=== PATIENT | female | born 1940 | race Caucasian/White ===

== ENCOUNTER 2017-12-09 10:57 | Inpatient (IN) | payer MEDICARE, OTHER, SELFPAY ==
[2017-12-09] VITALS (12 sets, daily range): BP systolic 110–177; BP diastolic 56–100; PULSE 50–83; RESP 17–24; TEMP 36.9–37.2; O2SAT 95–99; BMI 27.3; BMI 26.9; BMI 27.0
--- NOTE | 2017-12-09 11:24 | CT_ITS ---
STUDY: CT BRAIN WITHOUT CONTRAST REASON FOR EXAM: Female, 77 years old. Dizzy RADIATION DOSAGE (If Supplied By Facility): CTDIvol = ( 44.99 ) mGy, DLP = ( 779.24 ) mGycm TECHNIQUE: Transaxial CT imaging of the brain was performed without administration of intravenous contrast material. Sagittal and coronal images reformatted. Individualized dose optimization techniques were used for this CT. COMPARISON: None. FINDINGS: Normal soft tissue structures. Normal calvarium. Normal size ventricles and extra-axial spaces for the patient's age. Normal white matter tracts of the cerebral hemispheres. Normal basal ganglia and thalami. Normal brainstem. Normal cerebellum. There is no intracranial hemorrhage. There are no findings of an acute ischemic infarction. Normal visualized paranasal sinuses. CT/Brain/Head without Contrast IMPRESSION: No acute intracranial process. Mild age-appropriate atrophy. Electronically Signed: Gabo Coffey DO at 12:11 EST , Service support ,
--- NOTE | 2017-12-09 11:24 | EKG12_ITS ---
Test Reason : DIZZINESS Blood Pressure : / mmHG Vent. Rate : 052 BPM Atrial Rate : 052 BPM P-R Int : 132 ms QRS Dur : 080 ms QT Int : 420 ms P-R-T Axes : 033 007 020 degrees QTc Int : 390 ms Sinus bradycardia with Premature atrial complexes Otherwise normal ECG Confirmed by ESTELITA SHANKS, LETTY ([id number]), legal editor LUCINA BAÑUELOS ([id number] on 12/12/2017 10:38:03 AM Referred By: JOANN Confirmed By:LETTY CAPONE MD
[2017-12-09] MEDS: 0.9% Normal Saline 1,000 ML 150 ML IV (11:39)
[2017-12-09] MEDS: Meclizine 12.5 MG Tablet 25 MG PO (11:39)
[2017-12-09 11:43] LABS: Absolute Lymphocyte Count 1.88 X10^3/ul (0.83-4.51); Absolute Neutrophil Count 2.4 X10^3/uL (2.0-7.7); Basophil# 0.01 X10^3/uL; Basophil% 0.2 % (0-1); Eosinophils% 2.1 % (0-5); Hematocrit 41.4 % (37-47); Hemoglobin 13.4 g/dl (12.0-15.0); Lymphocyte # 1.88 X10^3/ul (4.0); Lymphocyte % 38.6 % (19-41); Mean Corp Hgb Conc 32.4 g/gl (32-36); Mean Corpuscular Hgb 25.8 pg (27.0-32.0); Mean Corpuscular Volume 79.6 fL (81-99); Mean Platelet Vol. 10.1 fl (6.2-12.0); Monocyte# 0.47 X10^3/uL; Monocyte% 9.7 % (0-10); Neutrophil # 2.41 X10^3/uL (2.7-7.7); Neutrophil % 49.4 % (47-70); POSITIVE COUNT NO; POSITIVE DIFFERENTIAL NO; POSITIVE MORPHOLOGY NO; Platelet Count 226 K/mm3 (150-450); RBC Distribution Width CV 14.4 % (11.6-14.6); RBC Distribution Width SD 41.9 fl (35.1-43.9); White Blood Count 4.9 K/mm3 (4.4-11.0)
[2017-12-09 12:06] LABS: Anion Gap 8 (5-15); BUN 11 mg/dL (7-18); BUN/Creat Ratio 12.5 RATIO (10-20); Calcium,Total 8.8 mg/dL (8.5-10.1); Chloride 106 mmol/L (98-107); Creatinine, Serum 0.88 mg/dL (0.55-1.02); EST Glomerular Filtration Rate 66 mL/min (>60); Est Glom Filt Rate - Afr Amer 80 mL/min (>60); Estimated Creatinine Clearance 43.58 ml/min; Glucose 97 mg/dL (70-110); Sodium Level 142 mmol/L (136-145)
[2017-12-09 12:15] LABS: Bacteria 0 SEEN /hpf (None Seen); Mucous, Urine 0 SEEN /hpf (<or=2+); Red Blood Cells-Urine 0 SEEN /hpf (0-5)
[2017-12-09 12:21] LABS: Color, Urine Yellow (Yellow); Glucose, Dipstick Normal (Normal); Ketone-Dipstick Negative (Negative); Leukocyte Esterase-Dipstick 25 /ul (Negative); Nitrite-Dipstick Negative (Negative); Occult Blood-Urine Negative /ul (Negative); Protein-Dipstick Negative (Negative); Specific Gravity, Urine 1.015 (1.002-1.030); Urine Bilirubin Dipstick Negative (Negative); Urine Clarity Clear (Clear); Urine Urobilinogen Normal (Normal)
--- NOTE | 2017-12-09 12:27 | ED.VISSUMM ---
- ER Visit Summary Date of Service: 12/09/17 Chief Complaint: [Dizziness] History of Present Illness: The patient is a 77 F [presents to the emergency department with complaint of dizziness and feeling off balance. Patient states that her symptoms started initially a week ago she had a brief episode that resolved relatively quickly. Yesterday she had another episode she states after getting out of a vehicle but then when she sat back down in the vehicle her symptoms resolved. This morning the patient again complains of a spinning sensation when standing and trying to walk and feeling very off balance. Patient denies any falls or head injuries. She denies any recent illness. Patient denies a headache.] Patient states at rest does not have much in the way of symptoms. Physical Examination: [Blood pressure 160/92, temp 97, heart rate 62, respiratory rate 17, pulse ox 90% on room air. HEENT-PERRLA, EOMI. Cranial nerves II through XII grossly intact. TMs clear. Mucous membranes moist. No adenopathy. Cardiovascular-regular rate and rhythm without murmur or ectopy Lungs-clear to auscultation, chest wall stable without crepitus or subcu emphysema Abdomen-normoactive bowel sounds, soft, nontender, no rebound or rigidity, no peritoneal signs. Neuro [id number] and heel marquez testing within normal limits, negative Romberg, negative pronator drift, fundi benign Extremities-intact ?4, normal range of motion, normal pulses, atraumatic] Test Results: [CT scan of the brain without contrast showed chronic involutional changes otherwise nothing acute. CBC with it was normal. Chemistries were normal. Orthostatics were negative. EKG showed a sinus rhythm with a ventricular rate of 52 bpm with occasional PACs.] Emergency Department Course and Treatment: [Patient received Antivert 25 mg p.o. Patient continues to complain of dizziness when standing and trying to walk she needs assistance to the restroom.] Treatment Plan: [Admit for further workup and evaluation of her dizziness and disequilibrium] Disposition: Admit [] Impression: [Dizziness-etiology uncertain Difficulty walking] This note was generated with [employer] dictation software. It may contain incorrect words, spelling, and punctuation that were not noted in review of the chart prior to signing ED Disposition - Plan for ED Patient: Chief Complaint: Dizziness Referrals: Ana Mcdonald MD [Primary Care Provider] -
[2017-12-09 12:38] LABS: Squamous Epithelial Cells - UA 0-5 SEEN /hpf (5-10); White Blood Cells 0-5 SEEN /hpf (0-5)
[2017-12-09 12:39] LABS: Amorphous Sediment 2+
--- NOTE | 2017-12-09 13:11 | PCM.HP.STD ---
Problem List (1) Vertigo Status: Acute (2) Hypertension Status: Chronic (3) Dyslipidemia Status: Chronic (4) Transient global amnesia Status: Chronic (5) Arthropathy of left hip Status: Acute History of Present Illness Date of Admission: 12/09/17 Chief Complaint: vertigo The patient is a 77 year old F acute onset of dizziness. It is worse when patient changes position. Patient states that she is not able to stand up or change position without having severe dizziness. Patient states that she has had this before as recently as yesterday but it waxes and wanes and resolve spontaneously but patient has endorse that she has had falls with this about every other month. Patient states that she has not sought treatment for this. Patient in the emergency room, had a head CT showed no acute process. Patient did receive meclizine but is still having the dizziness now. 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 Smoking Status: Never smoker Tobacco Use: Non-smoker Alcohol: None Drugs: None - *Family History Maternal History Items: Heart Disease Paternal History Items: Heart Disease Review of Systems Constitutional: Denies: Chills, Fever, Weight Change Eyes: Denies: Blurred vision, Double vision HEENT: Denies: Head Aches, Sinus Congestion, Sinus Drainage Cardiovascular: Denies: Chest Pain, Palpitations Respiratory: Denies: Cough, Shortness of breath at rest, Sputum production Gastrointestinal: Denies: Abdominal Pain, Nausea, Vomiting Genitourinary: Denies: Dysuria Musculoskeletal: Denies: Joint Pain, Joint Tenderness Skin: Denies: Rash, Wounds Neurological: Denies: Numbness, Tingling, Focal weakness Psychiatric: Denies: Anxiety, Depression, Homicidal Ideations, Suicidal Ideations Hematologic/ Lymphatic: Denies: Easy Bruising, Easy Bleeding, Hx of blood clot VTE Information - Inpt Only VTE Present on Admission: No VTE Pharm Prophylaxis ordered?: Yes Patient Problems: Active and Suspected Problems Vertigo (Acute) - Physical Exam General: Alert, Cooperative, No apparent distress HEENT: Atraumatic, PERRLA, EOMI, Normocephalic Oral: Moist Mucosa, No Gingival or Mucosal Lesions/ Ulcerations Neck: Negative Hepatojugular Reflux, No Nodes, Thyroid Normal Size and Texture Lungs: Clear to auscultation, Normal air movement, No rhonchi, No wheeze Cardiovascular: Regular rate, Regular Rhythm, Normal S1, Normal S2, No murmurs Abdomen: Bowel Sounds Present, Soft, Non Tender, Non-Distended, No Hepato-splenomegaly Extremities: No edema, No Calf Tenderness Skin: No rashes, No breakdown Musculoskeletal: No Tenderness to Palpation of Joints or Extremities, No Muscle Wasting Neurological: Cranial nerves II-XII grossly intact, Neuro grossly intact, Motor Exam 5/5 strength throughout Psych/Mental Status: Normal Affect, Appropriate Vital Signs Temp Pulse Resp BP Pulse Ox 37.2 C 53 L 18 169/83 H 99 12/09/17 10:58 12/09/17 13:05 12/09/17 13:05 12/09/17 13:05 12/09/17 13:05 Oxygen Delivery Method Room Air Weight: 70.1 kg Body Mass Index (BMI) 27.3 Laboratory Tests Past 24 Hrs 12/09/17 12/09/17 12/09/17 11:35 11:35 12:00 WBC 4.9 RBC 5.20 Hgb 13.4 Hct 41.4 MCV 79.6 L MCH 25.8 L MCHC 32.4 RDW 14.4 RDW Differential 41.9 Plt Count 226 MPV 10.1 Immature Gran % (Auto) 0.000 Neut % (Auto) 49.4 Lymph % (Auto) 38.6 Sandoval % (Auto) 9.7 Eos % (Auto) 2.1 Baso % (Auto) 0.2 Absolute Neuts (auto) 2.4 Absolute Lymphs (auto) 1.88 Total Counted Not Reportable Sodium 142 Potassium 4.0 Chloride 106 Carbon Dioxide 28.0 Anion Gap 8 BUN 11 Creatinine 0.88 Estim Creat Clear Calc 43.58 Est GFR (MDRD) Af Amer 80 Est GFR (MDRD) Non-Af 66 BUN/Creatinine Ratio 12.5 Glucose 97 Calcium 8.8 Troponin I < 0.02 Urine Color Yellow Urine Clarity Clear Urine pH 8.0 Ur Specific [place] 1.015 Urine Protein Negative Urine Glucose (UA) Normal Urine Ketones Negative Urine Occult Blood Negative Urine Nitrite Negative Urine Bilirubin Negative Urine Urobilinogen Normal Ur Leukocyte Esterase 25 H Urine RBC 0 SEEN Urine WBC 0-5 SEEN Ur Squamous Epith Cells 0-5 SEEN Amorphous Sediment 2+ Urine Bacteria 0 SEEN Urine Mucus 0 SEEN EKG reviewed and showed normal sinus rhythm without any acute changes. Clinical Impression(s) from Imaging Studies Brain CT 12/09/17 11:24 IMPRESSION: No acute intracranial process. Mild age-appropriate atrophy. Electronically Signed: Gabo Coffey DO at 12:11 EST , Service support , Assessment/Plan Active and Suspected Problems Vertigo (Acute) 1. Vertigo I suspect that this is more BPPV then a posterior circulation stroke. But given its relative frequency for this patient has not been fully evaluated patient has had falls I think it prudent to rule out a stroke. Patient have an MRI of the brain, MRA of the head neck and an echocardiogram. The emergency room was concern about posterior circulation stroke but the patient will receive meclizine. Patient's NIH is 0. I will start the patient on aspirin empirically. 2. Hypertension Patient never been diagnosed with hypertension but her blood pressures been in the 170s-190s since she has been in the emergency room. Given the potential for stroke, will not aggressively treat unless his systolic exceeds over 180. 3. Suspected asthma Patient states that she gets short of breath when she is exposed to smoke. Patient has a listed allergy but it sounds like it is more of a bronchial provocation. Patient may benefit from as needed albuterol. 4 DVT prophylaxis with low migrate heparin. Discussed with patient's daughter at bedside. Code Visit Inpatient E&M: 19211 Init Hosp L3
--- NOTE | 2017-12-09 13:16 | HP.PCM_ITS ---
Problem List (1) Vertigo Status: Acute (2) Hypertension Status: Chronic (3) Dyslipidemia Status: Chronic (4) Transient global amnesia Status: Chronic (5) Arthropathy of left hip Status: Acute History of Present Illness Date of Admission: 12/09/17 Chief Complaint: vertigo The patient is a 77 year old F acute onset of dizziness. It is worse when patient changes position. Patient states that she is not able to stand up or change position without having severe dizziness. Patient states that she has had this before as recently as yesterday but it waxes and wanes and resolve spontaneously but patient has endorse that she has had falls with this about every other month. Patient states that she has not sought treatment for this. Patient in the emergency room, had a head CT showed no acute process. Patient did receive meclizine but is still having the dizziness now. [] Past Medical History Past Medical History (Chronic Problems): Chronic Problems Dyslipidemia (Chronic) Transient global amnesia (Chronic) Hypertension (Chronic) Allergies cigarette smoke Allergy (Verified 12/09/17 10:58) AIRWAY TIGHTNESS mepivacaine Allergy (Verified 12/09/17 10:58) AMNESIA Penicillins Allergy (Verified 12/09/17 10:58) Unknown procainamide Allergy (Verified 12/09/17 10:58) Unknown Home Medications: Ambulatory Orders Medication Instructions Recorded NK [NK] 12/09/17 Surgical History: total hip arthroplasty, - - facial surgery Psychiatric History: No pertinent psych hx BAG CHECKER History: No pertinent BAG CHECKER history Smoking Status: Never smoker Tobacco Use: Non-smoker Alcohol: None Drugs: None - *Family History Maternal History Items: Heart Disease Paternal History Items: Heart Disease Review of Systems Constitutional: Denies: Chills, Fever, Weight Change Eyes: Denies: Blurred vision, Double vision HEENT: Denies: Head Aches, Sinus Congestion, Sinus Drainage Cardiovascular: Denies: Chest Pain, Palpitations Respiratory: Denies: Cough, Shortness of breath at rest, Sputum production Gastrointestinal: Denies: Abdominal Pain, Nausea, Vomiting Genitourinary: Denies: Dysuria Musculoskeletal: Denies: Joint Pain, Joint Tenderness Skin: Denies: Rash, Wounds Neurological: Denies: Numbness, Tingling, Focal weakness Psychiatric: Denies: Anxiety, Depression, Homicidal Ideations, Suicidal Ideations Hematologic/ Lymphatic: Denies: Easy Bruising, Easy Bleeding, Hx of blood clot VTE Information - Inpt Only VTE Present on Admission: No VTE Pharm Prophylaxis ordered?: Yes Patient Problems: Active and Suspected Problems Vertigo (Acute) - Physical Exam General: Alert, Cooperative, No apparent distress HEENT: Atraumatic, PERRLA, EOMI, Normocephalic Oral: Moist Mucosa, No Gingival or Mucosal Lesions/ Ulcerations Neck: Negative Hepatojugular Reflux, No Nodes, Thyroid Normal Size and Texture Lungs: Clear to auscultation, Normal air movement, No rhonchi, No wheeze Cardiovascular: Regular rate, Regular Rhythm, Normal S1, Normal S2, No murmurs Abdomen: Bowel Sounds Present, Soft, Non Tender, Non-Distended, No Hepato- splenomegaly Extremities: No edema, No Calf Tenderness Skin: No rashes, No breakdown Musculoskeletal: No Tenderness to Palpation of Joints or Extremities, No Muscle Wasting Neurological: Cranial nerves II-XII grossly intact, Neuro grossly intact, Motor Exam 5/5 strength throughout Psych/Mental Status: Normal Affect, Appropriate Vital Signs Temp Pulse Resp BP Pulse Ox 37.2 C 53 L 18 169/83 H 99 12/09/17 10:58 12/09/17 13:05 12/09/17 13:05 12/09/17 13:05 12/09/17 13:05 Oxygen Delivery Method Room Air Weight: 70.1 kg Body Mass Index (BMI) 27.3 Laboratory Tests Past 24 Hrs 12/09/17 12/09/17 12/09/17 11:35 11:35 12:00 WBC 4.9 RBC 5.20 Hgb 13.4 Hct 41.4 MCV 79.6 L MCH 25.8 L MCHC 32.4 RDW 14.4 RDW Differential 41.9 Plt Count 226 MPV 10.1 Immature Gran % (Auto) 0.000 Neut % (Auto) 49.4 Lymph % (Auto) 38.6 Nicholas % (Auto) 9.7 Eos % (Auto) 2.1 Baso % (Auto) 0.2 Absolute Neuts (auto) 2.4 Absolute Lymphs (auto) 1.88 Total Counted Not Reportable Sodium 142 Potassium 4.0 Chloride 106 Carbon Dioxide 28.0 Anion Gap 8 BUN 11 Creatinine 0.88 Estim Creat Clear Calc 43.58 Est GFR (MDRD) Af Amer 80 Est GFR (MDRD) Non-Af 66 BUN/Creatinine Ratio 12.5 Glucose 97 Calcium 8.8 Troponin I < 0.02 Urine Color Yellow Urine Clarity Clear Urine pH 8.0 Ur Specific [place] 1.015 Urine Protein Negative Urine Glucose (UA) Normal Urine Ketones Negative Urine Occult Blood Negative Urine Nitrite Negative Urine Bilirubin Negative Urine Urobilinogen Normal Ur Leukocyte Esterase 25 H Urine RBC 0 SEEN Urine WBC 0-5 SEEN Ur Squamous Epith Cells 0-5 SEEN Amorphous Sediment 2+ Urine Bacteria 0 SEEN Urine Mucus 0 SEEN EKG reviewed and showed normal sinus rhythm without any acute changes. Clinical Impression(s) from Imaging Studies Brain CT 12/09/17 11:24 IMPRESSION: No acute intracranial process. Mild age-appropriate atrophy. Electronically Signed: Gabo Coffey DO at 12:11 EST , Service support , Assessment/Plan Active and Suspected Problems Vertigo (Acute) 1. Vertigo I suspect that this is more BPPV then a posterior circulation stroke. But given its relative frequency for this patient has not been fully evaluated patient has had falls I think it prudent to rule out a stroke. Patient have an MRI of the brain, MRA of the head neck and an echocardiogram. The emergency room was concern about posterior circulation stroke but the patient will receive meclizine. Patient's NIH is 0. I will start the patient on aspirin empirically. 2. Hypertension Patient never been diagnosed with hypertension but her blood pressures been in the 170s-190s since she has been in the emergency room. Given the potential for stroke, will not aggressively treat unless his systolic exceeds over 180. 3. Suspected asthma Patient states that she gets short of breath when she is exposed to smoke. Patient has a listed allergy but it sounds like it is more of a bronchial provocation. Patient may benefit from as needed albuterol. 4 DVT prophylaxis with low migrate heparin. Discussed with patient's daughter at bedside. Code Visit Inpatient E&M: 80635 Init Hosp L3
--- NOTE | 2017-12-09 14:39 | MRI_ITS ---
STUDY: MRA NECK WITH AND WITHOUT CONTRAST REASON FOR EXAM: Female, 77 years old. Vertigo that started yesterday. TECHNIQUE: 3-D [id number] (TOF) imaging was performed in an 1.5 T MRI scanner. 7 ml of Gadavist was administered for the contrast enhanced images. Several images are limited by patient motion. COMPARISON: None. FINDINGS: RIGHT CAROTID ARTERIES: Normal right common carotid artery (CCA). There is mild atherosclerotic plaque formation with minimal narrowing of the right carotid bulb. Normal origin of the right internal carotid (ICA) artery without a hemodynamically significant stenosis. Normal visualized cervical portion of the right internal carotid artery. Normal origin of the right external carotid artery (ECA). LEFT CAROTID ARTERIES: Normal left common carotid artery (CCA). There is mild atherosclerotic plaque formation with minimal narrowing of the left carotid bulb. Normal origin of the left internal carotid (ICA) artery without a hemodynamically significant stenosis. Normal visualized cervical portion of the left internal carotid artery. Normal origin of the left external carotid artery (ECA). VERTEBRAL ARTERIES: Normal antegrade flow within the bilateral vertebral artery without a hemodynamically significant stenosis. MRI/MRA Neck WITH and W/O Contrast IMPRESSION: No MRA evidence for hemodynamically significant stenosis. Electronically Signed: Caroline Ferro MD at 11:13 EST , Service support ,
[2017-12-09] MEDS: Aspirin 325 MG Tablet PO (17:31)
[2017-12-10] VITALS (7 sets, daily range): BP systolic 105–157; BP diastolic 60–83; PULSE 50–86; RESP 16–18; TEMP 36.6–37.1; O2SAT 95–98; BMI 26.9
[2017-12-10 06:32] LABS: Cholesterol 233 mg/dL (200); High Density Lipoprotein 65 mg/dL; Triglycerides 93 mg/dL; Very Low Density Lipoprotein 19 mg/dL (5-40)
[2017-12-10] MEDS: Aspirin 81 MG TAB.CHEW PO (07:49)
[2017-12-10] MEDS: Enoxaparin 40 MG/0.4 ML Syringe SC (07:49)
--- NOTE | 2017-12-10 10:00 | PCM.PN.HOSP ---
Patient Problems: Active and Suspected Problems Vertigo (Acute) Subjective: Still with vertigo but much improved. Patient states she has been able to get up to go to the bathroom but does have to hold onto the valle slightly. Vitals/I&O's: Vital Signs Temp Pulse Resp BP Pulse Ox 36.9 C 60 18 157/83 H 98 12/10/17 07:35 12/10/17 07:40 12/10/17 07:40 12/10/17 07:35 12/10/17 07:40 Oxygen Delivery Method Room Air Weight: 69.1 kg Body Mass Index (BMI) 26.9 Intake and Output for Last 24 Hours 12/08/17 12/09/17 12/10/17 23:59 23:59 23:59 Intake Total 840 / 840 240 / 240 Balance 840 / 840 240 / 240 General: Alert, No apparent distress HEENT: Atraumatic, Normocephalic Neck: No Nodes, Thyroid Normal Size and Texture Lungs: Clear to auscultation, Normal air movement, No rhonchi, No wheeze Cardiovascular: Regular rate, Regular Rhythm, Normal S1, Normal S2, No murmurs Abdomen: Bowel Sounds Present, Soft, Non Tender, Non-Distended, No Hepato-splenomegaly Extremities: No edema, No Calf Tenderness Psych/Mental Status: Normal Affect, Appropriate Laboratory Results 12/10/17 05:05: Triglycerides 93, Cholesterol 233 H, LDL Cholesterol 149 H, VLDL Cholesterol 19, HDL Cholesterol 65 Current Medications Acetaminophen (Tylenol) 650 mg PO Q4H PRN PRN PRN Reason: Headache/Temp>99F Acetaminophen (Tylenol) 650 mg RECTAL Q4H PRN PRN PRN Reason: Headache/Temp>99F Acetaminophen (Tylenol Liquid) 650 mg NG Q4H PRN PRN PRN Reason: Headache/Temp>99F Aspirin (Aspirin, Baby) 81 mg PO DAILY@0800 [facility] Last Admin: 12/10/17 07:49 Dose: 81 mg Enoxaparin Sodium (Lovenox) 40 mg SC DAILY@1000 [facility] Last Admin: 12/10/17 07:49 Dose: 40 mg Hydralazine HCl (Apresoline) 10 mg IV Q4H PRN PRN PRN Reason: sbp >180 Magnesium Hydroxide (Milk Of Magnesia) 30 ml PO DAILY PRN PRN Reason: Constipation Meclizine HCl (Antivert) 12.5 mg PO 4X/DAY PRN PRN PRN Reason: Vertigo Sodium Chloride () 5 - 30 ml IV UD PRN PRN Reason: SALINE FLUSH Assessment/Plan Active and Suspected Problems Vertigo (Acute) 1. Vertigo Improved I suspect that this is more BPPV then a posterior circulation stroke. But given its relative frequency for this patient has not been fully evaluated patient has had falls I think it prudent to rule out a stroke. Patient have an MRI of the brain, MRA of the head neck and an echocardiogram. The emergency room was concern about posterior circulation stroke but the patient will receive meclizine. Patient's NIH is 0. I will start the patient on aspirin empirically. 2. Hypertension Blood pressure is very labile going from the low 100s-170s last night. Continue to monitor for now patient never been diagnosed with hypertension but her blood pressures been in the 170s-190s since she has been in the emergency room. Given the potential for stroke, will not aggressively treat unless his systolic exceeds over 180. 3. Suspected asthma Patient states that she gets short of breath when she is exposed to smoke. Patient has a listed allergy but it sounds like it is more of a bronchial provocation. Patient may benefit from as needed albuterol. 4 DVT prophylaxis with low migrate heparin. Discussed with patient's daughter at bedside. Code Visit Inpatient E&M: 17830 Subs Hosp L2
--- NOTE | 2017-12-10 14:12 | PCM.DC ---
- Discharge Diagnoses Current Active Problems: Current Active and Chronic Problems Vertigo (Acute) Hypertension (Chronic) You will use the following diet at home:: No restrictions Your food should be the consistency of: Regular Discharge Activity: Return to Normal Activity Call your doctor if you observe: - - worsening dizziness Allergies/Adverse Reactions: Allergies cigarette smoke Allergy (Verified 12/09/17 10:58) AIRWAY TIGHTNESS mepivacaine Allergy (Verified 12/09/17 10:58) AMNESIA Penicillins Allergy (Verified 12/09/17 10:58) Unknown procainamide Allergy (Verified 12/09/17 10:58) Unknown Medications to take at Discharge Calcium Carbonate [Tums] 2 tab DAILY PRN PRN 12/09/17 Albuterol Inhaler [Ventolin Hfa] 1 - 2 puff INHALATION Q4H PRN PRN #1 inhaler 12/10/17 Meclizine HCl [Antivert] 12.5 mg PO 4X/DAY PRN PRN #30 tab 12/10/17 The following prescriptions were given: Albuterol Inhaler [Ventolin Hfa] 1 - 2 puff INHALATION Q4H PRN PRN #1 inhaler PRN Reason: Shortness Of Breath Meclizine HCl [Antivert] 12.5 mg PO 4X/DAY PRN PRN #30 tab PRN Reason: Vertigo Orders to be completed after discharge: Physical Therapy Evaluation Time Frame: 1 Week, Location: None Selected Primary Care Physician: Ana Mcdonald MD [Primary Care Provider] - Within 2 Weeks Proposed Discharge Date: 12/10/17
--- NOTE | 2017-12-10 14:13 | PCM.DC.SUM ---
Discharge Date and Diagnosis - Problem List Patient Problems: Active and Suspected Problems Vertigo (Acute) Date of Admission: 12/09/17 Date of Discharge: 12/10/17 - Primary Discharge Diagnosis Active and Suspected Problems Vertigo (Acute) - Secondary Discharge Diagnosis Chronic Problems Dyslipidemia (Chronic) Transient global amnesia (Chronic) Hypertension (Chronic) Hospital Course and Treatment Imaging Results: 12/10/17 14:39 Brain W/WO Contrast [MRI] Stat MRA Head ONLY without Contrast [MRI] Stat Clinical Impression(s) from Imaging Studies Brain CT 12/09/17 11:24 IMPRESSION: No acute intracranial process. Mild age-appropriate atrophy. Electronically Signed: Gabo Coffey DO at 12:11 EST , Service support , Neck MRA 12/09/17 14:39 IMPRESSION: No MRA evidence for hemodynamically significant stenosis. Electronically Signed: Caroline Ferro MD at 11:13 EST , Service support , Brain MRI 12/10/17 14:39 IMPRESSION: 1. Involutional changes of the brain, as described above. 2. No MR evidence for acute infarct. Electronically Signed: Caroline Ferro MD at 13:17 EST , Service support , Head MRA 12/10/17 14:39 IMPRESSION: No MRA evidence for hemodynamically significant stenosis or aneurysm. Electronically Signed: Caroline Ferro MD at 11:16 EST , Service support , Operations: None, - - TURBT Procedures: None Summary of Care Provided: The patient is a 77 year old F José Miguel with acute onset of vertigo. Patient has had episodes like this in the past and this is more severe. Coyle to be peripheral but given the recurrent nature of it felt prudent to rule out a posterior circulation stroke. Patient was admitted and MRI was negative. No evidence of any strokes the patient will continue with meclizine as needed but patient advised that this will not include correct vertigo. Patient also advised to follow-up with his goal therapy for vestibular rehab. Patient states that she will do so and also given patient a prescription for albuterol. Patient sounds like she has at least reactive airway disease or asthma. Patient states that she gets short of breath whenever she is exposed to smoke or perfume. Also recommend patient follow-up with pulmonology to undergo further testing to see if he does have some underlying asthma. [] Discharge Diet: No Restrictions Discharge Activity: Return to Normal Activity Call your doctor if you observe: - - worsening dizziness Home Medications: Medications to take at Discharge Calcium Carbonate [Tums] 2 tab DAILY PRN PRN 12/09/17 Albuterol Inhaler [Ventolin Hfa] 1 - 2 puff INHALATION Q4H PRN PRN #1 inhaler 12/10/17 Meclizine HCl [Antivert] 12.5 mg PO 4X/DAY PRN PRN #30 tab 12/10/17 Following Prescrptions Were Given to Patient: Albuterol Inhaler [Ventolin Hfa] 1 - 2 puff INHALATION Q4H PRN PRN #1 inhaler PRN Reason: Shortness Of Breath Meclizine HCl [Antivert] 12.5 mg PO 4X/DAY PRN PRN #30 tab PRN Reason: Vertigo Other Amb Orders: Physical Therapy Evaluation Time Frame: 1 Week, Location: None Selected Primary Care Physician: Ana Mcdonald MD [Primary Care Provider] - Within 2 Weeks Disposition: Home Minutes spent on discharge:: 32 Patient Condition:: Good Meaningful Use Info Meaningful Use Diagnoses (Choose all that apply): None applicable Code Visit OBSV E&M: 89763 Observation care discharge
--- NOTE | 2017-12-10 14:39 | MRI_ITS ---
STUDY: MRI BRAIN WITH AND WITHOUT CONTRAST REASON FOR EXAM: Female, 77 years old. Vertigo starting yesterday. TECHNIQUE: Standardized multiplanar fat and water weighted pulse sequences were obtained. 7 ml of Gadavist contrast material was administered intravenously for the contrast portion of the examination. COMPARISON: CT of the head dated December 09, 2017. FINDINGS: There is mild cerebral atrophy with widening of the extra-axial spaces and ventricular dilatation. Normal white matter tracts of the supratentorial brain. There is no evidence for recent intracranial ischemia or other cause of cytotoxic edema on diffusion weighted imaging (DWI). Normal T2* images of the brain without demonstrated susceptibility artifact. There is no demonstrated hemosiderin stain. There are prominent perivascular spaces (PVS) involving the basal ganglia. Normal thalami. There is no extra-axial fluid accumulation. Normal flow voids within the major intracranial circulation suggesting patency by spin echo criteria. Normal venous enhancement. There is no enhancing intra-axial or extra-axial abnormality. Normal sella turcica, pituitary gland, infundibular stalk, optic chiasm and hypothalamus. Normal tectal plate and pineal gland. Normal midbrain, pamela and medulla. There are mild involutional changes of the cerebellum. There are large basal cisterns. Normal bilateral temporal bones. Normal bilateral internal auditory canals. No demonstrated orbital abnormality, within the constraints of a routine brain study. There is mucoperiosteal inflammatory disease of the paranasal sinuses consistent with mild chronic sinusitis. Normal calvarium and skull base. Normal visualized soft tissue structures. Normal visualized upper cervical spine. MRI/Brain W/WO Contrast IMPRESSION: 1. Involutional changes of the brain, as described above. 2. No MR evidence for acute infarct. Electronically Signed: Caroline Ferro MD at 13:17 EST , Service support ,
--- NOTE | 2017-12-10 14:39 | MRI_ITS ---
STUDY: MRA OF THE HEAD WITHOUT CONTRAST REASON FOR EXAM: Female, 77 years old. Vertigo starting yesterday. TECHNIQUE: 3-D [id number] (TOF) imaging was performed with MIPs. The study was performed unenhanced. COMPARISON: MRI the brain dated October 11 2012. FINDINGS: Normal bilateral petrous carotid arteries. There is elongation and tortuosity of the right cavernous carotid artery, without a demonstrated hemodynamically significant stenosis. There is elongation and tortuosity of the left cavernous carotid artery, without a demonstrated hemodynamically significant stenosis. Normal right A1 segments of the anterior cerebral artery. Normal left A1 segments of the anterior cerebral artery. Normal intact anterior communicating artery (ACOM). Normal bilateral A2 segments of the anterior cerebral arteries. There is irregularity of the right M1 and M2 branches with minimal luminal narrowing, suggesting atherosclerotic plaque formation, without an occlusion. There is irregularity of the left M1 and M2 branches with minimal luminal narrowing, suggesting atherosclerotic plaque formation, without an occlusion. There is non-visualization of the right posterior communicating artery (PCOM). There is non-visualization of the left posterior communicating artery (PCOM). Normal bilateral vertebral arteries. Normal basilar artery with a normal basilar bifurcation. The visualized bilateral superior cerebellar (SCA) arteries are normal. Normal bilateral P1, P2 and visualized P3 segments of the posterior cerebral arteries. There is no demonstrated aneurysm of the [place]. There is no major vessel occlusion or hemodynamically significant stenosis. There is no demonstrated abnormality of the visualized brain. MRI/MRA Head ONLY without Contrast IMPRESSION: No MRA evidence for hemodynamically significant stenosis or aneurysm. Electronically Signed: Caroline Ferro MD at 11:16 EST , Service support ,
== END 2017-12-10 14:55 | disposition home or self-care (01) | DRG 149 ==
LOC: ED 11:31 → PCU 13:40
PROVIDERS: Emergency Provider Emergency Medicine; Family Provider Internal Medicine; PCP Internal Medicine
DX: R42 Dizziness and giddiness (principal); E78.5 Hyperlipidemia, unspecified; I10 Essential (primary) hypertension; G45.4 Transient global amnesia; J45.909 Unspecified asthma, uncomplicated
CPT/HCPCS: 70450; 70544; 70549; 70553; 80048; 80061; 81001; 84484; 85025; 93005; 97165; 99284; A9585; A4216

== ENCOUNTER 2018-02-28 09:34 | Emergency (ER) | payer MEDICARE, OTHER, SELFPAY ==
[2018-02-28 09:35] VITALS: BP 162/83; PULSE 64; RESP 17; TEMP 36.4; O2SAT 99; BMI 29.0
--- NOTE | 2018-02-28 10:07 | EKG12_ITS ---
Test Reason : CP Blood Pressure : / mmHG Vent. Rate : 060 BPM Atrial Rate : 066 BPM P-R Int : 136 ms QRS Dur : 080 ms QT Int : 398 ms P-R-T Axes : 011 011 020 degrees QTc Int : 398 ms Sinus rhythm with Premature atrial complexes Otherwise normal ECG Confirmed by ESTELITA SHANKS, LETTY ([id number]), offline editor LUCINA BAÑUELOS ([id number]) on 03/06/2018 3:03:30 PM Referred By: URVASHI Confirmed By:LETTY CAPONE MD
[2018-02-28 10:12] VITALS: O2SAT 98
--- NOTE | 2018-02-28 10:14 | RAD_ITS ---
STUDY: X-RAY CHEST REASON FOR EXAM: Female, 77 years old. Chest pain and shortness of breath. TECHNIQUE: Single AP portable view of the chest. COMPARISON: Comparison is made with prior study dated June 28, 2016. FINDINGS: EKG electrodes are seen. Mild elevation of the right hemidiaphragm. There is no demonstrated pleural abnormality. Normal size heart. Normal mediastinum and asael. Normal visualized pulmonary arteries. There is atherosclerotic tortuosity of the aortic arch and descending thoracic aorta. Normal visualized thoracic spine. Normal visualized ribs, clavicles, and shoulders. There is no demonstrated abnormality of the visualized soft tissue structures of the upper abdomen. RAD/Chest 1 View (Portable) IMPRESSION: No acute abnormality is seen. Electronically Signed: Anthony Diez MD at 10:32 EDT Tel [phone], Service support ,
[2018-02-28] MEDS: Aspirin 81 MG TAB.CHEW 324 MG PO (10:16)
[2018-02-28] MEDS: 0.9% Normal Saline 1,000 ML 150 ML IV (10:19)
[2018-02-28 10:20] LABS: Absolute Lymphocyte Count 1.65 X10^3/ul (0.83-4.51); Absolute Neutrophil Count 3.3 X10^3/uL (2.0-7.7); Basophil# 0.01 X10^3/uL; Basophil% 0.2 % (0-1); Eosinophil# 0.07 X10^3/uL; Eosinophils% 1.3 % (0-5); Hemoglobin 13.9 g/dl (12.0-15.0); Lymphocyte # 1.65 X10^3/ul (4.0); Lymphocyte % 30.7 % (19-41); Mean Corp Hgb Conc 32.3 g/gl (32-36); Mean Corpuscular Hgb 25.4 pg (27.0-32.0); Mean Corpuscular Volume 78.6 fL (81-99); Mean Platelet Vol. 10.2 fl (6.2-12.0); Monocyte# 0.37 X10^3/uL; Monocyte% 6.9 % (0-10); Neutrophil # 3.28 X10^3/uL (2.7-7.7); Neutrophil % 60.9 % (47-70); Platelet Count 243 K/mm3 (150-450); RBC Distribution Width CV 14.9 % (11.6-14.6); Red Blood Count 5.47 M/mm3 (4.2-5.4); White Blood Count 5.4 K/mm3 (4.4-11.0)
[2018-02-28 10:21] LABS: POSITIVE COUNT NO; POSITIVE DIFFERENTIAL NO; POSITIVE MORPHOLOGY NO
[2018-02-28 10:34] LABS: Anion Gap 7 (5-15); BUN 18 mg/dL (7-18); BUN/Creat Ratio 19.7 RATIO (10-20); Calcium,Total 8.8 mg/dL (8.5-10.1); Chloride 107 mmol/L (98-107); Creatinine, Serum 0.92 mg/dL (0.55-1.02); EST Glomerular Filtration Rate 63 mL/min (>60); Est Glom Filt Rate - Afr Amer 76 mL/min (>60); Estimated Creatinine Clearance 39.86 ml/min; Glucose 102 mg/dL (74-106); Potassium 4.1 mmol/L (3.5-5.1); Sodium Level 140 mmol/L (136-145)
[2018-02-28 10:52] VITALS: BP 160/84; PULSE 55; RESP 21; O2SAT 98
--- NOTE | 2018-02-28 11:31 | CASEMGMT ---
Social Work Note Referral from bedside RN, Steven Campbell, that pt has stress/anxiety related to caregiver fatigue. Introduced self and role at [facility]. The pt reports that she lives with her spouse and denies any access issues of her own. 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 States that he ambulates and is able to dress himself, but kept me up last night and the night before. Pt expresses fatigue with having to monitor him and ensure he does not leave the house at night. Pt's daughter is also present and they both voice that they do not want him placed and want him to remain in the home. Do not identify any need for skilled services through home health, but educate them both to private duty aides to provide some respite for the pt. Both express understanding and voice that their concern is sticky fingers. Provide with a list of area aide services agencies and approximate hourly pricing. Review hospice vs. palliative care services and is agreeable to having placed palliative care service referral with [facility] to meet with the pt and her spouse at home. Reports that the pt has COPD and dementia and his PCP is Dr. Blank. Pt denies any further needs at this time, and is made aware that SW is available if needs arise. Made referral to ZOE [place] with [facility] for palliative care referral. They will contact the this date. Susana Bowie, SOCIOLOGY ADJUNCT INSTRUCTOR, PEDICURIST
--- NOTE | 2018-02-28 11:47 | ED.VISSUMM ---
- ER Visit Summary Date of Service: 02/28/18 Chief Complaint: Chest pain History of Present Illness: The patient is a 77 F who reports a 10 minute episode of chest pain earlier this morning. Pain is resolved at this time. Patient has had increased stress lately as she is taking care of her who has dementia. She states that she has not had much sleep the last 2 days has felt very anxious. She had a 10 minute episode of sharp pain in the epigastric/lower sternal area. She did not feel short of breath. She did not break out in a sweat. Patient denies significant family history or personal history of coronary artery disease. Physical Examination: Vital signs are unremarkable. Head neck examination is normal. Heart is regular rate and rhythm. Lung sounds are clear. Abdomen is soft with mild epigastric tenderness to palpation. There is no guarding or rebound. Lower external examination was no calf tenderness or edema. Test Results: Portable chest x-ray is unremarkable. EKG is sinus at 60 with occasional PACs. No sign of acute ischemia. CBC and chemistry studies are normal. Troponin is less than 0.02. Emergency Department Course and Treatment: Patient was given aspirin along with a dose of IV Pepcid. My suspicion is that the patient is having worsening symptoms of her reflux disease. She states she does have a prescription medication at home but has not been taking it. She will start taking this daily. She will be discharged home with daughter. Treatment Plan: [] Disposition: Discharge Impression: 1. Atypical chest pain 2. GERD This note was generated with [employer] dictation software. It may contain incorrect words, spelling, and punctuation that were not noted in review of the chart prior to signing ED Disposition - Plan for ED Patient: Chief Complaint: Chest Pain Referrals: Ana Mcdonald MD [Primary Care Provider] -
--- NOTE | 2018-02-28 11:50 | ED.DEP ---
ED Disposition - Plan for ED Patient: Disposition: Home or Assisted Living Chief Complaint: Chest Pain Instructions: ED Chest Pain Atypical Unkn Cause, ED GERD Referrals: Ana Mcdonald MD [Primary Care Provider] - 1-2 Weeks
[2018-02-28 12:02] VITALS: BP 168/72; PULSE 71; RESP 16; O2SAT 98
== END 2018-02-28 12:04 | disposition home or self-care (01) ==
PROVIDERS: Emergency Provider Emergency Medicine; Family Provider Internal Medicine; PCP Internal Medicine
DX: R07.89 Other chest pain (principal); K21.9 Gastro-esophageal reflux disease without esophagitis; J45.909 Unspecified asthma, uncomplicated; Z85.51 Personal history of malignant neoplasm of bladder; Z79.51 Long term (current) use of inhaled steroids
CPT/HCPCS: 71045; 80048; 84484; 85025; 93005; 96361; 96365; 99285; J7030; A4216; J3490

== ENCOUNTER → 2018-03-12 13:48 | Outpatient (CLI) | payer MEDICARE, OTHER, SELFPAY ==
--- NOTE | 2018-03-12 14:00 | RAD_ITS ---
STUDY: X-RAY - ABDOMEN/PELVIS REASON FOR EXAM: Female, 77 years old. Flank pain x1 day TECHNIQUE: AP supine and upright views of the abdomen and pelvis. COMPARISON: None. FINDINGS: Normal visualized lung bases. There is a moderate amount of colonic fecal material. There is no demonstrated free abdominal air. The visualized liver, spleen and kidneys are grossly normal in size and morphology. Normal soft tissue structures. There are diffuse degenerative changes of the visualized lumbar spine. Bilateral hip replacements demonstrate anatomic alignment. RAD/Abdomen Single View IMPRESSION: No acute findings, constipation Electronically Signed: Norman Rahman MD at 14:32 EDT , Service support ,
== END ==
PROVIDERS: Family Provider Internal Medicine; PCP Internal Medicine; Visit Provider Urology
DX: C67.9 Malignant neoplasm of bladder, unspecified (principal); R10.9 Unspecified abdominal pain
CPT/HCPCS: 74018

== ENCOUNTER 2022-10-16 11:08 | Emergency (ER) | payer MEDICARE, OTHER, SELFPAY ==
[2022-10-16 11:08] VITALS: BP 178/82; PULSE 59; RESP 18; TEMP 36.4; O2SAT 100; BMI 25.5
[2022-10-16 11:09] VITALS: BP 178/82; PULSE 59; RESP 18; TEMP 36.3; O2SAT 100
--- NOTE | 2022-10-16 11:11 | EKG12_ITS ---
Test Reason : stroke Blood Pressure : / mmHG Vent. Rate : 078 BPM Atrial Rate : 078 BPM P-R Int : 136 ms QRS Dur : 078 ms QT Int : 398 ms P-R-T Axes : 082 022 031 degrees QTc Int : 453 ms Sinus rhythm with Premature supraventricular complexes Nonspecific ST and T wave abnormality Abnormal ECG Confirmed by SUNDAY SHANSK, FOREST ([id number]), editorial cartoonist FRANCI JOHNSON ([id number]) on 10/17/2022 10:04:38 AM Referred By: Confirmed By:FOREST BRAND MD
--- NOTE | 2022-10-16 11:11 | RAD_ITS ---
INDICATION: Neuro deficit, acute, stroke suspected EXAMINATION/TECHNIQUE: X-RAY - XR Chest 1 View COMPARISON: February 28, 2018 FINDINGS: LINES/DEVICES: None. LUNGS: No consolidation, edema or effusion. No pneumothorax. MEDIASTINUM AND CARDIOVASCULAR STRUCTURES: Cardiac silhouette not enlarged. Central airways and mediastinal contour are unremarkable. BONES AND SOFT TISSUES: Unremarkable. RAD/Chest 1 View IMPRESSION: No radiographic evidence of acute cardiopulmonary disease. Electronically Signed: Kristi Schmidt MD at 12:59 EST ,
--- NOTE | 2022-10-16 11:11 | CT_ITS ---
We are attempting to reach an attending provider to discuss findings. An addendum with communication details will be sent when the communication is complete. EXAM: CT HEAD WITHOUT INTRAVENOUS CONTRAST CLINICAL INDICATION: Neuro deficit, acute, stroke suspected TECHNIQUE: Multiple axial images were obtained of the head without intravenous contrast. This CT exam was performed using one or more of the following dose reduction techniques: automated exposure control, adjustment of the mA and/or kV according to patient size, and/or use of iterative reconstruction technique. This report was created using [employer] report SCV[employer] technology. RADIATION DOSE: CTDIvol = 47.06. mGy, DLP = 872.68 mGy-cm COMPARISON: CT head without contrast 12/09/2017. FINDINGS: BRAIN AND EXTRA-AXIAL SPACES: Abnormal edema with loss of gil matter and face involving the left posterior insular lobe and the left superior temporal gyrus consistent with acute cortical gyral ischemic infarct. No intra- or extra-axial hemorrhage. No intracranial mass or mass effect. Posterior fossa structures are unremarkable. Ventricles are appropriate for age. No hydrocephalus. Basal cisterns are patent. BONES/JOINTS: Unremarkable. No discrete lytic or blastic abnormalities. SINUSES: Unremarkable as visualized. Clear. MASTOID AIR CELLS: Unremarkable. Clear. ORBITS: Visualized globes, extraocular muscles, optic nerves and retrobulbar fat appear unremarkable. CT/STROKE Brain/Head without Cont IMPRESSION: 1. 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 2. No CT evidence of intracranial bleeding. Electronically Signed: Taj Sherman MD at 11:25 EST ,
--- NOTE | 2022-10-16 11:12 | CT_ITS ---
STUDY: CTA HEAD AND NECK WITH CONTRAST REASON FOR EXAM: Female, 81 years old. Neuro deficit, acute, stroke suspected RADIATION DOSAGE (If Supplied By Facility): CTDIvol = ( 20.11 ) mGy, DLP = ( 579.15 ) mGycm TECHNIQUE: CT angiography was performed with a multi-detector CT scanner. Data acquisition was obtained from the skull base through the vertex following intravenous administration of IV 100mL Isovue-370. MIP images were reconstructed from the axial data set. Post-processing of the angiographic images was performed, with multiplanar reformation and 3D reconstruction. Individualized dose optimization techniques were used for this CT. COMPARISON: No relevant priors. FINDINGS: Normal bilateral petrous carotid arteries. Normal right cavernous carotid artery with a normal supraclinoid bifurcation. Normal left cavernous carotid artery with a normal supraclinoid bifurcation. Normal right A1 segment of the anterior cerebral artery. Normal left A1 segment of the anterior cerebral artery. Normal intact anterior communicating artery (ACOM). Normal bilateral A2 segments of the anterior cerebral arteries. Normal right M1 and M2 segments of the middle cerebral arteries, with a normal M1 bifurcation. Normal left M1 segment. Partial occlusion in the lower trunk of the left M2 segment near the left M1 bifurcation. No visible right posterior communicating artery (PCOM). No visible left posterior communicating artery (PCOM). Normal bilateral vertebral arteries. The left is more dominant. Normal basilar artery with a normal basilar bifurcation. The visualized bilateral superior cerebellar (SCA) arteries are normal. Normal bilateral P1, P2 and visualized P3 segments of the posterior cerebral arteries. There is no demonstrated aneurysm of the [place] of [place]. There is no demonstrated abnormality of the visualized brain. AORTIC ARCH: Normal visualized aortic arch. Normal origins of the brachiocephalic, left common carotid, and left subclavian arteries. RIGHT CAROTID ARTERIES: Normal right common carotid artery (CCA). Normal right carotid bulb. Normal origin of the right internal carotid (ICA) artery without a hemodynamically significant stenosis. Normal visualized cervical portion of the right internal carotid artery. Normal origin of the right external carotid artery (ECA). LEFT CAROTID ARTERIES: Normal left common carotid artery (CCA). Normal left carotid bulb. Normal origin of the left internal carotid (ICA) artery without a hemodynamically significant stenosis. Normal visualized cervical portion of the left internal carotid artery. Normal origin of the left external carotid artery (ECA). VERTEBRAL ARTERIES: Normal bilateral vertebral arteries. The left is more dominant. CT/STROKE CTA Head AND Neck W/Con IMPRESSION: 1. Partial thromboembolic occlusion in the lower trunk of the left M2 segment. The left M1 bifurcation. This accounts for the acute hypodense cortical-based ischemic infarct along the left superior temporal gyrus and a portion of the left posterior insular cortex. 2. No other vaso-occlusive disease of the anterior and posterior intracranial circulation. 3. Normal bilateral common carotid arteries, bilateral, carotid bifurcations, bilateral internal and external carotid arteries and bilateral vertebral arteries. 4. Normal aortic arch and origins of the great vessels. N.B. : The above Results were Read Back by Taj Sherman MD to Sav Damon DO, and understanding confirmed on 10/16/2022 11:48:30 (ET). Electronically Signed: Taj Sherman MD at 11:49 EST ,
--- NOTE | 2022-10-16 11:12 | NURSING ---
STROKE ALERT CALLED PRIOR TO ARRIVAL [id number]
--- NOTE | 2022-10-16 11:13 | EDS_ITS ---
HPI History of Present Illness Chief Complaint: Stroke Alert Informant: EMS Onset/Context/Timing Onset: Yesterday Context: Sudden Onset Timing: Continuous Quality and Location: Positive for Expressive Aphasia Worsened by: Nothing Relieved by: Nothing Narrative Narrative: Patient presents with sudden onset of aphasia. Patient was last known well around 8 PM last evening. Patient lives at home by herself. Family noticed her aphasia this morning when she woke up. Patient is a poor informant. EMS reports patient did have some weakness on their examination. PFSH PFSH Home Medications calcium carbonate 200 mg calcium (500 mg) chewable tablet (Tums) 2 tab DAILY PRN PRN Heartburn 12/09/17 [History Last Taken 1 Day Ago ~12/08/17] albuterol sulfate 90 mcg/actuation aerosol inhaler 1 - 2 puff inhalation Q4H PRN PRN Shortness Of Breath ##1 12/10/17 [Rx Last Taken Unknown] Allergy/AdvReac Type Severity Reaction Status Date / Time cigarette smoke Allergy AIRWAY Verified 10/16/22 11:51 TIGHTNESS mepivacaine Allergy AMNESIA Verified 10/16/22 11:51 Penicillins Allergy Unknown Verified 10/16/22 11:51 procainamide Allergy Unknown Verified 10/16/22 11:51 Surgical History H/O bilateral hip replacements Social History Smoking Status: Never smoker ROS ROS ED Review of Systems ROS Unobtainable: other Details: Aphasia EXAM Physical Exam Const Vital Signs: 10/16/22 11:09 10/16/22 11:08 10/16/22 11:30 Temperature 97.3 F L 97.6 F L Temperature Source Temporal Temporal Pulse Rate 59 L 59 L 75 Respiratory Rate 18 18 18 Blood Pressure 178/82 H 178/82 H 153/71 H Blood Pressure Mean 114 114 98 Pulse Ox 100 100 98 Oxygen Delivery Method Room Air Room Air Room Air Positive well nourished and well developed General Appearance ED: well developed and NAD HEENT Reports moist mucous membranes Eyes EOMs intact bilaterally Neck supple and no JVD Chest Wall inspection of chest normal and palpation of chest normal Resp normal respiratory effort and clear to auscultation bilaterally Cardio Rate: regular rate Rhythm: regular rhythm GI soft to palpation and non-tender Extremity normal to inspection Neuro Sensorium / Orientation: alert Motor Exam: strength 5/5 throughout Psych mental status grossly normal NIHSS NIHSS Initial: 1a Level of Consciousness: 0 1b LOC Questions (Score 2 if aphasic/stupor): 2 2 Best Gaze (If aphasic, use reflexive mvmts.): 0 4 Facial Palsy: 0 5 Motor Arm Right (UN = amputation/fusion): 0 5 Motor Arm Left: 0 6 Motor Leg Right: 0 6 Motor Leg Left: 0 8 Sensory (Aphasia/stupor=0 or 1, coma=2): 0 9 Best Language: 2 10 Dysarthria (mute, coma=2, intubated=UN): 1 Total Score: 5 MDM MDM MDM Narrative Medical decision making narrative: Prehospital stroke alert was called. Patient's last known well was [address] scan of the brain was obtained. There is no acute ischemic infarct involving the left superior temporal gyrus and left posterior insular cortex. There is no acute bleeding noted. This was interpreted by the radiologist and reviewed by myself. EKG was obtained. On my interpretation, it showed a normal sinus rhythm with occasional PACs with a rate of 78. AR interval, QRS interval, and QTc intervals were all normal. [place] was normal. There are nonspecific ST-T wave changes. CBC was essentially within normal limits. PT with INR and PTT within normal limits. Basic metabolic profile was within normal limits. High- sensitivity troponin was normal. CTA of the head neck was obtained. There is a partial thromboembolic occlusion of the lower trunk of the left M2 segment at the left M1 bifurcation. This accounts for the acute hyperdense ischemic infarct along the superior temporal gyrus and portion of the left posterior insular cortex. There is no other vaso-occlusive disease. This was interpreted by the radiologist and reviewed by myself. Patient was given aspirin. Case was discussed with Dr. Og from [facility]. Patient will be transferred there for further stroke evaluation and management. Patient appeared to understand. Daughter understood and was agreeable with the plan. All questions were answered. Lab Data Labs: Laboratory Results - last 24 hr 10/16/22 10/16/22 10/16/22 11:14 11:14 11:14 WBC 8.9 RBC 5.92 H Hgb 15.1 H Hct 47.7 H MCV 80.6 L MCH 25.5 L MCHC 31.7 L RDW Std Deviation 42.6 RDW Coeff of Sumit 14.6 Plt Count 271 MPV 9.5 Immature Gran % (Auto) 0.200 Neut % (Auto) 81.6 H Lymph % (Auto) 14.0 L Nash % (Auto) 3.7 Eos % (Auto) 0.1 Baso % (Auto) 0.4 Absolute Neuts (auto) 7.3 Absolute Lymphs (auto) 1.25 Nucleated RBC % 0 PT 13.2 INR 1.0 APTT 23.6 L Sodium 138 Potassium 4.3 Chloride 103 Carbon Dioxide 29.0 Anion Gap 6 BUN 12 Creatinine 1.01 Estim Creat Clear Calc 38.64 Est GFR (MDRD) Af Amer 67 Est GFR (MDRD) Non-Af 56 L BUN/Creatinine Ratio 11.9 Glucose 154 H Calcium 9.3 Troponin I High Sens 9 Radiography Diagnostic Testing: Clinical Impression(s) from Imaging Studies Brain CT 10/16/22 11:11 IMPRESSION: 1. 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 2. No CT evidence of intracranial bleeding. Electronically Signed: Taj Sherman MD at 11:25 EST , ADDENDUM: 10/16/22 1134 IMPRESSION: 1. 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 2. No CT evidence of intracranial bleeding. N.B. : The above Results were Read Back by Taj Sherman MD to Sav Damon DO, and understanding confirmed on 10/16/2022 11:27:58 (ET). Electronically Signed: Taj Sherman MD at 11:25 EST , Head/Neck CTA 10/16/22 11:12 IMPRESSION: 1. Partial thromboembolic occlusion in the lower trunk of the left M2 segment. The left M1 bifurcation. This accounts for the acute hypodense cortical-based ischemic infarct along the left superior temporal gyrus and a portion of the left posterior insular cortex. 2. No other vaso-occlusive disease of the anterior and posterior intracranial circulation. 3. Normal bilateral common carotid arteries, bilateral, carotid bifurcations, bilateral internal and external carotid arteries and bilateral vertebral arteries. 4. Normal aortic arch and origins of the great vessels. N.B. : The above Results were Read Back by Taj Sherman MD to Sav Damon DO, and understanding confirmed on 10/16/2022 11:48:30 (ET). Electronically Signed: Taj Sherman MD at 11:49 EST , ADDENDUM: 10/16/22 1156 IMPRESSION: 1. Partial thromboembolic occlusion in the lower trunk of the left M2 segment. The left M1 bifurcation. This accounts for the acute hypodense cortical-based ischemic infarct along the left superior temporal gyrus and a portion of the left posterior insular cortex. 2. No other vaso-occlusive disease of the anterior and posterior intracranial circulation. 3. Normal bilateral common carotid arteries, bilateral, carotid bifurcations, bilateral internal and external carotid arteries and bilateral vertebral arteries. 4. Normal aortic arch and origins of the great vessels. N.B. : The above Results were Read Back by Taj Sherman MD to Sav Damon DO, and understanding confirmed on 10/16/2022 11:48:30 (ET). Electronically Signed: Taj Sherman MD at 11:49 EST , EKG Initial EKG: Attestation: I personally reviewed and interpreted this EKG as follows: Interpretation: Sinus Rhythm (With occasional PACs with a rate of 78) and No Acute Injury Pattern Prior EKG tracings: available for review Prior: Unchanged (02/28/2018) Critical Care Time Critical Care Time: Yes Critical care time (excluding procedures): 30-74 minutes (37), Including time spent:, Discussing w/Patient &/or Family/Etl Application Developer, Discussing w/Consultants, Arranging Admission or Transfer and Performing Direct Patient Care at Bedside Discharge Plan Triage Chief Complaint: Stroke Alert ED Provider: Sav Damon Dx/Rx/DC Orders Clinical Impression: Stroke, Aphasia, Elevated blood pressure reading Prescriptions: No Action calcium carbonate [Tums] 200 MG tablet,chewable 2 tab DAILY PRN PRN (Reason: Heartburn) albuterol sulfate 1 INHALER inhaler 1 - 2 puff INHALATION Q4H PRN PRN (Reason: Shortness Of Breath) Qty: 1 0RF Primary Care Provider: Ana Mcdonald Referrals: Ana Mcdonald MD [Primary Care Provider] - Disposition Disposition: Acute Care Hospital Discharge Location: [facility]
[2022-10-16 11:20] LABS: Absolute Lymphocyte Count 1.25 X10^3/uL (0.83-4.51); Absolute Neutrophil Count 7.3 X10^3/uL (2.0-7.7); Basophil# 0.04 X10^3/uL; Basophil% 0.4 % (0-1); Eosinophil# 0.01 X10^3/uL; Eosinophils% 0.1 % (0-5); Hematocrit 47.7 % (37-47); Hemoglobin 15.1 g/dL (12.0-15.0); Lymphocyte # 1.25 X10^3/ul (0.83-4.51); Mean Corp Hgb Conc 31.7 g/dL (32-36); Mean Corpuscular Hgb 25.5 pg (27.0-32.0); Mean Corpuscular Volume 80.6 fL (81-99); Mean Platelet Vol. 9.5 fl (6.2-12.0); Monocyte# 0.33 X10^3/uL; Monocyte% 3.7 % (0-10); NRBC Flagged by Analyzer 0 % (0-5); Neutrophil # 7.26 X10^3/uL (2.7-7.7); Neutrophil % 81.6 % (47-70); Platelet Count 271 K/mm3 (150-450); RBC Distribution Width CV 14.6 % (11.6-14.6); RBC Distribution Width SD 42.6 fl (35.1-43.9); Red Blood Count 5.92 M/mm3 (4.2-5.4); White Blood Count 8.9 K/mm3 (4.4-11.0)
[2022-10-16 11:29] VITALS: BMI 25.5
[2022-10-16 11:30] VITALS: BP 153/71; PULSE 75; RESP 18; O2SAT 98
[2022-10-16 11:31] LABS: Prothrombin Time (Protime)PT. 13.2 SECONDS (11.7-14.9)
[2022-10-16 11:32] LABS: Partial Thromboplast Time 23.6 Seconds (24.1-36.2)
[2022-10-16 11:37] LABS: Anion Gap 6 (5-15); BUN 12 mg/dL (7-18); BUN/Creat Ratio 11.9 RATIO (10-20); Calcium,Total 9.3 mg/dL (8.5-10.1); Chloride 103 mmol/L (98-107); Creatinine, Serum 1.01 mg/dL (0.55-1.02); EST Glomerular Filtration Rate 56 mL/min (>60); Est Glom Filt Rate - Afr Amer 67 mL/min (>60); Estimated Creatinine Clearance 38.64 ml/min; Glucose 154 mg/dL (74-106); Potassium 4.3 mmol/L (3.5-5.1); Sodium Level 138 mmol/L (136-145); Troponin-I HS 9 pg/mL (3.0-54.0)
[2022-10-16 12:00] VITALS: BP 143/77; PULSE 65; RESP 18; O2SAT 98
[2022-10-16] MEDS: Aspirin 81 MG TAB.CHEW 324 MG PO (12:03)
--- NOTE | 2022-10-16 12:15 | ED.RN ---
gave report to [facility] physician.
[2022-10-16 12:30] VITALS: BP 147/85; PULSE 59; PULSE 60; RESP 16; RESP 20; O2SAT 97
--- NOTE | 2022-10-16 12:33 | ED.RN ---
it is difficult to examine pt fully with nih, due to speak difficulty.
--- NOTE | 2022-10-16 12:50 | ED.RN ---
med flight here for pt.
== END 2022-10-16 13:00 | disposition short-term general hospital (02) ==
PROVIDERS: Emergency Provider Emergency Medicine; PCP Internal Medicine; Visit Provider Emergency Medicine
DX: I63.9 Cerebral infarction, unspecified (principal); R03.0 Elevated blood-pressure reading, without diagnosis of hypertension; R47.01 Aphasia
CPT/HCPCS: 70450; 70496; 70498; 71045; 80048; 84484; 85025; 85610; 85730; 93005; 99285; Q9967

== ENCOUNTER 2023-09-22 10:32 | Observation (INO) | payer MEDICARE, OTHER, SELFPAY ==
[2023-09-22] VITALS (15 sets, daily range): BP systolic 143–195; BP diastolic 68–134; PULSE 52–64; RESP 12–20; TEMP 36.6–36.8; O2SAT 95–100; BMI 23.8; BMI 24.6
--- NOTE | 2023-09-22 10:47 | EKG12_ITS ---
Test Reason : Blood Pressure : / mmHG Vent. Rate : 055 BPM Atrial Rate : 055 BPM P-R Int : 136 ms QRS Dur : 078 ms QT Int : 422 ms P-R-T Axes : 062 050 061 degrees QTc Int : 403 ms Sinus bradycardia with sinus arrhythmia Otherwise normal ECG Confirmed by BRUNILDA SHANKS, TIMBO ([id number]), editorial cartoonist CEDRIC BENOIT ([id number]) on 09/25/2023 8:25:53 AM Referred By: Confirmed By:LINDSAY WORLEY MD
--- NOTE | 2023-09-22 10:48 | CT_ITS ---
STUDY: CTA HEAD AND NECK WITH CONTRAST REASON FOR EXAM: Female, 82 years old. Neuro deficit, acute, stroke suspected RADIATION DOSAGE (If Supplied By Facility): CTDIvol = ( 21.11 ) mGy, DLP = ( 652.26 ) mGycm TECHNIQUE: CT angiography was performed with a multi-detector CT scanner. Data acquisition was obtained from the skull base through the vertex following intravenous administration of IV 100mL Isovue-370. MIP images were reconstructed from the axial data set. Post-processing of the angiographic images was performed, with multiplanar reformation and 3D reconstruction. Individualized dose optimization techniques were used for this CT. COMPARISON: Comparison is made with prior study dated October 16, 2022. FINDINGS: Normal bilateral petrous carotid arteries. Normal right cavernous carotid artery with a normal supraclinoid bifurcation. Normal left cavernous carotid artery with a normal supraclinoid bifurcation. Normal right A1 segments of the anterior cerebral artery. Normal left A1 segments of the anterior cerebral artery. Normal intact anterior communicating artery (ACOM). Normal bilateral A2 segments of the anterior cerebral arteries. Normal right M1 and M2 segments of the middle cerebral arteries, with a normal M1 bifurcation. Normal left M1 and M2 segments of the middle cerebral arteries, with a normal M1 bifurcation. Normal right posterior communicating artery (PCOM). Normal left posterior communicating artery (PCOM). Normal bilateral vertebral arteries. Normal basilar artery with a normal basilar bifurcation. The visualized bilateral superior cerebellar (SCA) arteries are normal. Normal bilateral P1, P2 and visualized P3 segments of the posterior cerebral arteries. There is no demonstrated aneurysm of the [place]. There is a 2.3 [place] by 2 cm heterogeneous nodule in the lower pole of the left lobe of the thyroid. Heterogeneous nodular changes also seen in the isthmus of the thyroid. AORTIC ARCH: There is atherosclerotic calcific plaque formation of the aortic arch and great vessels arising from the aortic arch, without a hemodynamically significant stenosis. There is a normal origin of the brachiocephalic, left common carotid, and left subclavian arteries. RIGHT CAROTID ARTERIES: Normal right common carotid artery (CCA). Normal right common carotid bulb. Normal origin of the right internal carotid (ICA) artery without a hemodynamically significant stenosis. Normal visualized cervical portion of the right internal carotid artery. Normal origin of the right external carotid artery (ECA). LEFT CAROTID ARTERIES: Normal left common carotid artery (CCA). Normal left common carotid bulb. Normal origin of the left internal carotid (ICA) artery without a hemodynamically significant stenosis. Normal visualized cervical portion of the left internal carotid artery. Normal origin of the left external carotid artery (ECA). VERTEBRAL ARTERIES: Normal bilateral vertebral arteries. CT/STROKE CTA Head AND Neck W/Con IMPRESSION: Normal CTA Head and neck with contrast. N.B. : The above Results were Read Back by Anthony Diez MD to Keven Gonzalez and understanding confirmed on 09/22/2023 11:34:03 (ET). Electronically Signed: Anthony Diez MD at 11:34 EST ,
--- NOTE | 2023-09-22 10:48 | ED.VIS.STROK ---
HPI History of Present Illness Chief Complaint: Neuro S/Sx Informant: patient Narrative Narrative: Patient brought by EMS for possible stroke symptoms. She states that her right side seems to feel different than the left. She states she thinks she noticed that upon waking up this morning, she really does not know when it started. She last was normal when she went to bed last night around 8:30 PM, I am evaluating her around 10:40 AM. No prehospital stroke team called. The patient states she had a stroke around a year ago, but she has some confusion that limits my history regarding this. Initially she states she does not know if she has permanent residual deficits, but then when asking about if she feels numb on her right arm or leg, she states yes, but it has ever since my stroke. It is difficult to obtain the information from her about where she has had chronic deficits. She definitely indicates that the leg has been involved, but I cannot tell if she has had arm and face involvement before today or not. She denies having a headache or vision changes right now, she denies any chest discomfort or other discomfort. [facility] Medical History (Updated 09/22/23 @ 12:[address] Keven Gonzalez MD) Arthropathy of left hip Dyslipidemia Hypertension Transient global amnesia Vertigo Home Medications calcium carbonate 200 mg calcium (500 mg) chewable tablet (Tums) 2 tab DAILY PRN PRN Heartburn 12/09/17 [History Last Taken 1 Day Ago ~12/08/17] albuterol sulfate 90 mcg/actuation aerosol inhaler 1 - 2 puff inhalation Q4H PRN PRN Shortness Of Breath ##1 12/10/17 [Rx Last Taken Unknown] Allergy/AdvReac Type Severity Reaction Status Date / Time cigarette smoke Allergy AIRWAY Verified 10/16/22 11:51 TIGHTNESS mepivacaine Allergy AMNESIA Verified 10/16/22 11:51 Penicillins Allergy Unknown Verified 10/16/22 11:51 procainamide Allergy Unknown Verified 10/16/22 11:51 Surgical History H/O bilateral hip replacements Social History Smoking Status: Never smoker ROS ROS ED Constitutional Constitutional ED: Reports malaise; Denies chills or fever(s) Eyes Eyes: Denies change in vision or diplopia ENT ENT ED: Denies rhinorrhea or sore throat Cardiovascular Cardiovascular: Denies chest pain or palpitations Respiratory/Chest Respiratory/Chest: Denies cough or dyspnea Gastrointestinal Gastrointestinal: Denies abdominal pain, diarrhea, nausea or vomiting Genitourinary Genitourinary ED: Denies dysuria or hematuria Musculoskeletal Musculoskeletal: Denies back pain or neck pain Integumentary Denies abscess or rash Neurologic Neurologic: Reports paresthesias and weakness; Denies headache(s) Psychiatric Psychiatric: Denies anxiety or suicidal thoughts EXAM Physical Exam Const Vital Signs: 09/22/23 10:32 09/22/23 10:58 09/22/23 11:14 Temperature 98.2 F Temperature Source Oral Pulse Rate 64 60 Respiratory Rate 12 16 Blood Pressure 178/69 H 171/96 H Blood Pressure Mean 105 121 Pulse Ox 98 99 Oxygen Delivery Method Room Air Room Air Room Air 09/22/23 11:30 09/22/23 12:00 Temperature Temperature Source Pulse Rate 56 L 52 L Respiratory Rate 16 16 Blood Pressure 143/83 H 178/95 H Blood Pressure Mean 103 122 Pulse Ox 99 99 Oxygen Delivery Method Room Air Room Air Positive well nourished and well developed General Appearance ED: well developed and NAD HEENT Reports moist mucous membranes normocephalic and atraumatic Eyes PERRL and EOMs intact bilaterally Neck full ROM and supple Resp normal respiratory effort and clear to auscultation bilaterally Cardio regular rate, regular rhythm and no murmurs GI non-tender and non-distended Auscultation: normoactive bowel sounds Palpation: soft Back/Spine no CVA tenderness General Back: other FROM Extremity normal to inspection General Extremety ED: Negative for edema, pulses abnormal or tenderness General Extremity: Negative for edema or pulses abnormal Neuro oriented x3, CN's II-XII intact bilaterally and no sensory deficits noted Neuro Narrative: Mild expressive and receptive aphasia. Keenly alert, able to follow commands without difficulty. Sensorium / Orientation: awake and alert Psych mental status grossly normal Skin no rashes or lesions noted and no wounds NIHSS NIHSS Initial: 1a Level of Consciousness: 0 1b LOC Questions (Score 2 if aphasic/stupor): 0 1c LOC Commands (Only score 1st attempt): 0 2 Best Gaze (If aphasic, use reflexive mvmts.): 0 3 Visual: 0 4 Facial Palsy: 0 5 Motor Arm Right (UN = amputation/fusion): 0 5 Motor Arm Left: 0 6 Motor Leg Right: 1 6 Motor Leg Left: 0 7 Limb ataxia (Only + if out of proportion): 0 8 Sensory (Aphasia/stupor=0 or 1, coma=2): 1 9 Best Language: 1 10 Dysarthria (mute, coma=2, intubated=UN): 0 11 Extinction and Inattention (only scored if +): 0 Total Score: 3 MDM MDM MDM Narrative Medical decision making narrative: Stroke team called upon my evaluation. Her initial scan shows no bleed, CT angiography shows no LVO. Discussed with stroke neurology, radiology, hospitalist for admission. Deficits stable. Labs noted. EKG shows sinus rhythm. Blood pressure noted does not require emergent treatment at this time. Lab Data Attestation: I reviewed the patient's lab results. Labs: Laboratory Results - last 24 hr 09/22/23 11:04 WBC 4.9 RBC 5.72 H Hgb 14.1 Hct 46.0 MCV 80.4 L MCH 24.7 L MCHC 30.7 L RDW Std Deviation 44.5 H RDW Coeff of Sumit 15.5 H Plt Count 217 MPV 9.7 Immature Gran % (Auto) 0.200 Neut % (Auto) 54.4 Lymph % (Auto) 36.3 Boundary % (Auto) 7.3 Eos % (Auto) 1.0 Baso % (Auto) 0.8 Absolute Neuts (auto) 2.7 Absolute Lymphs (auto) 1.79 Nucleated RBC % 0 PT 12.8 INR 1.0 APTT 20.5 L Sodium 138 Potassium 3.7 Chloride 106 Carbon Dioxide 31.0 Anion Gap 1 L BUN 14 Creatinine 1.07 H Estim Creat Clear Calc 35.85 Est GFR (MDRD) Af Amer 63 Est GFR (MDRD) Non-Af 52 L BUN/Creatinine Ratio 13.1 Glucose 119 H Calcium 9.0 Troponin I High Sens 7 Radiography Chest X-Ray - ED: 1 View, Read by ED Physician, No Acute Disease, Chronic Changes and No Infiltrates Diagnostic Testing: Clinical Impression(s) from Imaging Studies Head/Neck CTA 09/22/23 10:48 IMPRESSION: Normal CTA Head and neck with contrast. N.B. : The above Results were Read Back by Anthony Diez MD to Keven Gonzalez and understanding confirmed on 09/22/2023 11:34:03 (ET). Electronically Signed: Anthony Diez MD at 11:34 EST , ADDENDUM: 09/22/23 1141 IMPRESSION: Normal CTA Head and neck with contrast. N.B. : The above Results were Read Back by Anthony Diez MD to Keven Gonzalez and understanding confirmed on 09/22/2023 11:34:03 (ET). Electronically Signed: Anthony Diez MD at 11:34 EST , Brain CT 09/22/23 10:50 IMPRESSION: Chronic involutional changes of the brain. Encephalomalacia in the left posterior temporal parietal occipital lobes. N.B. : The above Results were Read Back by Anthony Diez MD to Dr Carlos MD, and understanding confirmed on 09/22/2023 11:09:20 (ET). Electronically Signed: Anthony Diez MD at 11:10 EST , ADDENDUM: 09/22/23 1117 IMPRESSION: Chronic involutional changes of the brain. Encephalomalacia in the left posterior temporal parietal occipital lobes. N.B. : The above Results were Read Back by Anthony Diez MD to Dr Carlos MD, and understanding confirmed on 09/22/2023 11:09:20 (ET). Electronically Signed: Anthony Diez MD at 11:10 EST , Chest X-Ray 09/22/23 11:55 IMPRESSION: Stable examination. No acute abnormality is seen. Electronically Signed: Anthony Diez MD at 12:18 EST , Rhythm Strip Rhythm Strip: Sinus Rhythm Rate: 55 Ectopy: None EKG Initial EKG: Attestation: I personally reviewed and interpreted this EKG as follows: Interpretation: No Acute Injury Pattern and Sinus Bradycardia Management Discussion w/another healthcare provider: Hospitalist, Group Home Counselor (Stroke neurology Dr. Olivo) and Radiologist Stroke Documentation Questions Stroke Team Activated: Yes (Upon my evaluation) Was Patient considered for Endovascular Intervention?: No-CTA negative, determined not to be an endovascular candidate IV Thrombolytic Administered: No (Last known well last night, outside window) Critical Care Time Critical Care Time: Yes Critical care time (excluding procedures): 30-74 minutes (37 min), Including time spent:, Discussing w/Patient &/or Family/Brush Worker, Discussing w/Consultants, Arranging Admission or Transfer and Performing Direct Patient Care at Bedside Discharge Plan Triage Chief Complaint: Neuro S/Sx ED Provider: Keven Gonzalez Dx/Rx/DC Orders Clinical Impression: Acute ischemic left MCA stroke Prescriptions: No Action calcium carbonate [Tums] 200 MG tablet,chewable 2 tab DAILY PRN PRN (Reason: Heartburn) albuterol sulfate 1 INHALER inhaler 1 - 2 puff INHALATION Q4H PRN PRN (Reason: Shortness Of Breath) Qty: 1 0RF Primary Care Provider: Ana Mcdonald Referrals: Ana Mcdonald MD [Primary Care Provider] - Disposition Disposition: Acute Care Hospital [facility]
--- NOTE | 2023-09-22 10:50 | CT_ITS ---
STUDY: CT HEAD STROKE PROTOCOL W/O CONTRAST INJECTION REASON FOR EXAM: Female, 82 years old. Neuro deficit, acute, stroke suspected RADIATION DOSAGE (If Supplied By Facility): CTDIvol = ( 47.06 ) mGy, DLP = ( 872.68 ) mGycm TECHNIQUE: Transaxial CT imaging of the brain was performed without administration of intravenous contrast material. Individualized dose optimization techniques were used for this CT. COMPARISON: Comparison is made with prior study October 16, 2022. FINDINGS: Normal soft tissue structures. Normal calvarium. There is mild cerebral atrophy with widening of the extra-axial spaces and ventricular dilatation. Focal encephalomalacia is seen in the left posterior temporal parietal occipital lobes. This is in keeping with an old infarct. There are areas of decreased attenuation within the white matter tracts of the supratentorial brain, consistent with microvascular disease changes. Normal basal ganglia and thalami. Normal brainstem. Normal cerebellum. There is no intracranial hemorrhage. There are no findings of an acute ischemic infarction. Calcification of the cavernous portions of the internal carotid artery bilaterally. Normal visualized paranasal sinuses. ASPECT score: 8 CT/STROKE Brain/Head without Cont IMPRESSION: Chronic involutional changes of the brain. Encephalomalacia in the left posterior temporal parietal occipital lobes. N.B. : The above Results were Read Back by Anthony Diez MD to Dr Carlos MD, and understanding confirmed on 09/22/2023 11:09:20 (ET). Electronically Signed: Anthony Diez MD at 11:10 EST ,
--- NOTE | 2023-09-22 10:53 | NURSING ---
NO OLD EKG
[2023-09-22 11:13] LABS: Absolute Lymphocyte Count 1.79 X10^3/uL (0.83-4.51); Absolute Neutrophil Count 2.7 X10^3/uL (2.0-7.7); Basophil# 0.04 X10^3/uL; Basophil% 0.8 % (0-1); Eosinophil# 0.05 X10^3/uL; Hemoglobin 14.1 g/dL (12.0-15.0); Lymphocyte # 1.79 X10^3/ul (0.83-4.51); Lymphocyte % 36.3 % (19-41); Mean Corp Hgb Conc 30.7 g/dL (32-36); Mean Corpuscular Hgb 24.7 pg (27.0-32.0); Mean Corpuscular Volume 80.4 fL (81-99); Mean Platelet Vol. 9.7 fl (6.2-12.0); Monocyte# 0.36 X10^3/uL; Monocyte% 7.3 % (0-10); NRBC Flagged by Analyzer 0 % (0-5); Neutrophil # 2.68 X10^3/uL (2.7-7.7); Neutrophil % 54.4 % (47-70); Platelet Count 217 K/mm3 (150-450); RBC Distribution Width CV 15.5 % (11.6-14.6); RBC Distribution Width SD 44.5 fl (35.1-43.9); Red Blood Count 5.72 M/mm3 (4.2-5.4); White Blood Count 4.9 K/mm3 (4.4-11.0)
[2023-09-22 11:19] LABS: Prothrombin Time (Protime)PT. 12.8 SECONDS (11.7-14.9)
[2023-09-22 11:25] LABS: Partial Thromboplast Time 20.5 Seconds (24.1-36.2)
--- NOTE | 2023-09-22 11:30 | CHAPLAIN ---
Type of Pastoral Visit ___ Initial Visit ___ Follow-up Visit ___ On-call Visit ___ General Patient Visit ___ Spiritual Assessment ___ Family Conference ___ Bereavement _x__ Rapid Response ___ Code Blue ___ Other (describe below) Pastoral Care Referral From ___ Patient ___ Family ___ Nurse ___ Physician ___ Operations Specialist ___ Agile Scrum Master _x__ Other (describe below) Sacrament/Intervention _x__ Active listening ___ Anointing ___ Yazidi ___ Bereavement ___ Communion ___ Leidy exploration ___ ___ Life review ___ Prayer ___ Reconciliation ___ Sacrament of Sick _x__ Supportive presence ___ Wedding ___ Other (describe below) Pastoral Comments responded to stroke alert; pt was in CT; daughter was in the waiting room; sat with daughter and offered presence; casual conversation; pt returned to her room; no further needs
[2023-09-22 11:33] LABS: Anion Gap 1 (5-15); BUN 14 mg/dL (7-18); BUN/Creat Ratio 13.1 RATIO (10-20); Chloride 106 mmol/L (98-107); Creatinine, Serum 1.07 mg/dL (0.55-1.02); EST Glomerular Filtration Rate 52 mL/min (>60); Est Glom Filt Rate - Afr Amer 63 mL/min (>60); Estimated Creatinine Clearance 35.85 ml/min; Glucose 119 mg/dL (74-106); Potassium 3.7 mmol/L (3.5-5.1); Sodium Level 138 mmol/L (136-145); Troponin-I HS 7 pg/mL (3.0-54.0)
--- NOTE | 2023-09-22 11:55 | RAD_ITS ---
STUDY: X-RAY CHEST REASON FOR EXAM: Female, 82 years old. Neuro deficit, acute, stroke suspected TECHNIQUE: Single AP portable view of the chest. COMPARISON: Comparison is made with prior study dated July 17, 2022. FINDINGS: EKG electrodes are seen. Stable mild increased linear markings at the lung bases suggestive of mild scarring. There is no demonstrated pleural abnormality. Normal size heart. Normal mediastinum and asael. Normal visualized pulmonary arteries. There is atherosclerotic tortuosity of the aortic arch and descending thoracic aorta. There are degenerative changes of the visualized thoracic spine. Normal visualized ribs, clavicles, and shoulders. Hiatal hernia. RAD/Chest 1 View IMPRESSION: Stable examination. No acute abnormality is seen. Electronically Signed: Anthony Diez MD at 12:18 EST ,
--- NOTE | 2023-09-22 13:02 | ED.RN ---
STROKE ALERT TEAM NOT INITIATED RIGHT AWAY DUE TO PT BEING VAGUE IN SYMPTOMS. PER EMS, PT IS AT BASELINE FROM PREVIOUS STROKE A YEAR AGO SO THEY DID NOT ACTIVATE STROKE ALERT TO ER. PT JUST STATES I DONT FEEL RIGHT
--- NOTE | 2023-09-22 13:21 | PCM.HP.STD ---
HPI - General General Date of Admission: 09/22/23 Date of Service: 09/22/23 Chief Complaint: Confusion, R leg feels weird HPI Narrative RASHARD JETER, is a 82 F with a ?hx of CVA and HTN who presented to [facility] 09/22/2023 for possible stroke symptoms. Patient very poor historian and no family at bedside so history obtained primarily per report. It seems the complaint is that right leg or right side feels differently than the left. Last known normal last night at 8:30 PM. Reportedly had a stroke about a year ago and possibly had some persistent deficits but had a difficult time with both comprehension and expression with speech so unclear exactly what chronic deficits she has. Denied any headache or changes in vision at this time. [facility] Medical History (Updated 09/22/23 @ 13:[address] Marcy Jarvis MD) Arthropathy of left hip Dyslipidemia Hypertension Transient global amnesia Vertigo Home Medications calcium carbonate 200 mg calcium (500 mg) chewable tablet (Tums) 2 tab DAILY PRN PRN Heartburn 12/09/17 [History Last Taken 1 Day Ago ~12/08/17] albuterol sulfate 90 mcg/actuation aerosol inhaler 1 - 2 puff inhalation Q4H PRN PRN Shortness Of Breath ##1 12/10/17 [Rx Last Taken Unknown] Allergy/AdvReac Type Severity Reaction Status Date / Time cigarette smoke Allergy AIRWAY Verified 10/16/22 11:51 TIGHTNESS mepivacaine Allergy AMNESIA Verified 10/16/22 11:51 Penicillins Allergy Unknown Verified 10/16/22 11:51 procainamide Allergy Unknown Verified 10/16/22 11:51 Surgical History H/O bilateral hip replacements Social History Smoking Status: Never smoker ROS ROS Narrative Patient denied any headache or changes in vision, no chest pain or shortness of breath, reported that her right leg/side felt different than the other and she said that the colors were different but was frustrated and had difficulty describing anything any further. Unable to obtain full ROS due to difficulty with communication Vital Signs Vital Signs Vital Signs: 09/22/23 10:32 09/22/23 10:58 09/22/23 11:14 Temperature 98.2 F Temperature Source Oral Pulse Rate 64 60 Respiratory Rate 12 16 Blood Pressure 178/69 H 171/96 H Blood Pressure Mean 105 121 Pulse Ox 98 99 Oxygen Delivery Method Room Air Room Air Room Air 09/22/23 11:30 09/22/23 12:00 09/22/23 12:30 Temperature Temperature Source Pulse Rate 56 L 52 L 53 L Respiratory Rate 16 16 16 Blood Pressure 143/83 H 178/95 H 174/90 H Blood Pressure Mean 103 122 118 Pulse Ox 99 99 99 Oxygen Delivery Method Room Air Room Air Room Air 09/22/23 12:30 09/22/23 13:00 Temperature Temperature Source Pulse Rate 53 L 52 L Respiratory Rate 16 16 Blood Pressure 174/90 H 193/71 H Blood Pressure Mean 118 111 Pulse Ox 99 99 Oxygen Delivery Method Room Air Weight Weight: 64.8 kg Body Mass Index (BMI) 23.8 Physical Exam Narrative General: Alert, unable to answer orientation questions, unclear if this is due to expressive aphasia or not knowing HEENT: Atraumatic, normocephalic Eyes: Anicteric, normal conjunctiva, extraocular movements intact, pupils equal Neck: Supple Respiratory: Clear to auscultation bilaterally, normal respiratory effort Cardiovascular: Regular rate GI: Soft, nontender, nondistended Extremities: No edema Musculoskeletal: Strength 5 out of 5 in right upper extremity, 5 out of 5 left upper extremity, 5 out of 5 right lower extremity, 5 out of 5 left lower extremity Neuro: Cranial nerves II through XII intact, patient had difficulty following commands for [id number] and again was unclear if she could not do it or if it was a comprehension or expression problem but did not appear to have any ataxic features. Had difficulty both understanding words and commands as well as expressing them. Patient unable to answer when asking about feeling the same on both legs Skin: No rashes appreciated Psych: Frustrated at times Results Lab / Micro Data 09/22/23 11:04 09/22/23 11:04 Labs: Laboratory Results - last 24 hr 09/22/23 11:04: WBC 4.9, RBC 5.72 H, Hgb 14.1, Hct 46.0, MCV 80.4 L, MCH 24.7 L, MCHC 30.7 L, RDW Std Deviation 44.5 H, RDW Coeff of Sumit 15.5 H, Plt Count 217, MPV 9.7, Immature Gran % (Auto) 0.200, Neut % (Auto) 54.4, Lymph % (Auto) 36.3, [place] % (Auto) 7.3, Eos % (Auto) 1.0, Baso % (Auto) 0.8, Absolute Neuts (auto) 2.7, Absolute Lymphs (auto) 1.79, Nucleated RBC % 0, PT 12.8, INR 1.0, APTT 20.5 L, Sodium 138, Potassium 3.7, Chloride 106, Carbon Dioxide 31.0, Anion Gap 1 L, BUN 14, Creatinine 1.07 H, Estim Creat Clear Calc 35.85, Est GFR (MDRD) Af Amer 63, Est GFR (MDRD) Non-Af 52 L, BUN/Creatinine Ratio 13.1, Glucose 119 H, Calcium 9.0, Troponin I High Sens 7 Rhythm Strip Rhythm Strip: Sinus Rhythm Rate: 55 Ectopy: None Radiology Impression Head/Neck CTA 09/22/23 10:48 IMPRESSION: Normal CTA Head and neck with contrast. N.B. : The above Results were Read Back by Anthony Diez MD to Keven Gonzalez and understanding confirmed on 09/22/2023 11:34:03 (ET). Electronically Signed: Anthony Diez MD at 11:34 EST , ADDENDUM: 09/22/23 1141 IMPRESSION: Normal CTA Head and neck with contrast. N.B. : The above Results were Read Back by Anthony Diez MD to Keven Gonzalez and understanding confirmed on 09/22/2023 11:34:03 (ET). Electronically Signed: Anthony Diez MD at 11:34 EST , Brain CT 09/22/23 10:50 IMPRESSION: Chronic involutional changes of the brain. Encephalomalacia in the left posterior temporal parietal occipital lobes. N.B. : The above Results were Read Back by Anthony Diez MD to Dr Carlos MD, and understanding confirmed on 09/22/2023 11:09:20 (ET). Electronically Signed: Anthony Diez MD at 11:10 EST , ADDENDUM: 09/22/23 1117 IMPRESSION: Chronic involutional changes of the brain. Encephalomalacia in the left posterior temporal parietal occipital lobes. N.B. : The above Results were Read Back by Anthony Diez MD to Dr Carlos MD, and understanding confirmed on 09/22/2023 11:09:20 (ET). Electronically Signed: Anthony Diez MD at 11:10 EST , Chest X-Ray 09/22/23 11:55 IMPRESSION: Stable examination. No acute abnormality is seen. Electronically Signed: Anthony Diez MD at 12:18 EST , Assessment & Plan Assessment/Plan (1) Neurologic abnormality: PLAN: Plan #Possibly some right-sided neuro complaints with partial expressive and receptive aphasia -Admit to tele -CT head with encephalomalacia in left posterior temporal parietal occipital lobes and chronic involutional changes, CTA no abnormalities -MRI ordered -NIH q4hr -asa, statin -Echo w/ bubble study -PT/OT/Speech eval -Hold BP medications to allow for permissive hypertension for 24 hours unless SBP greater than 220 or DBP greater than 120 or until stroke is ruled out Unclear if patient has any other medical history as she is a very poor historian and no family at bedside, will need to attempt to obtain better history #DVT ppx: Lovenox subcu Marcy Jarvis MD Time spent in the patient's overall evaluation,decision-making process, review of diagnostic data, adjustment of management, discussion with other providers, nursing nursing and ancillary staff involved in patient's care documentation, 50 minutes Charges/Coding Visit Charges Inpatient E&M: 98906 Init Hosp L1
--- NOTE | 2023-09-22 13:26 | ECHOD_ITS ---
Reason For Study: TIA/CVA Procedure This was a 2D Doppler, Color Flow transthoracic echocardiogram. Exam performed portable in ED. Left Ventricle Normal LV size. The estimated ejection fraction is 65 %. No evidence for diastolic dysfunction. No regional wall motion abnormalities noted. Right Ventricle Normal RV size. Normal systolic function. Atria The left atrium is moderately enlarged. The right atrium is mildly enlarged. No doppler evidence for ASD. Bubble contrast study negative for right to left interatrial shunt. Mitral Valve There is no mitral valve stenosis. Trivial mitral valve insufficiency. Tricuspid Valve There is no tricuspid stenosis. Mild tricuspid valve insufficiency. Pulmonary artery systolic pressure is 40-45 mmHg. Aortic Valve Trisinus/trileaflet aortic valve. There is no aortic stenosis. Mild (1+) aortic valve insufficiency. Pulmonic Valve There is no pulmonic valvular stenosis. No pulmonic valve insufficiency. Great Vessels Normal aortic root. Pericardium/Pleural No pericardial effusion. Medication Performed a rapid injection of agitated mix of 9 cc saline and 1cc air to assess for atrial septal defect. MMode/2D Measurements & Calculations LVIDd: 4.0 cm IVSd: 1.0 cm Ao root diam: 3.2 cm LVIDs: 2.4 cm LVPWd: 0.91 cm LA dimension: 4.4 cm RVDd: 3.6 cm FS: 40.1 % LAV(MOD-bp): 62.0 ml LA A4 area: 24.2 cm2 RA A4 area: 18.5 cm2 LAV(MOD-bp) Indexed: 36.3 ml/m2 LAV(MOD-sp2): 50.1 ml LAV(MOD-sp4): 72.5 ml TAPSE: 1.9 cm Time Measurements MV dec time: 0.14 sec Doppler Measurements & Calculations MV E max rudolph: 82.8 cm/sec Lat Peak E' Rudolph: 8.9 cm/sec Med Peak E' Rudolph: 9.4 cm/sec MV A max rudolph: 70.1 cm/sec E/E' lat: 9.3 E/E' med: 8.8 MV E/A: 1.2 MV V2 max: 117.3 cm/sec MV P1/2t max rudolph: 117.8 cm/sec Ao V2 max: 119.8 cm/sec MV max P.6 mmHg MV P1/2t: 61.9 msec Ao max P.8 mmHg MV V2 mean: 48.3 cm/sec MV dec slope: 558.0 cm/sec2 Ao V2 mean: 75.5 cm/sec MV mean P.3 mmHg MVA(P1/2t): 3.6 cm2 Ao mean P.7 mmHg MV V2 VTI: 33.8 cm Ao V2 VTI: 30.0 cm AV (velocity ratio): 0.97 AI max rudolph: 492.4 cm/sec LV V1 max: 123.6 cm/sec PA V2 max: 65.3 cm/sec AI max P.4 mmHg LV V1 max P.1 mmHg LV V1 mean P.0 mmHg AI dec slope: 210.2 cm/sec2 LV V1 mean: 80.0 cm/sec AI P1/2t: 686.1 msec LV V1 VTI: 29.1 cm TR max rudolph: 308.0 cm/sec TR max P.9 mmHg ECHO/Echo Complete Interpretation Summary The estimated ejection fraction is 65 %. No evidence for diastolic dysfunction. The left atrium is moderately enlarged. The right atrium is mildly enlarged. Trivial mitral valve insufficiency. Mild (1+) aortic valve insufficiency. Ordering Physician: Marcy Jarvis Referring Physician: NANI STRINGER Performed By: Shivam Rivera RCS
--- NOTE | 2023-09-22 13:26 | MRI_ITS ---
STUDY: MRI BRAIN WITHOUT CONTRAST REASON FOR EXAM: Female, 82 years old. DIFFICULTY WITH SPEECH TECHNIQUE: Multiplanar multisequence imaging of the brain was performed without the administration of intravenous contrast. COMPARISON: Noncontrast head CT 09/22/2023 FINDINGS: The ventricles, cisterns, and sulci are prominent consistent with age-related volume loss. There is no restricted diffusion to suggest acute ischemia or infarction. Chronic left posterior parietal CVA. No succeptibility artifict to suggest intracranial hemorrhage or mineralization. Major intracranial signal voids are preserved. There is high T2/FLAIR signal seen in the periventricular deep white matter. There is no midline shift, mass effect, or extra axial fluid collections are seen. No CP angle or IAC mass is seen. The orbits are unremarkable. The sella turcica and craniovertebral junction are within normal limits. The visualized paranasal sinuses are clear. The mastoid air cells are clear. MRI/Brain without Contrast IMPRESSION: Chronic microvascular ischemic changes. No intracranial hemorrhage, acute infarct, or space occupying lesion seen on this noncontrast MRI of the brain. Electronically Signed: Cisco Weaver MD at 20:01 EST ,
--- NOTE | 2023-09-22 16:04 | ED.RN ---
THIS RN TOOK PT TO UNIT. [facility] COMPLETED WITH ZOE ISLAS. PT AMBULATED TO BED. A &OX3.
[2023-09-22] MEDS: Aspirin 325 MG Tablet PO (16:50)
[2023-09-22] MEDS: Atorvastatin Calcium 40 MG Tablet PO (20:35)
[2023-09-23 02:26] VITALS: BP 114/69; PULSE 56; RESP 15; TEMP 36.8; O2SAT 97
[2023-09-23 05:00] VITALS: BMI 24.6
[2023-09-23 07:05] LABS: Absolute Lymphocyte Count 1.46 X10^3/uL (0.83-4.51); Absolute Neutrophil Count 1.8 X10^3/uL (2.0-7.7); Basophil# 0.03 X10^3/uL; Basophil% 0.8 % (0-1); Eosinophil# 0.06 X10^3/uL; Eosinophils% 1.6 % (0-5); Hematocrit 42.2 % (37-47); Hemoglobin 13.1 g/dL (12.0-15.0); Lymphocyte # 1.46 X10^3/ul (0.83-4.51); Lymphocyte % 40.1 % (19-41); Mean Corpuscular Volume 80.7 fL (81-99); Mean Platelet Vol. 9.9 fl (6.2-12.0); Monocyte# 0.33 X10^3/uL; Monocyte% 9.1 % (0-10); NRBC Flagged by Analyzer 0 % (0-5); Neutrophil # 1.76 X10^3/uL (2.7-7.7); Neutrophil % 48.4 % (47-70); Platelet Count 220 K/mm3 (150-450); RBC Distribution Width CV 15.4 % (11.6-14.6); RBC Distribution Width SD 45.1 fl (35.1-43.9); Red Blood Count 5.23 M/mm3 (4.2-5.4); White Blood Count 3.6 K/mm3 (4.4-11.0)
[2023-09-23 07:51] LABS: ALB/GLOB Ratio 0.9 RATIO (0.9-2.4); AST(SGOT) 16 U/L (15-37); Alanine Aminotransfer ALT/SGPT 16 U/L (13-56); Albumin, Serum 2.9 g/dL (3.2-5.0); Alkaline Phosphatase 94 U/L (45-117); Anion Gap 4 (5-15); BUN 13 mg/dL (7-18); BUN/Creat Ratio 15.4 RATIO (10-20); Calcium,Total 8.4 mg/dL (8.5-10.1); Chloride 109 mmol/L (98-107); Cholesterol 240 mg/dL (200); Creatinine, Serum 0.84 mg/dL (0.55-1.02); EST Glomerular Filtration Rate 68 mL/min (>60); Est Glom Filt Rate - Afr Amer 83 mL/min (>60); Estimated Creatinine Clearance 41.98 ml/min; Globulin 3.1 g/dL (2.2-4.2); Glucose 98 mg/dL (74-106); High Density Lipoprotein 68 mg/dL; Potassium 4.3 mmol/L (3.5-5.1); Sodium Level 139 mmol/L (136-145); Thyroid Stim Hormone (TSH) 1.26 uIU/mL (0.358-3.74); Triglycerides 86 mg/dL; Very Low Density Lipoprotein 17 mg/dL (5-40)
[2023-09-23] MEDS: Enoxaparin 40 MG/0.4 ML Syringe SC (08:38)
[2023-09-23] MEDS: Aspirin 81 MG TAB.CHEW PO (08:38)
[2023-09-23 09:02] VITALS: BP 186/61; PULSE 54; RESP 16; TEMP 36.6; O2SAT 98
[2023-09-23] MEDS: amLODIPine 5 MG Tablet PO (10:42)
[2023-09-23 12:00] VITALS: BMI 24.6
[2023-09-23 14:10] LABS: Magnesium 2.4 mg/dL (1.6-2.6)
--- NOTE | 2023-09-23 14:27 | DCINST_ITS ---
Discharge Instructions Diet Discharge Diet: 2000 mg Sodium Diet Activity Discharge Activity: - (Increase activity as tolerated. Would recommend against driving as per our earlier discussion) Follow Up Care Test Results: Test results from this visit will be discussed in further detail at your follow- up appointment, if applicable. Discharge Plan Admission Admit Date/Time: 09/22/23 13:21 Primary Reason for Your Visit: Mini stroke Attending Provider: Marcy Jarvis Primary Care Provider: Ana Mcdonald Instructions Patient Instructions: TIA Dc Additional Instructions / Restrictions: DISCHARGE INSTRUCTIONS PLEASE READ *Please take this with you to your next doctors appointment* -You will be discharged on aspirin and Plavix for 21 days and afterwards you can continue a daily aspirin. These are the most important medications for you to take on discharge -You will also be discharged on a statin and a medication for elevated blood pressure -Please follow-up with neurology upon discharge, please call Dr. Gerardo's office upon discharge to schedule an establish care appointment for your mini stroke ) -Please call your primary care provider's office upon discharge to schedule a hospital follow up within 1 week. -For any concerning signs or symptoms please call 911 or proceed to the nearest emergency department Discharge Orders/Prescriptions Prescriptions: New atorvastatin 40 mg Tablet 40 mg PO QHS 30 Days Qty: 30 0RF amlodipine 5 mg Tablet 5 mg PO DAILY 30 Days Qty: 30 0RF aspirin 81 mg Tablet,Chewable 81 mg PO BREAKFAST 30 Days Qty: 30 0RF clopidogrel [Plavix] 75 mg tablet 75 mg PO DAILY 21 Days Qty: 21 0RF Referrals / Follow Up: Ana Mcdonald MD [Primary Care Provider] - Within 1 Week Torey Gerardo MD [Non-Staff -Ordering Privileges] - (-Please follow-up with neurology upon discharge, please call Dr. Gerardo's office upon discharge to schedule an establish care appointment for your mini stroke (ph [phone])) Disposition Disposition (needs filled in before D/C Order can be placed): Home, Self Care
[2023-09-23 14:54] VITALS: BP 147/80; PULSE 59; RESP 16; TEMP 36.9; O2SAT 97
[2023-09-23 15:01] VITALS: BP 147/80; PULSE 59; RESP 16; TEMP 36.9; O2SAT 97
--- NOTE | 2023-09-23 15:01 | DS.PCM_ITS ---
Providers Date of Admission: 09/22/23 Date of Discharge: 09/23/23 Primary Care Physician: Dr. Ana Stringer MD Reason For Visit: R/O CVA Diagnosis Discharge Diagnosis (1) TIA (transient ischemic attack): Status: Acute Code(s): G45.9 - Transient cerebral ischemic attack, unspecified Plan #TIA #HTN Medications at Discharge Home Medications amlodipine 5 mg tablet 5 mg PO DAILY 30 days #30 tabs 09/23/23 aspirin 81 mg chewable tablet 81 mg PO BREAKFAST 30 days #30 tabs 09/23/23 atorvastatin 40 mg tablet 40 mg PO QHS 30 days #30 tabs 09/23/23 clopidogrel 75 mg tablet (Plavix) 75 mg PO DAILY 21 days #21 tabs 09/23/23 Hospital Course Summary of Care Provided Minutes Spent on Discharge: 32 Hospital Course: Per HPI: RASHARD JETER, is a 82 F with a ?hx of CVA and HTN who presented to [facility] 09/22/2023 for possible stroke symptoms. Patient very poor historian and no family at bedside so history obtained primarily per report. It seems the complaint is that right leg or right side feels dif ferently than the left. Last known normal last night at 8:30 PM. Reportedly had a stroke about a year ago and possibly had some persistent deficits but had a difficult time with both comprehension and expression with speech so unclear exactly what chronic deficits she has. Denied any headache or changes in vision at this time. INTERVAL HISTORY: Patient continues to have some aspect of expressive and receptive aphasia however daughter with her reports she is at her baseline and that her main complaint initially was regarding her hand not feeling like it usually does but this is completely resolved and mental status is also come back to baseline. MRI negative for acute stroke and echo with EF 65% and no diastolic dysfunction. No PFO. Suspect TIA and some baseline cognitive deficits as well as a questionable old infarct. Patient reports she does not take any medications but is willing to on discharge. Patient and daughter both comfortable with plan for discharge home. Physical Exam Narrative General: Alert, oriented, no apparent distress HEENT: Atraumatic, normocephalic Eyes: Anicteric, normal conjunctiva, extraocular movements grossly intact Neck: Supple Respiratory: Clear to auscultation bilaterally, normal respiratory effort Cardiovascular: Regular rate GI: Soft, nontender, nondistended Extremities: No edema Musculoskeletal: Moving all extremities Neuro: Still has what seems to be some difficulty with receptive and expressive aphasia but moving all limbs equally and is cooperative and pleasant Skin: No rashes appreciated Psych: Cooperative Weight / BMI Weight Weight: 63.1 kg Body Mass Index (BMI) 24.6 ABG / Lab / Microbiology Data 09/23/23 06:32 09/23/23 06:32 Laboratory: Laboratory Results - last 24 hr 09/23/23 06:32: WBC 3.6 L, RBC 5.23, Hgb 13.1, Hct 42.2, MCV 80.7 L, MCH 25.0 L, MCHC 31.0 L, RDW Std Deviation 45.1 H, RDW Coeff of Sumit 15.4 H, Plt Count 220, MPV 9.9, Immature Gran % (Auto) 0.000, Neut % (Auto) 48.4, Lymph % (Auto) 40.1, [place] % (Auto) 9.1, Eos % (Auto) 1.6, Baso % (Auto) 0.8, Absolute Neuts (auto) 1.8 L, Absolute Lymphs (auto) 1.46, Nucleated RBC % 0, Sodium 139, Potassium 4.3, Chloride 109 H, Carbon Dioxide 26.0, Anion Gap 4 L, BUN 13, Creatinine 0.84, Estim Creat Clear Calc 41.98, Est GFR (MDRD) Af Amer 83, Est GFR (MDRD) Non-Af 68, BUN/Creatinine Ratio 15.4, Glucose 98, Calcium 8.4 L, Total Bilirubin 0.50, AST 16, ALT 16, Alkaline Phosphatase 94, Total Protein 6.0 L, Albumin 2.9 L, Globulin 3.1, Albumin/Globulin Ratio 0.9, Triglycerides 86, Cholesterol 240 H , LDL Cholesterol 155 H, VLDL Cholesterol 17, HDL Cholesterol 68, TSH 1.26 09/23/23 06:37: Magnesium 2.4 Radiography Diagnostic Testing: Radiology Impression Brain MRI 09/22/23 13:26 IMPRESSION: Chronic microvascular ischemic changes. No intracranial hemorrhage, acute infarct, or space occupying lesion seen on this noncontrast MRI of the brain. Electronically Signed: Cisco Weaver MD at 20:01 EST , Echocardiogram 09/22/23 13:26 Interpretation Summary The estimated ejection fraction is 65 %. No evidence for diastolic dysfunction. The left atrium is moderately enlarged. The right atrium is mildly enlarged. Trivial mitral valve insufficiency. Mild (1+) aortic valve insufficiency. Ordering Physician: Marcy Jarvis Referring Physician: ANA STRINGER Performed By: Shivam Rivera RCS D/C Instructions Discharge Diet: 2000 mg Sodium Diet Meaningful Use Info Meaningful Use Diagnoses (Choose all that apply): None applicable Discharge Plan Admission Admit Date/Time: 09/22/23 13:21 Primary Reason for Your Visit: Mini stroke Attending Provider: Marcy Jarvis Primary Care Provider: Ana Stringer Instructions Patient Instructions: TIA Dc Additional Instructions / Restrictions: DISCHARGE INSTRUCTIONS PLEASE READ *Please take this with you to your next doctors appointment* -You will be discharged on aspirin and Plavix for 21 days and afterwards you can continue a daily aspirin. These are the most important medications for you to take on discharge -You will also be discharged on a statin and a medication for elevated blood pressure -Please follow-up with neurology upon discharge, please call Dr. Gerardo's office upon discharge to schedule an establish care appointment for your mini stroke ( [phone]) -Please call your primary care provider's office upon discharge to schedule a hospital follow up within 1 week. -For any concerning signs or symptoms please call 911 or proceed to the nearest emergency department Discharge Orders/Prescriptions Prescriptions: New atorvastatin 40 mg Tablet 40 mg PO QHS 30 Days Qty: 30 0RF amlodipine 5 mg Tablet 5 mg PO DAILY 30 Days Qty: 30 0RF aspirin 81 mg Tablet,Chewable 81 mg PO BREAKFAST 30 Days Qty: 30 0RF clopidogrel [Plavix] 75 mg tablet 75 mg PO DAILY 21 Days Qty: 21 0RF Referrals / Follow Up: Ana Stringer MD [Primary Care Provider] - Within 1 Week Torey Gerardo MD [Non-Staff -Ordering Privileges] - (-Please follow-up with neurology upon discharge, please call Dr. Gerardo's office upon discharge to schedule an establish care appointment for your mini stroke (ph [phone])) Disposition Disposition (needs filled in before D/C Order can be placed): Home, Self Care Charges/Coding Visit Charges Inpatient E&M: 03167 Disch Hosp >30min
--- NOTE | 2023-09-23 15:36 | CASEMGMT ---
ZOE MANDEL in to discuss AGUILAR form with patient. RN TEQUILA explained AGUILAR form, patient voiced understanding. Pt signed form and filed in chart. Pt provided with a copy of signed AGUILAR form. Patient had no further questions or concerns at this time. Pt states she feels she is back to her baseline and denies any homegoing needs. Pt family member at bedside who agrees.
== END 2023-09-23 16:05 | disposition home or self-care (01) ==
LOC: ED 12:52 → PCU 14:53
PROVIDERS: Admitting Provider Internal Medicine; Emergency Provider Emergency Medicine; PCP Internal Medicine; Visit Provider Internal Medicine
DX: G45.9 Transient cerebral ischemic attack, unspecified (principal); R47.01 Aphasia; E78.5 Hyperlipidemia, unspecified; I10 Essential (primary) hypertension; R53.1 Weakness; R20.0 Anesthesia of skin; R29.703 NIHSS score 3
CPT/HCPCS: 36415; 70450; 70496; 70498; 70551; 71045; 80048; 80053; 80061; 83735; 84443; 84484; 85025; 85610; 85730; 92610; 93005; 93306; 94762; 96372; 97161; 97165; 99221; 99285; Q9967; A4216; G0378

== ENCOUNTER 2024-01-18 11:39 | Observation (INO) | payer MEDICARE, OTHER, SELFPAY ==
[2024-01-18] VITALS (13 sets, daily range): BP systolic 109–151; BP diastolic 58–77; PULSE 52–89; RESP 12–29; TEMP 36.3–37.1; O2SAT 94–100; BMI 22.6
--- NOTE | 2024-01-18 11:43 | CT_ITS ---
INDICATION: Altered mental status, stroke alert EXAMINATION: CT BRAIN - CT Head or Brain W/O Contrast Injection TECHNIQUE: Multiple axial images were obtained of the head without intravenous contrast. A radiation dose optimization technique was used for this scan. IV Contrast dosage and agent: None. RADIATION DOSAGE (If Supplied By Facility): CTDIvol = ( 44.99 ) mGy, DLP = ( 829.85 ) mGycm COMPARISON: MRI of the brain of 09/22/2023. FINDINGS: BRAIN PARENCHYMA: No intra- or extra-axial hemorrhage. No evidence of acute infarct. Large left posterior parietal chronic infarct. Mild chronic periventricular deep white matter changes. There is otherwise preservation of the gil/white matter interface. Posterior fossa structures are unremarkable. CSF SPACES: Appropriate for age. No hydrocephalus. Basal cisterns are patent. CALVARIUM, SKULL BASE, PARANASAL SINUSES AND MASTOID AIR CELLS: Clear. No discrete lytic or blastic abnormalities. ORBITS: Previous bilateral cataract surgery. CT/STROKE Brain/Head without Cont IMPRESSION: 1. Chronic left posterior parietal infarct. 2. No acute intracranial process. 3. Chronic involutional changes of the brain. 4. If symptoms persist, MRI of the brain is recommended. N.B. : The above Results were Read Back by Severiano Walsh MD to Rachana Gloria PA, and understanding confirmed on 01/18/2024 12:12:21 (ET). Electronically Signed: Severiano Walsh MD at 12:31 EST ,
--- NOTE | 2024-01-18 11:43 | EKG12_ITS ---
Test Reason : STROKE ALERT Blood Pressure : / mmHG Vent. Rate : 070 BPM Atrial Rate : 070 BPM P-R Int : 132 ms QRS Dur : 072 ms QT Int : 406 ms P-R-T Axes : 077 027 045 degrees QTc Int : 438 ms Normal sinus rhythm Normal ECG Confirmed by Piter Emmanuel ([id number]), video editor CEDRIC BENOIT ([id number]) on 01/22/2024 2:02:20 PM Referred By: Confirmed By:Piter Emmanuel
--- NOTE | 2024-01-18 11:46 | EX.ED.DYSGE1 ---
HPI <LENY Hopson - Last Filed: 01/18/24 15:57> History of Present Illness Chief Complaint: Seizure Narrative Narrative: 83-year-old female with PMH of TIA was brought in by EMS for altered mental status. They received a call from the patient's daughter who lives next-door that the patient was outside yelling and confused. When EMS arrived she had right-sided weakness and slurred speech. When they had her on the cot and were placing the IV she had a generalized seizure lasting a minute. Since then she has been unresponsive but breathing. PFSH <LENY Hopson - Last Filed: 01/18/24 15:57> PFSH Medical History Arthropathy of left hip Dyslipidemia Hypertension Transient global amnesia Vertigo Home Medications aspirin 81 mg chewable tablet 81 mg PO BREAKFAST 30 days #30 tabs 09/23/23 [Rx Last Taken 01/18/24] atorvastatin 40 mg tablet 40 mg PO QHS 30 days #30 tabs 09/23/23 [Rx Last Taken 01/17/24] clopidogrel 75 mg tablet (Plavix) 75 mg PO DAILY 21 days #21 tabs 09/23/23 [Rx Last Taken 01/18/24] sertraline 50 mg tablet 75 mg PO QHS 01/18/24 [History Last Taken 01/17/24] Allergy/AdvReac Type Severity Reaction Status Date / Time cigarette smoke Allergy AIRWAY Verified 01/18/24 12:02 TIGHTNESS mepivacaine Allergy AMNESIA Verified 01/18/24 12:02 Penicillins Allergy Unknown Verified 01/18/24 12:02 procainamide Allergy Unknown Verified 01/18/24 12:02 Surgical History H/O bilateral hip replacements Social History Smoking Status: Never smoker ROS <LENY Hopson - Last Filed: 01/18/24 15:57> ROS ED ROS Narrative Unable to obtain due to altered mental status EXAM <LENY Hopson - Last Filed: 01/18/24 15:57> Physical Exam Narrative Exam Narrative: CONST: Patient lying in bed with eyes closed. EYES: Normal inspection. PERRL. ENT: Tongue bite, moist mucous membranes. NECK: Normal inspection. RESP: No respiratory distress, CTAB. CVS: Regular rate and rhythm, no murmur, no gallop. ABD: Soft and nontender, no guarding or rebound, nondistended. SKIN: Color normal, no rash, warm, dry, intact. EXTREMITIES: Normal appearance, no pedal edema. NEURO: Lying in bed with eyes closed, no gag reflex, no response to sternal rub. Const Vital Signs: 01/18/24 11:40 01/18/24 12:17 01/18/24 12:19 Temperature 97.4 F L Temperature Source Temporal Pulse Rate 89 73 Respiratory Rate 18 22 H Blood Pressure 110/58 L 130/77 H Blood Pressure Mean 75 94 Pulse Ox 94 99 99 Oxygen Delivery Method Room Air Nasal Cannula Nasal Cannula Oxygen Flow Rate (L/min) 2.5 2.5 01/18/24 12:30 01/18/24 12:30 01/18/24 13:00 Temperature Temperature Source Pulse Rate 65 72 62 Respiratory Rate 12 19 H 20 H Blood Pressure 113/70 113/70 112/59 L Blood Pressure Mean 84 84 76 Pulse Ox 96 95 96 Oxygen Delivery Method Room Air Room Air Room Air Oxygen Flow Rate (L/min) 01/18/24 13:00 01/18/24 13:30 01/18/24 13:30 Temperature Temperature Source Pulse Rate 62 60 60 Respiratory Rate 20 H 15 15 Blood Pressure 112/59 L 109/63 109/63 Blood Pressure Mean 76 78 78 Pulse Ox 96 98 98 Oxygen Delivery Method Room Air Room Air Room Air Oxygen Flow Rate (L/min) 01/18/24 14:00 01/18/24 14:00 01/18/24 14:30 Temperature Temperature Source Pulse Rate 63 55 L 55 L Respiratory Rate 29 H 21 H 20 H Blood Pressure 115/67 115/67 127/65 H Blood Pressure Mean 83 83 85 Pulse Ox 96 97 99 Oxygen Delivery Method Room Air Room Air Room Air Oxygen Flow Rate (L/min) 01/18/24 14:30 Temperature Temperature Source Pulse Rate 58 L Respiratory Rate 14 Blood Pressure 127/65 H Blood Pressure Mean 85 Pulse Ox 99 Oxygen Delivery Method Room Air Oxygen Flow Rate (L/min) <Dr. Sav Damon, DO - Last Filed: 01/18/24 15:06> Physical Exam Const Vital Signs: 01/18/24 11:40 01/18/24 12:17 01/18/24 12:19 Temperature 97.4 F L Temperature Source Temporal Pulse Rate 89 73 Respiratory Rate 18 22 H Blood Pressure 110/58 L 130/77 H Blood Pressure Mean 75 94 Pulse Ox 94 99 99 Oxygen Delivery Method Room Air Nasal Cannula Nasal Cannula Oxygen Flow Rate (L/min) 2.5 2.5 01/18/24 12:30 01/18/24 12:30 01/18/24 13:00 Temperature Temperature Source Pulse Rate 65 72 62 Respiratory Rate 12 19 H 20 H Blood Pressure 113/70 113/70 112/59 L Blood Pressure Mean 84 84 76 Pulse Ox 96 95 96 Oxygen Delivery Method Room Air Room Air Room Air Oxygen Flow Rate (L/min) 01/18/24 13:00 01/18/24 13:30 01/18/24 13:30 Temperature Temperature Source Pulse Rate 62 60 60 Respiratory Rate 20 H 15 15 Blood Pressure 112/59 L 109/63 109/63 Blood Pressure Mean 76 78 78 Pulse Ox 96 98 98 Oxygen Delivery Method Room Air Room Air Room Air Oxygen Flow Rate (L/min) 01/18/24 14:00 01/18/24 14:00 01/18/24 14:30 Temperature Temperature Source Pulse Rate 63 55 L 55 L Respiratory Rate 29 H 21 H 20 H Blood Pressure 115/67 115/67 127/65 H Blood Pressure Mean 83 83 85 Pulse Ox 96 97 99 Oxygen Delivery Method Room Air Room Air Room Air Oxygen Flow Rate (L/min) 01/18/24 14:30 Temperature Temperature Source Pulse Rate 58 L Respiratory Rate 14 Blood Pressure 127/65 H Blood Pressure Mean 85 Pulse Ox 99 Oxygen Delivery Method Room Air Oxygen Flow Rate (L/min) [facility] <LENY Hopson - Last Filed: 01/18/24 15:57> [facility] MDM Narrative Medical decision making narrative: History gathered from: Patient, daughter Differential: Stroke, seizure, electrolyte abnormality, infection Consults: Neurology, hospitalist Daughter arrived to provide more history. 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 She did not have any new stroke-like symptoms but did have a new onset generalized seizure. No history of seizures. On arrival she is unresponsive but breathing. Vital signs all normal. She does not respond to sternal rub or have a gag reflex but is protecting her airway. Code stroke was called based on EMS history. Initial CT/CTA negative. In discussion with the [facility] teleneurologist they recommended against TNK since this may be seizure with Naldo's paralysis. She was given loading dose of IV Keppra 1500 mg. CBC and CMP unremarkable. Urine tox positive for benzodiazepines. Alcohol negative. Patient was reassessed at 2 PM and opens her eyes to voice, tells me her name, and follows commands to squeeze my fingers. Case will be discussed with the hospitalist for admission for new onset seizure workup. Lab Data Attestation: I reviewed the patient's lab results. Labs: Laboratory Results - last 24 hr 01/18/24 01/18/24 01/18/24 11:22 11:53 12:29 WBC 5.2 RBC 5.53 H Hgb 13.8 Hct 45.7 MCV 82.6 MCH 25.0 L MCHC 30.2 L RDW Std Deviation 44.5 H RDW Coeff of Sumit 14.7 H Plt Count 281 MPV 9.9 Immature Gran % (Auto) 0.400 Neut % (Auto) 57.2 Lymph % (Auto) 34.2 [place] % (Auto) 6.2 Eos % (Auto) 1.0 Baso % (Auto) 1.0 Absolute Neuts (auto) 3.0 Absolute Lymphs (auto) 1.77 Nucleated RBC % 0 PT 14.2 INR 1.1 APTT 25.1 Sodium 141 Potassium 3.7 Chloride 102 Carbon Dioxide 28.0 Anion Gap 11 BUN 14 Creatinine 1.12 H Estim Creat Clear Calc 33.65 Est GFR (MDRD) Af Amer 60 Est GFR (MDRD) Non-Af 49 L BUN/Creatinine Ratio 12.5 Glucose 138 H Calcium 9.0 Phosphorus 2.5 Magnesium 2.4 Total Bilirubin 0.70 AST 22 ALT 24 Alkaline Phosphatase 170 H Troponin I High Sens 8 Total Protein 7.6 Albumin 3.9 Globulin 3.7 Albumin/Globulin Ratio 1.1 Urine Color Yellow Urine Clarity Clear Urine pH 5.0 Ur Specific Grady 1.010 Urine Protein 30 H Urine Glucose (UA) Normal Urine Ketones 5 H Urine Occult Blood 10 H Urine Nitrite Negative Urine Bilirubin Negative Urine Urobilinogen Normal Ur Leukocyte Esterase Negative Urine RBC 0-5 SEEN Urine WBC 0 SEEN Ur Squamous Epith Cells 5-10 SEEN Urine Bacteria 0 SEEN Urine Mucus RARE Urine Opiates Screen NEGATIVE Urine Methadone Screen NEGATIVE Ur Barbiturates Screen NEGATIVE Ur Phencyclidine Scrn NEGATIVE Ur Amphetamines Screen NEGATIVE MDMA (Ecstasy) Screen NEGATIVE U Benzodiazepines Scrn POSITIVE H Urine Cocaine Screen NEGATIVE U Cannabinoids Screen NEGATIVE Ur Drug Screen Comment Ethyl Alcohol < 3.0 Radiography Diagnostic Testing: Clinical Impression(s) from Imaging Studies Brain CT 01/18/24 11:43 IMPRESSION: 1. Chronic left posterior parietal infarct. 2. No acute intracranial process. 3. Chronic involutional changes of the brain. 4. If symptoms persist, MRI of the brain is recommended. N.B. : The above Results were Read Back by Severiano Walsh MD to Rachana Gloria,, PA, and understanding confirmed on 01/18/2024 12:12:21 (ET). Electronically Signed: Severiano Walsh MD at 12:31 EST , ADDENDUM: 01/18/24 1238 IMPRESSION: 1. Chronic left posterior parietal infarct. 2. No acute intracranial process. 3. Chronic involutional changes of the brain. 4. If symptoms persist, MRI of the brain is recommended. N.B. : The above Results were Read Back by Severiano Walsh MD to Rachana Gloria,, PA, and understanding confirmed on 01/18/2024 12:12:21 (ET). Electronically Signed: Severiano Walsh MD at 12:31 EST , ADDENDUM: 01/18/24 1251 IMPRESSION: 1. Chronic left posterior parietal infarct. 2. No acute intracranial process. 3. Chronic involutional changes of the brain. 4. If symptoms persist, MRI of the brain is recommended. N.B. : The above Results were Read Back by Severiano Walsh MD to Rachana Gloria,, PA, and understanding confirmed on 01/18/2024 12:12:21 (ET). Electronically Signed: Severiano Walsh MD at 12:44 EST , Chest X-Ray 01/18/24 11:48 IMPRESSION: No radiographic evidence of acute cardiopulmonary disease. Electronically Signed: Severiano Walsh MD at 13:08 EST , Head/Neck CTA 01/18/24 11:48 IMPRESSION: 1. No intracranial vessel stenosis. 2. Minimal narrowing of the left M2 segment essentially unchanged. 3. Unremarkable common and internal carotid arteries bilaterally. 4. Patent bilateral vertebral arteries without significant stenosis. N.B. : The above Results were Read Back by Severiano Walsh MD to Rachana Gloria, PA, and understanding confirmed on 01/18/2024 12:22:43 (ET). Electronically Signed: Severiano Walsh MD at 12:32 EST , ADDENDUM: 01/18/24 1239 IMPRESSION: 1. No intracranial vessel stenosis. 2. Minimal narrowing of the left M2 segment essentially unchanged. 3. Unremarkable common and internal carotid arteries bilaterally. 4. Patent bilateral vertebral arteries without significant stenosis. N.B. : The above Results were Read Back by Severiano Walsh MD to Rachana Gloria, PA, and understanding confirmed on 01/18/2024 12:22:43 (ET). Electronically Signed: Severiano Walsh MD at 12:32 EST , ADDENDUM: 01/18/24 1252 IMPRESSION: 1. No intracranial vessel stenosis. 2. Minimal narrowing of the left M2 segment essentially unchanged. 3. Unremarkable common and internal carotid arteries bilaterally. 4. Patent bilateral vertebral arteries without significant stenosis. N.B. : The above Results were Read Back by Severiano Walsh MD to Rachana Gloria PA, and understanding confirmed on 01/18/2024 12:22:43 (ET). Electronically Signed: Severiano Walsh MD at 12:45 EST , EKG Initial EKG: Attestation: I personally reviewed and interpreted this EKG as follows: Interpretation: Sinus Rhythm and No Acute Injury Pattern Comments: Normal sinus rhythm at 70 bpm Normal intervals, no ischemic change <Dr. Sav Damon, DO - Last Filed: 01/18/24 15:06> MDM Lab Data Labs: Laboratory Results - last 24 hr 01/18/24 01/18/24 01/18/24 11:22 11:53 12:29 WBC 5.2 RBC 5.53 H Hgb 13.8 Hct 45.7 MCV 82.6 MCH 25.0 L MCHC 30.2 L RDW Std Deviation 44.5 H RDW Coeff of Sumit 14.7 H Plt Count 281 MPV 9.9 Immature Gran % (Auto) 0.400 Neut % (Auto) 57.2 Lymph % (Auto) 34.2 [place] % (Auto) 6.2 Eos % (Auto) 1.0 Baso % (Auto) 1.0 Absolute Neuts (auto) 3.0 Absolute Lymphs (auto) 1.77 Nucleated RBC % 0 PT 14.2 INR 1.1 APTT 25.1 Sodium 141 Potassium 3.7 Chloride 102 Carbon Dioxide 28.0 Anion Gap 11 BUN 14 Creatinine 1.12 H Estim Creat Clear Calc 33.65 Est GFR (MDRD) Af Amer 60 Est GFR (MDRD) Non-Af 49 L BUN/Creatinine Ratio 12.5 Glucose 138 H Calcium 9.0 Phosphorus 2.5 Magnesium 2.4 Total Bilirubin 0.70 AST 22 ALT 24 Alkaline Phosphatase 170 H Troponin I High Sens 8 Total Protein 7.6 Albumin 3.9 Globulin 3.7 Albumin/Globulin Ratio 1.1 Urine Color Yellow Urine Clarity Clear Urine pH 5.0 Ur Specific Grady 1.010 Urine Protein 30 H Urine Glucose (UA) Normal Urine Ketones 5 H Urine Occult Blood 10 H Urine Nitrite Negative Urine Bilirubin Negative Urine Urobilinogen Normal Ur Leukocyte Esterase Negative Urine RBC 0-5 SEEN Urine WBC 0 SEEN Ur Squamous Epith Cells 5-10 SEEN Urine Bacteria 0 SEEN Urine Mucus RARE Urine Opiates Screen NEGATIVE Urine Methadone Screen NEGATIVE Ur Barbiturates Screen NEGATIVE Ur Phencyclidine Scrn NEGATIVE Ur Amphetamines Screen NEGATIVE MDMA (Ecstasy) Screen NEGATIVE U Benzodiazepines Scrn POSITIVE H Urine Cocaine Screen NEGATIVE U Cannabinoids Screen NEGATIVE Ur Drug Screen Comment Ethyl Alcohol < 3.0 Radiography Diagnostic Testing: Clinical Impression(s) from Imaging Studies Brain CT 01/18/24 11:43 IMPRESSION: 1. Chronic left posterior parietal infarct. 2. No acute intracranial process. 3. Chronic involutional changes of the brain. 4. If symptoms persist, MRI of the brain is recommended. N.B. : The above Results were Read Back by Severiano Walsh MD to Rachana Gloria,, LENY, and understanding confirmed on 01/18/2024 12:12:21 (ET). Electronically Signed: Severiano Walsh MD at 12:31 EST Reading Location ID and State: [facility] / [place] Tel , Service support , ADDENDUM: 01/18/24 1238 IMPRESSION: 1. Chronic left posterior parietal infarct. 2. No acute intracranial process. 3. Chronic involutional changes of the brain. 4. If symptoms persist, MRI of the brain is recommended. N.B. : The above Results were Read Back by Severiano Walsh MD to Rachana Gloria,, PA, and understanding confirmed on 01/18/2024 12:12:21 (ET). Electronically Signed: Severiano Walsh MD at 12:31 EST , ADDENDUM: 01/18/24 1251 IMPRESSION: 1. Chronic left posterior parietal infarct. 2. No acute intracranial process. 3. Chronic involutional changes of the brain. 4. If symptoms persist, MRI of the brain is recommended. N.B. : The above Results were Read Back by Severiano Walsh MD to Rachana Gloria,, PA, and understanding confirmed on 01/18/2024 12:12:21 (ET). Electronically Signed: Severiano Walsh MD at 12:44 EST , Chest X-Ray 01/18/24 11:48 IMPRESSION: No radiographic evidence of acute cardiopulmonary disease. Electronically Signed: Severiano Walsh MD at 13:08 EST , Head/Neck CTA 01/18/24 11:48 IMPRESSION: 1. No intracranial vessel stenosis. 2. Minimal narrowing of the left M2 segment essentially unchanged. 3. Unremarkable common and internal carotid arteries bilaterally. 4. Patent bilateral vertebral arteries without significant stenosis. N.B. : The above Results were Read Back by Severiano Walsh MD to Rachana Gloria, PA, and understanding confirmed on 01/18/2024 12:22:43 (ET). Electronically Signed: Severiano Walsh MD at 12:32 EST , ADDENDUM: 01/18/24 1239 IMPRESSION: 1. No intracranial vessel stenosis. 2. Minimal narrowing of the left M2 segment essentially unchanged. 3. Unremarkable common and internal carotid arteries bilaterally. 4. Patent bilateral vertebral arteries without significant stenosis. N.B. : The above Results were Read Back by Severiano Walsh MD to Rachana Gloria PA, and understanding confirmed on 01/18/2024 12:22:43 (ET). Electronically Signed: Severiano Walsh MD at 12:32 EST , ADDENDUM: 01/18/24 1252 IMPRESSION: 1. No intracranial vessel stenosis. 2. Minimal narrowing of the left M2 segment essentially unchanged. 3. Unremarkable common and internal carotid arteries bilaterally. 4. Patent bilateral vertebral arteries without significant stenosis. N.B. : The above Results were Read Back by Severiano Walsh MD to Rachana Gloria PA, and understanding confirmed on 01/18/2024 12:22:43 (ET). Electronically Signed: Severiano Walsh MD at 12:45 EST , Treatment and Re-Evaluation :: I have personally performed a face to face assessment of the patient and have reviewed the KAYE Note. I performed a substantive portion of the visit including all aspects of the following. My lerner findings include: History: Patient presents as a stroke alert. Patient was working in her yard this morning when she had visual changes and her right arm and leg became weak. EMS reports that the patient had a seizure en route to the hospital. Patient was postictal upon arrival. Patient is nonverbal. Exam: Vital signs are stable. Patient is afebrile. Patient is protecting her airway at this time. Pupils are equal, round, and reactive to light bilaterally. Oral mucosa is pink and moist. Heart was regular rate and rhythm. Lungs are clear and equal bilaterally. There is adequate respiratory effort noted. Abdomen is soft. There is no movement of the arms or legs. There is no facial weakness noted. Medical Decision Making: Stroke alert was called prehospital. Differential diagnosis includes acute stroke, seizure with Naldo's paralysis, infection, and electrolyte abnormality. CT scan of the brain will be obtained to assess for intracranial bleeding and acute stroke. CTA of the head and neck will be obtained to assess for large vessel occlusion. Chest x-ray will be obtained to assess for pneumonia. CBC will be obtained to assess for leukocytosis and anemia. Comprehensive metabolic profile will be obtained to assess for hepatic function, renal function, and electrolyte abnormality. Urinalysis will be obtained to assess for urinary tract infection and hematuria. PT with INR and PTT will be obtained to assess for coagulopathy. High-sensitivity troponin will be obtained to assess for cardiac ischemia. Urine drug screen will be obtained to assess for substance abuse. EKG will be obtained to assess for cardiac dysrhythmia and cardiac ischemia. CT scan of the brain was obtained. There is an old infarct in the left posterior parietal area. There is no acute infarct or bleed noted. CTA of the head and neck was obtained. There is no evidence of large vessel occlusion. These were interpreted by the radiologist and were also independently reviewed by myself. EKG was obtained. On my independent interpretation, it showed a normal sinus rhythm with a rate of 70. AL interval, QRS interval, and QTc intervals were all normal. Isabella was normal. There are no acute ST or T wave changes. Portable 1 view chest x-ray was obtained. On my independent interpretation, lung ramos are clear. There is normal cardiac silhouette. Bony thorax is normal. There is no acute process noted. Radiologist also interpreted the x-ray and agrees. CBC was reviewed and was essentially within normal limits. Comprehensive metabolic profile was reviewed and was essentially within normal limits. PT was INR and PTT were reviewed and were within normal limits. Urinalysis was reviewed. There is no evidence of urinary tract infection or hematuria. Urine tox screen was reviewed and was positive for benzodiazepines. Serum alcohol level was reviewed and was less than 3.0. Case was discussed with the stroke neurologist Dr. Vitale. He does not feel patient would benefit from thrombolytics at this time. He believes that this could be Naldo's paralysis from seizure. He recommended starting the patient on Keppra. This was ordered. We will continue to monitor the patient in the emergency department. Patient became more awake and alert. Daughter states that the patient is back to her normal baseline. Daughter states patient has a mild right-sided weakness chronically from prior stroke. Daughter states that the patient had no new neurodeficit prior to the seizure today. Case was discussed with the hospitalist. He will admit the patient to his service. Patient and family understood and were agreeable with the plan. All questions were answered. Discharge Plan Dx/Rx/DC Orders Clinical Impression: New onset seizure, History of CVA with residual deficit Disposition Disposition: Acute Care Hospital [facility]
--- NOTE | 2024-01-18 11:48 | RAD_ITS ---
INDICATION: Neuro deficit, acute, stroke suspected EXAMINATION/TECHNIQUE: X-RAY - XR Chest 1 View COMPARISON: No relevant prior comparison study available FINDINGS: LINES/DEVICES: None. LUNGS: No consolidation, edema or effusion. No pneumothorax. MEDIASTINUM AND CARDIOVASCULAR STRUCTURES: Borderline cardiac silhouette. Mild tortuosity of the thoracic aorta. BONES AND SOFT TISSUES: No demonstrated acute osseous changes. RAD/Chest 1 View IMPRESSION: No radiographic evidence of acute cardiopulmonary disease. Electronically Signed: Severiano Walsh MD at 13:08 EST ,
--- NOTE | 2024-01-18 11:48 | CT_ITS ---
INDICATION: Neuro deficit, acute, stroke suspected EXAMINATION: CT BRAIN WITHOUT CONTRAST, CTA HEAD, AND CTA NECK TECHNIQUE: Noncontrast axial images were obtained of the brain. Subsequently, routine carotid CT angiogram protocol was performed without and with IV contrast. In addition, images were obtained of the [place]. NASCET criteria using the distal ICAs for comparison were used for evaluation of stenoses. 3D reconstructions were reviewed. A radiation dose optimization technique was used for this scan. IV Contrast dosage and agent: 100 cc of [id number]. COMPARISON: Prior study dated: 09/22/2023 FINDINGS: --CTA NECK: AORTIC ARCH AND BRANCHES: Normal anatomy, patent. RIGHT CCA: No occlusion, significant stenosis or dissection. RIGHT ICA: No occlusion, significant stenosis or dissection. LEFT CCA: No occlusion, significant stenosis or dissection. Minimal calcification in the left carotid bulb. LEFT ICA: No occlusion, significant stenosis or dissection. RIGHT VERTEBRAL ARTERY: No occlusion, significant stenosis or dissection. LEFT VERTEBRAL ARTERY: No occlusion, significant stenosis or dissection. NECK SOFT TISSUES: Unremarkable. --CTA HEAD: --Anterior circulation: ICAs: No significant stenosis at the intracranial/visualized segments. ACAs: No significant stenosis at the visualized segments. ACOM: Not clearly visualized. MCAs: Unremarkable M1 segments and right M2 segment. Minimal narrowing of the left posterior segment unchanged without significant stenosis. --Posterior circulation: PCOMs: Not visualized bilaterally. experienced truck driver: No significant stenosis at the visualized segments. BASILAR ARTERY: No significant stenosis. VERTEBRAL ARTERIES: No significant stenosis at the intradural/visualized segments. No evidence of intracranial aneurysm or vascular malformation. CT/STROKE CTA Head AND Neck W/Con IMPRESSION: 1. No intracranial vessel stenosis. 2. Minimal narrowing of the left M2 segment essentially unchanged. 3. Unremarkable common and internal carotid arteries bilaterally. 4. Patent bilateral vertebral arteries without significant stenosis. N.B. : The above Results were Read Back by Severiano Walsh MD to Rachana Gloria PA, and understanding confirmed on 01/18/2024 12:22:43 (ET). Electronically Signed: Severiano Walsh MD at 12:32 EST ,
[2024-01-18 12:00] LABS: Absolute Lymphocyte Count 1.77 X10^3/uL (0.83-4.51); Basophil# 0.05 X10^3/uL; Eosinophil# 0.05 X10^3/uL; Hematocrit 45.7 % (37-47); Hemoglobin 13.8 g/dL (12.0-15.0); Lymphocyte # 1.77 X10^3/ul (0.83-4.51); Lymphocyte % 34.2 % (19-41); Mean Corp Hgb Conc 30.2 g/dL (32-36); Mean Corpuscular Volume 82.6 fL (81-99); Mean Platelet Vol. 9.9 fl (6.2-12.0); Monocyte# 0.32 X10^3/uL; Monocyte% 6.2 % (0-10); NRBC Flagged by Analyzer 0 % (0-5); Neutrophil # 2.96 X10^3/uL (2.7-7.7); Neutrophil % 57.2 % (47-70); Platelet Count 281 K/mm3 (150-450); RBC Distribution Width CV 14.7 % (11.6-14.6); RBC Distribution Width SD 44.5 fl (35.1-43.9); Red Blood Count 5.53 M/mm3 (4.2-5.4); White Blood Count 5.2 K/mm3 (4.4-11.0)
[2024-01-18 12:16] LABS: International Normalized Ratio 1.1; Prothrombin Time (Protime)PT. 14.2 SECONDS (11.7-14.9)
--- NOTE | 2024-01-18 12:16 | CPS ---
Intubation stuff ready, doctor told therapist patient can protect her airway and that we are not intubating at this time. No gag reflex on arrival.
[2024-01-18 12:19] LABS: ALB/GLOB Ratio 1.1 RATIO (0.9-2.4); AST(SGOT) 22 U/L (15-37); Alanine Aminotransfer ALT/SGPT 24 U/L (13-56); Albumin, Serum 3.9 g/dL (3.2-5.0); Alkaline Phosphatase 170 U/L (45-117); Anion Gap 11 (5-15); BUN 14 mg/dL (7-18); BUN/Creat Ratio 12.5 RATIO (10-20); Chloride 102 mmol/L (98-107); Creatinine, Serum 1.12 mg/dL (0.55-1.02); EST Glomerular Filtration Rate 49 mL/min (>60); Est Glom Filt Rate - Afr Amer 60 mL/min (>60); Estimated Creatinine Clearance 33.65 ml/min; Globulin 3.7 g/dL (2.2-4.2); Glucose 138 mg/dL (74-106); Partial Thromboplast Time 25.1 Seconds (24.1-36.2); Potassium 3.7 mmol/L (3.5-5.1); Protein, Total 7.6 g/dL (6.4-8.2); Sodium Level 141 mmol/L (136-145); Troponin-I HS 8 pg/mL (3.0-54.0)
[2024-01-18 12:29] LABS: Alcohol, Blood (Medical)-Serum < 3.0 mg/dL
[2024-01-18] MEDS: levETIRAcetam IV 1,500 MG in 0.9% Normal Saline (100mL Bag) 100 ML 460 MG IV (12:29)
[2024-01-18 12:35] LABS: Bacteria 0 SEEN /hpf (None Seen); White Blood Cells 0 SEEN /hpf (0-5)
[2024-01-18 12:37] LABS: Color, Urine Yellow (Yellow); Glucose, Dipstick Normal (Normal); Ketone-Dipstick 5 mg/dl (Negative); Leukocyte Esterase-Dipstick Negative /ul (Negative); Nitrite-Dipstick Negative (Negative); Occult Blood-Urine 10 /ul (Negative); Protein-Dipstick 30 mg/dl (Negative); Urine Bilirubin Dipstick Negative (Negative); Urine Clarity Clear (Clear); Urine Urobilinogen Normal (Normal)
[2024-01-18 12:43] LABS: Mucous, Urine RARE /hpf (<or=2+); Red Blood Cells-Urine 0-5 SEEN /hpf (0-5); Squamous Epithelial Cells - UA 5-10 SEEN /hpf (5-10)
[2024-01-18 13:03] LABS: Amphetamine Urine VISTA NEGATIVE (<1000 ng/mL); Barbiturate Urine VISTA NEGATIVE (< 200 ng/mL); Benzodiazepine Urine VISTA POSITIVE (< 200 ng/mL); Cocaine Urine VISTA NEGATIVE (< 300 ng/mL); Ecstacy Urine VISTA NEGATIVE (< 500 ng/mL); Methadone Urine VISTA NEGATIVE (< 300 ng/mL); PCP Urine VISTA NEGATIVE (< 25 ng/mL); THC Urine VISTA NEGATIVE (< 50 ng/mL); Vista UDS pH Range 5
--- NOTE | 2024-01-18 14:29 | EKG12_ITS ---
Test Reason : RHYTHM CHANGE Blood Pressure : / mmHG Vent. Rate : 049 BPM Atrial Rate : 049 BPM P-R Int : 144 ms QRS Dur : 078 ms QT Int : 436 ms P-R-T Axes : 053 011 027 degrees QTc Int : 393 ms Sinus bradycardia with Premature atrial complexes Otherwise normal ECG Confirmed by Piter Emmanuel [id number]), supervising editor news reel CEDRIC BENOIT ([id number]) on 01/22/2024 2:02:38 PM Referred By: Confirmed By:Piter Emmanuel
--- NOTE | 2024-01-18 14:41 | CHAPLAIN ---
Type of Pastoral Visit ___ Initial Visit ___ Follow-up Visit ___ On-call Visit ___ General Patient Visit ___ Spiritual Assessment ___ Family Conference ___ Bereavement _x__ Rapid Response ___ Code Blue ___ Other (describe below) Pastoral Care Referral From ___ Patient ___ Family ___ Nurse ___ Physician ___ Legal Administrative Assistant ___ Geospatial Intelligence Analyst _x__ Other (describe below) Sacrament/Intervention ___ Active listening ___ Anointing ___ Bahai ___ Bereavement ___ Communion ___ Leidy exploration ___ ___ Life review ___ Prayer ___ Reconciliation ___ Sacrament of Sick _x__ Supportive presence ___ Wedding ___ Other (describe below) Pastoral Comments came to ED for the stroke alert that was called; bouchra brought this patient and she had been taken already to [place]; no family members were present; squad crew understood that family members were not going to arrive anytime soon; notified RN that this paralegal secretary would be available as needed and called by staff
--- NOTE | 2024-01-18 14:52 | PCM.HP.STD ---
HPI - General General Date of Admission: 01/18/24 Date of Service: 01/18/24 Chief Complaint: Seizure episode HPI Narrative RASHARD JETER, is a 83 F with past history of stroke in October 2022 was brought to ED by EMS for altered mental status. The patient is accompanied by her daughter in the room who is the main history provider. According to her she was walking fine in the field and then she disappeared. After that she found that she was confused and yelling outside. Her whole body got stiff, extended and was rhythmic contraction in the pattern of generalized tonic-clonic seizure. This lasted for a minute but whole episode of confusion, abnormal sound like shriek and confusion lasted for about 10 minutes. Initially, patient had right-sided weakness and aphasia but those are old from previous stroke in 2021. In ED she was found unresponsive but breathing but patient became gradually responsive. [facility] neurologist was consulted and an clinical diagnosis of first-time seizure. CT head shows chronic left posterior parietal infarct but no acute intracranial process. Patient was loaded with IV Keppra 1500 mg as per neurologist recommended further admitted. Vitals, labs, EKG and chest x-ray reviewed and discussed in assessment and plan. Patient daughter said she has right-sided weakness, upper extremity more than lower extremity and receptive aphasia, difficulty in understanding the communication. [facility] Medical History Arthropathy of left hip Dyslipidemia Hypertension Transient global amnesia Vertigo Home Medications aspirin 81 mg chewable tablet 81 mg PO BREAKFAST 30 days #30 tabs 09/23/23 [Rx Last Taken 01/18/24] atorvastatin 40 mg tablet 40 mg PO QHS 30 days #30 tabs 09/23/23 [Rx Last Taken 01/17/24] clopidogrel 75 mg tablet (Plavix) 75 mg PO DAILY 21 days #21 tabs 09/23/23 [Rx Last Taken 01/18/24] sertraline 50 mg tablet 75 mg PO QHS 01/18/24 [History Last Taken 01/17/24] Allergy/AdvReac Type Severity Reaction Status Date / Time cigarette smoke Allergy AIRWAY Verified 01/18/24 12:02 TIGHTNESS mepivacaine Allergy AMNESIA Verified 01/18/24 12:02 Penicillins Allergy Unknown Verified 01/18/24 12:02 procainamide Allergy Unknown Verified 01/18/24 12:02 Surgical History H/O bilateral hip replacements Social History Smoking Status: Never smoker ROS ROS Narrative 14 system ROS difficult and incomplete mainly because patient has been 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 Mainly obtained from her daughter near the bedside Constitutional: Reports fatigue and weakness. No fever. HEENT: Reports systems reviewed and no addt'l complaints, except as documented Respiratory/Chest: No acute shortness of breath or respiratory distress or wheezing. CVS: No chest pressure or tightness. Gastrointestinal: Denies coffee ground emesis, hematemesis or vomiting Genitourinary: Denies burning urination or new urinary tract symptoms. Chronic and incontinence Musculoskeletal: Denies acute joint pain or limited range of motion. No acute injury Neurologic: As described in HPI skin: No ulcer. No rash Endocrinology: Reports systems reviewed and no addt'l complaints, except as documented Hematologic/Lymphatic: Reports systems reviewed and no addt'l complaints, except as documented Rest 14 ROS are negative except as mentioned in HPI Vital Signs Vital Signs Vital Signs: 01/18/24 11:40 01/18/24 12:17 01/18/24 12:19 Temperature 97.4 F L Temperature Source Temporal Pulse Rate 89 73 Respiratory Rate 18 22 H Blood Pressure 110/58 L 130/77 H Blood Pressure Mean 75 94 Pulse Ox 94 99 99 Oxygen Delivery Method Room Air Nasal Cannula Nasal Cannula Oxygen Flow Rate (L/min) 2.5 2.5 01/18/24 12:30 01/18/24 12:30 01/18/24 13:00 Temperature Temperature Source Pulse Rate 65 72 62 Respiratory Rate 12 19 H 20 H Blood Pressure 113/70 113/70 112/59 L Blood Pressure Mean 84 84 76 Pulse Ox 96 95 96 Oxygen Delivery Method Room Air Room Air Room Air Oxygen Flow Rate (L/min) 01/18/24 13:00 01/18/24 13:30 01/18/24 13:30 Temperature Temperature Source Pulse Rate 62 60 60 Respiratory Rate 20 H 15 15 Blood Pressure 112/59 L 109/63 109/63 Blood Pressure Mean 76 78 78 Pulse Ox 96 98 98 Oxygen Delivery Method Room Air Room Air Room Air Oxygen Flow Rate (L/min) 01/18/24 14:00 01/18/24 14:00 01/18/24 14:30 Temperature Temperature Source Pulse Rate 63 55 L 55 L Respiratory Rate 29 H 21 H 20 H Blood Pressure 115/67 115/67 127/65 H Blood Pressure Mean 83 83 85 Pulse Ox 96 97 99 Oxygen Delivery Method Room Air Room Air Room Air Oxygen Flow Rate (L/min) 01/18/24 14:30 Temperature Temperature Source Pulse Rate 58 L Respiratory Rate 14 Blood Pressure 127/65 H Blood Pressure Mean 85 Pulse Ox 99 Oxygen Delivery Method Room Air Oxygen Flow Rate (L/min) Weight Weight: 136 lb Body Mass Index (BMI) 22.6 Physical Exam Narrative General: Awake, lethargic. Oriented to person but disoriented to time and place. HEENT: Atraumatic, PERRLA, EOMI, Normocephalic Oral: Oral mucosa dry. No Gingival or Mucosal Lesions/ Ulcerations Neck: Supple, No JVD, Negative Carotid Bruits Chest wall/Lungs: Air entry diminished in bilateral lung bases. No crepitation/rhonchi Cardiovascular: Regular rate, Regular Rhythm, Normal S1, Normal S2, No M/G/R Abdomen: Bowel Sounds Present, Soft, Non Tender, Non-Distended : No dysuria. No renal angle tenderness. No suprapubic tenderness. Extremities: No edema, Capillary Refill Less than 3 Seconds Skin: No rashes, No breakdown Musculoskeletal: No Tenderness to Palpation of Joints or Extremities Neurological: Cranial nerves II-XII grossly intact, DTR 2+/4. Mild weakness in right upper and lower extremity 4+/5. Receptive/sensory aphasia. Psych/Mental Status: Flat affect. Results Lab / Micro Data 01/18/24 11:22 01/18/24 11:22 Labs: Laboratory Results - last 24 hr 01/18/24 11:22: WBC 5.2, RBC 5.53 H, Hgb 13.8, Hct 45.7, MCV 82.6, MCH 25.0 L, MCHC 30.2 L, RDW Std Deviation 44.5 H, RDW Coeff of Sumit 14.7 H, Plt Count 281, MPV 9.9, Immature Gran % (Auto) 0.400, Neut % (Auto) 57.2, Lymph % (Auto) 34.2, [place] % (Auto) 6.2, Eos % (Auto) 1.0, Baso % (Auto) 1.0, Absolute Neuts (auto) 3.0, Absolute Lymphs (auto) 1.77, Nucleated RBC % 0, PT 14.2, INR 1.1, APTT 25.1, Sodium 141, Potassium 3.7, Chloride 102, Carbon Dioxide 28.0, Anion Gap 11, BUN 14, Creatinine 1.12 H, Estim Creat Clear Calc 33.65, Est GFR (MDRD) Af Amer 60, Est GFR (MDRD) Non-Af 49 L, BUN/Creatinine Ratio 12.5, Glucose 138 H, Calcium 9.0, Total Bilirubin 0.70, AST 22, ALT 24, Alkaline Phosphatase 170 H, Troponin I High Sens 8, Total Protein 7.6, Albumin 3.9, Globulin 3.7, Albumin/Globulin Ratio 1.1 01/18/24 11:53: Ethyl Alcohol < 3.0 01/18/24 12:29: Urine Color Yellow, Urine Clarity Clear, Urine pH 5.0, Ur Specific Stanley 1.010, Urine Protein 30 H, Urine Glucose (UA) Normal, Urine Ketones 5 H, Urine Occult Blood 10 H, Urine Nitrite Negative, Urine Bilirubin Negative, Urine Urobilinogen Normal, Ur Leukocyte Esterase Negative, Urine RBC 0-5 SEEN, Urine WBC 0 SEEN, Ur Squamous Epith Cells 5-10 SEEN, Urine Bacteria 0 SEEN, Urine Mucus RARE, Urine Opiates Screen NEGATIVE, Urine Methadone Screen NEGATIVE, Ur Barbiturates Screen NEGATIVE, Ur Phencyclidine Scrn NEGATIVE, Ur Amphetamines Screen NEGATIVE, MDMA (Ecstasy) Screen NEGATIVE, U Benzodiazepines Scrn POSITIVE H, Urine Cocaine Screen NEGATIVE, U Cannabinoids Screen NEGATIVE, Ur Drug Screen Comment Imaging Radiology Impression Brain CT 01/18/24 11:43 IMPRESSION: 1. Chronic left posterior parietal infarct. 2. No acute intracranial process. 3. Chronic involutional changes of the brain. 4. If symptoms persist, MRI of the brain is recommended. N.B. : The above Results were Read Back by Severiano Walsh MD to Rachana Gloria PA, and understanding confirmed on 01/18/2024 12:12:21 (ET). Electronically Signed: Severiano Walsh MD at 12:31 EST , ADDENDUM: 01/18/24 1238 IMPRESSION: 1. Chronic left posterior parietal infarct. 2. No acute intracranial process. 3. Chronic involutional changes of the brain. 4. If symptoms persist, MRI of the brain is recommended. N.B. : The above Results were Read Back by Severiano Walsh MD to Rachana Gloria,, PA, and understanding confirmed on 01/18/2024 12:12:21 (ET). Electronically Signed: Severiano Walsh MD at 12:31 EST Reading Location ID and State: [facility] / [place] Tel , Service support , ADDENDUM: 01/18/24 1251 IMPRESSION: 1. Chronic left posterior parietal infarct. 2. No acute intracranial process. 3. Chronic involutional changes of the brain. 4. If symptoms persist, MRI of the brain is recommended. N.B. : The above Results were Read Back by Severiano Walsh MD to Rachana Gloria,, PA, and understanding confirmed on 01/18/2024 12:12:21 (ET). Electronically Signed: Severiano Walsh MD at 12:44 EST Reading Location ID and State: [facility] / [place] Tel , Service support , Chest X-Ray 01/18/24 11:48 IMPRESSION: No radiographic evidence of acute cardiopulmonary disease. Electronically Signed: Severiano Walsh MD at 13:08 EST , Head/Neck CTA 01/18/24 11:48 IMPRESSION: 1. No intracranial vessel stenosis. 2. Minimal narrowing of the left M2 segment essentially unchanged. 3. Unremarkable common and internal carotid arteries bilaterally. 4. Patent bilateral vertebral arteries without significant stenosis. N.B. : The above Results were Read Back by Severiano Walsh MD to Rachana Gloria PA, and understanding confirmed on 01/18/2024 12:22:43 (ET). Electronically Signed: Severiano Walsh MD at 12:32 EST , ADDENDUM: 01/18/24 1239 IMPRESSION: 1. No intracranial vessel stenosis. 2. Minimal narrowing of the left M2 segment essentially unchanged. 3. Unremarkable common and internal carotid arteries bilaterally. 4. Patent bilateral vertebral arteries without significant stenosis. N.B. : The above Results were Read Back by Severiano Walsh MD to Rachana Gloria PA, and understanding confirmed on 01/18/2024 12:22:43 (ET). Electronically Signed: Severiano Walsh MD at 12:32 EST , ADDENDUM: 01/18/24 1252 IMPRESSION: 1. No intracranial vessel stenosis. 2. Minimal narrowing of the left M2 segment essentially unchanged. 3. Unremarkable common and internal carotid arteries bilaterally. 4. Patent bilateral vertebral arteries without significant stenosis. N.B. : The above Results were Read Back by Severiano Walsh MD to Rachana Gloria PA, and understanding confirmed on 01/18/2024 12:22:43 (ET). Electronically Signed: Severiano Walsh MD at 12:45 EST , Assessment & Plan Assessment/Plan (1) New onset seizure: PLAN: Plan This is a 83-year-old female being admitted for further evaluation of new onset seizure 1. Acute encephalopathy mainly due to new onset, generalized tonic-clonic seizure: Patient is being admitted in PCU. This is her first episode of generalized tonic-clonic seizure being evaluated by [facility] neurologist in the ED. Patient completed 1500 mg of IV Keppra 1 dose. Twelve-lead EKG shows sinus bradycardia 49 bpm, PAC QTc 393 ms. Previous EKG of September 22, 2023 shows sinus bradycardia 55 with sinus arrhythmia. Chest x-ray no acute cardiopulmonary abnormality. Vitals in normal limit except heart rate in 50s to low 60s. MRI brain without contrast and EEG ordered. [facility] neuroconsult. Ativan 2 mg IV as needed for seizure. Will wait for neuro opinion regarding further dosing of Keppra. 2. 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 Patient on baby aspirin, Plavix and atorvastatin 40 mg daily, continued. 3. Anxiety and depression: Patient on sertraline 75 mg daily continued. 4. Hypertension: Blood pressure in normal limit. 5. Dyslipidemia on atorvastatin. Repeat fasting profile tomorrow AM. Living will/advanced directive/end of life care: Patient does have living will or advanced directive. Her daughter present in ED is power of environmental attorney for health. Her daughter is not clear what is written in the living will and it is hard to confirm with the patient as she is herself confused and lethargic. After discussion of benefits/risks procedures involved with full code, DNR CC arrest and DNR CC, the patient's daughter and I came to agreement for full code and she will look up and bring the living will to confirm and change accordingly. But for practical purposes now, the patient's daughter does want artificial life support including intubation, tube feed, ventilator and/chest compression, central venous catheter, vasopressor and DC shock if needed Total time spent in [id number] encounter in discussion of advanced directive 17 minutes. Clinical Impression(s) from Imaging Studies Brain CT 01/18/24 11:43 IMPRESSION: 1. Chronic left posterior parietal infarct. 2. No acute intracranial process. 3. Chronic involutional changes of the brain. 4. If symptoms persist, MRI of the brain is recommended. Chest X-Ray 01/18/24 11:48 IMPRESSION: No radiographic evidence of acute cardiopulmonary disease. Head/Neck CTA 01/18/24 11:48 IMPRESSION: 1. No intracranial vessel stenosis. 2. Minimal narrowing of the left M2 segment essentially unchanged. 3. Unremarkable common and internal carotid arteries bilaterally. 4. Patent bilateral vertebral arteries without significant stenosis. Charges/Coding Visit Charges Inpatient E&M: 90902 Init Hosp Procedures Hospitalists Procedures: 87714 Advncd Care Plan 30 Min
[2024-01-18 15:42] LABS: Magnesium 2.4 mg/dL (1.6-2.6); Phosphorus 2.5 mg/dL (2.5-4.9)
--- NOTE | 2024-01-18 16:14 | MRI_ITS ---
STUDY: MRI BRAIN WITHOUT CONTRAST REASON FOR EXAM: Female, 83 years old. SEIZURE, ALTERED MENTAL STATUS TECHNIQUE: Standardized multiplanar fat and water weighted pulse sequences were obtained. COMPARISON: January 17, 2023 FINDINGS: Atrophy and minor periventricular white matter ischemic changes. There is encephalomalacia and mild gliosis in the left posterior temporal lobe, frontal and parietal lobes consistent with old infarct in the distribution of left middle cerebral artery. Normal bilateral basal ganglia. Normal thalami. There is no extra-axial fluid accumulation. Normal flow voids within the major intracranial circulation suggesting patency by spin echo criteria. Normal sella turcica, pituitary gland, infundibular stalk, optic chiasm and hypothalamus. Normal tectal plate and pineal gland. Normal midbrain, pamela and medulla. Normal cerebellum. Normal basal cisterns. Normal bilateral temporal bones. Normal bilateral internal auditory canals. Postsurgical changes of the orbits. Incidental finding of small lacrimocoele on the right likely of no significance Minor mucosal thickening of the ethmoid sinuses. Normal calvarium and skull base. Normal visualized soft tissue structures. Normal visualized upper cervical spine. MRI/Brain without Contrast IMPRESSION: Old left temporal, frontal and parietal infarct. No acute infarct Electronically Signed: Tyrell Stein MD at 19:51 EST ,
[2024-01-18] MEDS: Enoxaparin 40 MG/0.4 ML Syringe SC (17:18)
[2024-01-18] MEDS: Lactated Ringers 1,000 ML 75 ML IV (18:53)
--- OUTSIDE RECORDS SUMMARY | 2024-01-18 19:56 | XMS RPT_ITS | CCD ---
Author Name Unknown Address [address] [facility] [address] [place] [address] Organization [facility] Care Team Providers Care Glass Vial Filler Name Role Phone Nani Stringer MD Primary Care Provider [phone] REGINA AUSTIN MD Attending Unavailable REGINA AUSTIN MD Admitting Unavailable REGINA AUSTIN MD Primary Care Unavailable REGINA AUSTIN MD Attending Unavailable REGINA AUSTIN MD Admitting Unavailable REGINA AUSTIN MD Primary Care Unavailable REGINA AUSTIN MD Attending Unavailable REGINA AUSTIN MD Admitting Unavailable REGINA AUSTIN MD Primary Care Unavailable REGINA AUSTIN MD Admitting Unavailable REGINA AUSTIN MD Primary Care Unavailable REGINA AUSTIN MD Attending Unavailable IHISSCHEDULE, LVO Attending Unavailable SAMANTHA, LVO Admitting Unavailable BETH LUCIO JR. Attending Unavailable MYKE NANI C Primary Care Unavailable JESUS OG Referring Unavailable JESUS OG Admitting Unavailable ISRAEL MACIEL Referring Unavailable CONSULT, SURGERY - NEURO Consulting Unavail able JESUS OG Attending Unavailable Nani Stringer MD Primary Care Provider SHYLA GUILLEN Attending Unavailable MYKE NANI Primary Care Unavailable NANI STRINGER Attending Unavailable MYKE NANI Primary Care Unavailable NANI STRINGER Attending Unavailable GANKAREN, NANI Primary Care Unavailable CHERELLE MITCHELL Attending Unavailable MYKE NANI Primary Care Unavailable GWEN VINES Referring Unavailable MYKE NANI Primary Care Unavailable GWEN VINES Attending Unavailable NANI STRINGER Primary Care Unavailable Allergies Allergy Classification Reported Allergen(s) Allergy Type Date of Onset Reaction(s) Facility (11 sources) Mepivacaine; Translations: [MEPIVACAINE] Drug Allergy 2 Mental Status Change [facility] Work Phone: (4 sources) Penicillins; Translations: [PENICILLINS] Propensity to adverse reactions 6 [facility] Work Phone: (10 sources) Smoke; Translations: [SMOKE] Allergy to substance 2 Shortness of Breath [facility] (7 sources) Penicillins Propensity to adverse reactions 6 [facility] Work Phone: (1 source) Procainamide Drug Allergy 2 [facility] Medications Current Medications Medication Drug Class(es) Dates Sig (Normalized) Sig (Original) acyclovir 400 mg oral tablet (1 source) Herpesvirus Nucleoside Analog DNA Polymerase Inhibitor, Herpes Simplex Virus Nucleoside Analog DNA Polymerase Inhibitor, Herpes Zoster Virus Nucleoside Analog DNA Polymerase Inhibitor Start: 04-27-2023 End: 05-04-2023 take 1 tablet by mouth three times daily acyclovir (ZOVIRAX) 400 mg tablet Take 1 tablet by mouth three times daily for 7 days. 21 tablet 0 04/27/2023 05/04/2023 Active Completed/Discontinued Medications Medication Drug Class(es) Dates Sig (Normalized) Sig (Original) Acetaminophen (1 source) Start: 10-16-2022 End: 10-19-2022 take 1 tablet by mouth every four hours as needed acetaminophen (TYLENOL) tablet 325 mg amLODIPine 5 mg oral tablet (2 sources) Dihydropyridine Calcium Channel Sg Start: 09-26-2023 End: 10-11-2023 take 1 tablet by mouth once daily amLODIPine (NORVASC) 5 mg tablet Take 1 tablet by mouth once daily. 30 tablet 11 10/11/2023 Active Problems Active Problems Problem Classification Problem Date Documented Da te Episodic/Chronic Acute cerebrovascular disease (13 sources) Cerebrovascular accident due to occlusion of left middle cerebral artery; Translations: [Cerebral infarction due to unspecified occlusion or stenosis of left middle cerebral artery] Onset: 2 Chronic Adjustment disorders (1 source) Adjustment disorder with mixed anxiety and depressed mood; Translations: [Adjustment disorder with mixed anxiety and depressed mood] Onset: 3 Chronic Cancer of bladder (11 sources) Malignant neoplasm, overlapping lesion of bladder; Translations: [Malignant neoplasm of overlapping sites of bladder] Onset: 8 01-03-2018 Chronic Conditions associated with dizziness or vertigo (2 sources) Dizziness and giddiness; Translations: [Dizziness] Onset: 4 Episodic Disorders of lipid metabolism (11 sources) Mixed hyperlipidemia; Translations: [Mixed hyperlipidemia] Onset: 7 04-03-2007 Chronic Esophageal disorders (11 sources) Gastroesophageal reflux disease without esophagitis; Translations: [Gastro-esophageal reflux disease without esophagitis] Onset: 2 Chronic Essential hypertension (12 sources) Essential hypertension; Translations: [Essential (primary) hypertension] Onset: 7 Chronic Fracture of lower limb (3 sources) Unspecified fracture of left femur, initial encounter for closed fracture; Translations: [Unspecified fracture of left femur, initial encounter for closed fracture] Onset: 2 Episodic Immunizations and screening for infectious disease (1 source) Encounter for immunization; Translations: [Encounter for immunization] Onset: 4 Episodic Late effects of cerebrovascular disease (1 source) Dysphagia following cerebral infarction; Translations: [Dysphagia following cerebral infarction] Onset: 3 Chronic Malaise and fatigue (1 source) Weakness; Translations: [Weakness] Onset: 4 Episodic Nausea and vomiting (1 source) Nausea; Translations: [Nausea] Onset: 4 Episodic Other and ill-defined cerebrovascular disease (2 sources) Cerebrovascular disease; Translations: [Other cerebrovascular vasospasm and vasoconstriction] Onset: 2 Chronic Other and ill-defined cerebrovascular disease (1 source) Other cerebrovascular vasospasm and vasoconstriction; Translations: [Other cerebrovascular vasospasm and vasoconstriction] Onset: 2 Chronic Other circulatory disease (1 source) History of cerebrovascular accident; Translations: [Personal history of transient ischemic attack (TIA), and cerebral infarction without residual deficits] Episodic Other circulatory disease (1 source) Personal history of transient ischemic attack (TIA), and cerebral infarction without residual deficits; Translations: [H/O ischemic left MCA stroke] Onset: 4 Episodic Other circulatory disease (1 source) Orthostatic hypotension; Translations: [Orthostatic hypotension] Onset: 4 Episodic Other connective tissue disease (1 source) Weakness of right hand; Translations: [Other symptoms and signs involving the musculoskeletal system] Episodic Other connective tissue disease (1 source) Muscle weakness (generalized); Translations: [Muscle weakness of right upper extremity] Onset: 3 Episodic Other diseases of kidney and ureters (1 source) Disorder of kidney and ureter, unspecified; Translations: [Function kidney decreased] Onset: 4 Episodic Other gastrointestinal disorders (1 source) Passing flatus; Translations: [Flatulence] Episodic Other nervous system disorders (2 sources) Aphasia; Translations: [Aphasia] Onset: 3 Chronic Other nervous system disorders (1 source) Aphasia; Translations: [Aphasia] Chronic Residual codes; unclassified (1 source) Hallucinations; Translations: [Hallucinations, unspecified] Episodic Transient cerebral ischemia (1 source) Transient cerebral ischemic attack, unspecified; Translations: [TIA (transient ischemic attack)] Onset: 3 Chronic Viral infection (1 source) Recurrent herpes simplex labialis; Translations: [Herpesviral vesicular dermatitis] Episodic Past or Other Problems Problem Classification Problem Date Documented Da te Episodic/Chronic Genitourinary symptoms and ill-defined conditions (9 sources) Jack hematuria; Translations: [Gross hematuria] Onset: 02-11-2017 02-11-2017 Episodic Unclassified (1 source) Onset: 10-19-2022 10-19-2022 Results Test Name Value Interpretation Reference Range Facil ity Vital Signs Date Time Vital Sign Value Performing Clinician Facility 04-27-2023 09:44-0400 Body weight 63.96 kg Nani Stringer MD Work Phone: [facility] 04-27-2023 09:44-0400 Diastolic blood pressure 70 mm[Hg] Nani Stringer MD Work Phone: [facility] 04-27-2023 09:44-0400 Heart rate 58 /min Nani Stringer MD Work Phone: [facility] 04-27-2023 09:44-0400 Respiratory rate 16 /min Nani Stringer MD Work Phone: [facility] 04-27-2023 09:44-0400 SaO2% (BldA) [Mass fraction] 98 % Nani Stringer MD Work Phone: [facility] 04-27-2023 09:44-0400 Systolic blood pressure 130 mm[Hg] Nani Stringer MD Work Phone: [facility] 02-24-2023 10:22-0400 Body height 158.8 cm Nani Stringer MD Work Phone: [facility] 02-24-2023 10:22-0400 Body temperature 98.49 [degF] Nani Stringer MD Work Phone: [facility] 02-24-2023 10:22-0400 Body weight 63.5 kg Nani Stringer MD Work Phone: [facility] 02-24-2023 10:22-0400 Diastolic blood pressure 78 mm[Hg] Nani Stringer MD Work Phone: [facility] 02-24-2023 10:22-0400 Heart rate 64 /min Nani Stringer MD Work Phone: [facility] 02-24-2023 10:22-0400 Respiratory rate 12 /min Nani Stringer MD Work Phone: [facility] 02-24-2023 10:22-0400 SaO2% (BldA) [Mass fraction] 98 % Nani Stringer MD Work Phone: [facility] 02-24-2023 10:22-0400 Systolic blood pressure 120 mm[Hg] Nani Stringer MD Work Phone: [facility] 10-19-2022 07:27-0500 Diastolic blood pressure 64 mm[Hg] Chloé Gonzales MD Work Phone: [facility] 10-19-2022 07:27-0500 Heart rate 53 /min Chloé Gonzales MD Work Phone: [facility] 10-19-2022 07:27-0500 Respiratory rate 16 /min Chloé Gonzales MD Work Phone: [facility] 10-19-2022 07:27-0500 SaO2% (BldA) [Mass fraction] 98 % Chloé Gonzales MD Work Phone: [facility] 10-19-2022 07:27-0500 Systolic blood pressure 119 mm[Hg] Chloé Gonzales MD Work Phone: [facility] 10-19-2022 01:00-0500 Body temperature 97.5 [degF] Chloé Gonzales MD Work Phone: [facility] 10-18-2022 07:42-0500 Body height 157.5 cm Chloé Gonzales MD Work Phone: [facility] 10-18-2022 07:42-0500 Body mass index (BMI) [Ratio] 27.41 kg/m2 Chloé Gonzales MD Work Phone: [facility] 10-18-2022 07:42-0500 Body weight 68 kg Chloé Gonzales MD Work Phone: [facility] 10-11-2022 09:36-0500 Body height 158.8 cm Nani Stringer MD Work Phone: [facility] 10-11-2022 09:36-0500 Body temperature 98.6 [degF] Nani Stringer MD Work Phone: [facility] 10-11-2022 09:36-0500 Body weight 66.68 kg Nani Stringer MD Work Phone: [facility] 10-11-2022 09:36-0500 Diastolic blood pressure 72 mm[Hg] Nani Stringer MD Work Phone: [facility] 10-11-2022 09:36-0500 Heart rate 50 /min Nani Stringer MD Work Phone: [facility] 10-11-2022 09:36-0500 Respiratory rate 12 /min Nani Stringer MD Work Phone: [address]29-2022 09:36-0500 SaO2% (BldA) [Mass fraction] 99 % Nani Stringer MD Work Phone: [facility] 10-11-2022 09:36-0500 Systolic blood pressure 126 mm[Hg] Nani Stringer MD Work Phone: [facility] 04-18-2022 08:01-0400 Body temperature 97.81 [degF] Paula Praisler-Wood PATIENT SUPPORT ASSOCIATE.PERSONAL ASSISTANT Work Phone: [facility] 04-18-2022 08:01-0400 Body weight 66.13 kg Paula Praisler-Wood PATIENT SUPPORT ASSOCIATE.PERSONAL ASSISTANT Work Phone: [facility] 04-18-2022 08:01-0400 Diastolic blood pressure 76 mm[Hg] Paula Praisler-Wood PATIENT SUPPORT ASSOCIATE.PERSONAL ASSISTANT Work Phone: [facility] 04-18-2022 08:01-0400 Heart rate 58 /min Paula Praisler-Wood PATIENT SUPPORT ASSOCIATE.PERSONAL ASSISTANT Work Phone: [facility] 04-18-2022 08:01-0400 Respiratory rate 20 /min Paula Praisler-Wood PATIENT SUPPORT ASSOCIATE.PERSONAL ASSISTANT Work Phone: [facility] 04-18-2022 08:01-0400 SaO2% (BldA) [Mass fraction] 96 % Paula Praisler-Wood PATIENT SUPPORT ASSOCIATE.PERSONAL ASSISTANT Work Phone: [facility] 04-18-2022 08:01-0400 Systolic blood pressure 116 mm[Hg] Paula Praisler-Wood PATIENT SUPPORT ASSOCIATE.PERSONAL ASSISTANT Work Phone: [facility] 04-06-2022 15:45-0400 Diastolic blood pressure 78 mm[Hg] Cherelle Older PATIENT SUPPORT ASSOCIATE.PERSONAL ASSISTANT Work Phone: [facility] 04-06-2022 15:45-0400 Systolic blood pressure 132 mm[Hg] Cherelle Older PATIENT SUPPORT ASSOCIATE.PERSONAL ASSISTANT Work Phone: [facility] 04-06-2022 15:18-0400 Body weight 67.59 kg Cherelle Older PATIENT SUPPORT ASSOCIATE.PERSONAL ASSISTANT Work Phone: [facility] 04-06-2022 15:18-0400 Heart rate 64 /min Cherelle Older PATIENT SUPPORT ASSOCIATE.PERSONAL ASSISTANT Work Phone: [facility] 04-06-2022 15:18-0400 Respiratory rate 16 /min Cherelle Older PATIENT SUPPORT ASSOCIATE.PERSONAL ASSISTANT Work Phone: [facility] Encounters Encounter Date Encounter Type Care Provider Facility Start: 11-29-2023 End: 11-30-2023 ambulatory CHERELLE MITCHELL Facility:[facility] Start: 11-15-2023 End: 11-16-2023 ambulatory GWEN Bonilla CHELSEA Facility:[facility] Start: 10-11-2023 Refill Nani Madrigal Work Phone: [facility] [place] Procedures Date Procedure Procedure Detail Performing Clinician Start: 01-02-2023 Follow-up visit Follow-up BETH LUCIO JR. Start: 10-19-2022 Creatinine blood Coleman Melony Mack PATIENT SUPPORT ASSOCIATE-PERSONAL ASSISTANT Work Phone: Start: 10-18-2022 SARS-CoV-2 (COVID-19 ) RNA [Presence] in Unspecified specimen by JUAN J with probe detection Coleman Melony Mack PATIENT SUPPORT ASSOCIATE-PERSONAL ASSISTANT Work Phone: Start: 10-18-2022 Echo tthrc r-t 2d w/wom-mode compl spec&colr d Anne Capps MD Work Phone: Start: 10-18-2022 Creatinine blood Marissa Capps MD Work Phone: Start: 10-17-2022 CONTINUOUS CARDIAC MONITORING STRIP Other Other Start: 10-17-2022 Hemoglobin glycosyla kyle a1c Anne Capps MD Work Phone: Start: 10-17-2022 Creatinine blood Marissa Capps MD Work Phone: Start: 10-17-2022 Hepatic function panel Anne Capps MD Work Phone: Start: 10-16-2022 CONTINUOUS CARDIAC MONITORING STRIP Other Other Start: 10-16-2022 EXTRA MICRO Nael Medel MD Work Phone: Start: 10-16-2022 Urnls dip stick/tabl et reagent auto microscopy Nael Medel MD Work Phone: Start: 10-16-2022 Urnls dip stick/tabl et rgnt auto w/o microscopy Nael Medel MD Work Phone: Start: 10-16-[address] n[address] w/blood flow&volume Nael Medel MD Work Phone: Start: 10-16-2022 Assay of magnesium Shruthi Capps MD Work Phone: Start: 10-16-2022 CBC AND ELECTRONIC DIFF Nael Medel MD Work Phone: Start: 10-16-2022 Complete blood count with white cell differential, automated Nael Medel MD Work Phone: Start: 10-16-2022 GOLD TOP TUBE Nael Medel MD Work Phone: Start: 10-16-2022 Hepatic function panel Nael Medel MD Work Phone: Start: 10-16-2022 LAVENDER TOP TUBE Ruth ll Kaitlin Medel MD Work Phone: Start: 10-16-2022 LT BLUE TOP TUBE Wesly l Kaitlin Medel MD Work Phone: Start: 10-16-2022 MINT GREEN TOP TUBE Roman Medel MD Work Phone: Start: 10-16-2022 RAINBOW DRAW Nael Medel MD Work Phone: Start: 10-16-2022 Ct head/brain w/o co ntrast material Nael Medel MD Work Phone: Start: 03-31-2011 H/O: artificial joint Hip replacemen t Cherelle Mitchell PATIENT SUPPORT ASSOCIATE.PERSONAL ASSISTANT Work Phone: Plan of Treatment Date Care Activity Detail Author Start: 01-10-2030 Tetanus vaccination TETANUS [facility] Start: 01-10-2030 Urine microalbumin profile [facility] Start: 10-19-2025 Diabetes Screening Diabetes Screenin g [facility] Start: 10-17-2025 DIABETES SCREEN DIABETES SCREEN [facility] Start: 11-23-2024 DIABETES SCREEN DIABETES SCREEN [facility] Start: 07-14-2023 Covid-19 Vaccine ( season) Covid-19 Vaccine ( season) [facility] Start: 07-14-2023 Influenza vaccination Influenza Vacc ine (#1) [facility] Start: 04-06-2023 PNEUMOCOCCAL: 65+ (3 - PPSV23 or PCV20) PNEUMOCOCCAL: 65+ (3 - PPSV23 or PCV20) [facility] Immunizations Immunization Date Immunization Notes Care Provider Paulino pedroza 08-05-2022 influenza virus vacc ine, unspecified formulation Nani Stringer MD Work Phone: [facility] 01-10-2020 tetanus toxoid, redu mauriiso diphtheria toxoid, and acellular pertussis vaccine, adsorbed Cherelle Older PATIENT SUPPORT ASSOCIATE.PERSONAL ASSISTANT Work Phone: [facility] Work Phone: 07-09-2019 pneumococcal conjuga te vaccine, 13 valent Cherelle Older PATIENT SUPPORT ASSOCIATE.PERSONAL ASSISTANT Work Phone: [facility] 07-09-2019 Seasonal trivalent influenza vaccine, adjuvanted, preservative free Cherelle Older PATIENT SUPPORT ASSOCIATE.PERSONAL ASSISTANT Work Phone: [facility] 03-11-2019 pneumococcal conjuga te vaccine, 13 valent Cherelle Older PATIENT SUPPORT ASSOCIATE.PERSONAL ASSISTANT Work Phone: [facility] 08-10-2018 influenza, high dose seasonal, preservative-free Cherelle Older PATIENT SUPPORT ASSOCIATE.PERSONAL ASSISTANT Work Phone: [facility] 08-07-2017 influenza, high dose seasonal, preservative-free Cherelle Older PATIENT SUPPORT ASSOCIATE.PERSONAL ASSISTANT Work Phone: [facility] 08-03-2016 influenza, high dose seasonal, preservative-free Cherelle Older PATIENT SUPPORT ASSOCIATE.PERSONAL ASSISTANT Work Phone: [facility] 09-02-2014 influenza, seasonal, injectable Cherelle Older PATIENT SUPPORT ASSOCIATE.PERSONAL ASSISTANT Work Phone: [facility] 08-08-2013 influenza virus vacc ine, unspecified formulation Cherelle Older PATIENT SUPPORT ASSOCIATE.[facility] [facility] [employer] [facility] [employer] Work Phone: [facility] 08-23-2012 influenza virus vacc ine, unspecified formulation Cherelle Older PATIENT SUPPORT ASSOCIATE.[employer] [facility] [employer] Work Phone: [facility] 10-03-2011 influenza virus vacc ine, unspecified formulation Cherelle Older PATIENT SUPPORT ASSOCIATE.[employer] [facility] [employer] [facility] [employer] Work Phone: [facility] Work Phone: 10-14-2010 pneumococcal polysaccharide vaccine, 23 valent Cherelle Older PATIENT SUPPORT ASSOCIATE.[employer] [facility] [employer] [facility] [employer] Work Phone: [facility] 08-24-2010 influenza virus vacc ine, unspecified formulation Cherelle Older PATIENT SUPPORT ASSOCIATE.[employer] [facility] [employer] [facility] [employer] Work Phone: [facility] Work Phone: 09-01-2009 influenza virus vacc ine, unspecified formulation Cherelle Older PATIENT SUPPORT ASSOCIATE.[facility] [employer] [facility] [employer] Work Phone: [facility] Work Phone: 05-20-2008 hepatitis A vaccine, unspecified formulation Cherelle Older PATIENT SUPPORT ASSOCIATE.[employer] [facility] [employer] [facility] [employer] Work Phone: [facility] Work Phone: 11-20-2007 hepatitis A vaccine, unspecified formulation Cherelle Older PATIENT SUPPORT ASSOCIATE.[employer] [facility] [employer] [facility] [employer] Work Phone: [facility] Work Phone: 11-20-2007 influenza virus vacc ine, unspecified formulation Cherelle Older PATIENT SUPPORT ASSOCIATE.[facility] [facility] [employer] [facility] [employer] Work Phone: [facility] Work Phone: 11-20-2007 tetanus toxoid, redu maurisio diphtheria toxoid, and acellular pertussis vaccine, adsorbed Cherelle Older PATIENT SUPPORT ASSOCIATE.[facility] [employer] [facility] [employer] Work Phone: [facility] Work Phone: 09-25-2006 influenza virus vacc ine, unspecified formulation Cherelle Older PATIENT SUPPORT ASSOCIATE.[facility] [facility] [facility] [employer] Work Phone: [facility] Work Phone: 09-22-2005 influenza virus vacc ine, unspecified formulation Cherelle Older PATIENT SUPPORT ASSOCIATE.[employer] [facility] [employer] Work Phone: [facility] Work Phone: Payers Date Payer Category Payer [employer] [id number] 2021 [employer] FOR LIFE FOR LIFE [id number] 2021-Present [employer] [address] [place] [address] [id number] 2021 [employer] others) [id number] 2012 Unknown FOR LIFE [id number] 2012-Present [phone] [address] [place] [address] Indemnity [id number] 2012 Unknown [id number] 2004 Medicare MEDICARE MEDICAR E A AND B [id number] 2004-Present [phone] [address] [address] [place] [address] Medicare [id number] 2004 Medicare [id number] 2004 Medicare [id number] 1939 Unknown [id number] 1939 Unknown [id number] 1939 Unknown [id number] 1939 Unknown [id number] 1939 Unknown [id number] 1939 Unknown [id number] 1939 Unknown [id number] Social History Date Type Detail Facility Start: 08-23-2012 End: 10-17-2022 Tobacco smoking status NHIS Never smoked tobacco [facility] Work Phone: Start: 04-06-2022 End: 09-26-2023 Alcohol intake Current non-drinker of alcohol (finding) [facility] Start: 1940 Sex Assigned At Not on file [facility] Start: 02-26-2022 End: 10-17-2022 Exposure to SARS-CoV-2 (event) Not sure [facility] Work Phone: Start: 08-23-2012 End: 10-17-2022 Tobacco use and exposure Smokeless tobacco non-user [facility] Start: 04-27-2023 End: 09-26-2023 History of Social function [facility] Work Phone: Start: 04-27-2023 End: 09-26-2023 Tobacco use panel [facility] Work Phone: Adult Depression Screening Assessment 2 [facility] Work Phone: Clinical Notes 09-03-2009 to 11-29-2023 Telephone Encounter - Heather Maravilla LPN - 10/11/2023 1:39 PM ESTTelephone Encounter - Shaina Prater - 10/11/2023 1:25 PM Jenn Stringer MD - 04/27/2023 10:08 AM EDTDischarge Instructions Note Date & Type Note Facility 11-29-2023 Note HNO ID: [id number] Author: CHERELLE MITCHELL APRN.PERSONAL ASSISTANT Service: ? Author Type: Nurse Practitioner Type: Progress Notes Filed: 11/29/2023 11:53 Note Text: CC: Patient presents with: Recheck: Medication follow up HPI Yulisa Novak is a 82 year old female who presents today for routine follow up. Was seen earlier this month for dizziness. Found to be dehydrated. No further dizziness but still not drinking much water. HTN, and CVA: Ms. Novak indicates that she is feeling well and denies any symptoms referable to elevated blood pressure. Specifically denies headache, chest pain, palpitations, dyspnea, and peripheral edema. Patient denies any side effects of her medication(s) and is compliant with their regimen. She does not check BP's generally. Yulisa works out regularly 7 times per week with walking and caring for animals. She watches her diet for sodium, low fat and low cholesterol some of the time. Last 3 Encounter BP Readings: Date: BP: 11/29/2023 124/68 11/15/2023 112/68 09/26/2023 104/54 REVIEW OF SYSTEMS General: no fevers, no chills, no night sweats, no recurrent infections, no change in appetite, no change in energy, and no significant changes in weight Respiratory: no cough, no wheezing, no shortness of breath, no hemoptysis Cardiovascular: no chest pain, no chest pressure, no palpitations, and no swelling Neurologic: No headache, weakness, numbness, syncope. PAST MEDICAL HISTORY Diagnosis Date Acid reflux Allergic rhinitis due to other allergen Benign neoplasm of colon Bladder cancer (HCC) Disorder of bone and cartilage, unspecified Skin cancer left forearm from PAST SURGICAL HISTORY Procedure Laterality Date COLSC FLX W/RMVL OF TUMOR POLYP LESION SNARE TQ 01/04/2007 PAST SURGICAL HISTORY OF 1980s Facial surgery following accident REMV CATARACT EXTRACAP,INSERT LENS Bilateral Unsure when S TUBAL LIGATION SIGMOIDOSCOPY FLX DX W/COLLJ SPEC BR/WA IF PFRMD 05/08/2007 Sigmoidoscopy TONSILLECTOMY AND ADENOIDECTOMY TOTAL HIP REPLACEMENT 11/13/2010 rt hip ALLERGIES Mepivacaine, Penicillins, and Smoke MEDICATIONS sertraline (ZOLOFT) 50 mg tablet take 1 tablet by mouth every day atorvastatin (LIPITOR) 40 mg tablet Take 1 tablet by mouth daily at bedtime. For cholesterol. amLODIPine (NORVASC) 5 mg tablet Take 1 tablet by mouth once daily. aspirin, enteric coated (ASPIRIN, ENTERIC COATED) 81 mg EC tablet Take 1 tablet by mouth once daily. clopidogrel (PLAVIX) 75 mg tablet Take 1 tablet by mouth once daily. famotidine (PEPCID) 20 mg tablet Take 1 tablet by mouth twice daily. simethicone 42 mg chew Take 1 tablet by mouth twice daily as needed. FAMILY HISTORY Problem Relation Age of Onset Diabetes Mother HTN, OPEN HEART SURGERY Heart Mother Mitral valve Diabetes Father CVA Stroke Father Social History Tobacco Use Smoking status: Never Smokeless tobacco: Never Vaping Use Vaping Use: Never used Substance Use Topics Alcohol use: No Drug use: No PHYSICAL EXAM BP 124/68 Pulse (!) 56 Resp 16 Wt 64 kg (141 lb) SpO2 98% BMI 25.38 kg/m? General Appearance: well appearing, in no acute distress, alert Pysch: mood and affect broad and appropriate Skin: Skin color, texture, turgor normal for age; Eyes: conjunctiva pink and moist, no icterus, sclera white, non-injected Neck: Thyroid normal size and symmetric without palpable nodules, No bruits, No adenopathy Lymph nodes: No cervical lymphadenopathy and No supraclavicular lymphadenopathy Lungs: Lungs clear to auscultation. No wheezing, rhonchi, rales. Heart: RRR without murmur, gallop, or rubs. No ectopy Health maintenance reviewed with patient: Shingrix Vaccine(1 of 2) Never done RSV Vaccine(1 - 1-dose 60+ series) Never done Influenza Vaccine(1) due on 07/14/2023 Covid-19 Vaccine( - 2022-24 season) due on 07/14/2023 Advance Directive Discussion due on 11/13/2023 Depression Assessment due on 11/13/2023 Diabetes Screening due on 11/15/2026 DTaP,Tdap,Td Vaccine(3 - Td or Tdap) due on 01/10/2030 Bone Density Screening Completed Pneumococcal Vaccine: 65+ Completed HPV Vaccine Aged Out DATA REVIEWED: Most recent labs ASSESSMENT/PLAN: 1. Dizziness - ICD9: 780.4, ICD10: R42 (primary diagnosis) resolved 2. Function kidney decreased - ICD9: 593.9, ICD10: N28.9 Discussed need to increase water intake - avoid NSAIDs - recheckin 2 weeks - BASIC METABOLIC PNL 3. Primary hypertension - ICD9: 401.9, ICD10: I10 - Controlled - Continue current medications - Recommend home blood pressure monitoring, to bring results to next visit - Encouraged sodium restriction, DASH or Mediterranean diet - Recommend regular aerobic exercise 4. H/O ischemic left MCA stroke - ICD9: V12.54, ICD10: Z86.73 Stable - no further symptoms On plavix and statin therapy. 5. Encounter for immunization - ICD9: V03.89, ICD10: Z23 - INFLUENZA VACCINE, PRSV F (more content not included)... [facility] 11-15-2023 Note HNO ID: [id number] Author: Gwen Vines APRN.PERSONAL ASSISTANT Service: ? Author Type: Nurse Practitioner Type: Progress Notes Filed: 11/15/2023 4:51 PM Note Text: CC: Patient presents with: Acute Visit: Nausea, sweaty palms, clammy, increased bowel movements Increased sertraline recently HPI Yulisa Novak is a 82 year old female who presents today for above. Patient is here today with her daughter who states a couple days ago patient was sitting at the table for breakfast when she became nauseated and lightheaded along with sweaty palms. For a brief moment following this the patient was staring with a blank look on her face. Since then she has been feeling weak, tired, nauseated, and had a few episodes of diarrhea this morning. No new medications however the night before symptoms started she had increased the dose of Sertraline from 50 mg to 75 mg. Last night she only took 50 mg dose and symptoms continue. She has been on Zoloft for two months and tolerated the 50 mg dose without any issues. No new or worsening or worsening symptoms. She was admitted last month with a TIA and daughter is concerned she may have had another one. She is taking ASA and Plavix as prescribed. Review of Systems Constitutional: Positive for diaphoresis and fatigue. Negative for chills and fever. HENT: Negative for trouble swallowing. Eyes: Negative for visual disturbance. Respiratory: Negative for cough, chest tightness, shortness of breath and wheezing. Cardiovascular: Negative for chest pain, palpitations and leg swelling. Gastrointestinal: Negative for abdominal pain, anal bleeding, blood in stool and vomiting. Genitourinary: Negative for decreased urine volume, difficulty urinating, dysuria, frequency, hematuria and urgency. Musculoskeletal: Positive for gait problem (slow and shuffling but steady, no falls). Neurological: Positive for weakness and light-headedness. Negative for tremors, syncope, facial asymmetry, speech difficulty, numbness and headaches. Psychiatric/Behavioral: Negative for agitation, behavioral problems, confusion, hallucinations and sleep disturbance. The patient is not nervous/anxious. PAST MEDICAL HISTORY Diagnosis Date Acid reflux Allergic rhinitis due to other allergen Benign neoplasm of colon Bladder cancer (HCC) Disorder of bone and cartilage, unspecified Skin cancer left forearm from PAST SURGICAL HISTORY Procedure Laterality Date COLSC FLX W/RMVL OF TUMOR POLYP LESION SNARE TQ 01/04/2007 PAST SURGICAL HISTORY OF 1980s Facial surgery following accident REMV CATARACT EXTRACAP,INSERT LENS Bilateral Unsure when S TUBAL LIGATION SIGMOIDOSCOPY FLX DX W/COLLJ SPEC BR/WA IF PFRMD 05/08/2007 Sigmoidoscopy TONSILLECTOMY AND ADENOIDECTOMY TOTAL HIP REPLACEMENT 11/13/2010 rt hip ALLERGIES Mepivacaine, Penicillins, and Smoke MEDICATIONS sertraline (ZOLOFT) 50 mg tablet Take 1.5 tablets by mouth once daily. atorvastatin (LIPITOR) 40 mg tablet Take 1 tablet by mouth daily at bedtime. For cholesterol. amLODIPine (NORVASC) 5 mg tablet Take 1 tablet by mouth once daily. aspirin, enteric coated (ASPIRIN, ENTERIC COATED) 81 mg EC tablet Take 1 tablet by mouth once daily. clopidogrel (PLAVIX) 75 mg tablet Take 1 tablet by mouth once daily. famotidine (PEPCID) 20 mg tablet Take 1 tablet by mouth twice daily. simethicone 42 mg chew Take 1 tablet by mouth twice daily as needed. FAMILY HISTORY Problem Relation Age of Onset Diabetes Mother HTN, OPEN HEART SURGERY Heart Mother Mitral valve Diabetes Father CVA Stroke Father Social History Tobacco Use Smoking status: Never Smokeless tobacco: Never Vaping Use Vaping Use: Never used Substance Use Topics Alcohol use: No Drug use: No BP 112/68 (BP Site: Left Arm, BP Position: Sitting, BP Cuff Size: Regular Adult) Pulse 78 Resp 16 Wt 62.6 kg (138 lb) BMI 24.84 kg/m? BP w/Orthostatic Vitals Date and Time Orthostatic BP Orthostatic Pulse BP Pulse BP Position BP Site BP Cuff Size 11/15/23 1631 84/58 80 -- -- Standing Left Arm Regular Adult 11/15/23 1630 102/70 75 -- -- Sitting Left Arm Regular Adult 11/15/23 1629 115/75 65 -- -- Supine Left Arm Regular Adult Physical Exam Vitals reviewed. Constitutional: General: She is not in acute distress. Appearance: She is not ill-appearing or toxic-appearing. Comments: Appears fatigued HENT: Head: Normocephalic and atraumatic. Mouth/Throat: Lips: [place]. Mouth: Mucous membranes are moist. Tongue: Tongue does not deviate from midline. Pharynx: Oropharynx is clear. Uvula midline. Eyes: Extraocular Movements: Extraocular movements intact. Conjunctiva/sclera: Conjunctivae normal. Pupils: Pupils are equal, round, and reactive to light. Cardiovascular: Rate and Rhythm: Normal rate and regular rhythm. Pulses: Normal pulses. Heart sounds: Normal heart sounds. No murmur heard. Pulmonary: Effor (more content not included)... [facility] 10-11-2023 Miscellaneous Notes Patient has been identified by name and date of : Yes Patient phones for refill(s): Requested Prescriptions Pending Prescriptions Disp Refills atorvastatin (LIPITOR) 40 mg tablet 30 tablet 11 Sig: Take 1 tablet by mouth daily at bedtime. For cholesterol. amLODIPine (NORVASC) 5 mg tablet 30 tablet 11 Sig: Take 1 tablet by mouth once daily. aspirin, enteric coated (ASPIRIN, ENTERIC COATED) 81 mg EC tablet 30 tablet 11 Sig: Take 1 tablet by mouth once daily. clopidogrel (PLAVIX) 75 mg tablet 30 tablet 11 Sig: Take 1 tablet by mouth once daily. Date of last office visit in primary care: 09/26/2023 Date of next office visit in primary care: 11/01/2023 Last 2 Encounter Wt Readings: Date: Wt: 09/26/2023 62.6 kg (138 lb) 04/27/2023 64 kg (141 lb) Previous labs/tests for medication: Cholesterol: HDL Cholesterol (mg/dL) Date Value 11/23/2021 69 LDL Cholesterol (mg/dL) Date Value 11/23/2021 203 ALT (U/L) Date Value 11/23/2021 15 Non HDL Cholesterol, Nonfasting (mg/dL) Date Value 09/17/2019 197 Non HDL Cholesterol (mg/dL) Date Value 11/23/2021 222 Blood Pressure: BUN (mg/dL) Date Value 11/23/2021 14 Sodium (mmol/L) Date Value 11/23/2021 137 Last 1 Encounter BP Readings: Date: BP: 09/26/2023 104/54 Please advise. Thank you. Heather Maravilla LPN. Patient has been identified by name and date of : Yes Requested Prescriptions Pending Prescriptions Disp Refills atorvastatin (LIPITOR) 40 mg tablet Sig: Take 1 tablet by mouth daily at bedtime. For cholesterol. amLODIPine (NORVASC) 5 mg tablet Sig: Take 1 tablet by mouth once daily. aspirin, enteric coated (ASPIRIN, ENTERIC COATED) 81 mg EC tablet Sig: Take 1 tablet by mouth once daily. clopidogrel (PLAVIX) 75 mg tablet 30 tablet 11 Sig: Take 1 tablet by mouth once daily. RX INSTRUCTIONS: Patient aware RX will be sent to pharmacy. No need to notify patient. Shaina Prater documented in this encounter [facility] 09-26-2023 Note HNO ID: [id number] Author: Shyla Guillen PA-C Service: ? Author Type: Physician Front Office Clerk Type: Progress Notes Filed: 09/27/2023 5:26 PM Note Text: CC: Patient presents with: Follow Up: hospital follow up from 09/23/23 TIA HPI Yulisa Novak is a 82 year old female who presents today with daughter for hospital follow-up. Facility: [facility] Date of visit: 09/22/2023 Reason for visit: Not feeling good, fatigue and right side felt different from the left, per daughter Hospital course: Labs obtained, which revealed low white count at 3.6. Hemoglobin stable. MCV 80.7 MCH 25.0. Calcium 8.4. Total cholesterol 240 LDL 155 HDL 68. TSH and magnesium within normal limits. MRI negative for acute stroke, revealed chronic microvascular ischemic changes. And echo with EF 65% and no diastolic dysfunction. No PFO. Suspected TIA and some baseline cognitive deficits from prior CVA. Discharged home on new medication including 40 mg atorvastatin once daily, 5 mg amlodipine once daily, 81 mg aspirin, as well as 75 mg Plavix once daily. Diagnosis: TIA Discharge: 09/23/2023. Advised f/u with Dr. Gerardo shortly after discharge. Discharged home with amlodipine, atorvastatin, plavix and aspirin. Current symptoms: Overall, feeling okay since discharge. Overall, patient feels somewhat low as she does not have the same independence that she had prior to her event 1 year ago. Had a CVA in 11/03, for which she was life flighted to [place], and had been discharged on aspirin, lisinopril, and atorvastatin but daughter states she never complied . Has had issues with residual right-sided weakness, and trouble with expressing thoughts and word finding since this initial event. REVIEW OF SYSTEMS See HPI PAST MEDICAL HISTORY Diagnosis Date Acid reflux Allergic rhinitis due to other allergen Benign neoplasm of colon Bladder cancer (HCC) Disorder of bone and cartilage, unspecified Skin cancer left forearm from PAST SURGICAL HISTORY Procedure Laterality Date COLSC FLX W/RMVL OF TUMOR POLYP LESION SNARE TQ 01/04/2007 PAST SURGICAL HISTORY OF 1980s Facial surgery following accident REMV CATARACT EXTRACAP,INSERT LENS Bilateral Unsure when S TUBAL LIGATION SIGMOIDOSCOPY FLX DX W/COLLJ SPEC BR/WA IF PFRMD 05/08/2007 Sigmoidoscopy TONSILLECTOMY AND ADENOIDECTOMY TOTAL HIP REPLACEMENT 11/13/2010 rt hip ALLERGIES Mepivacaine, Penicillins, and Smoke MEDICATIONS aspirin, enteric coated (ASPIRIN, ENTERIC COATED) 81 mg EC tablet Take 1 tablet by mouth once daily. atorvastatin (LIPITOR) 40 mg tablet Take 1 tablet by mouth daily at bedtime. For cholesterol. clopidogrel (PLAVIX) 75 mg tablet Take 1 tablet by mouth once daily. amLODIPine (NORVASC) 5 mg tablet Take 1 tablet by mouth once daily. famotidine (PEPCID) 20 mg tablet Take 1 tablet by mouth twice daily. (Patient not taking: Reported on 04/27/2023) simethicone 42 mg chew Take 1 tablet by mouth twice daily as needed. (Patient not taking: Reported on 04/27/2023) FAMILY HISTORY Problem Relation Age of Onset Diabetes Mother HTN, OPEN HEART SURGERY Heart Mother Mitral valve Diabetes Father CVA Stroke Father Social History Tobacco Use Smoking status: Never Smokeless tobacco: Never Vaping Use Vaping Use: Never used Substance Use Topics Alcohol use: No Drug use: No PHYSICAL EXAM BP 104/54 (BP Site: Right Arm, BP Position: Sitting, BP Cuff Size: Regular Adult) Pulse 68 Temp 36.9 ?C (98.5 ?F) Resp 12 Ht 158.8 cm (5' 2.5 ) Wt 62.6 kg (138 lb) SpO2 97% BMI 24.84 kg/m? General Appearance: well appearing, in no acute distress, alert Psych: mood and affect broad and appropriate Skin: Skin color, texture, turgor normal for age Lungs: Lungs clear to auscultation. No wheezing, rhonchi, rales. Heart: RRR without murmur, gallop, or rubs. Extremities: No gross deformities, significant edema, skin discoloration, clubbing or cyanosis. Neurological: Gait normal. No focal neurological deficits. Mild weakness noted in right upper extremity compared to left. Sensation grossly intact. Shingrix Vaccine(1 of 2) Never done RSV Vaccine(1 - 1-dose 60+ series) Never done Advance Directive Discussion due on 11/13/2022 Influenza Vaccine(1) due on 07/14/2023 Covid-19 Vaccine(2022-24 season) due on 07/14/2023 Diabetes Screening due on 10/17/2025 DTaP,Tdap,Td Vaccine(3 - Td or Tdap) due on 01/10/2030 Bone Density Screening Completed Depression Assessment Completed Pneumococcal Vaccine: 65+ Completed HPV Vaccine Aged Out ASSESSMENT/PLAN: 1. TIA (transient ischemic attack) - ICD9: 435.9, ICD10: G45.9 (primary diagnosis) Status post TIA without any residual deficits, but with baseline issues from prior CVA including right-sided weakness and expressive aphasia. Advised scheduling follow-up with Dr. Gerardo, neurology through [facility] as advised at discharge. Leonard (more content not included)... [facility] 04-27-2023 Note HNO ID: [id number] Author: Nani Stringer MD Service: ? Author Type: Physician Type: Progress Notes Filed: 04/27/2023 1:57 PM Note Text: Reason for Visit Patient presents with: Recheck: 2 month Derm Problem: Bottom lip sore Yulisa Novak is a 82 year old female who presents here today for Above Complaints.. Health Maintenance SHINGRIX VACCINE(1 of 2) ADVANCE DIRECTIVE DISCUSSION HPI Patient can mow 2 hours at a time and can do around 5 hours a week. She is other narvaez doing well. Patient would like to drive again. She was advised not to drive after she had a stroke last year . It was unfortunate when she cried today as she wanted to be able to drive to maintain some sort of independence. She is fearful of being stuck in her life if she cannot have the freedom to even drive to the grocery store which is a simple and easy road and one she has been using for a very long time. Her main drive away driver is the daughter who will be going to have shoulder surgery and will be laid up and patient is very very stressed about how she will get to places.' She is able to do all her activities of daily living and most of the instrumental activities of daily living, needs help with the driving and the bills Please review note regarding her stroke and her refusal to take any medication to prevent recurrent stroke She did not mention side of medication but just does not want to take medications, does not believe in them. stroke early 10/2022. Presented with aphasia, right sided weakness.CTA head, neck with left M2 occlusion. CTP matched CBF, CBV lesion. CT with left temporal, parietal infarct. TTE no embolic source, severely enlarged left atrium. LDL 162 mg/dl, HDL 64 mg/dl, HgA1 5.9. Was begun on aspirin, lisinopril and atorvastatin. Had 1 week of inpatient rehabilitation, then completed course of speech therapy. Occasionally drops objects with right hand, with residual aphasia but improved. Refuses to take any medications for secondary prevention like statin or even asa No problem-specific Assessment AND Plan notes found for this encounter. PAST MEDICAL HISTORY Diagnosis Date Acid reflux Allergic rhinitis due to other allergen Benign neoplasm of colon Bladder cancer (HCC) Disorder of bone and cartilage, unspecified Skin cancer left forearm from PAST SURGICAL HISTORY Procedure Laterality Date COLSC FLX W/RMVL OF TUMOR POLYP LESION SNARE TQ 01/04/2007 PAST SURGICAL HISTORY OF 1980s Facial surgery following accident REMV CATARACT EXTRACAP,INSERT LENS Bilateral Unsure when S TUBAL LIGATION SIGMOIDOSCOPY FLX DX W/COLLJ SPEC BR/WA IF PFRMD 05/08/2007 Sigmoidoscopy TONSILLECTOMY AND ADENOIDECTOMY TOTAL HIP REPLACEMENT 11/13/2010 rt hip FAMILY HISTORY Problem Relation Age of Onset Diabetes Mother HTN, OPEN HEART SURGERY Heart Mother Mitral valve Diabetes Father CVA Stroke Father Social History Tobacco Use Smoking status: Never Smokeless tobacco: Never Vaping Use Vaping Use: Never used Substance Use Topics Alcohol use: No Drug use: No Past medical history, appointments, medications, allergies reviewed. Pertinent Lab/Diagnostic Studies are reviewed and discussed today Current Outpatient Medications: famotidine (PEPCID) 20 mg tablet simethicone 42 mg chew Review of Systems CONSTITUTIONAL: No fevers, chills night sweats, unintended weight loss CARDIOVASCULAR: No chest pain, dyspnea, palpitations, orthopnea, PND, ankle edema. PULM: No dyspnea, unexplained cough. GI: No dysphagia/odynophagia, problematic reflux, constipation, diarrhea, changes in stool habits, hematochezia, melena. : No new urinary complaints, including dysuria, gross hematuria or pyuria. NEURO: No new balance problems, peripheral weakness/paresthesias or numbness of concern. Physical Exam BP 130/70 Pulse (!) 58 Resp 16 Wt 64 kg (141 lb) SpO2 98% BMI 25.38 kg/m? General appearance: Well appearing, alert, in no acute distress, well nourished. Skin: Skin color, texture, turgor normal, no suspicious rashes or lesions Head: Normocephalic, no masses, lesions, tenderness or abnormalities Eyes: Anicteric sclera. Pupils are equally round and reactive to light. Extraocular movements are intact. Lungs: Lungs clear to auscultation. No wheezing, rhonchi, rales Heart: RRR without murmur, gallop, or rubs. Extremities: No deformities, edema, skin discoloration, clubbing or cyanosis. Good capillary refill. ASSESSMENT/PLAN: 1. Primary hypertension - ICD9: 401.9, ICD10: I10 (primary diagnosis) - Controlled - Recommend home blood pressure monitoring, to bring results to next visit - Encouraged sodium restriction, DASH or Mediterranean diet - Recommend regular aerobic exercise 2. Mixed hyperlipidemia - ICD9: 272.2, ICD10: E78.2 - Controlled - Counseled on healthy diet and regular exercise 3. Cerebrovascular accident (CVA), unsp (more content not included)... [facility] 04-27-2023 History of Present illness Narrative Reason for Visit Patient presents with: Recheck: 2 month Derm Problem: Bottom lip sore Yulisa Novak is a 82 year old female who presents here today for Above Complaints.. Health Maintenance SHINGRIX VACCINE(1 of 2) ADVANCE DIRECTIVE DISCUSSION HPI Patient can mow 2 hours at a time and can do around 5 hours a week. She is other narvaez doing well. Patient would like to drive again. She was advised not to drive after she had a stroke last year . It was unfortunate when she cried today as she wanted to be able to drive to maintain some sort of independence. She is fearful of being stuck in her life if she cannot have the freedom to even drive to the grocery store which is a simple and easy road and one she has been using for a very long time. Her main drive away driver is the daughter who will be going to have shoulder surgery and will be laid up and patient is very very stressed about how she will get to places.' She is able to do all her activities of daily living and most of the instrumental activities of daily living, needs help with the driving and the bills Please review note regarding her stroke and her refusal to take any medication to prevent recurrent stroke She did not mention side of medication but just does not want to take medications, does not believe in them. stroke early 10/2022. Presented with aphasia, right sided weakness.CTA head, neck with left M2 occlusion. CTP matched CBF, CBV lesion. CT with left temporal, parietal infarct. TTE no embolic source, severely enlarged left atrium. LDL 162 mg/dl, HDL 64 mg/dl, HgA1 5.9. Was begun on aspirin, lisinopril and atorvastatin. Had 1 week of inpatient rehabilitation, then completed course of speech therapy. Occasionally drops objects with right hand, with residual aphasia but improved. Refuses to take any medications for secondary prevention like statin or even asa No problem-specific Assessment & Plan notes found for this encounter. PAST MEDICAL HISTORY Diagnosis Date Acid reflux Allergic rhinitis due to other allergen Benign neoplasm of colon Bladder cancer (HCC) Disorder of bone and cartilage, unspecified Skin cancer left forearm from PAST SURGICAL HISTORY Procedure Laterality Date COLSC FLX W/RMVL OF TUMOR POLYP LESION SNARE TQ 01/04/2007 PAST SURGICAL HISTORY OF 1980s Facial surgery following accident REMV CATARACT EXTRACAP,INSERT LENS Bilateral Unsure when S TUBAL LIGATION SIGMOIDOSCOPY FLX DX W/COLLJ SPEC BR/WA IF PFRMD 05/08/2007 Sigmoidoscopy TONSILLECTOMY & ADENOIDECTOMY <AGE 12 TOTAL HIP REPLACEMENT 11/13/2010 rt hip FAMILY HISTORY Problem Relation Age of Onset Diabetes Mother HTN, OPEN HEART SURGERY Heart Mother Mitral valve Diabetes Father CVA Stroke Father Social History Tobacco Use Smoking status: Never Smokeless tobacco: Never Vaping Use Vaping Use: Never used Substance Use Topics Alcohol use: No Drug use: No Past medical history, appointments, medications, allergies reviewed. Pertinent Lab/Diagnostic Studies are reviewed and discussed today Current Outpatient Medications: famotidine (PEPCID) 20 mg tablet simethicone 42 mg chew Review of Systems CONSTITUTIONAL: No fevers, chills night sweats, unintended weight loss CARDIOVASCULAR: No chest pain, dyspnea, palpitations, orthopnea, PND, ankle edema. PULM: No dyspnea, unexplained cough. GI: No dysphagia/odynophagia, problematic reflux, constipation, diarrhea, changes in stool habits, hematochezia, melena. : No new urinary complaints, including dysuria, gross hematuria or pyuria. NEURO: No new balance problems, peripheral weakness/paresthesias or numbness of concern. Physical Exam BP 130/70 Pulse (!) 58 Resp 16 Wt 64 kg (141 lb) SpO2 98% BMI 25.38 kg/m General appearance: Well appearing, alert, in no acute distress, well nourished. Skin: Skin color, texture, turgor normal, no suspicious rashes or lesions Head: Normocephalic, no masses, lesions, tenderness or abnormalities Eyes: Anicteric sclera. Pupils are equally round and reactive to light. Extraocular movements are intact. Lungs: Lungs clear to auscultation. No wheezing, rhonchi, rales Heart: RRR without murmur, gallop, or rubs. Extremities: No deformities, edema, skin discoloration, clubbing or cyanosis. Good capillary refill. ASSESSMENT/PLAN: 1. Primary hypertension - ICD9: 401.9, ICD10: I10 (primary diagnosis) - Controlled - Recommend home blood pressure monitoring, to bring results to next visit - Encouraged sodium restriction, DASH or Mediterranean diet - Recommend regular aerobic exercise 2. Mixed hyperlipidemia - ICD9: 272.2, ICD10: E78.2 - Controlled - Counseled on healthy diet and regular exercise 3. Cerebrovascular accident (CVA), unspecified mechanism (HCC) - ICD9: 434.91, ICD10: I63.9 Due to her recent stroke, asked her to go through the driving test and maneuveribility for her to have the license. Nani Stringer MD documented in this encounter [facility] 03-06-2023 Miscellaneous Notes Behavioral Health Social Work Progress Note Patient identified for [facility] from: PCP Reason for referral: [facility] Behavioral Health Resources: Psychology - talk therapy [facility] encounter type: Telephone Encounter Attempts to Outreach: 2 attempts Referral made: Psychology - External Psychology-External referral type: Therapy Reason for external referral: Wait times at [facility] too long Final Disposition: Resources given Patient Discharged?: Yes Patient reported that caregiver was able to meet their needs today?: Yes [facility] reached out to patient and patient's daughter. Both deny suicidal or homicidal ideation. They are looking for services sooner than [facility]. [facility] discussed [facility], [facility], [facility] JAVIER Jacobson-S March 06, 2023 documented in this encounter [facility] 03-02-2023 Miscellaneous Notes Daughter agrees, please assist in scheduling. Addended by: NANI STRINGER on: 03/02/2023 02:22 PM Modules accepted: Orders I would consult a web site designer for this. She does not want to take any medications so its hard for us to advice much at our level Consult is placed, please assist with scheduling Regards, Nani Stringer MD Daughter (Asuncion) calls to update provider on patient since appointment on 02/24/2023. Asuncion feels that patient is becoming more aggressive and throwing things more often. She reports last night patient was hallucinating (she saw a worm on her arm and was able to describe it and tell her the size) which was the first time she noticed that. She reports no changes in her speech or weakness to right hand/arm or other neurological symptoms but has concern for the increase in behavior. Reviewed red flag symptoms to go to ED with and Asuncion reports understanding. Asking if provider has any further guidance. Forwarding to [facility] as well. [facility] attempted to reach out to patient on 02/27 with no answer and unable to leave a voicemail. Asuncion's call back number is [phone]. Susanne Tse RN documented in this encounter [facility] 02-27-2023 Miscellaneous Notes Behavioral Health Social Work Progress Note Patient identified for [facility] from: PCP Reason for referral: Resources Behavioral Health Resources: Psychology - talk therapy [facility] encounter type: Telephone Encounter Attempts to Outreach: 1 attempt Final Disposition: Unable to reach Patient Discharged?: No Patient reported that caregiver was able to meet their needs today?: N/A Referral made to engage patient experiencing depression, and to provide therapy resources. [facility] reviewed patient's chart and insurance to identify resources. Patient did not answer phone and the voicemail was full. [facility] will continue to reach out to patient. SOFIYA Jacobson February 27, 2023 documented in this encounter [facility] 02-24-2023 Note HNO ID: [id number] Author: Nani Stringer MD Service: ? Author Type: Physician Type: Progress Notes Filed: 02/24/2023 6:09 PM Note Text: Reason for Visit Patient presents with: Follow Up: h/o stroke 10/16/[address]andrew Lucio, [address], [place] [address] Yulisa Novak is a 82 year old female who presents here today for Above Complaints. Health Maintenance SHINGRIX VACCINE(1 of 2) ADVANCE DIRECTIVE DISCUSSION DEPRESSION ASSESSMENT HPI stroke early 10/2022. Presented with aphasia, right sided weakness.CTA head, neck with left M2 occlusion. CTP matched CBF, CBV lesion. CT with left temporal, parietal infarct. TTE no embolic source, severely enlarged left atrium. LDL 162 mg/dl, HDL 64 mg/dl, HgA1 5.9. Was begun on aspirin, lisinopril and atorvastatin. Had 1 week of inpatient rehabilitation, then completed course of speech therapy. Occasionally drops objects with right hand, with residual aphasia but improved. After coming home the patient stopped all medications Prior to that she was independent living , vacationing. Currently cannot drive but can care for herself. She can do her activities of daily living and a lot of instrumental activities of daily living- daughter and neigbhors help with transportation which is new as she cannot drive. Can heat her food, and makes snacks. Does every one laundry, Can put dishes in the washer, can vacuum her house now. Can make coffee for herself. Masha is doing book keeping, she used to do that before. Can use the telephone. She Is going to [employer], using bands etc to help her with the health dept. Daughter stays at home at night. Sad as her friends whom she used to hang out with are no more her friends. Patient has anxiety with the new diagnosis and tends to be loud and comes of as shouting. She would benefit from seeing psychology. We need to call daughter asuncion gibbs for setting up apy Refuses to take any medications for secondary prevention like statin or even asa No problem-specific Assessment AND Plan notes found for this encounter. PAST MEDICAL HISTORY Diagnosis Date Acid reflux Allergic rhinitis due to other allergen Benign neoplasm of colon Bladder cancer (HCC) Disorder of bone and cartilage, unspecified Skin cancer left forearm from PAST SURGICAL HISTORY Procedure Laterality Date COLSC FLX W/RMVL OF TUMOR POLYP LESION SNARE TQ 01/04/2007 PAST SURGICAL HISTORY OF 1980s Facial surgery following accident REMV CATARACT EXTRACAP,INSERT LENS Bilateral Unsure when S TUBAL LIGATION SIGMOIDOSCOPY FLX DX W/COLLJ SPEC BR/WA IF PFRMD 05/08/2007 Sigmoidoscopy TONSILLECTOMY AND ADENOIDECTOMY TOTAL HIP REPLACEMENT 11/13/2010 rt hip FAMILY HISTORY Problem Relation Age of Onset Diabetes Mother HTN, OPEN HEART SURGERY Heart Mother Mitral valve Diabetes Father CVA Stroke Father Social History Tobacco Use Smoking status: Never Smokeless tobacco: Never Vaping Use Vaping Use: Never used Substance Use Topics Alcohol use: No Drug use: No Past medical history, appointments, medications, allergies reviewed. Pertinent Lab/Diagnostic Studies are reviewed and discussed today Current Outpatient Medications: famotidine (PEPCID) 20 mg tablet simethicone 42 mg chew Review of Systems CONSTITUTIONAL: No fevers, chills night sweats, unintended weight loss CARDIOVASCULAR: No chest pain, dyspnea, palpitations, orthopnea, PND, ankle edema. PULM: No dyspnea, unexplained cough. GI: No dysphagia/odynophagia, problematic reflux, constipation, diarrhea, changes in stool habits, hematochezia, melena. : No new urinary complaints, including dysuria, gross hematuria or pyuria. NEURO: No new balance problems, peripheral weakness/paresthesias or numbness of concern. Physical Exam BP 120/78 (BP Site: Left Arm, BP Position: Sitting, BP Cuff Size: Large Adult) Pulse 64 Temp 36.9 ?C (98.5 ?F) Resp 12 Ht 158.8 cm (5' 2.5 ) Wt 63.5 kg (140 lb) SpO2 98% BMI 25.20 kg/m? General appearance: Well appearing, alert, in no acute distress, well nourished. Skin: Skin color, texture, turgor normal, no suspicious rashes or lesions Head: Normocephalic, no masses, lesions, tenderness or abnormalities Eyes: Anicteric sclera. Pupils are equally round and reactive to light. Extraocular movements are intact. Lungs: Lungs clear to auscultation. No wheezing, rhonchi, rales Heart: RRR without murmur, gallop, or rubs. Extremities: No deformities, edema, skin discoloration, clubbing or cyanosis. Good capillary refill. ASSESSMENT/PLAN: 1. H/O ischemic left MCA stroke - ICD9: V12.54, ICD10: Z86.73 (primary diagnosis) Spent more than 40 mins with the patient.counseling on her new normal She detests being dependent on any one so so this is very hard for her Emphasized the importance of medication for secondary prevention. - CONSULT TO PRIMARY CA (more content not included)... [facility] 02-24-2023 History of Present illness Narrative Reason for Visit Patient presents with: Follow Up: h/o stroke 10/16/[address]andrew Lucio, [address], [place] [address] Yulisa Novak is a 82 year old female who presents here today for Above Complaints. Health Maintenance SHINGRIX VACCINE(1 of 2) ADVANCE DIRECTIVE DISCUSSION DEPRESSION ASSESSMENT HPI stroke early 10/2022. Presented with aphasia, right sided weakness.CTA head, neck with left M2 occlusion. CTP matched CBF, CBV lesion. CT with left temporal, parietal infarct. TTE no embolic source, severely enlarged left atrium. LDL 162 mg/dl, HDL 64 mg/dl, HgA1 5.9. Was begun on aspirin, lisinopril and atorvastatin. Had 1 week of inpatient rehabilitation, then completed course of speech therapy. Occasionally drops objects with right hand, with residual aphasia but improved. After coming home the patient stopped all medications Prior to that she was independent living , vacationing. Currently cannot drive but can care for herself. She can do her activities of daily living and a lot of instrumental activities of daily living- daughter and benson help with transportation which is new as she cannot drive. Can heat her food, and makes snacks. Does every one laundry, Can put dishes in the washer, can vacuum her house now. Can make coffee for herself. [place] is doing book keeping, she used to do that before. Can use the telephone. She Is going to [employer], using bands etc to help her with the health dept. Daughter stays at home at night. Sad as her friends whom she used to hang out with are no more her friends. Patient has anxiety with the new diagnosis and tends to be loud and comes of as shouting. She would benefit from seeing psychology. We need to call daughter asuncion gibbs for setting up apy Refuses to take any medications for secondary prevention like statin or even asa No problem-specific Assessment & Plan notes found for this encounter. PAST MEDICAL HISTORY Diagnosis Date Acid reflux Allergic rhinitis due to other allergen Benign neoplasm of colon Bladder cancer (HCC) Disorder of bone and cartilage, unspecified Skin cancer left forearm from PAST SURGICAL HISTORY Procedure Laterality Date COLSC FLX W/RMVL OF TUMOR POLYP LESION SNARE TQ 01/04/2007 PAST SURGICAL HISTORY OF 1980s Facial surgery following accident REMV CATARACT EXTRACAP,INSERT LENS Bilateral Unsure when S TUBAL LIGATION SIGMOIDOSCOPY FLX DX W/COLLJ SPEC BR/WA IF PFRMD 05/08/2007 Sigmoidoscopy TONSILLECTOMY & ADENOIDECTOMY <AGE 11 TOTAL HIP REPLACEMENT 11/13/2010 rt hip FAMILY HISTORY Problem Relation Age of Onset Diabetes Mother HTN, OPEN HEART SURGERY Heart Mother Mitral valve Diabetes Father CVA Stroke Father Social History Tobacco Use Smoking status: Never Smokeless tobacco: Never Vaping Use Vaping Use: Never used Substance Use Topics Alcohol use: No Drug use: No Past medical history, appointments, medications, allergies reviewed. Pertinent Lab/Diagnostic Studies are reviewed and discussed today Current Outpatient Medications: famotidine (PEPCID) 20 mg tablet simethicone 42 mg chew Review of Systems CONSTITUTIONAL: No fevers, chills night sweats, unintended weight loss CARDIOVASCULAR: No chest pain, dyspnea, palpitations, orthopnea, PND, ankle edema. PULM: No dyspnea, unexplained cough. GI: No dysphagia/odynophagia, problematic reflux, constipation, diarrhea, changes in stool habits, hematochezia, melena. : No new urinary complaints, including dysuria, gross hematuria or pyuria. NEURO: No new balance problems, peripheral weakness/paresthesias or numbness of concern. Physical Exam BP 120/78 (BP Site: Left Arm, BP Position: Sitting, BP Cuff Size: Large Adult) Pulse 64 Temp 36.9 C (98.5 F) Resp 12 Ht 158.8 cm (5' 2.5 ) Wt 63.5 kg (140 lb) SpO2 98% BMI 25.20 kg/m General appearance: Well appearing, alert, in no acute distress, well nourished. Skin: Skin color, texture, turgor normal, no suspicious rashes or lesions Head: Normocephalic, no masses, lesions, tenderness or abnormalities Eyes: Anicteric sclera. Pupils are equally round and reactive to light. Extraocular movements are intact. Lungs: Lungs clear to auscultation. No wheezing, rhonchi, rales Heart: RRR without murmur, gallop, or rubs. Extremities: No deformities, edema, skin discoloration, clubbing or cyanosis. Good capillary refill. ASSESSMENT/PLAN: 1. H/O ischemic left MCA stroke - ICD9: V12.54, ICD10: Z86.73 (primary diagnosis) Spent more than 40 mins with the patient.counseling on her new normal She detests being dependent on any one so so this is very hard for her Emphasized the importance of medication for secondary prevention. - CONSULT TO PRIMARY [facility]AL [facility] ADULT 2. Aphasia - ICD9: 784.3, ICD10: R47.01 She is able to talk and express her self fairly well now 3. Right hand weakness - ICD9: 728.87, ICD10: R29.898 Right sided residual weakness which is improvingS - CONSULT TO PRIMARY [facility]ULT Nani Stringer MD documented in this encounter [facility] 10-19-2022 History of Present illness Narrative Stroke Attending Addendum (Date of service 10/19/22): I have interviewed and examined patient. I have reviewed Gabriele Delgadillo CNP's note and agree with the following highlights, additions, and addendums: The patient is a 81 y.o. female with a history of hypertension, hyperlipidemia (not on meds), and prior hip replacement who on 10/15/22 at 8p was LKN and then On 10/16 was found with aphasia. The patient presented to an OSH ER where CT brain was negative for acute changes. OSH CT angiogram head/neck shows left M2 occlusion. Telestroke showed NIHSS 8. The patient was transferred to [facility] ER. On arrival NIHSS was 7. CT perfusion brain shows matched left MCA infarct. NSG deemed not MT candidate . LDL 162, HgbA1c 5.9. TTE EF >70%. Interval Overnight History: Neurological examination shows aphasia, NIHSS 5 (?-2, com-1, aphas-2). Assessment/Plan: Acute left MCA ischemic stroke, Post-stroke day # 4. Stroke work-up completed. Continue daily anti-platelet medication (Asa) and vascular risk factor modification. On lipitor 80. On lisinopril. DVT prophylaxis with SCDs and lovenox SQ. PT/OT consults- [facility], prefers [facility]. EM on discharge. Allyssa Olivo MD Final Discharge Planning Final Discharge Planning Discharge Disposition: Prison Facility Services at Discharge: Occupational Therapy, Physical Therapy, Prison Selected Continued Care - Admitted Since 10/16/2022 No services have been selected for the patient. Name For Handoff: [facility] Phone For Handoff: [phone] Fax For Handoff: [phone] Additional Community Agency Name(s): no Plan Plan: PT/OT/Prison Patient/Family In Agreement With Plan: yes AVS is complete per CM's viewpoint. Follow-up neurology appointment is scheduled. Pt's daughter to transport her to facility. No other CM needs at this time. JAVIER Parra Tank Carpenter 0-1986 Social Work Final Discharge Plan and Transportation Final Discharge Planning Discharge Disposition: Prison Facility Services at Discharge: Occupational Therapy, Physical Therapy, Prison Name For Handoff: [facility] Phone For Handoff: [phone] Fax For Handoff: [phone] Plan Plan: PT/OT/Prison Patient/Family In Agreement With Plan: yes Information Technology Consultant Called: [place] of Transport Company: Other (Comment) ([facility]) ETA of Ambulance: [facility] with picking belt operator the patient on Monday 12-6 around noon. Ambulance Arrived: No Transfer Mode: gurney Mode of Transfer: private vehicle Accompanied By: family member Transfer/Transport Equipment: long board Patient medically stable for discharge per physician/medical team. SW confirmed with [facility] that they are able to accept the patient this date. Insurance pre-certification has been obtained and a hospital exemption has been completed. arranged transport as indicated above, ETA is 10:00am. Daughter to transport via private car. AVS/CARLTON completed from a SW standpoint. updated the bedside RN, CCM, facility and patient/labor service representative of the discharge plan and transport time. Patient/Registration Representative remain in agreement with the discharge plan. Bedside RN to call report and fax AVS/CARLTON. Ambulance form left at the community representative desk with a request for a printed transfer report. Discharge Instruction for Bedside RN: 1. Confirm the Ambulatory Order is in the CARLTON. 2. Print the CARLTON and AVS. 3. Print the Discharge Summary for facilities (if available). 4. Fax CARLTON, AVS and Discharge Summary (when applicable) to agency or facility. 5. Call the agency or facility for report. TED Bearden, [facility] [employer] Officer Stroke Attending Addendum (Date of service 10/18/22): I have interviewed and examined patient. I have reviewed Coleman Mack CNP's note and agree with the following highlights, additions, and addendums: The patient is a 81 y.o. female with a history of hypertension, hyperlipidemia (not on meds), and prior hip replacement who on 10/15/22 at 8p was LKN and then On 10/16 was found with aphasia. The patient presented to an OSH ER where CT brain was negative for acute changes. OSH CT angiogram head/neck shows left M2 occlusion. Telestroke showed NIHSS 8. The patient was transferred to [facility] ER. On arrival NIHSS was 7. CT perfusion brain shows matched left MCA infarct. NSG deemed not MT candidate . LDL 162, HgbA1c 5.9. Interval Overnight History: 121/75. Neurological examination shows aphasia, NIHSS 5 (?-2, com-1, aphas-2). Assessment/Plan: Acute left MCA ischemic stroke, Post-stroke day # 3. Stroke work-up ordered including TTE and EM. Continue daily anti-platelet medication (Asa) and vascular risk factor modification. On lipitor 80. On lisinopril. DVT prophylaxis with SCDs and lovenox SQ. PT/OT consults- [facility], prefers [facility]. VS q shift, Labs q 3 days. Allyssa Olivo MD Acute Physical Therapy Treatment Prior to Admission AMPA score(s): PRIOR LEVEL AM-PAC Mobility Raw Score: 24 PRIOR LEVEL AM-PAC Activity Raw Score: 24 Current AM-PAC score(s): CURRENT AM-PAC Mobility Raw Score: 18 Based on the above AM-PAC score(s) and PT clinical judgment, patient is a good candidate for discharge to Inpatient Rehab Facility Supporting Factors (would benefit from skilled therapy services): Fall risk, Recent decline in cognitive function, Impaired balance Mobility equipment available at home: none used ADL equipment available at home: shower bench, elevated toilet seat, bedside commode, shower chair Equipment needed for discharge: to be determined Current therapy frequency recommendation in acute: Therapy Frequency: 5 times a week Precautions and Weightbearing Status: Existing Precautions/Restrictions: fall Telemetry Patient Safety Communication Prior to Visit: Nursing Subjective: Pt sitting up in chair with daughter present; pt reported that she doesn't understand why she is here but looking forward to going on a walk; agreeable to PT Pain: General Pain Documentation (Adult, OB, Peds) Presence of Pain: denies pain/discomfort Objective/Observation: Vitals/Vitals Responses to Treatment: HR ranged from 60-97 bpm BP Sitting in chair: 123/72 Respiratory Status O2 Device: room air Flow (L/min): 0 Cognition Overall Cognitive Status: Impaired Arousal/Alertness: Appropriate responses to stimuli Orientation Level: (Unable to assess due to aphasia, responds to verbal/auditory stimulation) Following Commands: Follows commands less than 25% of the time Safety Judgment: Decreased awareness of need for assistance, Decreased awareness of need for safety Awareness of Errors: Assistance required to identify errors made, Assistance required to correct errors made, Decreased awareness of errors Deficits: Decreased awareness of deficits Attention Span: Difficulty attending to directions Memory: Unable to assess Problem Solving: Assistance required to identify errors made, Assistance required to generate solutions, Assistance required to implement solutions Cognition Comments: Pt with increasing agitation when completing tasks that she is unable to fully comprehend Extremity Assessments: See PT Evaluation flowsheet for Extremity Measurement updates. Balance: Sitting Balance Static Sitting-Level of Assistance: Supervision Dynamic Sitting-Level of Assistance: Supervision Standing Balance Static Standing-Level of Assistance: Contact guard Dynamic Standing-Level of Assistance: Contact guard Standing-Balance Support: Gait belt Skilled Rationale: Positioning, Sequencing, Hand placement, Verbal cues, Visual cues, Tactile cues, Demonstration, Technique of activity, Initiation and execution of task, Cues for increased safety Standing Balance Skilled Intervention/Details: Increased instability with dynamic standing tasks especially with dual tasking component (head turns, open environment, turns) but able to self correct occasional LOB, decreased attention to obstacles on R side requring verbal cueing for recognition and avoidance Mobility Assessment/Intervention: Transfer Assessment/Intervention: Sit to Stand Transfer [place] Level: Sit->Stand: contact guard assist Assistive Device: Sit->Stand: gait belt Skilled Rationale: Positioning, Sequencing, Hand placement, Verbal cues, Technique of activity, Initiation and execution of task, Cues for increased safety Skilled Intervention/Details: Sit->Stand: x3 armed chair; mildly impulsive upon standing, no overt LOB Stand to Sit Transfer [place] Level: Stand->Sit: contact guard assist Assistive Device: Stand->Sit: gait belt, armed chair Skilled Rationale: Positioning, Sequencing, Hand placement, Verbal cues, Technique of activity, Initiation and execution of task, Cues for increased safety Skilled Intervention/Details: Stand->Sit: x3 armed chair; decreased safety awareness requiring tactile and verbal ceuing for appropriate transfer Gait/Functional Mobility Assessment/Intervention: Gait Assessment [place] Level: Gait: contact guard assist Assistive Device: Gait: gait belt Ambulation Distance (Feet): 300 Gait Deviations Identified: decreased irene, decreased gait speed, decreased heel strike, decreased step length, decreased stride length, decreased weight shifting, foot drop/toe drag, path deviation, narrow base of support Gait Skilled Rationale: verbal, tactile, increase step length, safety to avoid obstacles Skilled Intervention/Details - Gait: Verbal cueing for increased step length, tactile cueing to facilitate increased gait speed; difficulty responding to verbal cueing with attempted demonstration at times with good carryover; Occasional LOB noted but able to self correct Stairs Assessment/Intervention: Stairs Assessment [place] Level: Stair Negotiation: not tested Outcome Score(s): CURRENT AM-PAC Basic Mobility Inpatient Short Form Turning over in bed: 3 - A Little Assistance Sitting/standing from chair: 3 - A Little Assistance Moving from lying on back to sittin - A Little Assistance Moving to and from bed to chair: 3 - A Little Assistance Walk in hospital room: 3 - A Little Assistance Climbing 3-5 steps with a railin - A Little Assistance CURRENT [facility] Mobility Raw Score: 18 CURRENT [facility] Mobility Functional Limitation/Modifier: 46.58% Currently Impaired in Basic Mobility - CK Interventions: Intervention 1 Intervention Name: High level balance Sets/Reps/Duration: x10 min Details: Pt cued to grab numbered sticky note from door and bring over to table and place on ADL item, once identified pt cued to appropriate use ADL item; pt requiring increased cuieng for identifying ADL objects and proper use, increased frustration and agitation when unable to comprehend task despite multiple explanations and demonstration Assessment & Plan: Pt tolerated today's treatment session well and is progressing toward mobility goals. Pt continues to demonstrate good transfers and ambulation but still has deficits with higher level balance tasks and command following. Continue skilled therapy to promote progression of mobility Patient Instruction/Education this session: Importance of OOB mobility, re-orientation Plan for next session: dynamic standing balance; command following, gait training Acute PT Goals Plan of Care by Haim Lopez PT at 10/18/2022 10:35 AM Version 1 of 1 Problem: PT - Transfers Goal: Other Description: Pt will demonstrate >75% accuracy with 1-step command following and way finding tasks to improve safety with mobility Outcome: Ongoing Problem: PT - Mobility Goal: Ambulation Description: Pt will ambulate 250 feet with out an assistive device with supervision assist to improve ability to navigate home environment. Outcome: Progressing Toward Goal Problem: PT - Transfers Goal: Sit <-> Stand Description: Pt will perform sit to/from stand transfers with supervision with out an assistive device in order to improve functional mobility and safety. Outcome: Progressing Toward Goal PT treatment consisted of Gait/Stair Training and Neuro Muscle Re-Education to work and progress towards above goal(s). Treating Therapist: Haim Lopez PT Additional Details: Co-evaluation/co-treatment performed?: No simultaneous skilled care performed I used facemask, protective eye shield, and gloves in today's patient interaction. Patient location at end of session: chair Alarms on at end of session: chair alarm and RN aware Needs in reach. Time In: 1035 Time Out: 1108 Total Visit Time: 33 minutes Total Treatment Time (skilled, billable minutes): 33 minutes Upon discontinuation of Acute Care Physical Therapy Services or patient discharge from the hospital this note represents the current Physical Therapy Discharge Summary. NEUROVASCULAR STROKE SERVICE Daily Progress Note IDENTIFYING INFORMATION Yulisa Novak MR# [id number] 10/18/2022 HISTORY OF PRESENT ILLNESS Yulisa Novak is a 81 y.o. female with a history of HTN, HLD, hip replacement x2 who presented with right side weakness, trouble speaking. LKW 1999 on 10/15. Presented to [facility] with right sided weakness and aphasia. Found to have lower trunk partial M2 occlusion on OSH CTA. NIHSS 8 at OSH, following some commands. mRS 0. Not on any medications at home. She was not a candidate for thrombolysis due to being outside the window. Transferred to [facility] for further evaluation. On arrival to [facility] NIHSS 7, aphasic. CTH showed acute L MCA infarct with near complete matched perfusion defect on CTP. NSGY was consulted however she was not a candidate for thrombectomy given high aspect score and matched perfusion defect. Admitted to neurovascualr service for further work up. INTERVAL HISTORY 10/17 TTE pending, remains aphasic, daughter updated at bedside, PT/OT/speech recs, start low dose lisinopril 10/18 LOVE, TTE scheduled for today, improved BP, dispo planning PHYSICAL EXAM Gen: awake, alert, NAD HEENT: normocephalic, no scalp lesions or tenderness Neck: trachea midline No JVD CV: +S1S2, RRR, no m/r/g Lungs: LCTA bilaterally with equal chest rise Abd: soft, nontender, nondistended, +BS x4 quadrants Extrem: Warm and well perfused, no edema, 2+ pulses bilaterally Neuro: Alert, mixed aphasia, able to state name and month, difficutly following commands, can mimic, MIRANDA x 4, sensation intact and equal bilaterally to light touch CN II - All visual ramos intact CN II/III - PERRLA CN III/IV/ - EOMI CN V - Light touch to face intact in V1-3 CN VII - Facial movement intact and symmetrical bilaterally CN VIII - Hearing intact CN X - Cough present CN XI - muscular movement of shoulders and sternocleidomastoid muscles intact and equal bilaterally CN XII - midline protrusion of tongue MOTOR EXAMINATION: no drift NIHSS 10/18/2022 Provider NIH Stroke Scale NIH Interval (Provider): daily NIH Level of Conciousness (Provider): 0 NIH LOC Questions (Provider): 2 NIH LOC Commands (Provider): 1 NIH Best Gaze (Provider): 0 NIH Visual (Provider): 0 NIH Facial Palsy (Provider): 0 NIH Left Arm Motor (Provider): 0 NIH Right Arm Motor (Provider): 0 NIH Left Leg Motor (Provider): 0 NIH Right Leg Motor (Provider): 0 NIH Limb Ataxia (Provider): 0 NIH Sensory (Provider): 0 NIH Best Language (Provider): 2 NIH Dysarthria (Provider): 1 NIH Extinction and Inattention (Provider): 0 NIH Total Score (Provider): 6 ASSESSMENT AND PLAN Neuro: acute L MCA stroke, L M2 occlusion CTH stroke: Acute infarct within the posterior left MCA territory. No significant mass effect or hemorrhagic conversion. CTA brain/neck ([facility]): left M2 occlusion CTP: There appears to be a near complete matched perfusion defect within the left MCA territory seen on the syngo.via perfusion maps. MRI brain: canceled, stroke pattern clearly visualized on CTA/CTH TTE: EF > 70%, severe left atrial enlargement, no significant valvular disease ECG: sinus rhythm with PVCs, 454 QTc -Stroke Etiology (TOAST Criteria): cryptogenic -Antiplatelet plan: ASA 81mg -Statin therapy: atorvastatin 80mg -Blood Pressure goal: gradual normotension -30 day event monitor at discharge (ordered) Ischemic Stroke Core Measures -NIHSS on admission 7 -Patient has been started on Mechanical (SCD's) and Pharmacological (SQ heparin/Lovenox) DVT prophylaxis. -Antiplatelet therapy has been initiated, Aspirin 81mg daily. -Anticoagulation therapy was not indicated for this patient. -Patients LDL 162 and HgbA1c 5.9 were checked and the patient will be discharged on Atorvastatin 80mg daily. -Dysphagia screening ordered, and will be completed prior to patient receiving oral intake. -Stroke education booklet has been ordered and will be provided by the RN that includes both written and verbal education to the patient and family regarding ischemic strokes. We have reviewed the patient's personal modifiable risk factors including: HTN, HLD as well as education on reducing these risk factors -Patient is being assessed for Rehab by PT/OT/Speech and PM&R if indicated. Dysphagia, improved: -failed bedside swallow -10/17 speech eval cleared for regular diet and thin liquids HTN (POA): -not on medication prior to admission -goal gradual normotension, SBP 160-210s on admission, -10/17 initiate lisinopril 5mg -10/18 normotensive, continue lisinopril HLD (POA): -not on medication prior to admission -LDL 162, atorvastatin 80mg initiated Disposition: Yulisa Novak will likely be discharged to [facility] Coleman Mack APRN-GEORGE 10/18/2022 2:28 PM VITAL SIGNS Temp: [97.9 F (36.6 C)-98.8 F (37.1 C)] 98.3 F (36.8 C) Pulse (Heart Rate): [52-57] 57 Resp Rate: [13-16] 16 BP: (121-160)/(70-76) 121/75 O2 Sat (%): [97 %-99 %] 97 % Oxygen Therapy: Oxygen Therapy O2 Sat (%): 97 % O2 Device: room air Intake/Output: Intake/Output Summary (Last 24 hours) at 10/18/2022 0926 Last data filed at 10/17/2022 2220 Gross per 24 hour Intake 200 ml Output -- Net 200 ml LABS/CULTURES Lab Results Component Value Date WBC 5.29 10/18/2022 HGB 13.4 10/18/2022 HCT 42.2 10/18/2022 PLATELET 235 10/18/2022 MCV 78.4 (L) 10/18/2022 Lab Results Component Value Date SODIUM 138 10/18/2022 POTASSIUM 4.0 10/18/2022 CHLORIDE 104 10/18/2022 CO2 24 10/18/2022 BUN 12 10/18/2022 CREATSERUM 0.82 10/18/2022 GLUCOSE 91 10/18/2022 Lab Results Component Value Date CHOLESTEROL 243 (H) 10/17/2022 TRIG 84 10/17/2022 HDL 64 10/17/2022 LDLCALC 162 (H) 10/17/2022 Lab Results Component Value Date HGBA1C 5.9 (H) 10/17/2022 Lab Results Component Value Date ALBUMIN 3.5 10/17/2022 , No results found for: CPK, TROP IMAGING/DIAGNOSTIC STUDIES MEDICATIONS aspirin 81 mg Oral Daily atorvastatin 80 mg Oral QHS enoxaparin 40 mg Subcutaneous Q24H lisinopril 5 mg Oral Daily senna 8.6 mg Oral QAM Or senna 8.6 mg Per NG tube QAM Summary: SNF placement Reason for Consult: placement Consulted By: Medical team Level(s) of Care Discussed: SNF Patient's Preferred Geographic Area for Discharge: [facility] Patient's preference for providers to include? 1.[facility] Patient's preference for providers to exclude? 1.N/A Patient and/or Registration Representative Discussion Asuncion Ashby Discussed referral process with the patient (and/or labor service representative). Patient is agreeable to have placement referral initiated. Placement Plan Expected Discharge Date: 10/21/2022 Referred Level of Care: SNF Patient Choice for Post-Acute Providers Barriers: Bed available, medical acuity Current Referrals and Status 1. [facility] 2. [facility] 3. [facility] TED Bearden, [facility] [place] [employer] Focused Assessment for Discharge Planning Patient is here for stroke work-up. Initial Discharge Planning Anticipated discharge disposition: Inpatient Rehab Facility Transportation Available for Discharge: Ambulance Anticipated DME: none Anticipated Services at Discharge: Physical Therapy, Occupational Therapy, Outpatient follow up, Speech Therapy Patient Assessment Completed: Focused Advanced Care Planning Assessment Advanced Care Planning Has the patient completed Advance Directives?: Not Completed Referral to Social Work for Advance Care Planning? : Patient Declines HCPOA Agent(s): N/A Legal Next of Kin: Kendrick [phone] Financial Resources Insurance: Yes Prescription Coverage: Yes Resources Needed: No Resources Provided: Living Environment and Support System Pt lives at home with a friend. Pt's daughter lives in a farmhouse on the same property. Daughter is able to stay with Pt after Pt discharges from inpatient rehabilitation. Patient Resources Prior to Admission Post-acute Services: no Community Resources: no DME: no Pt's daughter is agreeable for Pt to discharge to inpatient rehabilitation. Daughter's choice is [facility]. CM informed SW. JAVIER Parra Tank Carpenter [phone] Acute Occupational Therapy Evaluation Prior to Admission AM-PAC Score: PRIOR LEVEL AM-PAC Activity Raw Score: 24 Current AM-PAC score(s): CURRENT AM-PAC Activity Raw Score: 18 Based on the above AM-PAC score(s) and OT clinical judgment, discharge destination recommendation is: Inpatient Rehab Facility Supporting Factors (would benefit from skilled therapy services): Patient status is anticipated to be appropriate to tolerate inpatient rehab therapy requirements at time of discharge from acute care, Impaired self-care abilities, Impaired cognitive status Mobility equipment available at home: (unknown) ADL equipment available at home: (unknown) Equipment recommendations for discharge: to be determined Current therapy frequency recommendation(s) in acute: 5 times a week Precautions and Weightbearing Status: OT Existing Precautions/Restrictions: fall Telemetry Patient Safety Communication Prior to Visit: Nursing Subjective: Pt agreeable to OT session, limited intelligible verbalizations due to aphasia Pain: General Pain Documentation (Adult, OB, Peds) Presence of Pain: non-verbal indicator of pain/discomfort not present Home Setting Residence: House Lives With: other (see comments) (lives with a friend, daughter lives on same property) Mobility Equipment Available: (unknown) ADL Equipment Available: (unknown) Home Environment Details: Daughter can assist pt post discharge. All information from case mgmt note as pt unable to communicate PLOF and no family present Previous Level of Function Prior level ADL Overview: Independent with all ADLs Dominant Hand: (unknown- but used right hand for ADLs this session) Bed Mobility/Transfers: independent Ambulation Skills: independent Prior Level of Function Details: Per chart pt I baseline. Unknown full PLOF as pt unable to provide and no family present IADL History IADL Comments: Unknown. Anticipate I Objective/Observation: Vitals/Vitals Responses to Treatment: VSS Respiratory Status O2 Device: room air Vision Screen Currently wearing corrective lenses: (unknown) Clinical Observations: Appears to have possibly right inattention, appeared suprised when therapist talked to her on right and ran into objects on right x2. Limited assess due to aphasia Speech Speech: word-finding difficulties Successful Methods (Communication Strategies): gestures, verbal speech Hearing Hearing: no gross deficits noted Cognition Arousal/Alertness: Appropriate responses to stimuli Orientation Level: Oriented to person (unable to assess due to aphasia) Following Commands: Follows commands less than 25% of the time (improved with gestures) Safety Judgment: Decreased awareness of need for safety, Decreased awareness of need for assistance Awareness of Errors: Assistance required to correct errors made, Assistance required to identify errors made Deficits: Decreased awareness of deficits Memory: Unable to assess Problem Solving: Assistance required to identify errors made, Assistance required to generate solutions Cognition Comments: Limited assess due to aphasia. Demonstrates ideomotor apraxia ADLs: ADL Assessment: Grooming Deficit ADL Anticipated Performance (ADLs not directly observed this session): Eating, Bathing, UE Dressing, LE Dressing, Toileting Eating Assistance: Supervision Grooming Assistance: Minimal Grooming Location: standing at sink Grooming Deficit: Activity tolerance, Generalized weakness, Balance, Oral care, Wash/dry face, Brushing hair, Initiation, Understanding purpose of items Grooming Skilled Rationale (Verbal/Tactile/Visual/Demonstrati on): Supervision, Setup Grooming Intervention/Details: pt required step by step sequencing cues as pt initially asking what she is suppose to do with toothbrush. Pt demonstrates ideomotor apraxia throughout grooming tasks. pt placed paste on toothbrush below bristles. Pt then guided for where to place paste. Pt then brought to face and with lps closed began brushing on outside of mouth over lips. Hand over hand assist to guide brush into mouth and with poor quality and technique to brush teeth. with initiation assist to fill water, pt able to take drink of water and rinse. Pt cued to wash face but tammy dry cloth to face. Once therapist wetted it, pt able to wash face. Pt given hairbrush and pt began brushing over nose.Once therapist guided hand to hair and cued for use of mirror for visual feedback pt able to brush hair Bathing Assistance: Minimal UE Dressing Assistance: Stand by LE Dressing Assistance: Minimal Toilet Assistance: Minimal Extremity Assessments: RUE Assessment RUE Assessment: Within Functional Limits LUE Assessment LUE Assessment: Within Functional Limits Balance: Sitting Balance Static Sitting-Level of Assistance: Supervision Dynamic Sitting-Level of Assistance: Supervision Standing Balance Static Standing-Level of Assistance: Contact guard Dynamic Standing-Level of Assistance: Contact guard Standing-Balance Support: Gait belt Neuro: Sensation Sensation Comments: intact to pain x4. Unable to formally assess Gross Coordination Gross Coordination: bilat UE intact Fine Motor Coordination Left Hand, Finger To Nose: (unable to assess due to aphasia) Left Hand Thumb/Finger Opposition Skills: normal performance Right Hand Thumb/Finger Opposition Skills: normal performance Left Hand, Manipulation of Objects: normal performance Right Hand, Manipulation of Objects: normal performance Mobility Assessment: Supine to Sit Mobility [place] Level: Supine->Sit: stand-by assist Bed Features/Set-up: Supine->Sit: Head of bed elevated Skilled Rationale: Positioning, Verbal cues Skilled Intervention/Details: Supine->Sit: with gestures pt able to transfer to EOB Transfer Assessment: Sit to Stand Transfer [place] Level: Sit->Stand: contact guard assist Assistive Device: Sit->Stand: gait belt Skilled Rationale: Verbal cues, Hand placement Skilled Intervention/Details: Sit->Stand: visual cues for initiation Stand to Sit Transfer [place] Level: Stand->Sit: contact guard assist Assistive Device: Stand->Sit: gait belt, armed chair Skilled Rationale: Verbal cues, Visual cues, Hand placement Functional Mobility: Functional Mobility [place] Level: Functional Mobility/Gait: contact guard assist Assistive Device: Functional Mobility/Gait: gait belt Functional Mobility Distance: Distance needed for common household mobility Functional Mobility Deficits: Balance, Activity tolerance Functional Mobility Skilled Rationale: Verbal cues, Visual scanning and environmental awareness Skilled Intervention/Details - Functional Mobility/Gait: Pt completed with mild right lateral drift and with 1 LOB but able to correct with CGA. Pt noted to run into objects on right x2 with decreased awareness. Cues for scanning right Outcome Score(s): CURRENT AM-[facility] Daily Activity Inpatient Short Form Putting on/Taking Off Lower Body Clothin - A Little Assistance Bathin - A Little Assistance Toiletin - A Little Assistance Putting on/Taking Off Upper Body Clothin - A Little Assistance Groomin - A Little Assistance Eatin - A Little Assistance CURRENT AM-[facility] Activity Raw Score: 18 CURRENT AM-PAC Activity Functional Limitation/Modifier: 46.65% Currently Impaired in Daily Activity - CK Assessment & Plan: Patient was admitted for Lm2 occlusion and seen for therapy evaluation related to ADL/IADL deficits. Exam findings include impairments in: cognitive impairments, endurance, posture, strength, transfers, vision. These impairments contribute to occupational performance limitations including bathing, dressing, grooming, ADL transfers, functional mobility, toileting, home management tasks. The following factors impact the plan of care: communication impairments Patient will benefit from skilled occupational therapy to address these impairments, occupational performance limitations, and participation restrictions. Patient's rehab potential is: good, to achieve stated therapy goals. Planned Therapy Interventions (OT Eval): ADL retraining, IADL retraining, balance training, bed mobility training, cognitive training, strengthening, transfer training Patient Instruction/Education this session: Patient Instruction: role of OT, plan of care Plan for next session: increased ADL participation standing at sink Acute OT Goals Plan of Care by Kristi Real OT at 10/17/2022 10:20 AM Version 1 of 1 Problem: OT - Dressing Goal: Lower Body Dressing Description: Pt will complete lower body dressing/bathing with adaptive equipment/techniques PRN with SBA and less than 25% cues for object use and sequencing Outcome: Ongoing Problem: OT - ADLs Goal: Grooming Description: Pt will complete grooming in standing with supervision and less than 25% cues for object use and sequencing for improved ability to safely complete ADLs. Outcome: Ongoing Goal: Toileting Description: Pt will complete toileting task including clothing management with supervision for improved ability to safely complete self-care activities. Outcome: Ongoing Problem: OT - Visual Scanning Goal: Visual Scanning Functional Mobility Description: Pt will use appropriate visual scanning techniques with supervision 100% of the time during functional mobility to promote safety and success during daily routine. Outcome: Ongoing Problem: OT - Endurance Goal: Endurance Functional Mobilty Around Home Description: Pt will complete distance needed for common household mobility with supervision A without device for item retrieval and ADL completion. Outcome: Ongoing Evaluating Therapist: Kristi Real OT Additional Details: Co-evaluation/co-treatment performed?: Yes, simultaneous billable skilled care This co-evaluation session performed between OT and PT was beneficial, necessary and provided distinct services in establishing this person's individual plan of care. Medical complexity with functional deficits necessitated two skilled therapy disciplines working concurrently to determine each discipline's goals. This co-treatment was medically necessary due to patient's: Cognitive issues and Postural control I used gloves and facemask in today's patient interaction. OT Evaluation Complexity Occupational Profile and Client History: Moderate - expanded history Assessment of Occupational Performance: Moderate (3-5 performance deficits) Clinical Decision/Performance Deficits: Moderate (detailed assessments w/several treatment options) Time In: 958 Time Out: 1020 Total Visit Time: 21 minutes Total Treatment Time (skilled, billable minutes): 21 minutes Patient location at end of session: chair Alarms on at end of session: chair alarm Needs in reach. Upon discontinuation of Acute Care Occupational Therapy Services or patient discharge from the hospital this note represents the current Occupational Therapy Discharge Summary. Acute Physical Therapy Evaluation Prior to Admission AMPAC score(s): PRIOR LEVEL AM-PAC Mobility Raw Score: 24 Current AM-PAC score(s): CURRENT AM-PAC Mobility Raw Score: 18 Based on the above AM-PAC score(s) and PT clinical judgment, patient is a good candidate for discharge to Inpatient Rehab Facility Supporting Factors (would benefit from skilled therapy services): Fall risk, Recent decline in cognitive function, Impaired balance Mobility equipment available at home: (unknown) ADL equipment available at home: (unknown) Equipment needed for discharge: to be determined Current therapy frequency recommendation in acute: Therapy Frequency: 5 times a week Precautions and Weightbearing Status: Existing Precautions/Restrictions: fall Telemetry Patient Safety Communication Prior to Visit: Nursing Subjective: Pt agreeable to therapy. Pain: General Pain Documentation (Adult, OB, Peds) Presence of Pain: non-verbal indicator of pain/discomfort not present Home Setting Residence: (Unable to get home set-up) Mobility Equipment Available: (unknown) ADL Equipment Available: (unknown) Home Environment Details: Pt unable to communicate accurate home set-up Previous Level of Function Prior level ADL Overview: Unknown Prior Level of Function Details: Pt unable to communicate accurate PLOF Objective/Observation: Vitals/Vitals Responses to Treatment: WNL Respiratory Status O2 Device: room air Cognition Overall Cognitive Status: Impaired Arousal/Alertness: Appropriate responses to stimuli Orientation Level: Oriented to person (alerts to name, rest difficult to assess) Following Commands: Follows commands less than 25% of the time (improved with gestures) Safety Judgment: Decreased awareness of need for safety Awareness of Errors: Decreased awareness of errors Deficits: Decreased awareness of deficits Cognition Comments: difficult to assess d/t aphasia. Mixed aphasia Vision Screen Currently wearing corrective lenses: (unknown) Clinical Observations: appears to have right inattention based on running into objects on the right. Difficult to assess vision due to aphasia. Speech Speech: word-finding difficulties Successful Methods (Communication Strategies): gestures, verbal speech (receptive deficits as well) Hearing Hearing: no gross deficits noted Extremity Assessments: RUE Assessment RUE Assessment: Within Functional Limits LUE Assessment LUE Assessment: Within Functional Limits RLE Assessment RLE Assessment: Within Functional Limits LLE Assessment LLE Assessment: Within Functional Limits Sensation Overall Sensation: (appears intact) Skin Integrity Skin Integrity Description: WFL Mobility Assessment: Supine to Sit Mobility [place] Level: Supine->Sit: stand-by assist Bed Features/Set-up: Supine->Sit: Head of bed elevated, Use of bed rail Skilled Rationale: Positioning, Sequencing, Verbal cues Skilled Intervention/Details: Supine->Sit: gestures and increased cueing to complete Balance: Sitting Balance Static Sitting-Level of Assistance: Supervision Dynamic Sitting-Level of Assistance: Supervision Standing Balance Static Standing-Level of Assistance: Contact guard Dynamic Standing-Level of Assistance: Contact guard Standing-Balance Support: Gait belt Skilled Rationale: Positioning, Verbal cues Standing Balance Skilled Intervention/Details: one posterior LOB but pt able to initiate correction Transfer Assessment: Sit to Stand Transfer [place] Level: Sit->Stand: contact guard assist Assistive Device: Sit->Stand: gait belt Skilled Rationale: Positioning, Sequencing, Verbal cues, Initiation and execution of task Gait/Functional Mobility: Gait Assessment [place] Level: Gait: contact guard assist Assistive Device: Gait: gait belt Ambulation Distance (Feet): 150 Gait Deviations Identified: decreased irene, decreased gait speed, decreased step length Gait Skilled Rationale: verbal Skilled Intervention/Details - Gait: One instance of LOB but pt able to self-correct. Cueing for way finding. Outcome Score(s): CURRENT [facility] Basic Mobility Inpatient Short Form Turning over in bed: 3 - A Little Assistance Sitting/standing from chair: 3 - A Little Assistance Moving from lying on back to sittin - A Little Assistance Moving to and from bed to chair: 3 - A Little Assistance Walk in hospital room: 3 - A Little Assistance Climbing 3-5 steps with a railin - A Little Assistance CURRENT [facility] Mobility Raw Score: 18 CURRENT AM-PAC Mobility Functional Limitation/Modifier: 46.58% Currently Impaired in Basic Mobility - CK Assessment & Plan: Patient was admitted for left MCA CVA and seen for therapy evaluation related to aphasia, apraxia, impaired command following, impaired balance, and decreased safety with mobility. Exam findings include impairments in: Strength, Balance, Transfers, Gait/Locomotion, Cognition/Arousal/Attention, Aerobic capacity/endurance. These impairments contribute to functional limitations including Increased fall risk, Decreased functional mobility, Difficulty with transfers. Current clinical presentation is Evolving - changing/inconsistent clinical characteristics (Moderate). Patient history factors impacting Plan Of Care include aphasia. Patient will benefit from skilled physical therapy to address these impairments, functional limitations, and participation restrictions and has excellent rehab potential to achieve therapy goals. Planned Therapy Interventions: balance training, bed mobility training, endurance, functional activity tolerance, gait training, strengthening, transfer training, neuromuscular re-education Patient Instruction/Education this session: right attention of environment Plan for next session: outcome measure to assess balance, command following through functional tasks Acute PT Goals Plan of Care by Lucas Watt PT at 10/17/2022 9:58 AM Version 1 of 1 Problem: PT - Balance/Coordination/Neuro Re-Education Goal: Standing Dynamic/Static Balance Description: Pt will meet the MCID on the kim balance assessment and/or FGA to reduce fall risk at home Outcome: Ongoing Problem: PT - Mobility Goal: Ambulation Description: Pt will ambulate 250 feet with out an assistive device with supervision assist to improve ability to navigate home environment. Outcome: Ongoing Goal: Stairs Description: Pt will ascend/descend 6 stairs with railings with supervision with out an assistive device to improve ability to perform functional mobility necessary in recommended discharge environment. Outcome: Ongoing Problem: PT - Transfers Goal: Sit <-> Stand Description: Pt will perform sit to/from stand transfers with supervision with out an assistive device in order to improve functional mobility and safety. Outcome: Ongoing Goal: Other Description: Pt will demonstrate >75% accuracy with 1-step command following and way finding tasks to improve safety with mobility Outcome: Ongoing Evaluating Therapist: Luacs Watt PT Additional Details: Co-evaluation/co-treatment performed?: Yes, simultaneous billable skilled care This co-evaluation session performed between PT and OT was beneficial, necessary and provided distinct services in establishing this person's individual plan of care. Medical complexity with functional deficits necessitated two skilled therapy disciplines working concurrently to determine each discipline's goals. This co-treatment was medically necessary due to patient's: initial safety assessment I used facemask, protective eye shield, and gloves in today's patient interaction. Evaluation Complexity Components History: Moderate (1-2 personal factors and/or comorbidities) Body Systems Review: Moderate (Addressing a total of 3 or more elements) Clinical Presentation: Evolving - changing/inconsistent clinical characteristics (Moderate) Clinical Decision Making: Moderate Time In: 0958 Time Out: 1020 Total Visit Time: 22 minutes Total Treatment Time (skilled, billable minutes): 22 minutes Patient location at end of session: chair Alarms on at end of session: chair alarm Needs in reach. Upon discontinuation of Acute Care Physical Therapy Services or patient discharge from the hospital this note represents the current Physical Therapy Discharge Summary. Acute Care RN GERIATRIC Speech/Language/Cognitive and Swallow Evaluations Diet recommendation: Recommended Method of Nutrition: PO Recommended Diet Grade: regular Recommended Liquid Consistency: liquid- thin (IDDSI 0) Recommended Medication Administration (as appropriate per MD): Per patient preference Type of Cues/Supervision: none Assistance: independent Other Recommendations: *To prevent potential development of aspiration pneumonia/nosocomial infections, RECOMMEND: Oral care routine q4h and HOB upright as tolerated Best mode of Communication: verbal speech (mixed fluent/nonfluent aphasia) Communication Strategies: models, visual cues, repetitions Discharge Recommendations: Based on the below outcome measures/assessment score(s) and RN GERIATRIC clinical judgment, discharge destination recommendation is: Inpatient Rehab Facility Barriers to discharge home: Inability to communicate basic wants/needs Supporting factors for discharge setting: Impaired speech and language skills limiting ability to communicate basic wants/needs Acute RN GERIATRIC Outcomes Tracking Communicate basic wants and needs?: no Demo insight/appreciation of deficits?: no Appreciate deficits - Details: presumed Complete basic problem solving?: no Basic problem solving - Details: presumed Current therapy frequency recommendation in acute: Speech/Lang/Cog Therapy Frequency: 5 times a week Swallow Therapy Frequency: no therapy warranted Clinical Swallow Impression: Yulisa Novak presents with presumed functional oropharyngeal swallow s/p L MCA Clinical Speech/Language/Cognitive Impression: Yulisa Novak presents with moderate- severe aphasia s/p L MCA. Expressive speech is categorized by mixed fluent/non-fluent speech, with impaired repetition and object identification, and inability to express needs/wants and answer open ended questions. Pt presents with perseveration on answer from initial question, and will repeatedly respond with that response until a new type of question is asked (identified pencil and then said pencil for all other naming tasks). Receptive language is impaired as demonstrated by inability to follow commands and accurately answer questions (c/b perseveration as listed above). Impaired y/n questions with yes preference. Motor speech is presumed functional as pt with inconsistent fluent speech; however, pt unable to perform oral movements but suspect r/t comprehension vs true motor speech deficit. Social communication is impaired as pt is unable to functionally participate in communication. Reading and writing are impaired, presumed r/t poor comprehension. Pt relative strengths include inconsistent automatic speech (counting) and appropriate greetings (hi, thank you, goodbye). Pt also maintains eye contact, attempts to initiate conversation and engages in appropriate turn taking. Speech therapy is warranted to address aphasia. Patient Instruction/Education this session: Education regarding aphasia to pt and left aphasia handout in room for family Plan for next session: Family education, introduce PoC Subjective: Pt awake in bed with daughter at bedside (left at beginning of session). Pt was agreeable and participatory throughout evaluation. Pain: General Pain Documentation (Adult, OB, Peds) Presence of Pain: non-verbal indicator of pain/discomfort not present Patient History Comments: Yulisa Novak is a 81 y.o. female who presented from OSH on 10/16 for stroke work up with right sided weakness, intermittent command following, and aphasia. NIH 7 upon arrival. CTH reveled posterior L MCA. No PMH on file. Imaging CTH (10/16): Acute infarct within the posterior left MCA territory. This correlates to the thrombosed posterior division of the left MCA seen on outside CT angiography. No significant mass effect or hemorrhagic conversion. Prior Level of Function: Pt unable to provide case history Prior RN GERIATRIC history: None per chart review Current Method of Nutrition: Route of Nutrition: NPO Respiratory Status: O2 Device: room air O2 Sat (%): 93 % Resp Rate: 17 Clinical Swallow Evaluation Clinical Swallow Exam limited by cognition: No (presumed no, difficult to determine d/t aphasia) Objective Evaluation: Oral Motor: assessed informally throughout evaluation as pt unable to follow commands Cranial Nerve Exam CN V (Trigeminal) normal blink, strong equal bilateral strength of masseter and temporal muscles (presumed during mastication) CN VII (Facial) Mild R facial droop CN IX (Glossopharyngeal) voice quality strong and clear CN X (Vagus) not tested CN XI (Accessory) raises head off pillow without difficulty, strong and equal rotation of head, strong and equal shoulder shrug (presumed, visualized throughout assessment) CN XII (Hypoglossal) clearly articulated speech, no abnormal tongue movements Vocal Quality: WDL GRBAS: A perceptual rating scale for voice parameters Rating scale of 0 to 3 0 = no impairment 1 = minimal to mild impairment 2 = moderate impairment 3 = severe impairment Subjective Voice Evaluation Grade of dysphonia (G): 0 Roughness (R): 0 Breathiness (B): 0 Asthenia (A): 0 Strain (S): 0 Positioning: High Power's (60-90 degrees) Anticipatory Phase: Intact Foods and Liquids Trialed: Modality: Amount: Ice Teaspoon, RN GERIATRIC-fed x2 Thin Straw, RN GERIATRIC-fed x3 Dysphagia- pureed (IDDSI 4) Teaspoon, Self-fed x2 Regular solid Self-fed 1/2 cracker Oral Phase Function Comments Oral Mucosa Intact Dentition Natural teeth Labial Closure Intact Mastication Intact Oral Stasis Absent Cough before the swallow Absent Oral Phase Summary: intact as demonstrated by adequate labial closure, presumed functional mastication, bolus formation, A/P transit with no oral residue Pharyngeal Phase Function Comments Perceived Swallow Present Cough Response No Throat Clear Yes, Immediate (x1 following initial ice chip trial) Subjective Complaint of Residue Absent Pharyngeal Phase Summary: Presumed functional as pt with no signs/symptoms of penetration/aspiration. Suspect x1 throat clear r/t NPO status Oksana Swallow Screen: (administered by: RN) Oksana Swallow Screening Screening Exclusion Criteria: none, continue with [place] Swallow Screening Cognitive Screen: Orientation: disoriented Cognitive Screen: Command Following: unable to to follow commands Oral Motor Function : oral motor dysfunction 3 oz. Water Swallow Challenge : deferred per clinical judgement [place] Swallow Screening Result: failed=NPO Voice and Swallow Outcomes: Functional Oral Intake Scale: Level 7 - Total oral intake with no restrictions Speech/Language/Cognitive Evaluation EXPRESSIVE LANGUAGE: Impaired Task: Imitates Gestures impaired Automatic Speech Impaired (pt able to produce automatic speech, but perseverates on previous tasks when next automatic speech task is presented) Phrase Completion Impaired (inconsistent) Confrontation Naming Impaired (perseverates on previous response) Answering 'wh' Questions Impaired Repetition Impaired Verbalize Basic Wants and Needs Impaired Functional Participation in Conversation Impaired Expressive Language Characteristics: Fluent, Non-Fluent, Perseveration and Jargon RECEPTIVE LANGUAGE: Impaired Task: Identify Functional Objects impaired Follow 1-Step Commands Impaired Follow 2+ Step Commands Impaired Answers Basic Y/N Questions Impaired (answers with correct response type, but perseverates on yes ) Answers Complex Y/N Questions Impaired Conversational Comprehension Impaired READING: Impaired (unable to read aloud or comprehend presented stimulus. Pt did correctly identify there's three words there in the sentence open your mouth. ) Visual acuity unknown, intermittent squinting but glasses not located in room. Task: Letter Identification Single Words Aloud Impaired Single Word Comprehension Impaired Sentence Comprehension Impaired Functional Environmental Reading WRITING: Impaired did not initiate to verbal cues, copied a written model and perseverate on written model. 75% legible. SOCIAL INTERACTION/PRAGMATICS: Impaired Task: Initiates Conversation Functional Takes Turns in Communication Intact Maintains Eye Contact Intact Maintains Topic Impaired Shifts Topics Appropriately Impaired Affect Functional Responds Appropriately to Questions Functional (uses correct response type) COGNITION: Impaired difficult to determine d/t aphasia (unable to assess orientation, memory, problem solving, etc.). Pt unable to follow commands. Pt appeared to have some insight of deficits as she was inconsistently visibly frustrated throughout evaluation. MOTOR SPEECH TASKS: Functional (fluent, clear speech, appropriate saliva management, however, pt unable to imitate oral movements. suspect may be r/t comprehension) VOCAL PARAMETERS: Intact Task: Breath Support Intact Coordination of Respiration and Phonation Coordination of respiration and phonation: Intact Duration of Phonation Pitch Control Intact Loudness Intact Vocal Quality WDL Subjective Voice Evaluation Grade of dysphonia (G): 0 Roughness (R): 0 Breathiness (B): 0 Asthenia (A): 0 Strain (S): 0 RN GERIATRIC Outcomes: The [place] Aphasia Screening Test (MAST) was developed as a brief, repeatable screening measure for individuals with impaired communication/language skills. The MAST was designed to be used for serial assessments to detect changes in language abilities over time. Patient scored the following on the 9 subtests: Expressive Index Namin/10 Automatic Speech: 4/10 Repetition: 2/10 Writing/Spellin/10 Verbal Fluency Dictation (Based on Cookie Theft Picture): 0/10 Receptive Index Yes/No Responses:11/01 (yes preference) Object Recognition: 8/10 Following Instructions: 0/10 Reading Instructions: 0/10 Expressive Subscale: 650 Receptive Subscale: 2050 Total Score: 26/100 Goals: 1. Pt/caregiver will teach back 2-3 communication strategies with minimal cues from clinician across 1-2 sessions in order to increase pt functional communication 2. Pt will answer Y/N questions to 80% accuracy with minimal cues from the clinician across 2-3 sessions in order to increase functional participation in medical care and overall communication 3. Pt will express basic wants and needs via any mode of communication with minimal cues from the clinician across 2-3 sessions in order to increase overall communication Speech Language Pathologist: Marcy Ramos Time In: 919 Time Out: 949 Total Visit Time: 30 minutes Total Treatment Time (skilled, billable minutes): 30 minutes I was assisted by KIRK Alanis for today's session. and I used facemask, protective eye shield, and gloves in today's patient interaction. Patient location at end of session: bed with head of bed elevated Alarms on at end of session: none altered Needs in reach. Upon discontinuation of Acute Care Speech Therapy Services or patient discharge from the hospital this note represents the current Speech Therapy Discharge Summary Associated attestation - Catalina Laguerre SLP - 10/17/2022 1:35 PM EST Clinical Production Technologist Attestation: I was present for the session and agree with this documentation. Catalina Laguerre MA, CCC-RN GERIATRIC, CBIS Certified Brain Injury Specialist Email: [email or web address] Available via Secure Chat NEUROVASCULAR STROKE SERVICE Daily Progress Note IDENTIFYING INFORMATION Yulisa Novak MR# [id number] 10/17/2022 HISTORY OF PRESENT ILLNESS Yulisa Novak is a 81 y.o. female with a history of HTN, HLD, hip replacement x2 who presented with right side weakness, trouble speaking. CHUNW 1999 on 10/15. Presented to [facility] with right sided weakness and aphasia. Found to have lower trunk partial M2 occlusion on OSH CTA. NIHSS 8 at OSH, following some commands. mRS 0. Not on any medications at home. She was not a candidate for thrombolysis due to being outside the window. Transferred to [facility] for further evaluation. On arrival to [facility] NIHSS 7, aphasic. CTH showed acute L MCA infarct with near complete matched perfusion defect on CTP. NSGY was consulted however she was not a candidate for thrombectomy given high aspect score and matched perfusion defect. Admitted to neurovascualr service for further work up. INTERVAL HISTORY 10/17 TTE pending, remains aphasic, daughter updated at bedside, PT/OT/speech recs, start low dose lisinopril PHYSICAL EXAM Gen: awake, alert, NAD HEENT: normocephalic, no scalp lesions or tenderness Neck: trachea midline No JVD CV: +S1S2, RRR, no m/r/g Lungs: LCTA bilaterally with equal chest rise Abd: soft, nontender, nondistended, +BS x4 quadrants Extrem: Warm and well perfused, no edema, 2+ pulses bilaterally Neuro: Alert, mixed aphasia, able to state name and month, difficutly following commands, can mimic, MIRANDA x 4, sensation intact and equal bilaterally to light touch CN II - All visual ramos intact CN II/III - PERRLA CN III/IV/ - EOMI CN V - Light touch to face intact in V1-3 CN VII - Facial movement intact and symmetrical bilaterally CN VIII - Hearing intact CN X - Cough present CN XI - muscular movement of shoulders and sternocleidomastoid muscles intact and equal bilaterally CN XII - midline protrusion of tongue MOTOR EXAMINATION: no drift NIHSS 10/17/2022 Provider NIH Stroke Scale NIH Interval (Provider): daily NIH Level of Conciousness (Provider): 0 NIH LOC Questions (Provider): 1 NIH LOC Commands (Provider): 2 NIH Best Gaze (Provider): 0 NIH Visual (Provider): 0 NIH Facial Palsy (Provider): 0 NIH Left Arm Motor (Provider): 0 NIH Right Arm Motor (Provider): 0 NIH Left Leg Motor (Provider): 0 NIH Right Leg Motor (Provider): 0 NIH Limb Ataxia (Provider): 0 NIH Sensory (Provider): 0 NIH Best Language (Provider): 2 NIH Dysarthria (Provider): 1 NIH Extinction and Inattention (Provider): 0 NIH Total Score (Provider): 6 ASSESSMENT AND PLAN Neuro: acute L MCA stroke, L M2 occlusion CTH stroke: Acute infarct within the posterior left MCA territory. No significant mass effect or hemorrhagic conversion. CTA brain/neck (OSH): left M2 occlusion CTP: There appears to be a near complete matched perfusion defect within the left MCA territory seen on the syngo.via perfusion maps. MRI brain: canceled, stroke pattern clearly visualized on CTA/CTH TTE: PENDING ECG: sinus with PVCs, 454 QTc -Stroke Etiology (TOAST Criteria): likely cryptogenic, TTE pending -Antiplatelet plan: ASA 81mg daily -Statin therapy: atorvastatin 80mg -Blood Pressure goal: gradual normotension -30 day event monitor at discharge (ordered) Ischemic Stroke Core Measures -NIHSS on admission 7 -Patient has been started on Mechanical (SCD's) and Pharmacological (SQ heparin/Lovenox) DVT prophylaxis. -Antiplatelet therapy has been initiated, Aspirin 81mg daily. -Anticoagulation therapy was not indicated for this patient. -Patients LDL 162 and HgbA1c 5.9 were checked and the patient will be discharged on Atorvastatin 80mg daily. -Dysphagia screening ordered, and will be completed prior to patient receiving oral intake. -Stroke education booklet has been ordered and will be provided by the RN that includes both written and verbal education to the patient and family regarding ischemic strokes. We have reviewed the patient's personal modifiable risk factors including: HTN, HLD as well as education on reducing these risk factors -Patient is being assessed for Rehab by PT/OT/Speech and PM&R if indicated. Dysphagia, improved: -failed bedside swallow -10/17 speech eval cleared for regular diet and thin liquids HTN (POA): -not on medication prior to admission -goal gradual normotension, SBP 160-210s on admission, -10/17 initiate lisinopril 5mg HLD (POA): -not on medication prior to admission -LDL 162, atorvastatin 80mg initiated Disposition: Yulisa Novak will likely be discharged to [facility] Coleman Mack APRN-GEORGE 10/17/2022 9:28 AM VITAL SIGNS Temp: [97.6 F (36.4 C)-98.5 F (36.9 C)] 98.3 F (36.8 C) Pulse (Heart Rate): [58-92] 67 Resp Rate: [12-22] 17 BP: (167-212)/(71-109) 173/71 O2 Sat (%): [93 %-99 %] 93 % Weight: [68 kg (150 lb)-76.3 kg (168 lb 3.4 oz)] 68 kg (150 lb) Oxygen Therapy: Oxygen Therapy O2 Sat (%): 93 % O2 Device: room air Oxygen Delivery/Consumption Hemodynamics BSA (Calculated - sq m): 1.69 m2 Intake/Output: Intake/Output Summary (Last 24 hours) at 10/17/2022 0928 Last data filed at 10/17/2022 0248 Gross per 24 hour Intake 902.36 ml Output -- Net 902.36 ml LABS/CULTURES Lab Results Component Value Date WBC 6.67 10/17/2022 HGB 12.6 10/17/2022 HCT 39.5 10/17/2022 PLATELET 209 10/17/2022 MCV 79.5 (L) 10/17/2022 Lab Results Component Value Date SODIUM 137 10/17/2022 POTASSIUM 4.1 10/17/2022 CHLORIDE 105 10/17/2022 CO2 24 10/17/2022 BUN 10 10/17/2022 CREATSERUM 0.78 10/17/2022 GLUCOSE 101 (H) 10/17/2022 Lab Results Component Value Date CHOLESTEROL 243 (H) 10/17/2022 TRIG 84 10/17/2022 HDL 64 10/17/2022 LDLCALC 162 (H) 10/17/2022 Lab Results Component Value Date HGBA1C 5.9 (H) 10/17/2022 Lab Results Component Value Date ALBUMIN 3.5 10/17/2022 , No results found for: CPK, TROP IMAGING/DIAGNOSTIC STUDIES MEDICATIONS aspirin 81 mg Oral Daily Or aspirin 300 mg Rectal Daily atorvastatin 80 mg Oral QHS enoxaparin 40 mg Subcutaneous Q24H lisinopril 5 mg Oral Daily senna 8.6 mg Oral QAM Or senna 8.6 mg Per NG tube QAM documented in this encounter [facility] 10-19-2022 Note Formatting of this n ote might be different from the original. DC'd IV intact pressure drsg applied. CARLTON & AVS faxed to [facility]. Transfer report & paperwork sent with patient's daughter. Report called to [facility]. Pt transported in stable condition per private car by daughter. [facility] 10-19-2022 Miscellaneous Notes DC'd IV intact pressure drsg applied. CARLTON & AVS faxed to [facility]. Transfer report & paperwork sent with patient's daughter. Report called to [facility]. Pt transported in stable condition per private car by daughter. Stroke patient education has been reviewed and all required elements are complete and personalized. Care plan documentation complete and patient adequate for discharge. Next dose medication details have been added to the AVS as appropriate. Problem: Patient Care Overview Goal: Plan of Care Review Outcome: Ongoing Goal: Individualization & Mutuality Outcome: Ongoing Goal: Discharge Needs Assessment Outcome: Ongoing Goal: Interdisciplinary Rounds/Family Conf Outcome: Ongoing Problem: Dysphagia (Adult) Goal: Identify Related Risk Factors and Signs and Symptoms Description: Related risk factors and signs and symptoms are identified upon initiation of Human Response Clinical Practice Guideline (CPG) Outcome: Ongoing Goal: Functional/Safe Swallow Description: Patient will demonstrate the desired outcomes by discharge/transition of care. Outcome: Ongoing Goal: Compensatory Techniques to Improve Safety/Function with Swallowing Description: Patient will demonstrate the desired outcomes by discharge/transition of care. Outcome: Ongoing Problem: Stroke (Ischemic) (Adult) Goal: Signs and Symptoms of Listed Potential Problems Will be Absent, Minimized or Managed (Stroke) Description: Signs and symptoms of listed potential problems will be absent, minimized or managed by discharge/transition of care (reference Stroke (Ischemic) (Adult) CPG). Outcome: Ongoing Problem: Fall/Trauma/Injury Risk (Adult) Goal: Fall/Trauma/Injury Risk: Absence of Trauma/Injury/Falls Description: Patient will demonstrate the desired outcomes. Outcome: Ongoing Goal: Knowledge of risk factors/behavior modification Description: Knowledge of risk factors/behavior modification for fall/injury prevention Outcome: Ongoing Problem: PT - Transfers Goal: Other Description: Pt will demonstrate >75% accuracy with 1-step command following and way finding tasks to improve safety with mobility Outcome: Ongoing Problem: PT - Mobility Goal: Ambulation Description: Pt will ambulate 250 feet with out an assistive device with supervision assist to improve ability to navigate home environment. Outcome: Progressing Toward Goal Problem: PT - Transfers Goal: Sit <-> Stand Description: Pt will perform sit to/from stand transfers with supervision with out an assistive device in order to improve functional mobility and safety. Outcome: Progressing Toward Goal Problem: RN GERIATRIC - Language Goal: Establish Yes/No Description: Pt will answer Y/N questions to 80% accuracy with minimal cues from the clinician across 2-3 sessions in order to increase functional participation in medical care and overall communication Outcome: Ongoing Goal: Expressive Language Goal 1 Description: Pt will express basic wants and needs via any mode of communication with minimal cues from the clinician across 2-3 sessions in order to increase overall communication Outcome: Ongoing Goal: Awareness Description: Pt/caregiver will teach back 2-3 communication strategies with minimal cues from clinician across 1-2 sessions in order to increase pt functional communication Outcome: Ongoing Problem: Patient Care Overview Goal: Plan of Care Review Outcome: Ongoing Goal: Individualization & Mutuality Outcome: Ongoing Goal: Discharge Needs Assessment Outcome: Ongoing Goal: Interdisciplinary Rounds/Family Conf Outcome: Ongoing Problem: Dysphagia (Adult) Goal: Identify Related Risk Factors and Signs and Symptoms Description: Related risk factors and signs and symptoms are identified upon initiation of Human Response Clinical Practice Guideline (CPG) Outcome: Met This Shift Goal: Functional/Safe Swallow Description: Patient will demonstrate the desired outcomes by discharge/transition of care. Outcome: Met This Shift Goal: Compensatory Techniques to Improve Safety/Function with Swallowing Description: Patient will demonstrate the desired outcomes by discharge/transition of care. Outcome: Met This Shift Problem: Stroke (Ischemic) (Adult) Goal: Signs and Symptoms of Listed Potential Problems Will be Absent, Minimized or Managed (Stroke) Description: Signs and symptoms of listed potential problems will be absent, minimized or managed by discharge/transition of care (reference Stroke (Ischemic) (Adult) CPG). Outcome: Ongoing Problem: Fall/Trauma/Injury Risk (Adult) Goal: Fall/Trauma/Injury Risk: Absence of Trauma/Injury/Falls Description: Patient will demonstrate the desired outcomes. Outcome: Ongoing Goal: Knowledge of risk factors/behavior modification Description: Knowledge of risk factors/behavior modification for fall/injury prevention Outcome: Ongoing Problem: OT - Dressing Goal: Lower Body Dressing Description: Pt will complete lower body dressing/bathing with adaptive equipment/techniques PRN with SBA and less than 25% cues for object use and sequencing Outcome: Ongoing Problem: OT - ADLs Goal: Grooming Description: Pt will complete grooming in standing with supervision and less than 25% cues for object use and sequencing for improved ability to safely complete ADLs. Outcome: Ongoing Goal: Toileting Description: Pt will complete toileting task including clothing management with supervision for improved ability to safely complete self-care activities. Outcome: Ongoing Problem: OT - Visual Scanning Goal: Visual Scanning Functional Mobility Description: Pt will use appropriate visual scanning techniques with supervision 100% of the time during functional mobility to promote safety and success during daily routine. Outcome: Ongoing Problem: OT - Endurance Goal: Endurance Functional Mobilty Around Home Description: Pt will complete distance needed for common household mobility with supervision A without device for item retrieval and ADL completion. Outcome: Ongoing Problem: PT - Balance/Coordination/Neuro Re-Education Goal: Standing Dynamic/Static Balance Description: Pt will meet the MCID on the kim balance assessment and/or FGA to reduce fall risk at home Outcome: Ongoing Problem: PT - Mobility Goal: Ambulation Description: Pt will ambulate 250 feet with out an assistive device with supervision assist to improve ability to navigate home environment. Outcome: Ongoing Goal: Stairs Description: Pt will ascend/descend 6 stairs with railings with supervision with out an assistive device to improve ability to perform functional mobility necessary in recommended discharge environment. Outcome: Ongoing Problem: PT - Transfers Goal: Sit <-> Stand Description: Pt will perform sit to/from stand transfers with supervision with out an assistive device in order to improve functional mobility and safety. Outcome: Ongoing Goal: Other Description: Pt will demonstrate >75% accuracy with 1-step command following and way finding tasks to improve safety with mobility Outcome: Ongoing Problem: Patient Care Overview Goal: Plan of Care Review Outcome: Ongoing Goal: Individualization & Mutuality Outcome: Ongoing Goal: Discharge Needs Assessment Outcome: Ongoing Goal: Interdisciplinary Rounds/Family Conf Outcome: Ongoing Problem: Dysphagia (Adult) Goal: Identify Related Risk Factors and Signs and Symptoms Description: Related risk factors and signs and symptoms are identified upon initiation of Human Response Clinical Practice Guideline (CPG) Outcome: Ongoing Goal: Functional/Safe Swallow Description: Patient will demonstrate the desired outcomes by discharge/transition of care. Outcome: Ongoing Goal: Compensatory Techniques to Improve Safety/Function with Swallowing Description: Patient will demonstrate the desired outcomes by discharge/transition of care. Outcome: Ongoing Problem: Stroke (Ischemic) (Adult) Goal: Signs and Symptoms of Listed Potential Problems Will be Absent, Minimized or Managed (Stroke) Description: Signs and symptoms of listed potential problems will be absent, minimized or managed by discharge/transition of care (reference Stroke (Ischemic) (Adult) CPG). Outcome: Ongoing Problem: Fall/Trauma/Injury Risk (Adult) Goal: Fall/Trauma/Injury Risk: Absence of Trauma/Injury/Falls Description: Patient will demonstrate the desired outcomes. Outcome: Ongoing Goal: Knowledge of risk factors/behavior modification Description: Knowledge of risk factors/behavior modification for fall/injury prevention Outcome: Ongoing I certify that this patient requires inpatient services at this time. I anticipate the expected length of stay will include at least two midnights. Inpatient services are due to the following medical concerns stroke. Plans for post hospitalization care will be discharge to d. documented in this encounter [facility] 10-19-2022 Note Formatting of this n ote might be different from the original. Stroke patient education has been reviewed and all required elements are complete and personalized. Care plan documentation complete and patient adequate for discharge. Next dose medication details have been added to the AVS as appropriate. [facility] 10-19-2022 Hospital course Narrative Discharge Summary Name: Yulisa Novak Age: 81 y.o. Birthday: 1940 Admit Date: 10/16/2022 1:55 PM Discharge Date: 10/19/2022 Discharge Time: 9:40 am Discharge Unit: [id number] Admission Information Admitting Physician: Jesus Og MD Discharge Information Discharge Physician: Allyssa Olivo Problem List Active Hospital Problems Diagnosis Stroke Resolved Hospital Problems No resolved problems to display. Brief Summary of Hospital Course for Discharge Summary: Dear Providers, We recently had the pleasure of taking care of Yulisa Novak at [facility]. As you well know Yulisa Novak is a 81 y.o. female with a history of HTN, HLD, hip replacement x2 who presented with right side weakness and aphasia. LKW 1999 on 10/15. Presented to [facility] with right sided weakness and aphasia. Found to have lower trunk partial M2 occlusion on OSH CTA. NIHSS 8 at OSH, following some commands. mRS 0. Not on any medications at home. She was not a candidate for thrombolysis due to being outside the window. [facility]red [facility]. On arrival [facility] NIHSS 7, aphasic. CTH showed acute L MCA infarct with near complete matched perfusion defect on CTP. NSGY was consulted however she was not a candidate for thrombectomy given high aspect score and matched perfusion defect. Admitted to neurovascualr service for further work up. Her work up included: CTH stroke: Acute infarct within the posterior left MCA territory. No significant mass effect or hemorrhagic conversion. CTA brain/neck ([facility]): left M2 occlusion CTP: There appears to be a near complete matched perfusion defect within the left MCA territory seen on the syngo.via perfusion maps. MRI brain: canceled, stroke pattern clearly visualized on CTA/CTH TTE: EF > 70%, severe left atrial enlargement, no significant valvular disease ECG: sinus rhythm with PVCs, 454 QTc She was evaluated by OT, PT and speech therapy. She is being discharged to [facility] in a stable condition. This discharge plan has been explained to the patient and her daughter. Diagnosis: Acute L MCA stroke, L M2 occlusion Mechanism: cryptogenic Management plan at discharge: -ASA 81mg daily for secondary stroke risk reduction -Atorvastatin 80mg daily for secondary stroke risk reduction -Cardiac event monitor for 30 days -Lisinopril for HTN -OT, PT and speech therapy Follow up plan after discharge: -Follow up at Neurovascular clinic within 4-6 weeks of discharge -Follow up with PCP within 2 weeks of discharge Physical exam on the day of discharge: Gen: awake, alert, NAD HEENT: normocephalic, no scalp lesions or tenderness Neck: trachea midline CV: +S1S2, RRR, no m/r/g Lungs: LCTA bilaterally with equal chest rise Abd: soft, nontender, nondistended, +BS x4 quadrants Extrem: Warm and well perfused, no edema Neuro: Alert, mixed aphasia, able to state name and month, difficutly following commands, can mimic, MIRANDA x 4, sensation intact and equal bilaterally to light touch CN II - All visual ramos intact CN II/III - PERRLA CN III/IV/ - EOMI CN V - Light touch to face intact in V1-3 CN VII - Facial movement intact and symmetrical bilaterally CN VIII - Hearing intact CN X - Cough present CN XI - muscular movement of shoulders and sternocleidomastoid muscles intact and equal bilaterally CN XII - midline protrusion of tongue MOTOR EXAMINATION: no drift Provider NIH Stroke Scale NIH Interval (Provider): discharge NIH Level of Conciousness (Provider): 0 NIH LOC Questions (Provider): 2 NIH LOC Commands (Provider): 1 NIH Best Gaze (Provider): 0 NIH Visual (Provider): 0 NIH Facial Palsy (Provider): 0 NIH Left Arm Motor (Provider): 0 NIH Right Arm Motor (Provider): 0 NIH Left Leg Motor (Provider): 0 NIH Right Leg Motor (Provider): 0 NIH Limb Ataxia (Provider): 0 NIH Sensory (Provider): 0 NIH Best Language (Provider): 2 NIH Dysarthria (Provider): 0 NIH Extinction and Inattention (Provider): 0 NIH Total Score (Provider): 5 Modified Iram Scale Score Premorbid (MRSS): No symptoms Modified Rochelle Scale Score at Discharge (MRSS): Slight disability, unable to carry out all previous activities, but is able to look after own affairs without assistance Summary of last selected lab results and date obtained: Lab Results Component Value Date WBC 5.39 10/19/2022 HGB 12.9 10/19/2022 HCT 40.3 10/19/2022 PLATELET 244 10/19/2022 MCV 78.6 (L) 10/19/2022 Lab Results Component Value Date SODIUM 136 10/19/2022 POTASSIUM 3.9 10/19/2022 CHLORIDE 104 10/19/2022 CO2 25 10/19/2022 BUN 15 10/19/2022 CREATSERUM 0.92 10/19/2022 GLUCOSE 88 10/19/2022 Lab Results Component Value Date ALT 7 (L) 10/17/2022 AST 20 10/17/2022 ALKPHOS 72 10/17/2022 BILITOTAL 0.7 10/17/2022 BILIDIRECT 0.1 10/17/2022 Brief Summary of Labs for Discharge Summary: Discharge Orders AMB REFERRAL TO NEUROLOGY MOBILE CARDIAC TELEMETRY Current Outpatient Meds: Medication List for when you go home START taking these medications aspirin 81 MG CHEW chewable tablet Chew 1 tablet daily. atorvastatin 80 MG TABS Take 1 tablet by mouth at bedtime. Commonly known as: LIPITOR lisinopril 5 MG TABS Take 1 tablet by mouth daily. Commonly known as: PRINIVIL Start taking on: October 20, 2022 CONTINUE taking these medications albuterol 108 (90 Base) MCG/ACT AERS inhaler Inhale 1 puff every 6 hours as needed for Shortness of Breath. Calcium Carbonate 500 MG CHEW Chew 500 mg. Medication Instructions: Know your medicines ? Make sure you know why you are taking each medicine. ? Make a master list of all your medicines. Write down the medicine names and doctors' names. Include doses and side effects too. And write down why you take each medicine. Include all prescription and sytx-ran-anidsug medicines, vitamins, and supplements. Keep this list up to date. Take a copy to each doctor visit. ? Know when you will run out of each medicine. Ask your pharmacist if there are ways the drugstore can remind you to refill your medicines so you do not run out. Write refill reminders on your calendar. Don't wait until you have a few pills left. ? Ask your pharmacist to plan your refills so that you can picking belt operator all your medicines at the same time. This can mean fewer trips to the drugstore. ? If we have prescribed you a new medication during your stay, please contact with your primary physician for refills Follow-up: No follow-up provider specified. Upcoming Appointments (up to five)-Some appointments for Medical Center outpatient clinics or diagnostic testing locations are not displayed below Provider Department Dept Phone 11/22/2022 9:30 AM Beth Lucio Jr. Neurology [facility] [phone] documented in this encounter [facility] 10-18-2022 Hospital Discharge instructions Coleman Mack, PATIENT SUPPORT ASSOCIATE-PERSONAL ASSISTANT - 10/18/2022 11:30 AM EST Please take these discharge instructions to your primary care doctor follow appointment to show them,keep them for your reference and refer to them often for follow up appointments.It is best to write your appointments on a personal calendar so you do not miss them,call if you need to change any appointments please. Education: What are the most common symptoms of stroke? The following are the most common symptoms of stroke. However, each individual may experience symptoms differently. If any of these symptoms are present, call 911 (or your local ambulance service) immediately. Treatment is most effective when started immediately. Symptoms may be sudden and include: -Weakness or numbness of the face, arm, or leg, especially on one side of the body -Confusion or difficulty speaking or understanding -Problems with vision such as dimness or loss of vision in one or both eyes -Dizziness or problems with balance or coordination -Problems with movement or walking -Severe headaches with no other known cause, especially if sudden onset All of the above warning signs may not occur with each stroke. Do not ignore any of the warning signs, even if they go away - take action immediately. The symptoms of stroke may resemble other medical conditions or problems. Always consult your physician for a diagnosis We have provided both written and verbal education to the patient and family regarding ischemic and hemorrhagic strokes. We have discussed the warning signs/symptoms as well as causes of stroke. We have discussed the importance of activating 911/EMS in the event of these symptoms. We have reviewed the patient's personal risk factors as well as education on reducing these risk factors. [facility] Personalized Stroke Treatment Plan My Stroke Type: [x] Ischemic Stroke (Blockage of blood flow to the brain) [] Hemorrhagic Stroke (Bleeding in the brain) [] TIA- Transient Ischemic Attack (mini-stroke) My Risk Factors Include: [x] High Blood Pressure [] Diabetes [x] High Cholesterol [] Heart Disease [] Atrial Fibrillation (Irregular Heart Rate) [] Smoking [] Obesity [] Clotting Disorder [] Alcohol Abuse [] Drug Abuse [] Prior History [] Family History [] Obstructive Sleep Apnea My Follow-Up Treatment Goals: [x] Blood Pressure < 140/90 [] Stop Smoking Immediately [x] LDL < 70 [] HgA1C levels <7% [] Decrease BMI to <25 [x] Take all ordered medications [x] Avoid non-prescription or over the counter medication not cleared by your physician [x] Limit Alcohol use to no more than 1 drink per day for females and 2 drinks per day for males [] Do not drive until cleared [x] Follow up with PCP within a week of discharge to home [x] Follow-up with Neurovascular [x] Follow-up with Occupational,physical and speech therapy if ordered [x] Watch out for depression and seek treatment if needed CONTACTS FOR NEUROVASCULAR SERVICE: - You may call your neurovascular doctors office at [phone], if you have questions between 8:30 am and 4:30 pm. - For off hours or the weekend you may call the office or the hospital casting machine service operator at and ask for the stroke resident oncology social worker to be paged. - If you have any questions or needs, please call Barbara Hanson RN, stroke environmental programs specialist at [phone] Mon-Fri from 7-3 ? Any questions concerning your discharge instructions please call Case Management Office [phone] Patient Stroke Resources: [facility] Stroke Support The [facility] Stroke Support Group is for stroke survivors, friends, and family members. Meets every Monday from 12:00PM to 1:00PM at [facility]), [address] [place] [address] Aspen Rich, at [phone]. If you are outside of the [facility], contact The [place] [employer] at www.strokeassociation.org or 8-309-4-stroke, or for supports groups in your area. Also refer to the Stroke Education booklet you received as part of your stroke education while you were a patient for additional resources Additional Contacts: Evening and Weekend Contacts If you have questions or concerns during evening, weekend, or holiday hours, please call: -[facility] and [facility] casting machine service operator at [phone]. -[facility] casting machine service operator at [phone] Ask the casting machine service operator to page the on-call doctor for Neurovascular service, they were responsible for your care while you were in the hospital. If you having an emergency, call 911. *In the event of an Emergency: If you have a physical or psychiatric emergency call 911 or go to your local emergency department. You should also call your outpatient provider's emergency number. Other reference numbers: [facility] Intake Office at 978-928-7606; [facility] at [phone]; or Suicide Prevention Hotline at 108-125-6199. *Helpful phone numbers: Free Crisis Hotline: 4-736-081-TALK ( ) Suicide Hotline: 357.976.9152 Seniors Suicide Hotline: 632.708.8130 [facility]: 226.789.7958 [facility] [place]: 643.854.4414 (free counseling) [employer] Access Hotline: 205-940-CQFC (238-147-1333) 24-hour crisis text hotline: Text the word 4hope to 791-948 for crisis support. Texting this number is free if you have Verizon, [employer], [employer] or Sprint. [facility] Financial Assistance: If you want to learn more about these programs, please call .There are three programs to help you with the cost of your medical care: Medicaid, Hospital Care Assurance Program (HCAP) & randee If you are without Insurance and believe you may qualify for Medicaid/public assistance: The [facility] can now process pederson (TANF), food (SNAP) and Medicaid Applications over the phone. Please call 0-386-272[facility] (0043) and apply over the phone or apply online at www.benefits.[place].gov. Monday-Monday 8am-12pm noon. Medication Assistance Programs [employer] members can buy 100+ common prescriptions for FREE, $3 or $6. Annual membership is $36 for individuals and $72 for families (up to 6 people, including pets). Sign up online or enroll at your nearest pharmacy! -[employer], web site can provide a significant number of coupons for medications at a much lower burrell. DILEEP Herman - 10/18/2022 11:29 AM EST Know your medicines Make sure you know why you are taking each medicine. Make a master list of all your medicines. Write down the medicine names and doctors' names. Include doses and side effects too. And write down why you take each medicine. Include all prescription and jvnv-qet-vxcjwyn medicines, vitamins, and supplements. Keep this list up to date. Take a copy to each doctor visit. Know when you will run out of each medicine. Ask your pharmacist if there are ways the drugstore can remind you to refill your medicines so you do not run out. Write refill reminders on your calendar. Don't wait until you have a few pills left. Ask your pharmacist to plan your refills so that you can picking belt operator all your medicines at the same time. This can mean fewer trips to the drugstore. If we have prescribed you a new medication during your stay, please contact with your primary physician for refills EP Child - 10/18/2022 11:30 AM EST Activity -- Please follow these instructions: -Advance your activity as you can tolerate - You may walk all you want. You may go up and down the steps. Use the railing for support - It is normal for your energy level and sleep patterns to change after a stroke - Take rest periods during the day as needed - Complete recovery may take several weeks, months, up to a year. Patience is lerner. EP Child - 10/18/2022 11:30 AM EST Current Diet Orders Procedures DIET REGULAR Liquid Thin (IDDSI 0) Meds per patient preference (whole vs crushed) Standing Status: Standing Number of Occurrences: 1 Order Specific Question: Additional Modifier: Answer: Liquid Thin (IDDSI 0) EP Child - 10/18/2022 11:30 AM EST Notify Your Doctor if you have any of the following: NEUROLOGICAL CHANGES-- Change in alertness Increased sleepiness Nausea and vomiting New onset of numbness or weakness in arms or legs New problems with your bowels or bladder New or worse problems with balance or walking Seizures, new or worsening UNRELIEVED HEADACHE PAIN-- New or increased pain unrelieved with pain medications Pain associated with nausea and vomiting Pain associated with other symptoms QUESTIONS OR PROBLEMS-- Any questions or problems that you are unsure about Deep Vein Thrombosis Symptoms Call your doctor or nurse right away if you have any signs of blood clots such as -Tender, swollen or reddened areas anywhere in your leg. -Numbness or tingling in your lower leg or calf, or at the top of your leg or groin -Skin on you leg looks pale or blue or feels cold to touch -Chest pain or have trouble breathing -Fever or chills documented in this encounter [facility] 10-18-2022 Note Formatting of this n ote might be different from the original. Problem: Patient Care Overview Goal: Plan of Care Review Outcome: Ongoing Goal: Individualization & Mutuality Outcome: Ongoing Goal: Discharge Needs Assessment Outcome: Ongoing Goal: Interdisciplinary Rounds/Family Conf Outcome: Ongoing Problem: Dysphagia (Adult) Goal: Identify Related Risk Factors and Signs and Symptoms Description: Related risk factors and signs and symptoms are identified upon initiation of Human Response Clinical Practice Guideline (CPG) Outcome: Ongoing Goal: Functional/Safe Swallow Description: Patient will demonstrate the desired outcomes by discharge/transition of care. Outcome: Ongoing Goal: Compensatory Techniques to Improve Safety/Function with Swallowing Description: Patient will demonstrate the desired outcomes by discharge/transition of care. Outcome: Ongoing Problem: Stroke (Ischemic) (Adult) Goal: Signs and Symptoms of Listed Potential Problems Will be Absent, Minimized or Managed (Stroke) Description: Signs and symptoms of listed potential problems will be absent, minimized or managed by discharge/transition of care (reference Stroke (Ischemic) (Adult) CPG). Outcome: Ongoing Problem: Fall/Trauma/Injury Risk (Adult) Goal: Fall/Trauma/Injury Risk: Absence of Trauma/Injury/Falls Description: Patient will demonstrate the desired outcomes. Outcome: Ongoing Goal: Knowledge of risk factors/behavior modification Description: Knowledge of risk factors/behavior modification for fall/injury prevention Outcome: Ongoing [facility] 10-18-2022 Note Formatting of this n ote might be different from the original. Problem: PT - Transfers Goal: Other Description: Pt will demonstrate >75% accuracy with 1-step command following and way finding tasks to improve safety with mobility Outcome: Ongoing Problem: PT - Mobility Goal: Ambulation Description: Pt will ambulate 250 feet with out an assistive device with supervision assist to improve ability to navigate home environment. Outcome: Progressing Toward Goal Problem: PT - Transfers Goal: Sit <-> Stand Description: Pt will perform sit to/from stand transfers with supervision with out an assistive device in order to improve functional mobility and safety. Outcome: Progressing Toward Goal [facility] 10-17-2022 History and physical note Stroke Attending Addendum (Date of service 10/17/22): I have interviewed and examined patient. I have reviewed Dr. Anne Capps's note and agree with the following highlights, additions, and addendums: The patient is a 81 y.o. female with a history of hypertension, hyperlipidemia (not on meds), and prior hip replacement who on 10/15/22 at 8p was LKN and then On 10/16 was found with aphasia. The patient presented to an OSH ER where CT brain was negative for acute changes. OSH CT angiogram head/neck shows left M2 occlusion. Telestroke showed NIHSS 8. The patient was transferred to [facility] ER. On arrival NIHSS was 7. CT perfusion brain shows matched left MCA infarct. NSG deemed not MT candidate . LDL 162, HgbA1c 5.9. ROS: Pertinent Positives and Negatives are no [place]. All other systems reviewed and are negative. Interval Overnight History: 173/71. Neurological examination shows aphasia, NIHSS 5 (?-2, com-1, aphas-2). Assessment/Plan: Acute left MCA ischemic stroke, Post-stroke day # 2. Stroke work-up ordered including TTE and EM. Continue daily anti-platelet medication (Asa) and vascular risk factor modification. On lipitor 80. DVT prophylaxis with SCDs and lovenox SQ. PT/OT consults. Start lisinopril. Speech swallow. Allyssa Olivo MD [facility] 10-17-2022 History and physical note Stroke Attending Addendum (Date of service 10/17/22): I have interviewed and examined patient. I have reviewed Dr. Anne Capps's note and agree with the following highlights, additions, and addendums: The patient is a 81 y.o. female with a history of hypertension, hyperlipidemia (not on meds), and prior hip replacement who on 10/15/22 at 8p was LKN and then On 10/16 was found with aphasia. The patient presented to an OSH ER where CT brain was negative for acute changes. OSH CT angiogram head/neck shows left M2 occlusion. Telestroke showed NIHSS 8. The patient was transferred to [facility] ER. On arrival NIHSS was 7. CT perfusion brain shows matched left MCA infarct. NSG deemed not MT candidate . LDL 162, HgbA1c 5.9. ROS: Pertinent Positives and Negatives are no [place]. All other systems reviewed and are negative. Interval Overnight History: 173/71. Neurological examination shows aphasia, NIHSS 5 (?-2, com-1, aphas-2). Assessment/Plan: Acute left MCA ischemic stroke, Post-stroke day # 2. Stroke work-up ordered including TTE and EM. Continue daily anti-platelet medication (Asa) and vascular risk factor modification. On lipitor 80. DVT prophylaxis with SCDs and lovenox SQ. PT/OT consults. Start lisinopril. Speech swallow. Allyssa Olivo MD Images from the original note were not included. Neurovascular Evaluation Note: Evaluation Date: 10/16/2022 Unit: E036/E036 Consultation was requested by Dr. Chloé Gonzales MD Patient status: Inpatient Length of stay: 0 days Reason for Consult/Chief Complaint: Level 1 stroke alert History of Present Illness Yulisa Novak is a 81 y.o. female with PMH significant for HTN, HLD, hip replacement x2 who presents with right side weakness, trouble speaking. Not on any medications at home. Found to have lower trunk partial M2 occlusion on OSH CTA. SBP 130-170s at OSH. NIHSS 8>5 at OSH, following some commands. mRS 0. Upon presentation NIHSS 7. Following some commands, but looks confused, aphasic. Right leg weakness (slight movement). LKW 1999 yesterday. A stroke alert was called for STAT consultation. Review of Systems: [x] Unable to obtain review of systems. Reason: (All positives in bold, otherwise negative) GENERAL: fever, chills, weight loss, fatigue, night sweats EYES: blurry vision, eye pain HENT: hearing loss, sore throat, dysphagia, sinus pain CARDIO: chest pain, palpitations, orthopnea PULM: shortness of breath, wheezing, cough, sputum, hemoptysis GI: nausea, vomiting, diarrhea, abdominal pain, blood in stool, constipation : urinary frequency, urgency, dysuria, urethral discharge MSK: joint pain, back pain, swelling SKIN: rash, redness NEURO: headache, weakness, numbness PSYCH: HI, SI, anxiety, depression Neurovascular-specific History / Information Home antiplatelet/anticoagulation therapy: Antiplatelet therapy: none Anticoagulation: none Patient Current Risk Factors: Stroke risk factors include hypertension or hyperlipidemia. Prior stroke history: no Family Hx of Stroke: Parents: unclear Siblings: unclear No family history on file. Stroke Diagnostic/Treatment Eligibility Information: TPA not given Stroke Clinical Assessment Information: NIHSS (Provider) Flowsheet Row First Filed Value Provider NIH Stroke Scale NIH Interval (Provider) admission filed on 10/16/2022 1401 NIH Level of Conciousness (Provider) 0 filed on 10/16/2022 1401 NIH LOC Questions (Provider) 0 filed on 10/16/2022 1401 NIH LOC Commands (Provider) 1 filed on 10/16/2022 1401 NIH Best Gaze (Provider) 0 filed on 10/16/2022 1401 NIH Visual (Provider) 0 filed on 10/16/2022 1401 NIH Facial Palsy (Provider) 0 filed on 10/16/2022 1401 NIH Left Arm Motor (Provider) 0 filed on 10/16/2022 1401 NIH Right Arm Motor (Provider) 0 filed on 10/16/2022 1401 NIH Left Leg Motor (Provider) 0 filed on 10/16/2022 1401 NIH Right Leg Motor (Provider) 3 filed on 10/16/2022 1401 NIH Limb Ataxia (Provider) 0 filed on 10/16/2022 1401 NIH Sensory (Provider) 0 filed on 10/16/2022 1401 NIH Best Language (Provider) 2 filed on 10/16/2022 1401 NIH Dysarthria (Provider) 1 filed on 10/16/2022 1401 NIH Extinction and Inattention (Provider) 0 filed on 10/16/2022 1401 NIH Total Score (Provider) 7 filed on 10/16/2022 1401 Is NIH=0 Within 180 min of Last Known Well Time? -- Stroke Scales Flowsheet Row Most Recent Value Modified Rochelle Scale Score Premorbid (MRSS) 0 filed on 10/16/2022 1402 NIH Total Score (Provider) 7 filed on 10/16/2022 1401 Medical History: No past medical history on file. SURGICAL HISTORY: No past surgical history on file. SOCIAL HISTORY: ALLERGIES: Not on File Medications PRIOR TO ARRIVAL MEDS: Prior to Admission medications Not on File Current Meds: Current Facility Administered Meds: Current Facility-Administered Medications Medication Dose Route Frequency Provider Last Rate Last Admin acetaminophen (TYLENOL) tablet 325 mg 325 mg Oral Q4H PRN Anne Capps MD Or acetaminophen (TYLENOL) tablet 325 mg 325 mg Per NG tube Q4H PRN Anne Capps MD Or acetaminophen (TYLENOL) tablet 650 mg 650 mg Oral Q4H PRN Anne Capps MD Or acetaminophen (TYLENOL) tablet 650 mg 650 mg Per NG tube Q4H PRN Anne Capps MD [START ON 10/17/2022] aspirin chewable tablet 81 mg 81 mg Oral Daily Anne Capps MD Or [START ON 10/17/2022] aspirin suppository 300 mg 300 mg Rectal Daily Anne Capps MD atorvastatin (LIPITOR) tablet 80 mg 80 mg Oral QHS Anne Capps MD clopidogrel (PLAVIX) tablet 300 mg 300 mg Oral Once Anne Capps MD Enoxaparin Sodium (LOVENOX) injection 40 mg 40 mg Subcutaneous Q24H Anne Capps MD hydrALAZINE (APRESOLINE) injection 10 mg 10 mg Intravenous Q1H PRN Anne Capps MD Or hydrALAZINE (APRESOLINE) injection 20 mg 20 mg Intravenous Q1H PRN Anne Capps MD labetalol (NORMODYNE) injection 10 mg 10 mg Intravenous Q1H PRN Anne Capps MD Or labetalol (NORMODYNE) injection 20 mg 20 mg Intravenous Q1H PRN Anne Capps MD polyethylene glycol (MIRALAX) packet 17 g 17 g Oral Daily PRN Anne Capps MD Or polyethylene glycol (MIRALAX) packet 17 g 17 g Per NG tube Daily PRN Anne Capps MD senna (SENOKOT) tablet 8.6 mg 8.6 mg Oral MELANIE Capps MD Or senna (SENOKOT) tablet 8.6 mg 8.6 mg Per NG tube QAChad Capps MD sodium chloride 0.9% IV solution Intravenous Continuous Nael Medel MD 75 mL/hr at 10/16/22 1427 New Bag at 10/16/22 1427 sodium chloride 0.9% IV solution Intravenous Continuous Anne Capps MD No current outpatient medications on file. Scheduled Meds: Continuous Infusions: PRN Meds: Vitals Objective Findings: Vital Signs (24hrs): Temp: [98.3 F (36.8 C)] 98.3 F (36.8 C) Pulse (Heart Rate): [59-63] 59 Resp Rate: [16-19] 19 BP: (167-177)/(77-81) 174/77 O2 Sat (%): [95 %-98 %] 98 % There is no height or weight on file to calculate BMI. Lines/Drains/Airways/Wounds: Patient Lines/Drains/Airways Status Active Lines, Drains, Airways, & Wound Overview Name Placement date Placement time Site Days Peripheral IV Line - Single Lumen median cubital vein (antecubital fossa), left 20 gauge -- -- -- -- Physical Exam General Physical Exam General: NAD, lying comfortably in bed HENT: Normal oropharynx and mucosa. Normal external appearance of ears and nose. CV/Chest: Regular rate and rhythm, normal S1S2 Lungs: No audible wheezing. Normal work of breathing. No accessory muscle use Abdomen: Non distended, non tender Extremities: Warm and well perfused. No appreciable edema, cyanosis or deformity. Skin: No rash. Normal palpation of skin. Musculoskeletal: No joint tenderness. Normal digits and nails by inspection. No clubbing. Neurologic Examination Mental status/Cognition: alert; not oriented to age or month; good attention; no apparent neglect; follows some commands Speech/language:non-fluent speech, unable to name objects Cranial nerves: CN II Visual ramos full to confrontation without visual extinction CN III,IV, PERRL. EOMI CN V Unable to assess CN VII Unable to assess CN VIII Hearing grossly intact to voice CN IX & X Unable to assess soft palate, moderate dysarthria CN XI Unable to assess CN XII Tongue protrudes midline Motor: Normal bulk and tone. - Left arm: no drift - Right arm: no drift - Left leg: no drift - Right leg: some effort against gravity Sensation: intact to light touch throughout without extinction Coordination/Complex Motor: no obvious ataxia in arm or leg movements Laboratory Results Diagnostics/Procedures: Labs-CBC Labs-Chem 7([facility]) Labs-Coags Ptt/Pt/Inr: 23.7/13.9/1.1 (10/16 1423) Additional Labs No results found for: CHOLESTEROL, TRIG, HDL, LDLCALC, LDLDIRECT Labs-Hemoglobin A1C No results found for: HGBA1C Imaging: CT Stroke Head: Acute infarct within the posterior left MCA territory CTA Brain/Neck: OSH lower trunk partial M2 occlusion CT Perfusion: a near complete matched perfusion defect within Lt MCA territory Assessment/Impression: Yulisa Novak appears to have suffered an ischemic stroke. CTA showed partial M2 occulusion. Likely secondary to uncontrolled risk factors. Not on any meds. NIHSS 7. mRSR 0. Following some commands, confused. Not a lytics candidate due to outside of window. Not a thrombectomy candidate due to a near complete matched perfusion. Plan: -Please admit to neurovascular service PCU, attending Dr. Og. An ischemic stroke without IV thrombolysis order set has been signed and held. -Swallow evaluation prior to any oral intake -Aspirin 81 mg orally or 300 mg rectally -Load plavix 300 mg once -Blood pressure goals with SBP less than 220 -Obtain MRI brain, stroke protocol -ECHO to evaluate cardiac function -Lipid panel, LFTs and HgbA1c to evaluate secondary risk factors for ischemic stroke -Baseline EKG, if not done in ED. Continuous telemetry -PT, OT, Speech and executive secretary social welfare consults -Lipitor 80 mg daily Other medical problems: 1. HTN: not on any meds 2. HLD: not on any meds, start Lipitor 80 mg daily Code Status: Full Code DVT prophylaxis: Lovenox Diet: DIET NPO WITHOUT meds Patient and plan discussed with Dr. Craig Signed, Anne Capps M.D. PGY-3 Department of Neurology documented in this encounter [facility] 10-17-2022 Note Formatting of this n ote might be different from the original. Problem: RN GERIATRIC - Language Goal: Establish Yes/No Description: Pt will answer Y/N questions to 80% accuracy with minimal cues from the clinician across 2-3 sessions in order to increase functional participation in medical care and overall communication Outcome: Ongoing Goal: Expressive Language Goal 1 Description: Pt will express basic wants and needs via any mode of communication with minimal cues from the clinician across 2-3 sessions in order to increase overall communication Outcome: Ongoing Goal: Awareness Description: Pt/caregiver will teach back 2-3 communication strategies with minimal cues from clinician across 1-2 sessions in order to increase pt functional communication Outcome: Ongoing [facility] 10-17-2022 Note Formatting of this n ote might be different from the original. Problem: Patient Care Overview Goal: Plan of Care Review Outcome: Ongoing Goal: Individualization & Mutuality Outcome: Ongoing Goal: Discharge Needs Assessment Outcome: Ongoing Goal: Interdisciplinary Rounds/Family Conf Outcome: Ongoing Problem: Dysphagia (Adult) Goal: Identify Related Risk Factors and Signs and Symptoms Description: Related risk factors and signs and symptoms are identified upon initiation of Human Response Clinical Practice Guideline (CPG) Outcome: Met This Shift Goal: Functional/Safe Swallow Description: Patient will demonstrate the desired outcomes by discharge/transition of care. Outcome: Met This Shift Goal: Compensatory Techniques to Improve Safety/Function with Swallowing Description: Patient will demonstrate the desired outcomes by discharge/transition of care. Outcome: Met This Shift Problem: Stroke (Ischemic) (Adult) Goal: Signs and Symptoms of Listed Potential Problems Will be Absent, Minimized or Managed (Stroke) Description: Signs and symptoms of listed potential problems will be absent, minimized or managed by discharge/transition of care (reference Stroke (Ischemic) (Adult) CPG). Outcome: Ongoing Problem: Fall/Trauma/Injury Risk (Adult) Goal: Fall/Trauma/Injury Risk: Absence of Trauma/Injury/Falls Description: Patient will demonstrate the desired outcomes. Outcome: Ongoing Goal: Knowledge of risk factors/behavior modification Description: Knowledge of risk factors/behavior modification for fall/injury prevention Outcome: Ongoing [facility] 10-17-2022 Note Formatting of this n ote might be different from the original. Problem: OT - Dressing Goal: Lower Body Dressing Description: Pt will complete lower body dressing/bathing with adaptive equipment/techniques PRN with SBA and less than 25% cues for object use and sequencing Outcome: Ongoing Problem: OT - ADLs Goal: Grooming Description: Pt will complete grooming in standing with supervision and less than 25% cues for object use and sequencing for improved ability to safely complete ADLs. Outcome: Ongoing Goal: Toileting Description: Pt will complete toileting task including clothing management with supervision for improved ability to safely complete self-care activities. Outcome: Ongoing Problem: OT - Visual Scanning Goal: Visual Scanning Functional Mobility Description: Pt will use appropriate visual scanning techniques with supervision 100% of the time during functional mobility to promote safety and success during daily routine. Outcome: Ongoing Problem: OT - Endurance Goal: Endurance Functional Mobilty Around Home Description: Pt will complete distance needed for common household mobility with supervision A without device for item retrieval and ADL completion. Outcome: Ongoing [facility] 10-17-2022 Note Formatting of this n ote might be different from the original. Problem: PT - Balance/Coordination/Neuro Re-Education Goal: Standing Dynamic/Static Balance Description: Pt will meet the MCID on the kim balance assessment and/or FGA to reduce fall risk at home Outcome: Ongoing Problem: PT - Mobility Goal: Ambulation Description: Pt will ambulate 250 feet with out an assistive device with supervision assist to improve ability to navigate home environment. Outcome: Ongoing Goal: Stairs Description: Pt will ascend/descend 6 stairs with railings with supervision with out an assistive device to improve ability to perform functional mobility necessary in recommended discharge environment. Outcome: Ongoing Problem: PT - Transfers Goal: Sit <-> Stand Description: Pt will perform sit to/from stand transfers with supervision with out an assistive device in order to improve functional mobility and safety. Outcome: Ongoing Goal: Other Description: Pt will demonstrate >75% accuracy with 1-step command following and way finding tasks to improve safety with mobility Outcome: Ongoing [facility] 10-17-2022 Note Formatting of this n ote might be different from the original. Problem: Patient Care Overview Goal: Plan of Care Review Outcome: Ongoing Goal: Individualization & Mutuality Outcome: Ongoing Goal: Discharge Needs Assessment Outcome: Ongoing Goal: Interdisciplinary Rounds/Family Conf Outcome: Ongoing Problem: Dysphagia (Adult) Goal: Identify Related Risk Factors and Signs and Symptoms Description: Related risk factors and signs and symptoms are identified upon initiation of Human Response Clinical Practice Guideline (CPG) Outcome: Ongoing Goal: Functional/Safe Swallow Description: Patient will demonstrate the desired outcomes by discharge/transition of care. Outcome: Ongoing Goal: Compensatory Techniques to Improve Safety/Function with Swallowing Description: Patient will demonstrate the desired outcomes by discharge/transition of care. Outcome: Ongoing Problem: Stroke (Ischemic) (Adult) Goal: Signs and Symptoms of Listed Potential Problems Will be Absent, Minimized or Managed (Stroke) Description: Signs and symptoms of listed potential problems will be absent, minimized or managed by discharge/transition of care (reference Stroke (Ischemic) (Adult) CPG). Outcome: Ongoing Problem: Fall/Trauma/Injury Risk (Adult) Goal: Fall/Trauma/Injury Risk: Absence of Trauma/Injury/Falls Description: Patient will demonstrate the desired outcomes. Outcome: Ongoing Goal: Knowledge of risk factors/behavior modification Description: Knowledge of risk factors/behavior modification for fall/injury prevention Outcome: Ongoing [facility] 10-16-2022 Emergency department Note Pt standing bedside unsteadily, states has to pee. Pt had taken all vital equipment off, iv out. Pt reminded to stay in bed. [facility] 10-16-2022 Emergency department Note Pt standing bedside unsteadily, states has to pee. Pt had taken all vital equipment off, iv out. Pt reminded to stay in bed. Emergency Department Attestation Note ED Clinical Impression L MCA stroke ED Attending Physician Teaching Attestation I supervised care provided by the resident. We have discussed the case, I have reviewed the note and I agree with the plan of treatment except as documented in my note. I have personally performed a [id number] diagnostic evaluation on this patient. ED Attending Note Patient Vitals for the past 24 hrs: Height 10/16/22 1402 1.626 m (5' 4 ) Yulisa Novak is a 81 y.o. female who presents as a stroke alert in transfer from [facility]. LKW 10/15 8 pm. Found to have partial M2 occlusion on OSH CT/CTA. Transferred here for possible intervention. No history of previous CVA. See chart and resident documentation for details. Additional Medical Decision Making I have reviewed the patient's vital signs and the nursing notes. Any pertinent labs & imaging results which were available during my care of the patient were reviewed by me. I independently visualized the radiology images. I reviewed the patient's prior medical records (). I discussed the case with the neurology data consultant. I discussed the case with the admitting provider. I discussed the case with the radiologist. CTP shows completed L MCA stroke, not a candidate for lytics or thrombectomy, will be admitted for further management. Critical Care Procedure Note Diagnosis: Acute ischemic stroke Authorized and Performed by: Dr. Gonzales Total critical care time: Approximately 36 minutes Due to a high probability of clinically significant, life threatening deterioration, the patient required my highest level of preparedness to intervene emergently and I personally spent this critical care time directly and personally managing the patient. This critical care time included obtaining a history; examining the patient; pulse oximetry; ordering and review of studies; arranging urgent treatment with development of a management plan; evaluation of patient's response to treatment; frequent reassessment; and, discussions with other providers. This critical care time was performed to assess and manage the high probability of imminent, life-threatening deterioration that could result in multi-organ failure. It was exclusive of separately billable procedures and treating other patients and teaching time. Please see MDM section and the rest of the note for further information on patient assessment and treatment. and Portions of this record have been created using [employer] dictation software. Dictation errors have been sought, but may not have been identified and corrected. Chloé Gonzales MD 10/16/22 1625 SW responded to Stroke Alert transferred from [facility] transported by [facility] #[facility]. Per [employer], patient's daughter (Asuncion Novak [phone]) was at outside hospital and is en route to this ED. SW to remain available as needed. AMY Singh, JAVIER-S, [facility] [employer] Officer, Emergency Department [phone] ,pt arrives via [facility] from [facility]. LKW 10/15. Pt with aphasia and right side weakness. Pt walkie/talkie at baseline Bed: E036 Expected date: 10/16/22 Expected time: 1:45 PM Means of arrival: Comments: Pt arrives to CT scanner via [employer]. DEPARTMENT OF EMERGENCY MEDICINE CHIEF COMPLAINT No chief complaint on file. HPI Yulisa Novak is a 81 y.o. female who presents as a stroke alert transfer from [facility] due to LVO with partial M2 occlusion. Patient presented with righted weakness and aphasia. CT and CTA were done which showed concern for LVO with partial M2 occlusion. She did not receive TPA because she was outside of the window. Patient is not on anticoagulation. LKW: 1999 on 10/15 Glucose:122 Anticoagulation: none REVIEW OF SYSTEMS Review of systems was unable to be completed due to patient's acuity of condition PAST MEDICAL HISTORY Past medical history was reviewed and is non-contributory to the presenting problem other than: No past medical history on file. SURGICAL HISTORY Past surgical history was reviewed and is non-contributory to the presenting problem other than: No past surgical history on file. CURRENT MEDICATIONS Current Facility-Administered Medications Medication Dose Route Frequency Provider Last Rate Last Admin hydrALAZINE (APRESOLINE) injection 10 mg 10 mg Intravenous Q10 MIN PRN Nael Medel MD labetalol (NORMODYNE) injection 20 mg 20 mg Intravenous Q10 MIN PRN Nael Medel MD sodium chloride 0.9% IV solution Intravenous Continuous Nael Medel MD No current outpatient medications on file. ALLERGIES Not on File FAMILY HISTORY Family history was reviewed and is non-contributory to the presenting problem other than: No family history on file. SOCIAL HISTORY Social history was reviewed and is non-contributory to the presenting problem other than: Social History Socioeconomic History Marital status: Not on file Spouse name: Not on file Number of children: Not on file Years of education: Not on file Highest education level: Not on file Occupational History Not on file Tobacco Use Smoking status: Not on file Smokeless tobacco: Not on file Substance and Sexual Activity Alcohol use: Not on file Drug use: Not on file Sexual activity: Not on file Other Topics Concern Not on file Social History Narrative Not on file Social Determinants of Health Financial Resource Strain: Not on file Food Insecurity: Not on file Transportation Needs: Not on file Physical Activity: Not on file Stress: Not on file Social Connections: Not on file Intimate Partner Violence: Not on file Housing Stability: Not on file PHYSICAL EXAM Vital Signs:There were no vitals taken for this visit. I have reviewed the triage vital signs and nursing note. General: alert, NAD HEENT: normocephalic, atraumatic Respiratory: clear to auscultation, no wheezes, rales, or rhonchi Cardiovascular: no murmurs or extra heart sounds GI: soft, nontender Skin: warm, dry Musculoskeletal: no gross UE or LE deformity Neurological: Level of consciousness: alert, answers questions correctly, follows commands Visual: good gaze; visual ramos intact Face: no facial palsy Speech: some inappropriate language, dysarthria, no aphasia Motor Arms: No drift, strength intact Motor Legs: right leg decreased strength Coordination: no limb ataxia Sensation: sensation intact Gait: Deferred NIH: 7 ED COURSE & MEDICAL DECISION MAKING Assessment: Yulisa Novak is a 81 y.o. female who presents as a Level 1 stroke alert with the following neurological deficits: dysarthria and RLE weakness. The patient was met in the CT scanner by myself and the neurology resident. The patient was found to be hemodynamically stable and protecting airway. DDx: cerebrovascular accident, transient ischemic attack, complex migraine, seizure, metabolic abnormalities, intracranial mass Plan: - Stroke Alert - Labs: CBC, chemistries, coags, LFTs, POC glucose - Imaging: CT Head w/o contrast, CT Perfusion - BP control - Neuro checks - Neurovascular, neurosurgery consult ED Course and Medical Decision-Making: The patient has persistent symptoms.The patient was not found to be a TNK candidate and per neurology did not receive. The patient will therefore require inpatient admission for further management. ED Course as of 10/16/22 1506 Sun Oct 16, 2022 1505 Per neurosurgery, patient is not a candidate for thrombectomy, [facility] This note was dictated using [employer] Dict[employer] Software. Attempts at proofreading have been made, however errors may still occasionally occur. Nael Medel MD Resident 10/16/22 1404 Nael Medel MD Resident 10/16/22 1432 Nael Medel MD Resident 10/16/22 1432 Nael Medel MD Resident 10/16/22 1506 documented in this encounter [facility] 10-16-2022 History and physical note Images from the original note were not included. Neurovascular Evaluation Note: Evaluation Date: 10/16/2022 Unit: E036/E036 Consultation was requested by Dr. Chloé Gonzales MD Patient status: Inpatient Length of stay: 0 days Reason for Consult/Chief Complaint: Level 1 stroke alert History of Present Illness Yulisa Novak is a 81 y.o. female with PMH significant for HTN, HLD, hip replacement x2 who presents with right side weakness, trouble speaking. Not on any medications at home. Found to have lower trunk partial M2 occlusion on OSH CTA. SBP 130-170s at OSH. NIHSS 8>5 at OSH, following some commands. mRS 0. Upon presentation NIHSS 7. Following some commands, but looks confused, aphasic. Right leg weakness (slight movement). LKW 1999 yesterday. A stroke alert was called for STAT consultation. Review of Systems: [x] Unable to obtain review of systems. Reason: (All positives in bold, otherwise negative) GENERAL: fever, chills, weight loss, fatigue, night sweats EYES: blurry vision, eye pain HENT: hearing loss, sore throat, dysphagia, sinus pain CARDIO: chest pain, palpitations, orthopnea PULM: shortness of breath, wheezing, cough, sputum, hemoptysis GI: nausea, vomiting, diarrhea, abdominal pain, blood in stool, constipation : urinary frequency, urgency, dysuria, urethral discharge MSK: joint pain, back pain, swelling SKIN: rash, redness NEURO: headache, weakness, numbness PSYCH: HI, SI, anxiety, depression Neurovascular-specific History / Information Home antiplatelet/anticoagulation therapy: Antiplatelet therapy: none Anticoagulation: none Patient Current Risk Factors: Stroke risk factors include hypertension or hyperlipidemia. Prior stroke history: no Family Hx of Stroke: Parents: unclear Siblings: unclear No family history on file. Stroke Diagnostic/Treatment Eligibility Information: TPA not given Stroke Clinical Assessment Information: NIHSS (Provider) Flowsheet Row First Filed Value Provider NIH Stroke Scale NIH Interval (Provider) admission filed on 10/16/2022 1401 NIH Level of Conciousness (Provider) 0 filed on 10/16/2022 1401 NIH LOC Questions (Provider) 0 filed on 10/16/2022 1401 NIH LOC Commands (Provider) 1 filed on 10/16/2022 1401 NIH Best Gaze (Provider) 0 filed on 10/16/2022 1401 NIH Visual (Provider) 0 filed on 10/16/2022 1401 NIH Facial Palsy (Provider) 0 filed on 10/16/2022 1401 NIH Left Arm Motor (Provider) 0 filed on 10/16/2022 1401 NIH Right Arm Motor (Provider) 0 filed on 10/16/2022 1401 NIH Left Leg Motor (Provider) 0 filed on 10/16/2022 1401 NIH Right Leg Motor (Provider) 3 filed on 10/16/2022 1401 NIH Limb Ataxia (Provider) 0 filed on 10/16/2022 1401 NIH Sensory (Provider) 0 filed on 10/16/2022 1401 NIH Best Language (Provider) 2 filed on 10/16/2022 1401 NIH Dysarthria (Provider) 1 filed on 10/16/2022 1401 NIH Extinction and Inattention (Provider) 0 filed on 10/16/2022 1401 NIH Total Score (Provider) 7 filed on 10/16/2022 1401 Is NIH=0 Within 180 min of Last Known Well Time? -- Stroke Scales Flowsheet Row Most Recent Value Modified Iram Scale Score Premorbid (MRSS) 0 filed on 10/16/2022 1402 NIH Total Score (Provider) 7 filed on 10/16/2022 1401 Medical History: No past medical history on file. SURGICAL HISTORY: No past surgical history on file. SOCIAL HISTORY: ALLERGIES: Not on File Medications PRIOR TO ARRIVAL MEDS: Prior to Admission medications Not on File Current Meds: Current Facility Administered Meds: Current Facility-Administered Medications Medication Dose Route Frequency Provider Last Rate Last Admin acetaminophen (TYLENOL) tablet 325 mg 325 mg Oral Q4H PRN Anne Capps MD Or acetaminophen (TYLENOL) tablet 325 mg 325 mg Per NG tube Q4H PRN Anne Capps MD Or acetaminophen (TYLENOL) tablet 650 mg 650 mg Oral Q4H PRN Anne Capps MD Or acetaminophen (TYLENOL) tablet 650 mg 650 mg Per NG tube Q4H PRN Anne Capps MD [START ON 10/17/2022] aspirin chewable tablet 81 mg 81 mg Oral Daily Anne Capps MD Or [START ON 10/17/2022] aspirin suppository 300 mg 300 mg Rectal Daily Anne Capps MD atorvastatin (LIPITOR) tablet 80 mg 80 mg Oral QHS Anne Capps MD clopidogrel (PLAVIX) tablet 300 mg 300 mg Oral Once Anne Capps MD Enoxaparin Sodium (LOVENOX) injection 40 mg 40 mg Subcutaneous Q24H Anne Capps MD hydrALAZINE (APRESOLINE) injection 10 mg 10 mg Intravenous Q1H PRN Anne Capps MD Or hydrALAZINE (APRESOLINE) injection 20 mg 20 mg Intravenous Q1H PRN Anne Capps MD labetalol (NORMODYNE) injection 10 mg 10 mg Intravenous Q1H PRN Anne Capps MD Or labetalol (NORMODYNE) injection 20 mg 20 mg Intravenous Q1H PRN Anne Capps MD polyethylene glycol (MIRALAX) packet 17 g 17 g Oral Daily PRN Anne Capps MD Or polyethylene glycol (MIRALAX) packet 17 g 17 g Per NG tube Daily PRN Anne Capps MD senna (SENOKOT) tablet 8.6 mg 8.6 mg Oral QAChad Capps MD Or senna (SENOKOT) tablet 8.6 mg 8.6 mg Per NG tube QAM Anne Capps MD sodium chloride 0.9% IV solution Intravenous Continuous Nael Medel MD 75 mL/hr at 10/16/22 1427 New Bag at 10/16/22 1427 sodium chloride 0.9% IV solution Intravenous Continuous Anne Capps MD No current outpatient medications on file. Scheduled Meds: Continuous Infusions: PRN Meds: Vitals Objective Findings: Vital Signs (24hrs): Temp: [98.3 F (36.8 C)] 98.3 F (36.8 C) Pulse (Heart Rate): [59-63] 59 Resp Rate: [16-19] 19 BP: (167-177)/(77-81) 174/77 O2 Sat (%): [95 %-98 %] 98 % There is no height or weight on file to calculate BMI. Lines/Drains/Airways/Wounds: Patient Lines/Drains/Airways Status Active Lines, Drains, Airways, & Wound Overview Name Placement date Placement time Site Days Peripheral IV Line - Single Lumen median cubital vein (antecubital fossa), left 20 gauge -- -- -- -- Physical Exam General Physical Exam General: NAD, lying comfortably in bed HENT: Normal oropharynx and mucosa. Normal external appearance of ears and nose. CV/Chest: Regular rate and rhythm, normal S1S2 Lungs: No audible wheezing. Normal work of breathing. No accessory muscle use Abdomen: Non distended, non tender Extremities: Warm and well perfused. No appreciable edema, cyanosis or deformity. Skin: No rash. Normal palpation of skin. Musculoskeletal: No joint tenderness. Normal digits and nails by inspection. No clubbing. Neurologic Examination Mental status/Cognition: alert; not oriented to age or month; good attention; no apparent neglect; follows some commands Speech/language:non-fluent speech, unable to name objects Cranial nerves: CN II Visual ramos full to confrontation without visual extinction CN III,IV, PERRL. EOMI CN V Unable to assess CN VII Unable to assess CN VIII Hearing grossly intact to voice CN IX & X Unable to assess soft palate, moderate dysarthria CN XI Unable to assess CN XII Tongue protrudes midline Motor: Normal bulk and tone. - Left arm: no drift - Right arm: no drift - Left leg: no drift - Right leg: some effort against gravity Sensation: intact to light touch throughout without extinction Coordination/Complex Motor: no obvious ataxia in arm or leg movements Laboratory Results Diagnostics/Procedures: Labs-CBC Labs-Chem 7(PMC) Labs-Coags Ptt/Pt/Inr: 23.7/13.9/1.1 (10/16 1423) Additional Labs No results found for: CHOLESTEROL, TRIG, HDL, LDLCALC, LDLDIRECT Labs-Hemoglobin A1C No results found for: HGBA1C Imaging: CT Stroke Head: Acute infarct within the posterior left MCA territory CTA Brain/Neck: OSH lower trunk partial M2 occlusion CT Perfusion: a near complete matched perfusion defect within Lt MCA territory Assessment/Impression: Yulisa Novak appears to have suffered an ischemic stroke. CTA showed partial M2 occulusion. Likely secondary to uncontrolled risk factors. Not on any meds. NIHSS 7. mRSR 0. Following some commands, confused. Not a lytics candidate due to outside of window. Not a thrombectomy candidate due to a near complete matched perfusion. Plan: -Please admit to neurovascular service PCU, attending Dr. Og. An ischemic stroke without IV thrombolysis order set has been signed and held. -Swallow evaluation prior to any oral intake -Aspirin 81 mg orally or 300 mg rectally -Load plavix 300 mg once -Blood pressure goals with SBP less than 220 -Obtain MRI brain, stroke protocol -ECHO to evaluate cardiac function -Lipid panel, LFTs and HgbA1c to evaluate secondary risk factors for ischemic stroke -Baseline EKG, if not done in ED. Continuous telemetry -PT, OT, Speech and executive secretary social welfare consults -Lipitor 80 mg daily Other medical problems: 1. HTN: not on any meds 2. HLD: not on any meds, start Lipitor 80 mg daily Code Status: Full Code DVT prophylaxis: Lovenox Diet: DIET NPO WITHOUT meds Patient and plan discussed with Dr. Craig Signed, Anne Capps M.D. PGY-3 Department of Neurology [facility] 10-16-2022 Note Formatting of this n ote might be different from the original. I certify that this patient requires inpatient services at this time. I anticipate the expected length of stay will include at least two midnights. Inpatient services are due to the following medical concerns stroke. Plans for post hospitalization care will be discharge to [facility] 10-16-2022 Note Acute Coronary Syndr ome (ACS): Initial Evaluation and Management: [email or web address] [facility] 10-16-2022 Physician Emergency department Note Emergency Department Attestation Note ED Clinical Impression L MCA stroke ED Attending Physician Teaching Attestation I supervised care provided by the resident. We have discussed the case, I have reviewed the note and I agree with the plan of treatment except as documented in my note. I have personally performed a [id number] diagnostic evaluation on this patient. ED Attending Note Patient Vitals for the past 24 hrs: Height 10/16/22 1402 1.626 m (5' 4 ) Yulisa Novak is a 81 y.o. female who presents as a stroke alert in transfer from [facility]. LKW 10/15 8 pm. Found to have partial M2 occlusion on OSH CT/CTA. Transferred here for possible intervention. No history of previous CVA. See chart and resident documentation for details. Additional Medical Decision Making I have reviewed the patient's vital signs and the nursing notes. Any pertinent labs & imaging results which were available during my care of the patient were reviewed by me. I independently visualized the radiology images. I reviewed the patient's prior medical records (). I discussed the case with the neurology data consultant. I discussed the case with the admitting provider. I discussed the case with the radiologist. CTP shows completed L MCA stroke, not a candidate for lytics or thrombectomy, will be admitted for further management. Critical Care Procedure Note Diagnosis: Acute ischemic stroke Authorized and Performed by: Dr. Gonzales Total critical care time: Approximately 36 minutes Due to a high probability of clinically significant, life threatening deterioration, the patient required my highest level of preparedness to intervene emergently and I personally spent this critical care time directly and personally managing the patient. This critical care time included obtaining a history; examining the patient; pulse oximetry; ordering and review of studies; arranging urgent treatment with development of a management plan; evaluation of patient's response to treatment; frequent reassessment; and, discussions with other providers. This critical care time was performed to assess and manage the high probability of imminent, life-threatening deterioration that could result in multi-organ failure. It was exclusive of separately billable procedures and treating other patients and teaching time. Please see MDM section and the rest of the note for further information on patient assessment and treatment. and Portions of this record have been created using [employer] dictation software. Dictation errors have been sought, but may not have been identified and corrected. Chloé Gonzales MD 10/16/[address] [facility] Work Phone: 10-16-2022 Emergency department Note SW responded to Stroke Alert transferred from [facility] transported by [facility]. Per [employer], patient's daughter (Asuncion Novak [phone]) was at outside hospital and is en route to this ED. SW to remain available as needed. AMY Singh, JAVIER-S, [facility] [employer] Officer, Emergency Department [phone] [facility] 10-16-2022 Emergency department Note ,pt arrives via [facility] from [facility]. LKW 10/15. Pt with aphasia and right side weakness. Pt walkie/talkie at baseline [facility] 10-16-2022 Emergency department Note Bed: E036 Expected date: 10/16/22 Expected time: 1:45 PM Means of arrival: Comments: [facility] 10-16-2022 Emergency department Note Pt arrives to CT scanner via [employer]. [facility] 10-16-2022 Physician Emergency department Note DEPARTMENT OF EMERGENCY MEDICINE CHIEF COMPLAINT No chief complaint on file. CAM Novak is a 81 y.o. female who presents as a stroke alert transfer from [facility] due to LVO with partial M2 occlusion. Patient presented with righted weakness and aphasia. CT and CTA were done which showed concern for LVO with partial M2 occlusion. She did not receive TPA because she was outside of the window. Patient is not on anticoagulation. LKW: 1999 on 10/15 Glucose:122 Anticoagulation: none REVIEW OF SYSTEMS Review of systems was unable to be completed due to patient's acuity of condition PAST MEDICAL HISTORY Past medical history was reviewed and is non-contributory to the presenting problem other than: No past medical history on file. SURGICAL HISTORY Past surgical history was reviewed and is non-contributory to the presenting problem other than: No past surgical history on file. CURRENT MEDICATIONS Current Facility-Administered Medications Medication Dose Route Frequency Provider Last Rate Last Admin hydrALAZINE (APRESOLINE) injection 10 mg 10 mg Intravenous Q10 MIN PRN Nael Medel MD labetalol (NORMODYNE) injection 20 mg 20 mg Intravenous Q10 MIN PRN Nael Medel MD sodium chloride 0.9% IV solution Intravenous Continuous Nael Medel MD No current outpatient medications on file. ALLERGIES Not on File FAMILY HISTORY Family history was reviewed and is non-contributory to the presenting problem other than: No family history on file. SOCIAL HISTORY Social history was reviewed and is non-contributory to the presenting problem other than: Social History Socioeconomic History Marital status: Not on file Spouse name: Not on file Number of children: Not on file Years of education: Not on file Highest education level: Not on file Occupational History Not on file Tobacco Use Smoking status: Not on file Smokeless tobacco: Not on file Substance and Sexual Activity Alcohol use: Not on file Drug use: Not on file Sexual activity: Not on file Other Topics Concern Not on file Social History Narrative Not on file Social Determinants of Health Financial Resource Strain: Not on file Food Insecurity: Not on file Transportation Needs: Not on file Physical Activity: Not on file Stress: Not on file Social Connections: Not on file Intimate Partner Violence: Not on file Housing Stability: Not on file PHYSICAL EXAM Vital Signs:There were no vitals taken for this visit. I have reviewed the triage vital signs and nursing note. General: alert, NAD HEENT: normocephalic, atraumatic Respiratory: clear to auscultation, no wheezes, rales, or rhonchi Cardiovascular: no murmurs or extra heart sounds GI: soft, nontender Skin: warm, dry Musculoskeletal: no gross UE or LE deformity Neurological: Level of consciousness: alert, answers questions correctly, follows commands Visual: good gaze; visual ramos intact Face: no facial palsy Speech: some inappropriate language, dysarthria, no aphasia Motor Arms: No drift, strength intact Motor Legs: right leg decreased strength Coordination: no limb ataxia Sensation: sensation intact Gait: Deferred NIH: 7 ED COURSE & MEDICAL DECISION MAKING Assessment: Yulisa Novak is a 81 y.o. female who presents as a Level 1 stroke alert with the following neurological deficits: dysarthria and RLE weakness. The patient was met in the CT scanner by myself and the neurology resident. The patient was found to be hemodynamically stable and protecting airway. DDx: cerebrovascular accident, transient ischemic attack, complex migraine, seizure, metabolic abnormalities, intracranial mass Plan: - Stroke Alert - Labs: CBC, chemistries, coags, LFTs, POC glucose - Imaging: CT Head w/o contrast, CT Perfusion - BP control - Neuro checks - Neurovascular, neurosurgery consult ED Course and Medical Decision-Making: The patient has persistent symptoms.The patient was not found to be a TNK candidate and per neurology did not receive. The patient will therefore require inpatient admission for further management. ED Course as of 10/16/22 1506 Sun Oct 16, 2022 1505 Per neurosurgery, patient is not a candidate for thrombectomy, patient will be admitted to neurovasc for further management This note was dictated using [employer] Dict[employer] Software. Attempts at proofreading have been made, however errors may still occasionally occur. Nael Medel MD Resident 10/16/22 1404 Nael Medel MD Resident 10/16/22 1432 Nael Medel MD Resident 10/16/22 1432 Nael Medel MD Resident 10/16/[address] [facility] Work Phone: 10-11-2022 History of Present illness Narrative Reason for Visit Patient presents with: F/U 6 months Yulisa Novak is a 81 year old female who presents here today for Above Complaints.. Health Maintenance DEPRESSION ASSESSMENT HPI Patient is only on pepcid as needed. Takes it usually when she goes out to eat. Patient does not eat out much except once a week. She eats a lot of fish and chicken and does good exercise, she goes to [employer] and loves it, gets to exercise well, she uses 1 to 2 pounds of weight, moves her legs to the side, forward etc, it is really good she said and is free. It keeps her mind very active. Patient went there because of the weather. Patient went to [employer] once a week. She keeps active for the most part. Bp is good. She lost a couple pounds of weight, she does not eat as much as she did in the past. Patient does not go out like she did. Patient does not eat a lot.... Her ldl was 203, we discussed that it was really high, she was in the range of 175 and 166 before that. Patient notes she does not eat much red meat, and does not eat dairy. Her father was diabetic , so was her mother and they may have had cvd. She does not know what age they . Denies having memory issues. Lives by herself, she is able to care for her house, and farm, she still mows her own yard and uses the gator She normally drives but brought her daughter today with her. Had cancer of the bladder she was treated by Dr Melendez and she follows up with him on a regular basis. No problem-specific Assessment & Plan notes found for this encounter. PAST MEDICAL HISTORY Diagnosis Date Acid reflux Allergic rhinitis due to other allergen Benign neoplasm of colon Bladder cancer (HCC) Disorder of bone and cartilage, unspecified Skin cancer left forearm from PAST SURGICAL HISTORY Procedure Laterality Date COLSC FLX W/RMVL OF TUMOR POLYP LESION SNARE TQ 01/04/2007 PAST SURGICAL HISTORY OF 1980s Facial surgery following accident REMV CATARACT EXTRACAP,INSERT LENS Bilateral Unsure when S TUBAL LIGATION SIGMOIDOSCOPY FLX DX W/COLLJ SPEC BR/WA IF PFRMD 05/08/2007 Sigmoidoscopy TONSILLECTOMY & ADENOIDECTOMY <AGE 11 TOTAL HIP REPLACEMENT 11/13/2010 rt hip FAMILY HISTORY Problem Relation Age of Onset Diabetes Mother HTN, OPEN HEART SURGERY Heart Mother Mitral valve Diabetes Father CVA Stroke Father Social History Tobacco Use Smoking status: Never Smokeless tobacco: Never Vaping Use Vaping Use: Never used Substance Use Topics Alcohol use: No Drug use: No Past medical history, appointments, medications, allergies reviewed. Pertinent Lab/Diagnostic Studies are reviewed and discussed today Current Outpatient Medications: oxybutynin (DITROPAN) 5 mg tablet famotidine (PEPCID) 20 mg tablet simethicone 42 mg chew Review of Systems CONSTITUTIONAL: No fevers, chills night sweats, unintended weight loss CARDIOVASCULAR: No chest pain, dyspnea, palpitations, orthopnea, PND, ankle edema. PULM: No dyspnea, unexplained cough. GI: No dysphagia/odynophagia, problematic reflux, constipation, diarrhea, changes in stool habits, hematochezia, melena. : No new urinary complaints, including dysuria, gross hematuria or pyuria. NEURO: No new balance problems, peripheral weakness/paresthesias or numbness of concern. Physical Exam BP 126/72 (BP Site: Left Arm, BP Position: Sitting, BP Cuff Size: Regular Adult) Pulse (!) 50 Temp 37 C (98.6 F) Resp 12 Ht 158.8 cm (5' 2.5 ) Wt 66.7 kg (147 lb) SpO2 99% BMI 26.46 kg/m General appearance: Well appearing, alert, in no acute distress, well nourished. Skin: Skin color, texture, turgor normal, no suspicious rashes or lesions Head: Normocephalic, no masses, lesions, tenderness or abnormalities Eyes: Anicteric sclera. Pupils are equally round and reactive to light. Extraocular movements are intact. Lungs: Lungs clear to auscultation. No wheezing, rhonchi, rales Heart: RRR without murmur, gallop, or rubs. Extremities: No deformities, edema, skin discoloration, clubbing or cyanosis. Good capillary refill. ASSESSMENT/PLAN: 1. Mixed hyperlipidemia - ICD9: 272.2, ICD10: E78.2 (primary diagnosis) - good control - Continue current medication. - LIPID PANEL BASIC 2. Gastroesophageal reflux disease without esophagitis - ICD9: 530.81, ICD10: K21.9 - Discussed lifestyle modifications including losing weight, limiting caffeine, no meals three hours before sleep, and head of bed elevation 3. Malignant neoplasm of overlapping sites of bladder (HCC) - ICD9: 188.8, ICD10: C67.8 She is getting follow up as needed Nani Stringer MD documented in this encounter [facility] 04-18-2022 History of Present illness Narrative Images from the original note were not included. Subjective HPI Yulisa oNvak is a 81 year old female who presents with sores on her bottom lip for the past month. She has tried her usual cold sore treatments and they have not worked. These consist of a cream from [employer] and some other yellow gel that comes in a jar. She cannot remember the names. She states the sores are painful. She has had similar in the past but usually resolve with above treatments. No fever, chills, or body aches. Review of Systems Constitutional: Negative for chills and fever. HENT: See HPI Respiratory: Negative. Cardiovascular: Negative. Musculoskeletal: Negative for myalgias. BP 116/76 Pulse (!) 58 Temp 36.6 C (97.8 F) Resp 20 Wt 66.1 kg (145 lb 12.8 oz) SpO2 96% BMI 26.24 kg/m PAST MEDICAL HISTORY Diagnosis Date Acid reflux Allergic rhinitis due to other allergen Benign neoplasm of colon Bladder cancer (HCC) Disorder of bone and cartilage, unspecified Skin cancer left forearm from PAST SURGICAL HISTORY Procedure Laterality Date COLSC FLX W/RMVL OF TUMOR POLYP LESION SNARE TQ 01/04/2007 PAST SURGICAL HISTORY OF 1980s Facial surgery following accident REMV CATARACT EXTRACAP,INSERT LENS Bilateral Unsure when S TUBAL LIGATION SIGMOIDOSCOPY FLX DX W/COLLJ SPEC BR/WA IF PFRMD 05/08/2007 Sigmoidoscopy TONSILLECTOMY & ADENOIDECTOMY <AGE 11 TOTAL HIP REPLACEMENT 11/13/2010 rt hip ALLERGIES Mepivacaine, Penicillins, and Smoke MEDICATIONS famotidine (PEPCID) 20 mg tablet Take 1 tablet by mouth twice daily. simethicone 42 mg chew Take 1 tablet by mouth twice daily as needed. valACYclovir (VALTREX) 500 mg tablet Take 1 tablet by mouth twice daily for 5 days. docosanol (ABREVA) 10 % crea Apply to affected area five times daily for 10 days. FAMILY HISTORY Problem Relation Age of Onset Diabetes Mother HTN, OPEN HEART SURGERY Heart Mother Mitral valve Diabetes Father CVA Stroke Father Social History Tobacco Use Smoking status: Never Smoker Smokeless tobacco: Never Used Vaping Use Vaping Use: Never used Substance Use Topics Alcohol use: No Drug use: No Objective Physical Exam Vitals and nursing note reviewed. Constitutional: Appearance: Normal appearance. HENT: Mouth/Throat: Lips: [place]. Lesions present. Mouth: Mucous membranes are moist. Pharynx: Oropharynx is clear. Cardiovascular: Rate and Rhythm: Normal rate and regular rhythm. Heart sounds: Normal heart sounds. Pulmonary: Effort: Pulmonary effort is normal. No respiratory distress. Breath sounds: Normal breath sounds. No wheezing or rales. Skin: General: Skin is warm and dry. Findings: No erythema or rash. Neurological: Mental Status: She is alert. ASSESSMENT/PLAN: 1. 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 - Discussed expected course of illness Paula Cardenas APRN.PERSONAL ASSISTANT documented in this encounter [facility] 04-18-2022 Instructions Paula Cardenas APRN.CNP - 04/18/2022 8:33 AM EDT ASSESSMENT/PLAN: 1. 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 - Discussed expected course of illness Paula Cardenas APRN.CNP documented in this encounter [facility] 04-06-2022 History of Present illness Narrative CC: Patient presents with: Recheck: 3 month BP follow up HPI Yulisa Novak is a 81 year old female who presents today for follow up on blood pressure but also concerned with increase in flatulence. HTN: Ms. Novak indicates that she is feeling well and denies any symptoms referable to elevated blood pressure. Specifically denies headache, chest pain, palpitations, dyspnea and peripheral edema. Does not take any blood pressure medication. She does check BP's away from this office with average BP's in the 120s-130s/80s range. Yulisa works out regularly 7 times per week with working around outside in her garden and even cutting her own wood when her daughter is around. She watches her diet for sodium, low fat and low cholesterol some of the time , but does admit to eating more ice cream than she should and chocolate. Last 3 Encounter BP Readings: Date: BP: 04/06/2022 132/78 12/09/2021 146/72 11/22/2021 148/82 Has been doing gerifit classes for strengthening and balance. Has not fallen or stumbled since starting these classes. GERD is controlled with pepcid, denies burning under sternum, difficulty swallowing, or heartburn. Concerned with increase in gas. She has this when she gets up out of chairs. Has noticed this increase over the last month especially when she eats milk chocolate and ice cream. Denies any changes in her diet, change in medications, or change in activity. Denies nausea, vomiting, abdominal pain, constipation, diarrhea, dark sticky stools, blood in stools, or chagne in appetite. REVIEW OF SYSTEMS General: no fevers, no chills, no night sweats, no recurrent infections, no change in appetite, no change in energy and no significant changes in weight Respiratory: no cough, no wheezing, no shortness of breath, no hemoptysis Cardiovascular: no chest pain, no chest pressure, no palpitations and no swelling GI: See HPI Neurologic: No headache, weakness, dizziness, memory loss, syncope. PAST MEDICAL HISTORY Diagnosis Date Acid reflux Allergic rhinitis due to other allergen Benign neoplasm of colon Bladder cancer (HCC) Disorder of bone and cartilage, unspecified Skin cancer left forearm from PAST SURGICAL HISTORY Procedure Laterality Date COLSC FLX W/RMVL OF TUMOR POLYP LESION SNARE TQ 01/04/2007 PAST SURGICAL HISTORY OF 1980s Facial surgery following accident REMV CATARACT EXTRACAP,INSERT LENS Bilateral Unsure when S TUBAL LIGATION SIGMOIDOSCOPY FLX DX W/COLLJ SPEC BR/WA IF PFRMD 05/08/2007 Sigmoidoscopy TONSILLECTOMY & ADENOIDECTOMY <AGE 11 TOTAL HIP REPLACEMENT 11/13/2010 rt hip ALLERGIES Mepivacaine, Penicillins, and Smoke MEDICATIONS famotidine (PEPCID) 20 mg tablet Take 1 tablet by mouth twice daily. FAMILY HISTORY Problem Relation Age of Onset Diabetes Mother HTN, OPEN HEART SURGERY Heart Mother Mitral valve Diabetes Father CVA Stroke Father Social History Tobacco Use Smoking status: Never Smoker Smokeless tobacco: Never Used Vaping Use Vaping Use: Never used Substance Use Topics Alcohol use: No Drug use: No PHYSICAL EXAM BP 144/90 Pulse 64 Resp 16 Wt 67.6 kg (149 lb) BMI 26.82 kg/m General Appearance: well appearing, in no acute distress, alert Eyes: conjunctiva pink and moist, no icterus, sclera white, non-injected Neck: Thyroid normal size and symmetric without palpable nodules, No adenopathy Lymph nodes: No cervical lymphadenopathy and No supraclavicular lymphadenopathy Lungs: Lungs clear to auscultation. No wheezing, rhonchi, rales. Heart: RRR without murmur, gallop, or rubs. No ectopy BUE Extremities: No deformities, edema, skin discoloration, clubbing or cyanosis. Good capillary refill. Health maintenance reviewed with patient: PNEUMOCOCCAL: 64+(3 - PPSV23 or PCV20) due on 07/09/2020 ADVANCE DIRECTIVE DISCUSSION Never done SHINGRIX VACCINE(1 of 2) due on 11/22/2022 INFLUENZA(Season Ended) due on 07/14/2022 DIABETES SCREEN due on 11/23/2024 DTAP,TDAP,TD(3 - Td or Tdap) due on 01/10/2030 BONE DENSITY Completed COVID-19 VACCINE Completed DATA REVIEWED: No new labs ASSESSMENT/PLAN: 1. Primary hypertension - ICD9: 401.9, ICD10: I10 (primary diagnosis) - good control - Encouraged dietary sodium restriction/DASH diet - Recommended regular aerobic exercise. - Recommend home blood pressure monitoring, to bring results in on next visit - Goal of BP <130/80 - Follow up in 6 months 2. Gastroesophageal reflux disease without esophagitis - ICD9: 530.81, ICD10: K21.9 - controlled on current medication 3. Flatulence - ICD9: 787.3, ICD10: R14.3 - probably related to lactose, will try simethicone to see if this alleviates her increase in gas. Prescription instructions reviewed with patient as applicable. Potential red flag symptoms discussed with the patient. Reviewed appropriate action plan to take if red flag symptoms occur. Patient agreeable to treatment plan. Cherelle Mitchell APRN.CNP documented in this encounter [facility] documented as of this encounter (statuses as of 04/06/2022) [facility] History of Past illness Narrative* Problem Noted Date Resolved Date Enthesopathy of hip region 09/03/200910/14 Benign neoplasm of colon 01/04/2007 010 Diverticulosis of colon (without mention of hemo rrhage) 01/04/2007 10/14/2010 Internal hemorrhoids without mention of complica tion 01/04/2007 10/14/2010 documented as of this encounter (statuses as of 04/18/2022) [facility] History of Past illness Narrative* Problem Noted Date Resolved Date Enthesopathy of hip region 09/03/200910/14 Benign neoplasm of colon 01/04/2007 010 Diverticulosis of colon (without mention of hemo rrhage) 01/04/2007 10/14/2010 Internal hemorrhoids without mention of complica tion 01/04/2007 10/14/2010 documented as of this encounter (statuses as of 10/11/2022) [facility] History of Past illness Narrative* Problem Noted Date Resolved Date Enthesopathy of hip region 09/03/200910/14 Benign neoplasm of colon 01/04/2007 010 Diverticulosis of colon (without mention of hemo rrhage) 01/04/2007 10/14/2010 Internal hemorrhoids without mention of complica tion 01/04/2007 10/14/2010 documented as of this encounter (statuses as of 02/25/2023) [facility] History of Past illness Narrative* Problem Noted Date Resolved Date Enthesopathy of hip region 09/03/200910/14 Benign neoplasm of colon 01/04/2007 010 Diverticulosis of colon (without mention of hemo rrhage) 01/04/2007 10/14/2010 Internal hemorrhoids without mention of complica tion 01/04/2007 10/14/2010 documented as of this encounter (statuses as of 02/27/2023) [facility] History of Past illness Narrative* Problem Noted Date Resolved Date Enthesopathy of hip region 09/03/200910/14 Benign neoplasm of colon 01/04/2007 010 Diverticulosis of colon (without mention of hemo rrhage) 01/04/2007 10/14/2010 Internal hemorrhoids without mention of complica tion 01/04/2007 10/14/2010 documented as of this encounter (statuses as of 03/03/2023) [facility] History of Past illness Narrative* Problem Noted Date Resolved Date Enthesopathy of hip region 09/03/200910/14 Benign neoplasm of colon 01/04/2007 010 Diverticulosis of colon (without mention of hemo rrhage) 01/04/2007 10/14/2010 Internal hemorrhoids without mention of complica tion 01/04/2007 10/14/2010 documented as of this encounter (statuses as of 03/06/2023) [facility] History of Past illness Narrative* Problem Noted Date Resolved Date Enthesopathy of hip region 09/03/200910/14 Benign neoplasm of colon 01/04/2007 010 Diverticulosis of colon (without mention of hemo rrhage) 01/04/2007 10/14/2010 Internal hemorrhoids without mention of complica tion 01/04/2007 10/14/2010 documented as of this encounter (statuses as of 04/27/2023) [facility] History of Past illness Narrative* Problem Noted Date Diagnosed Date Resolved Date Enthesopathy of hip region 09/03/2009 1 12/15/2009 Benign neoplasm of colon 01/04/200712/2009 Diverticulosis of colon (wit hout mention of hemorrhage) 01/04/2007 10/14/2010 Internal hemorrhoids without mention of complication 01/04/2007 10/14/2010 documented as of this encounter (statuses as of 10/11/2023) [facility] Diagnosis Primary hypertension- Primary Unspecified essential hypertension Gastroesophageal reflux disease without esophagitis Esophageal reflux Flatulence Flatulence, eructation, and gas pain [facility]* Diagnosis Recurrent cold sores- Primary Herpes simplex without mention of complication [facility] Diagnosis Mixed hyperlipidemia- Primary Gastroesophageal reflux disease without esophagitis Esophageal reflux Malignant neoplasm of overlapping sites of bladder (HCC) Malignant neoplasm of other specified sites of bladder [facility]* Diagnosis Cerebrovascular accident (CVA) due to occlusion of left middle cerebral artery- Primary Other cerebrovascular vasospasm and vasoconstriction Cerebrovascular accident (CVA), unspecified mechanism [facility] H/O ischemic left MCA stroke- Primary Transient ischemic attack (TIA), and cerebral infarction without residual deficits Aphasia Right hand weakness Muscle weakness (generalized) [facility]* Diagnosis Hallucinations- Primary [facility]* Diagnosis Primary hypertension- Primary Unspecified essential hypertension Mixed hyperlipidemia Cerebrovascular accident (CVA), unspecified mechanism (HCC) Malignant neoplasm of overlapping sites of bladder (HCC) Malignant neoplasm of other specified sites of bladder documented in this encounter [facility] for referral (narrative)* Consultation (Routine) - New Request Specialty Diagnoses / Procedures Referred By Contac t Referred To Contact Neurology Diagnoses Cerebrovascular accident (CVA) due to occlusion of left middle cerebral artery Coleman Mack APRN-CNP [address] [place] [address] Referral ID Status Reason Start Date Expiration Date V isits Requested Visits Authorized [id number] New Request 10/17/2022 11/11/2023 1 1 * Radiology (Routine) - New Request Specialty Diagnoses / Procedures Referred By Bgac t Referred To Contact Diagnoses Cerebrovascular accident (CVA) due to occlusion of left middle cerebral artery Other cerebrovascular vasospasm and vasoconstriction Procedures MOBILE CARDIAC TELEMETRY Coleman Mack APRN-CNP [address] [place] [address] Referral ID Status Reason Start Date Expiration Date V isits Requested Visits Authorized [id number] New Request 10/17/2022 11/11/2023 1 1 * Radiology (Routine) - Pending Review Specialty Diagnoses / Procedures Referred By Contac t Referred To Contact Procedures ECG Jesus Og MD [address] [place] [address] [address] [place] [address] Referral ID Status Reason Start Date Expiration Date V isits Requested Visits Authorized [id number] Pending Review 10/16/2022 11/10/2023 1 1 * (Routine) - Pending Review Specialty Diagnoses / Procedures Referred By Contac t Referred To Contact Procedures PLATELET MONITORING PER PROTOCOL Jesus Og MD [address] [place] [phone] Referral ID Status Reason Start Date Expiration Date V isits Requested Visits Authorized [id number] Pending Review 10/16/2022 11/10/2023 1 1 * (Routine) - Pending Review Specialty Diagnoses / Procedures Referred By Contac t Referred To Contact Procedures DVT/VTE RISK ASSESSMENT Jesus Og MD [address] [place] [phone] Referral ID Status Reason Start Date Expiration Date V isits Requested Visits Authorized [id number] Pending Review 10/16/2022 11/10/2023 1 1 * Radiology (Emergency) - Pending Review Specialty Diagnoses / Procedures Referred By Contac t Referred To Contact Procedures ECG Mona Pinedo MD [address] [place] [address] Referral ID Status Reason Start Date Expiration Date V isits Requested Visits Authorized [id number] Pending Review 10/16/2022 11/10/2023 1 1 [facility] for visit Narrative* Auth/Cert Specialty Diagnoses / Procedures Referred By Contac t Referred To Contact Diagnoses Level 1 Ishcemic Stroke/Possible LVO Jesus Og MD [address] [place] [phone] [facility] [address] [place] [address] Referral ID Status Reason Start Date Expiration Date Visits Re quested Visits Authorized [id number] 1 1 [facility] Advance Directives No Advanced Directives Records FoundDocuments on File Type Date Recorded Patient Registration Representative Expl anation Advance Directive(s) Latest Code Status on File Code Status Date Activated Date Inactivated Comments Full Code 10/16/2022 2:58 PM Summary Purpose Family History No Family History Records FoundNo Family History Records FoundNo Family History Records Found Reason for Referral Specialty Diagnoses / Procedures Referred By Ev t Referred To Contact Gerontology Diagnoses Hallucinations Procedures CONSULT TO GERIATRICS OFFICE/OUTPATIENT [facility] HIGH MDM 60-74 MINUTES Nani Stringer MD [address] [place] [address] Referral ID Status Reason Start Date Expiration Date Visits Requested Visits Authorized [id number] Authorized PCP Requested Referral 03/02/2023 03/01/2024 1 1 Additional Source Comments Source Comments (unrecognize d section and content) In the event this informatio n is protected by the Federal Confidentiality of Alcohol and Drug Abuse Patient Records regulations: The Federal rules restrict any use of the information to criminally investigate or prosecute any alcohol or drug abuse patient.[facility] event this information is protected by the Federal Confidentiality of Alcohol and Drug Abuse Patient Records regulations: The Federal rules restrict any use of the information to criminally investigate or prosecute any alcohol or drug abuse patient.[facility] the event this information is protected by the Federal Confidentiality of Alcohol and Drug Abuse Patient Records regulations: The Federal rules restrict any use of the information to criminally investigate or prosecute any alcohol or drug abuse patient.[facility] the event this information is protected by the Federal Confidentiality of Alcohol and Drug Abuse Patient Records regulations: The Federal rules restrict any use of the information to criminally investigate or prosecute any alcohol or drug abuse patient.[facility] the event this information is protected by the Federal Confidentiality of Alcohol and Drug Abuse Patient Records regulations: The Federal rules restrict any use of the information to criminally investigate or prosecute any alcohol or drug abuse patient.[facility] the event this information is protected by the Federal Confidentiality of Alcohol and Drug Abuse Patient Records regulations: The Federal rules restrict any use of the information to criminally investigate or prosecute any alcohol or drug abuse patient.[facility] the event this information is protected by the Federal Confidentiality of Alcohol and Drug Abuse Patient Records regulations: The Federal rules restrict any use of the information to criminally investigate or prosecute any alcohol or drug abuse patient.[facility] the event this information is protected by the Federal Confidentiality of Alcohol and Drug Abuse Patient Records regulations: The Federal rules restrict any use of the information to criminally investigate or prosecute any alcohol or drug abuse patient.[facility] the event this information is protected by the Federal Confidentiality of Alcohol and Drug Abuse Patient Records regulations: The Federal rules restrict any use of the information to criminally investigate or prosecute any alcohol or drug abuse patient.[facility] Reason for Visit (unrecogniz ed section and content) Reason Comments Mouth/Lip Problem sores on lips x 1 mo nth Reason Comments F/U 6 months Reason Comments Follow Up h/o stroke 10/16/[address]andrew Lucio, [address] [facility] [address], [place] [address] Reason Comments Consult Patient Outreach [facility] Reason Comments Patient Update Reason Comments Recheck 2 month Derm Problem Bottom lip sore Reason Onset Date Comments Refill Request 10/11/2023 Care Teams (unrecognized sec tion and content) Glass Vial Filler Relationship Specialty Start Date End Date Nani Stringer MD [address] [place] [address] PCP - General Internal Medicine 01/03/18 Glass Vial Filler Relationship Specialty Start Date End Date Nani Stringer MD [address] [facility] [place] [address] PCP - General Internal Medicine 01/03/18 Glass Vial Filler Relationship Specialty Start Date End Date Nani Stringer MD [address] [facility] [place] [address] Internal Medicine 10/17/22 Glass Vial Filler Relationship Specialty Start Date End Date Nani Stringer MD [address] [facility] [place] [address] PCP - General Internal Medicine 01/03/18 Glass Vial Filler Relationship Specialty Start Date End Date Nani Stringer MD [address] [facility] [place] [address] PCP - General Internal Medicine 01/03/18 Glass Vial Filler Relationship Specialty Start Date End Date Nani Stringer MD [address] [facility] [place] [address] PCP - General Internal Medicine 01/03/18 Glass Vial Filler Relationship Specialty Start Date End Date Nani Stringer MD [address] [place] [address] PCP - General Internal Medicine 01/03/18 Scheduled Active and Recently Administ ered Medications (unrecognized section and content) Continuous Medication Order 10/17/2022 10/18/2022 10/19/2022 sodium chloride 0.9% IV solution (CANCELED) Intravenous, at 75 mL/hr, CONTINUOUS, Starting on 10/16/22 at 1400, Until 10/17/22 at 0940 0159 ($$New Bag$$ - Provider: Sandra Dubon RN)0247 (Rate/Dose Verify - Provider: Sandra Dubon RN)0830 (Rate/Dose Verify - Provider: Flory Thompson RN)1000 (Stopped - Provider: Flory Thompson RN) sodium chloride 0.9% IV solution (CANCELED) Intravenous, at 75 mL/hr, CONTINUOUS, Starting on 10/16/22 at 1500, Until Mon10/17/22 at 0926, Case/Bed Requests Only 0248 (Rate/Dose Verify - Provider: Sandra Dubon RN)1056 (Stopped - Provider: Flory Thompson RN) PRN Medication Order 10/17/2022 10/18/2022 10/19/2022 acetaminophen (TYLENOL) tablet 325 mg(Linked Group 2) 325 mg, Oral, EVERY 4 HOURS NEEDED, Starting on 10/16/22 at 1457, Until Mon10/19/22 at 1311, Mild Pain, Moderate Pain, Maximum dose of acetaminophen is 4000 mg from all sources in 24 hours., Case/Bed Requests Only acetaminophen (TYLENOL) tablet 325 mg(Linked Group 2) 325 mg, Per NG tube, EVERY 4 HOURS NEEDED, Starting on 10/16/22 at 1457, Until Mon10/19/22 at 1311, Mild Pain, Moderate Pain, Maximum dose of acetaminophen is 4000 mg from all sources in 24 hours., Case/Bed Requests Only acetaminophen (TYLENOL) tablet 650 mg(Linked Group 2) 650 mg, Oral, EVERY 4 HOURS NEEDED, Starting on 10/16/22 at 1457, Until Mon10/19/22 at 1311, Severe Pain, Oral temp > 99.5, Maximum dose of acetaminophen is 4000 mg from all sources in 24 hours., Case/Bed Requests Only acetaminophen (TYLENOL) tablet 650 mg(Linked Group 2) 650 mg, Per NG tube, EVERY 4 HOURS NEEDED, Starting on 10/16/22 at 1457, Until Mon10/19/22 at 1311, Severe Pain, Oral temp > 99.5, Maximum dose of acetaminophen is 4000 mg from all sources in 24 hours., Case/Bed Requests Only hydrALAZINE (APRESOLINE) injection 10 mg(Linked Group 3) 10 mg, Intravenous, EVERY 1 HOUR NEEDED, Starting on 10/16/22 at 1457, Until Mon10/19/22 at 1311, Systolic Blood Pressure greater than 220 mmHg and heart rate LESS THAN 60 beats per minute., Use as initial dose. Higher dose may be administered if lower dose was previously documented as ineffective 10 minutes after administration and did not result in adverse effects (HR>90), Case/Bed Requests Only hydrALAZINE (APRESOLINE) injection 20 mg(Linked Group 3) 20 mg, Intravenous, EVERY 1 HOUR NEEDED, Starting on 10/16/22 at 1457, Until Mon10/19/22 at 1311, Systolic Blood Pressure greater than 220 mmHg and heart rate LESS THAN 60 beats per minute., Higher dose may be administered if lower dose was previously documented as ineffective 10 minutes after administration and did not result in adverse effects (HR>90). Decrease back to lower dose if patient has adverse effects, or no PRN used in previous 3 hours, Case/Bed Requests Only labetalol (NORMODYNE) injection 10 mg(Linked Group 4) 10 mg, Intravenous, EVERY 1 HOUR NEEDED, Starting on 10/16/22 at 1457, Until Mon10/19/22 at 1311, Systolic Blood Pressure greater than 220 mmHg and heart rate GREATER THAN 60 beats per minute., Use as initial dose. Higher dose may be administered if lower dose was previously documented as ineffective 10 minutes after administration and did not result in adverse effects (HR<60) For vials: labetalol should be treated as a SINGLE USE VIAL. Discard remaining contents after one use., Case/Bed Requests Only labetalol (NORMODYNE) injection 20 mg(Linked Group 4) 20 mg, Intravenous, EVERY 1 HOUR NEEDED, Starting on 10/16/22 at 1457, Until Mon10/19/22 at 1311, Systolic Blood Pressure greater than 220 mmHg and heart rate GREATER THAN 60 beats per minute., Higher dose may be administered if lower dose was previously documented as ineffective 10 minutes after administration and did not result in adverse effects (HR<60). Decrease back to lower dose if patient has adverse effects, or no PRN used in previous 3 hours For vials: labetalol should be treated as a SINGLE USE VIAL. Discard remaining contents after one use., Case/Bed Requests Only polyethylene glycol (MIRALAX) packet 17 g(Linked Group 5) 17 g, Oral, DAILY NEEDED, Starting on 10/16/22 at 1457, Until Mon10/19/22 at 1311, Constipation If No Bowel Movement in 48 Hours, Case/Bed Requests Only polyethylene glycol (MIRALAX) packet 17 g(Linked Group 5) 17 g, Per NG tube, DAILY NEEDED, Starting on 10/16/22 at 1457, Until Mon10/19/22 at 1311, Constipation If No Bowel Movement in 48 Hours, Case/Bed Requests Only Linked Groups Order Group 1: senna (SENOKOT) tablet 8.6 mgJump to med 8.6 mg, Oral, DAILY EVERY MORNING, First dose on 10/16/22 at 1500, Until Discontinued
Hold if BM in last 2 hours.
Case/Bed Requests Only Or senna (SENOKOT) tablet 8.6 mgJump to med 8.6 mg, Per NG tube, DAILY EVERY MORNING, First dose on 10/16/22 at 1500, Until Discontinued
Hold if BM in last 2 hours.
Case/Bed Requests Only Group 2: acetaminophen (TYLENOL) tablet 325 mgJump to med 325 mg, Oral, EVERY 4 HOURS NEEDED, Starting on 10/16/22 at 1457, Until Mon10/19/22 at 1311, Mild Pain, Moderate Pain
Maximum dose of acetaminophen is 4000 mg from all sources in 24 hours.
Case/Bed Requests Only Or acetaminophen (TYLENOL) tablet 325 mgJump to med 325 mg, Per NG tube, EVERY 4 HOURS NEEDED, Starting on 10/16/22 at 1457, Until Mon10/19/22 at 1311, Mild Pain, Moderate Pain
Maximum dose of acetaminophen is 4000 mg from all sources in 24 hours.
Case/Bed Requests Only Or acetaminophen (TYLENOL) tablet 650 mgJump to med 650 mg, Oral, EVERY 4 HOURS NEEDED, Starting on 10/16/22 at 1457, Until Mon10/19/22 at 1311, Severe Pain, Oral temp > 99.5
Maximum dose of acetaminophen is 4000 mg from all sources in 24 hours.
Case/Bed Requests Only Or acetaminophen (TYLENOL) tablet 650 mgJump to med 650 mg, Per NG tube, EVERY 4 HOURS NEEDED, Starting on 10/16/22 at 1457, Until Mon10/19/22 at 1311, Severe Pain, Oral temp > 99.5
Maximum dose of acetaminophen is 4000 mg from all sources in 24 hours.
Case/Bed Requests Only Group 3: hydrALAZINE (APRESOLINE) injection 10 mgJump to med 10 mg, Intravenous, EVERY 1 HOUR NEEDED, Starting on 10/16/22 at 1457, Until Mon10/19/22 at 1311, Systolic Blood Pressure greater than 220 mmHg and heart rate LESS THAN 60 beats per minute.
Use as initial dose. Higher dose may be administered if lower dose was previously documented as ineffective 10 minutes after administration and did not result in adverse effects (HR>90)
Case/Bed Requests Only Or hydrALAZINE (APRESOLINE) injection 20 mgJump to med 20 mg, Intravenous, EVERY 1 HOUR NEEDED, Starting on 10/16/22 at 1457, Until Mon10/19/22 at 1311, Systolic Blood Pressure greater than 220 mmHg and heart rate LESS THAN 60 beats per minute.
Higher dose may be administered if lower dose was previously documented as ineffective 10 minutes after administration and did not result in adverse effects (HR>90). Decrease back to lower dose if patient has adverse effects, or no PRN used in previous 3 hours
Case/Bed Requests Only Group 4: labetalol (NORMODYNE) injection 10 mgJump to med 10 mg, Intravenous, EVERY 1 HOUR NEEDED, Starting on 10/16/22 at 1457, Until Mon10/19/22 at 1311, Systolic Blood Pressure greater than 220 mmHg and heart rate GREATER THAN 60 beats per minute.
Use as initial dose. Higher dose may be administered if lower dose was previously documented as ineffective 10 minutes after administration and did not result in adverse effects (HR<60) For vials: labetalol should be treated as a SINGLE USE VIAL. Discard remaining contents after one use.
Case/Bed Requests Only Or labetalol (NORMODYNE) injection 20 mgJump to med 20 mg, Intravenous, EVERY 1 HOUR NEEDED, Starting on 10/16/22 at 1457, Until Mon10/19/22 at 1311, Systolic Blood Pressure greater than 220 mmHg and heart rate GREATER THAN 60 beats per minute.
Higher dose may be administered if lower dose was previously documented as ineffective 10 minutes after administration and did not result in adverse effects (HR<60). Decrease back to lower dose if patient has adverse effects, or no PRN used in previous 3 hours For vials: labetalol should be treated as a SINGLE USE VIAL. Discard remaining contents after one use.
Case/Bed Requests Only Group 5: polyethylene glycol (MIRALAX) packet 17 gJump to med 17 g, Oral, DAILY NEEDED, Starting on 10/16/22 at 1457, Until Mon10/19/22 at 1311, Constipation If No Bowel Movement in 48 Hours, Case/Bed Requests Only Or polyethylene glycol (MIRALAX) packet 17 gJump to med 17 g, Per NG tube, DAILY NEEDED, Starting on 10/16/22 at 1457, Until Mon10/19/22 at 1311, Constipation If No Bowel Movement in 48 Hours, Case/Bed Requests Only INFORMATION SOURCE (unrecogn ized section and content) DATE CREATED AUTHOR AUTHOR'S ORGANIZ ATION 01/27/2023 [facility] DATE CREATED AUTHOR AUTHOR'S ORGANIZ ATION 12/03/2023 [facility] FOR RECORDS PERTAINING TO PATIENTS WHO ARE OR HAVE BEEN ENROLLED IN A CHEMICAL DEPENDENCY/SUBSTANCEABUSE PROGRAM, SOME INFORMATION MAY BE OMITTED. This clinical summary was aggregated from multiple sources. Caution should be exercised in using it in the provision of clinical care. This summary normalizes information from multiple sources, and as a consequence, information in this document may materially change the coding, format and clinical context of patient data. In addition, data may be omitted in some cases. CLINICAL DECISIONS SHOULD BE BASED ON THE PRIMARY CLINICAL RECORDS. [employer] provides no warranty or guarantee of the accuracy or completeness of information in this document.
[2024-01-18] MEDS: Sertraline 50 MG Tablet 75 MG PO (20:31)
[2024-01-18] MEDS: Atorvastatin Calcium 40 MG Tablet PO (20:32)
[2024-01-19 06:40] LABS: Absolute Lymphocyte Count 1.46 X10^3/uL (0.83-4.51); Absolute Neutrophil Count 3.5 X10^3/uL (2.0-7.7); Basophil# 0.03 X10^3/uL; Basophil% 0.6 % (0-1); Eosinophil# 0.03 X10^3/uL; Eosinophils% 0.6 % (0-5); Hematocrit 36.1 % (37-47); Hemoglobin 10.8 g/dL (12.0-15.0); Lymphocyte # 1.46 X10^3/ul (0.83-4.51); Mean Corp Hgb Conc 29.9 g/dL (32-36); Mean Corpuscular Hgb 24.4 pg (27.0-32.0); Mean Corpuscular Volume 81.5 fL (81-99); Mean Platelet Vol. 10.2 fl (6.2-12.0); Monocyte# 0.42 X10^3/uL; Monocyte% 7.8 % (0-10); NRBC Flagged by Analyzer 0 % (0-5); Neutrophil # 3.45 X10^3/uL (2.7-7.7); Neutrophil % 63.8 % (47-70); Platelet Count 220 K/mm3 (150-450); RBC Distribution Width CV 14.6 % (11.6-14.6); Red Blood Count 4.43 M/mm3 (4.2-5.4); White Blood Count 5.4 K/mm3 (4.4-11.0)
[2024-01-19 07:40] LABS: Anion Gap 6 (5-15); BUN 9 mg/dL (7-18); BUN/Creat Ratio 11.2 RATIO (10-20); Calcium,Total 8.1 mg/dL (8.5-10.1); Chloride 108 mmol/L (98-107); EST Glomerular Filtration Rate 72 mL/min (>60); Est Glom Filt Rate - Afr Amer 88 mL/min (>60); Glucose 95 mg/dL (74-106); Potassium 3.8 mmol/L (3.5-5.1); Sodium Level 140 mmol/L (136-145)
[2024-01-19 08:29] VITALS: BP 115/45; PULSE 84; RESP 16; TEMP 37.1; O2SAT 96
[2024-01-19] MEDS: Aspirin 81 MG TAB.CHEW PO (08:30)
[2024-01-19] MEDS: Clopidogrel Bisulfate 75 MG Tablet PO (08:30)
[2024-01-19] MEDS: Enoxaparin 40 MG/0.4 ML Syringe SC (08:30)
[2024-01-19] MEDS: levETIRAcetam IV 500 MG in 0.9% Normal Saline (100mL Bag) 100 ML 400 MG IV ×2 (09:58→21:12)
--- NOTE | 2024-01-19 10:40 | NURSING ---
Braxton removed per MD order.
--- NOTE | 2024-01-19 12:00 | CHAPLAIN ---
Type of Pastoral Visit _x__ Initial Visit ___ Follow-up Visit ___ On-call Visit ___ General Patient Visit ___ Spiritual Assessment ___ Family Conference ___ Bereavement ___ Rapid Response ___ Code Blue ___ Other (describe below) Pastoral Care Referral From _x__ Patient ___ Family ___ Nurse ___ Physician ___ [place] ___ Bobbin Cleaner Hand ___ Other (describe below) Sacrament/Intervention _x__ Active listening ___ Anointing ___ Zoroastrianism ___ Bereavement ___ Communion _x__ Leidy exploration ___ _x__ Life review _x__ Prayer ___ Reconciliation ___ Sacrament of Sick ___ Supportive presence ___ Wedding ___ Other (describe below) Pastoral Comments follow up with patient that was a stroke alert yesterday; pt is welcoming and explains her situation; pt states she is feeling pretty good but waiting on more evaluations and decisions before she can return home; pt states that she is not worried and would prefer to be home; pt has a daughter that lives next door in a duplex and so she feels very safe; pt is connected to a local muslim for support and tells of a couple of social activities that she participates with that keeps her active and among people; prayer is welcomed
--- NOTE | 2024-01-19 12:07 | CASEMGMT ---
BLILY spoke with patient's daughter Asuncion per her request. BILLY introduced self and role at [facility]. Asuncion was asking if patient will be able to go home. BILLY told Asuncion SW will have to see how patient does with therapy. Asuncion asked for any resources meals etc. BILLY provided Asuncion with information on home delivered meals, medical alert buttons, and a private duty list. Asuncion was thankful for the information. Await therapy evaluations. Kelly Fowler LUMBER PILERRose HERRERA
--- NOTE | 2024-01-19 12:25 | CASEMGMT ---
Social Work Both living will and healthcare POA documents are on the paper chart, Asuncion Novak is pt's healthcar POA. SOFIYA Hein
--- NOTE | 2024-01-19 13:48 | NEURO.CONS ---
Assessment and Plan: Neuro Assessment/Plan RASHARD JETER is a 83 F with a history of stroke, being evaluated by Teleneurology for seizure. History as reported is highly suspicious for focal seizure and she has a significant risk factor (previous stroke with intermediate manager cortical changes). Given ongoing risk I do favor treating this not as a one-time unprovoked seizure but as seizure with clear and ongoing provoking factor, which would necessitate starting an anti-seizure medication. EEG (ordered and being prepped as I evaluated patient) is appropriate, as is MRI Brain Epilepsy protocol. Diagnosis: focal seizure, history of stroke Plan: - routine EEG - MRI Brain epilepsy protocol - START Keppra 500 mg BID PO (Keppra is a one-to-one conversion IV-oral and vice versa) - ambulatory referral to outpatient neurology - If she is back to baseline she can be discharged - no driving, swimming, baths alone, ladders or equivalents, childcare alone until cleared by outpatient neurologist I personally attended this patient and spent a total time of 45 minutes evaluating this patient including clinical assessment, review of chart, medical history imaging, and determining appropriate treatment and workup. HPI Consult Data Date of Consult: 01/19/24 HPI Narrative HPI Narrative: RASHARD JETER, is a 83 F with prior stroke who presents after episode of confusion with concern for focal deficits on whom we are consutled for seizure (already evaluated by telestroke). Patient is a disorganized historian and most history is per chart and bedside nursing, though patient is brightly responsive and does contribute. Per chart she was brought in by daughter after episode of confusion and yelling, with what sounds like ictal cry. Evaluated by telestroke initially but concern for seizure led to our involvement. Patient remembers sitting by my house and it felt different on this [right] side and I told my daughter I wasn't feeling good. She says right now she is fine: right now is good. She remarks during exam that sensation on RS felt different compared to left yesterday but now they are symmetric. Per report she is currently at her baseline, which involves some cognitive impairment and dysarthria and aphasia since prior stroke. [facility] Medical History Arthropathy of left hip Dyslipidemia Hypertension Transient global amnesia Vertigo Home Medications aspirin 81 mg chewable tablet 81 mg PO BREAKFAST 30 days #30 tabs 09/23/23 [Rx Last Taken 01/18/24] atorvastatin 40 mg tablet 40 mg PO QHS 30 days #30 tabs 09/23/23 [Rx Last Taken 01/17/24] clopidogrel 75 mg tablet (Plavix) 75 mg PO DAILY 21 days #21 tabs 09/23/23 [Rx Last Taken 01/18/24] sertraline 50 mg tablet 75 mg PO QHS 01/18/24 [History Last Taken 01/17/24] Allergy/AdvReac Type Severity Reaction Status Date / Time cigarette smoke Allergy AIRWAY Verified 01/18/24 12:02 TIGHTNESS mepivacaine Allergy AMNESIA Verified 01/18/24 12:02 Penicillins Allergy Unknown Verified 01/18/24 12:02 procainamide Allergy Unknown Verified 01/18/24 12:02 Surgical History H/O bilateral hip replacements Social History Smoking Status: Never smoker Vital Signs Vital Signs Vital Signs: 01/18/24 14:00 01/18/24 14:00 01/18/24 14:30 Temperature Temperature Source Pulse Rate 63 55 L 55 L Pulse Strength Respiratory Rate 29 H 21 H 20 H Respiratory Effort Respiratory Depth Respiratory Pattern Blood Pressure 115/67 115/67 127/65 H Blood Pressure [BP] Blood Pressure Mean 83 83 85 Blood Pressure Mean [BP] Blood Pressure Source Blood Pressure Source [BP] Blood Pressure Position Blood Pressure Position [BP] Blood Pressure Location Blood Pressure Location [BP] Pulse Ox 96 97 99 Oxygen Delivery Method Room Air Room Air Room Air 01/18/24 14:30 01/18/24 15:00 01/18/24 15:00 Temperature Temperature Source Pulse Rate 58 L 57 L 57 L Pulse Strength Respiratory Rate 14 16 16 Respiratory Effort Respiratory Depth Respiratory Pattern Blood Pressure 127/65 H 129/73 H 129/73 H Blood Pressure [BP] Blood Pressure Mean 85 91 91 Blood Pressure Mean [BP] Blood Pressure Source Blood Pressure Source [BP] Blood Pressure Position Blood Pressure Position [BP] Blood Pressure Location Blood Pressure Location [BP] Pulse Ox 99 100 100 Oxygen Delivery Method Room Air Room Air Room Air 01/18/24 15:10 03/07/24 15:30 01/18/24 15:30 Temperature 98.6 F Temperature Source Pulse Rate 57 L 52 L 52 L Pulse Strength Respiratory Rate 16 16 16 Respiratory Effort Respiratory Depth Respiratory Pattern Blood Pressure 129/73 H 151/64 H 151/64 H Blood Pressure [BP] Blood Pressure Mean 91 93 93 Blood Pressure Mean [BP] Blood Pressure Source Blood Pressure Source [BP] Blood Pressure Position Blood Pressure Position [BP] Blood Pressure Location Blood Pressure Location [BP] Pulse Ox 99 100 100 Oxygen Delivery Method Room Air Room Air 01/18/24 16:17 01/18/24 19:48 01/18/24 19:51 Temperature 98.7 F Temperature Source Oral Pulse Rate 53 L Pulse Strength Normal (2+) Respiratory Rate 18 Respiratory Effort Normal Respiratory Depth Normal Respiratory Pattern Normal Blood Pressure Blood Pressure [BP] 140/61 H Blood Pressure Mean Blood Pressure Mean [BP] 87 Blood Pressure Source Blood Pressure Source [BP] Monitor Blood Pressure Position Blood Pressure Position [BP] Semi-Fowlers Blood Pressure Location Blood Pressure Location [BP] Right Arm Pulse Ox 97 Oxygen Delivery Method Room Air Room Air 01/18/24 19:45 01/18/24 21:54 01/19/24 08:29 Temperature 98.5 F 98.8 F Temperature Source Oral Oral Pulse Rate 64 84 Pulse Strength Respiratory Rate 16 16 Respiratory Effort Normal Respiratory Depth Normal Respiratory Pattern Normal Blood Pressure 150/76 H Blood Pressure [BP] 115/45 L Blood Pressure Mean 100 Blood Pressure Mean [BP] 68 Blood Pressure Source Monitor Blood Pressure Source [BP] Monitor Blood Pressure Position Semi-Fowlers Blood Pressure Position [BP] Semi-Fowlers Blood Pressure Location Right Arm Blood Pressure Location [BP] Left Arm Pulse Ox 100 96 Oxygen Delivery Method Room Air Room Air Room Air Weight Weight: 61.689 kg Body Mass Index (BMI) 22.6 EEG Results Procedure Details EEG Procedure Details: RASHARD JETER is a 83 year old F with a past medical history of , who presents for evaluation of Electroencephalogram on DATE at TIME Physical Exam Narrative Significant difficulty following commands on exam, even central commands (did not try crossed) Good eye contact, affect congruent to mood, cooperative but difficulty understandin gcommands (no apparent difficulty hearing) and required coaching. oriented with prompting to place and year, but misunderstood question regardin gher name. Can subtract 10 from 25, cannot register 3 words for 1 minute recall. Difficulty pronouncing [place]. pupils equal, EOMI, CN V intact in V1/2/3, CN VII intact upper and lower bilaterally, no hypophonia, no tongue deviation. Strength 5/5 bilaterally SA/EE/EF/automotive engineering technician/HF/KE/DF/PF Sensation intact to light touch hands and feet bilaterally Lab / Micro Data 01/19/24 06:01 01/19/24 06:01 Labs: Laboratory Results - last 24 hr 01/18/24 11:22: Phosphorus 2.5, Magnesium 2.4 01/19/24 06:01: WBC 5.4, RBC 4.43, Hgb 10.8 L, Hct 36.1 L, MCV 81.5, MCH 24.4 L, MCHC 29.9 L, RDW Std Deviation 43.0, RDW Coeff of Sumit 14.6, Plt Count 220, MPV 10.2, Immature Gran % (Auto) 0.200, Neut % (Auto) 63.8, Lymph % (Auto) 27.0, Beltrami % (Auto) 7.8, Eos % (Auto) 0.6, Baso % (Auto) 0.6, Absolute Neuts (auto) 3.5, Absolute Lymphs (auto) 1.46, Nucleated RBC % 0, Sodium 140, Potassium 3.8, Chloride 108 H, Carbon Dioxide 26.0, Anion Gap 6, BUN 9, Creatinine 0.80, Estim Creat Clear Calc 47.10, Est GFR (MDRD) Af Amer 88, Est GFR (MDRD) Non-Af 72, BUN/Creatinine Ratio 11.2, Glucose 95, Calcium 8.1 L Imaging Radiology Impression Brain MRI 01/18/24 16:14 IMPRESSION: Old left temporal, frontal and parietal infarct. No acute infarct Electronically Signed: Tyrell Stein MD at 19:51 EST Reading Location ID and State: [facility] / [place] Tel , Service support , Active Medications Active Medications Active Medications: Current Medications Generic Name Dose Route Start Last Admin Trade Name Freq PRN Reason Stop Dose Admin Acetaminophen 650 mg 01/18/24 16:14 Acetaminophen 325 Mg Tablet PO Q6H PRN PRN Pain 1-10 Or Fever >100.7 Aspirin 81 mg 01/19/24 08:00 01/19/24 08:30 Aspirin 81 Mg Tab.Chew PO 81 mg BREAKFAST ALEKSANDR Administration Atorvastatin Calcium 40 mg 01/18/24 22:00 01/18/24 20:32 Atorvastatin Calcium 40 Mg Tablet PO 40 mg QHS ALEKSANDR Administration Clopidogrel Bisulfate 75 mg 01/19/24 10:00 01/19/24 08:30 Clopidogrel Bisulfate 75 Mg Tablet PO 75 mg DAILY ALEKSANDR Administration Enoxaparin Sodium 40 mg 01/18/24 16:14 01/19/24 08:30 Enoxaparin 40 Mg/0.4 Ml Syringe SC 40 mg DAILY ALEKSANDR Administration Levetiracetam 500 mg/ Sodium 105 mls @ 400 mls/hr 01/19/24 10:00 01/19/24 10:20 Chloride IV Infused Q12 ALEKSANDR Infusion Lorazepam 2 mg 01/18/24 14:53 Lorazepam 2 Mg/Ml Syringe IV Q4H PRN PRN SEIZURES Nitroglycerin 0.4 mg 01/18/24 16:14 Nitroglycerin (Inpatient Use) 0.4 Mg Tab.Subl SL Q5M PRN CARDIAC/CHEST PAIN Ondansetron HCl 4 mg 01/18/24 16:14 Ondansetron 4 Mg/2 Ml Vial IV Q8H PRN PRN NAUSEA/VOMITING Senna/Docusate Sodium 2 tablet 01/18/24 16:14 Senna/Docusate Sodium 1 Tablet PO BID PRN PRN Constipation Sertraline HCl 75 mg 01/18/24 22:00 01/18/24 20:31 Sertraline 50 Mg Tablet PO 75 mg QHS [facility] Administration Sodium Chloride 10 - 40 ml 01/18/24 18:59 0.9% Saline Lock 10 Ml Syringe IV UD PRN SALINE FLUSH
--- NOTE | 2024-01-19 14:06 | DCINST_ITS ---
Discharge Instructions Diet Discharge Diet: No restrictions Activity Discharge Activity: Return to Normal Activity Weight Bearing Status: Weight bearing as tolerated Dressing / Incision Call your doctor if you observe: Fever of 101 or Higher, Coldness, Increased Pain, Numbness or Tingling, Change in Color, Inability to urinate, Inability to have a bowel movement, Using more than 1 pad per hour, Shortness of breath, Dizziness, Fainting spells, Swelling in the ankles, Chest pain, Prolonged hiccupping, Increased palpitations (irregular heartbeat) and Calf discomfort Follow Up Care When: IN 2 WEEKS Test Results: Test results from this visit will be discussed in further detail at your follow- up appointment, if applicable. Discharge Plan Admission Admit Date/Time: 01/18/24 14:43 Primary Reason for Your Visit: New onset seizure with history of old stroke. Attending Provider: Nigel Martinez Primary Care Provider: Ana Mcdonald Consulting Providers: Darius Pride; Jasmine Mina; Santa Ortiz; Karma Loredo; David Paiz; Ria Parsons; Colette Willoughby; Emmanuel Lopez; Angela Fowler; Zeke Koroma; Renaldo Longoria; Sen Vitale; Shaunna Toussaint; Dina Lopez; Vincent Rincon; Kimmy Yang; Jesus Og; Allyssa Olivo; Harsh Rodrigez; Jeimy Hurt; Serjio Rojas; Mukesh Adame; FANTASMA FOX; Junior Price; Vashti Sin Instructions Additional Instructions / Restrictions: Neurologist recommended MRI brain epilepsy protocol as an outpatient. One-time unprovoked seizure but patient has provoking factor as old stroke. Follow-up outpatient neurologist within [address] Gerardo or Dr. Marion Tolbert Discharge Orders/Prescriptions Prescriptions: New levetiracetam [Keppra] 500 mg tablet 500 mg PO BID 30 Days Qty: 60 3RF Continued atorvastatin 40 mg Tablet 40 mg PO QHS 30 Days Qty: 30 0RF aspirin 81 mg Tablet,Chewable 81 mg PO BREAKFAST 30 Days Qty: 30 0RF clopidogrel [Plavix] 75 mg tablet 75 mg PO DAILY 21 Days Qty: 21 0RF sertraline 50 mg tablet 75 mg PO QHS Patient Comments: TAKE 1 AND 1/2 TABLETS BY MOUTH ONCE DAILY Referrals / Follow Up: Ana Mcdonald MD [Primary Care Provider] - Torey Gerardo MD [Non-Staff -Ordering Privileges] - Within 1 Month Disposition Disposition (needs filled in before D/C Order can be placed): Home, Self Care
--- NOTE | 2024-01-19 14:23 | DS.PCM_ITS ---
Providers Date of Admission: 01/18/24 Date of Discharge: 01/19/24 Primary Care Physician: Dr. Ana Mcdonald MD Consultations 01/18/24 16:14 Consult: Tele-Neurology Routine Consulting Provider: [facility] Reason for Consult: New onset seizure with old stroke EMERGENT Consult: No MD Notified: Yes Date Notified: 01/18/24 Time Notified: 14:49 Method of Notification: ED Physician Initiated Nursing Unit Staff Notify [facility] of Tele-Neurology Consult: Yes Reason For Visit: SEIZURE Diagnosis Discharge Diagnosis (1) New onset seizure: Status: Acute Code(s): R56.9 - Unspecified convulsions Plan This is a 83-year-old female being admitted for further evaluation of new onset seizure 1. Acute encephalopathy mainly due to new onset, generalized tonic-clonic seizure: Patient is being admitted in PCU. This is her first episode of generalized tonic-clonic seizure being evaluated by [facility] neurologist in the ED. Patient completed 1500 mg of IV Keppra 1 dose. Twelve-lead EKG shows sinus bradycardia 49 bpm, PAC QTc 393 ms. Previous EKG of September 22, 2023 shows sinus bradycardia 55 with sinus arrhythmia. Chest x-ray no acute cardiopulmonary abnormality. Vitals in normal limit except heart rate in 50s to low 60s. MRI brain without contrast and EEG ordered. [facility] neuro[facility]ult. Ativan 2 mg IV as needed for seizure. Will wait for neuro opinion regarding further dosing of Keppra. 01/18: Acute encephalopathy resolved clinically it looks like due to generalized tonic-clonic seizure. Patient did not had further episode of seizure. MRI brain reported as old left temporal, frontal and parietal infarct but no acute infarct One-time seizure episode but because she has risk factor as provoking factor as previous stroke with cortical changes therefore neurologist decided to treat with Keppra 500 mg twice daily. Recommended MRI brain epilepsy protocol as an outpatient. Patient is discharged home with follow-up with neurology as an outpatient 2. 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 Patient on baby aspirin, Plavix and atorvastatin 40 mg daily, continued. 3. Anxiety and depression: Patient on sertraline 75 mg daily continued. 4. Hypertension: Blood pressure in normal limit. 5. Dyslipidemia on atorvastatin. Recommended outpatient fasting profile. Discharge medication reconciliation done. Discharge follow-up instructions completed. Discharge process discussed with the patient and all questions were answered to patient's satisfaction. Follow with PCP in 1 to 2 weeks Total time spent, exact 35 minutes on discharge meds reconciliation, examination, coordination of care with nurses and ancillary staff, review of imaging and blood test and discussion with the patient on follow-up instructions. Living will/advanced directive/end of life care: Patient does have living will or advanced directive. Her daughter present in ED is power of crusher dry [employer] for health. Her daughter is not clear what is written in the living will and it is hard to confirm with the patient as she is herself confused and lethargic. After discussion of benefits/risks procedures involved with full code, DNR CC arrest and DNR CC, the patient's daughter and I came to agreement for full code and she will look up and bring the living will to confirm and change accordingly. But for practical purposes now, the patient's daughter does want artificial life support including intubation, tube feed, ventilator and/chest compression, central venous catheter, vasopressor and DC shock if needed Clinical Impression(s) from Imaging Studies Brain CT 01/18/24 11:43 IMPRESSION: 1. Chronic left posterior parietal infarct. 2. No acute intracranial process. 3. Chronic involutional changes of the brain. 4. If symptoms persist, MRI of the brain is recommended. Chest X-Ray 01/18/24 11:48 IMPRESSION: No radiographic evidence of acute cardiopulmonary disease. Head/Neck CTA 01/18/24 11:48 IMPRESSION: 1. No intracranial vessel stenosis. 2. Minimal narrowing of the left M2 segment essentially unchanged. 3. Unremarkable common and internal carotid arteries bilaterally. 4. Patent bilateral vertebral arteries without significant stenosis. C Brain MRI 01/18/24 16:14 IMPRESSION: Old left temporal, frontal and parietal infarct. No acute infarct Electronically Signed: Tyrell Stein MD at 19:51 EST , Medications at Discharge Home Medications aspirin 81 mg chewable tablet 81 mg PO BREAKFAST 30 days #30 tabs 09/23/23 atorvastatin 40 mg tablet 40 mg PO QHS 30 days #30 tabs 09/23/23 clopidogrel 75 mg tablet (Plavix) 75 mg PO DAILY 21 days #21 tabs 09/23/23 sertraline 50 mg tablet 75 mg PO QHS 01/18/24 levetiracetam 500 mg tablet (Keppra) 500 mg PO BID 1 month #60 tabs 01/19/24 Physical Exam Narrative General: Awake oriented x 3. No confusion today. HEENT: Atraumatic, PERRLA, EOMI, Normocephalic Oral: Oral mucosa dry. No Gingival or Mucosal Lesions/ Ulcerations Neck: Supple, No JVD, Negative Carotid Bruits Chest wall/Lungs: Air entry diminished in bilateral lung bases. No crepitation/rhonchi Cardiovascular: Regular rate, Regular Rhythm, Normal S1, Normal S2, No M/G/R Abdomen: Bowel Sounds Present, Soft, Non Tender, Non-Distended : No dysuria. No renal angle tenderness. No suprapubic tenderness. Extremities: No edema, Capillary Refill Less than 3 Seconds Skin: No rashes, No breakdown Musculoskeletal: No Tenderness to Palpation of Joints or Extremities Neurological: Cranial nerves II-XII grossly intact, DTR 2+/4. Mild weakness in right upper and lower extremity 4+/5. Chronic receptive/sensory aphasia. Talking coherent. Psych/Mental Status: Flat affect. Weight / BMI Weight Weight: 136 lb Body Mass Index (BMI) 22.6 ABG / Lab / Microbiology Data 01/19/24 06:01 01/19/24 06:01 Laboratory: Laboratory Results - last 24 hr 01/18/24 11:22: Phosphorus 2.5, Magnesium 2.4 01/19/24 06:01: WBC 5.4, RBC 4.43, Hgb 10.8 L, Hct 36.1 L, MCV 81.5, MCH 24.4 L, MCHC 29.9 L, RDW Std Deviation 43.0, RDW Coeff of Sumit 14.6, Plt Count 220, MPV 10.2, Immature Gran % (Auto) 0.200, Neut % (Auto) 63.8, Lymph % (Auto) 27.0, [place] % (Auto) 7.8, Eos % (Auto) 0.6, Baso % (Auto) 0.6, Absolute Neuts (auto) 3.5, Absolute Lymphs (auto) 1.46, Nucleated RBC % 0, Sodium 140, Potassium 3.8, Chloride 108 H, Carbon Dioxide 26.0, Anion Gap 6, BUN 9, Creatinine 0.80, Estim Creat Clear Calc 47.10, Est GFR (MDRD) Af Amer 88, Est GFR (MDRD) Non-Af 72, BUN/Creatinine Ratio 11.2, Glucose 95, Calcium 8.1 L Radiography Diagnostic Testing: Radiology Impression Brain MRI 01/18/24 16:14 IMPRESSION: Old left temporal, frontal and parietal infarct. No acute infarct Electronically Signed: Tyrell Stein MD at 19:51 EST Reading Location ID and State: [facility] / [place] Tel , Service support , D/C Instructions Discharge Diet: No restrictions Weight Bearing Status: Weight bearing as tolerated Call your doctor if you observe: Fever of 101 or Higher, Coldness, Increased Pain, Numbness or Tingling, Change in Color, Inability to urinate, Inability to have a bowel movement, Using more than 1 pad per hour, Shortness of breath, Dizziness, Fainting spells, Swelling in the ankles, Chest pain, Prolonged hiccupping, Increased palpitations (irregular heartbeat) and Calf discomfort When: IN 2 WEEKS Meaningful Use Info Meaningful Use Diagnoses (Choose all that apply): None applicable Discharge Plan Admission Admit Date/Time: 01/18/24 14:43 Primary Reason for Your Visit: New onset seizure with history of old stroke. Attending Provider: Nigel Martinez Primary Care Provider: Ana Mcdonald Consulting Providers: Darius Pride; Jasmine Mina; Santa Ortiz; Karma Loredo; David Paiz; Ria Parsons; Colette Willoughby; Emmanuel Lopez; Angela Fowler; Zeke Koroma; Renaldo Longoria; Sen Vitale; Shaunna Toussaint; Dina Lopez; Vincent Rincon; Kimmy Yang; Jesus Og; Allyssa Olivo; Harsh Rodrigez; Jeimy Hurt; Serjio Rojas; Mukesh Adame; FANTASMA FOX; Junior Price; Vashti Sin Instructions Additional Instructions / Restrictions: Neurologist recommended MRI brain epilepsy protocol as an outpatient. One-time unprovoked seizure but patient has provoking factor as old stroke. Follow-up outpatient neurologist within [address] Gerardo or Dr. Marion Tolbert Discharge Orders/Prescriptions Prescriptions: New levetiracetam [Keppra] 500 mg tablet 500 mg PO BID 30 Days Qty: 60 3RF Continued atorvastatin 40 mg Tablet 40 mg PO QHS 30 Days Qty: 30 0RF aspirin 81 mg Tablet,Chewable 81 mg PO BREAKFAST 30 Days Qty: 30 0RF clopidogrel [Plavix] 75 mg tablet 75 mg PO DAILY 21 Days Qty: 21 0RF sertraline 50 mg tablet 75 mg PO QHS Patient Comments: TAKE 1 AND 1/2 TABLETS BY MOUTH ONCE DAILY Referrals / Follow Up: Ana Mcdonald MD [Primary Care Provider] - Torey Gerardo MD [Non-Staff -Ordering Privileges] - Within 1 Month Disposition Disposition (needs filled in before D/C Order can be placed): Home, Self Care Charges/Coding Visit Charges Inpatient E&M: 64673 Disch Hosp >30min
--- NOTE | 2024-01-19 14:30 | CASEMGMT ---
Pt DC order placed. ZOE CM to pt bedside at this time regarding DC. Pt states that she lives at home alone but her daughter lives close and is able to help. Pt states that she also has friends that help her at home. Pt denies the need for HHC or OP therapy at this time. Pt states that her MIKAEL will drive her home from [facility]. Pt denies further needs at this time and states that she feels safe and comfortable discharging home today.
--- NOTE | 2024-01-19 15:01 | CASEMGMT ---
Addendum entered by Kelly Fowler 01/19/24 16:17: BILLY received a return call from Cami at [facility]. They have a room on the second floor, but there is not much supervision. BILLY does not feel patient would be safe and would benefit from more supervision. Cami said Monday they would have another room available in the assisted living. BILLY asked if it could be available Monday or Monday and Cami said Monday would be the earliest. The costs are as follows: $197 per day which includes everything, $5,900 per month which would be paid within the first week. There is also a $1,000 non refundable deposit. Ther is a 30 day minimum stay. BILLY called patient's daughter Asuncion and let her know all of this information. Asuncion said she cannot watch patient 05/06. Asuncion said she is also finding out patient has been wondering in the road often. BILLY notified physician patient cannot be safely discharged until Monday. BILLY updated waistband setter lockstitch and RN also. Plan: [facility] for respite on Monday. Kelly HERRERA Original Note: BILLY was informed that patient's daughter Asuncion is concerned about patient going home alone due to her mental status. BILLY met with Asuncion and explained patient does not qualify to have Medicare pay for a fci as she is observation status. BILLY also mentioned that some SNF's and assisted livings offer respite stays. Asuncion asked BILLY to check with [facility] to see if they could take patient for respite. BILLY called [facility] and spoke with Apurva the tricot knitting machine operator. Apurva asked BILLY to fax progress notes and med list to [phone]. Apurva will try and make this happen today, but she cannot promise. BILLY faxed information to Apurva at [facility]. BILLY updated patient's daughter. Await return call. Kelly HERRERA
--- NOTE | 2024-01-19 16:03 | PN.HOSP_ITS ---
Reason for Visit Reason for Visit: Diagnoses Unspecified convulsions (01/18/24) Objective Data Objective Data Vital Signs: Vital Signs Temp Pulse Resp BP Pulse Ox O2 Del Method O2 Flow Rate 98.8 F 84 16 115/45 L 96 Room Air 2.5 01/19/24 08:29 01/19/24 08:29 01/19/24 08:29 01/19/24 08:29 01/19/24 08:29 01/19/24 08:29 01/18/24 12:19 Oxygen Flow Rate (L/min) 2.5 Oxygen Delivery Method Room Air Weight: 136 lb Body Mass Index (BMI) 22.6 Intake & Output: Intake and Output for Last 24 Hours 01/17/24 01/18/24 01/19/24 23:59 23:59 23:59 Intake Total 215 / 455 1530 / 1530 Output Total 800 / 800 Balance 215 / 55 730 / 730 Lab / Micro Data 01/19/24 06:01 01/19/24 06:01 Labs: Laboratory Results - last 24 hr 01/19/24 06:01: WBC 5.4, RBC 4.43, Hgb 10.8 L, Hct 36.1 L, MCV 81.5, MCH 24.4 L, MCHC 29.9 L, RDW Std Deviation 43.0, RDW Coeff of Sumit 14.6, Plt Count 220, MPV 10.2, Immature Gran % (Auto) 0.200, Neut % (Auto) 63.8, Lymph % (Auto) 27.0, [place] % (Auto) 7.8, Eos % (Auto) 0.6, Baso % (Auto) 0.6, Absolute Neuts (auto) 3.5, Absolute Lymphs (auto) 1.46, Nucleated RBC % 0, Sodium 140, Potassium 3.8, Chloride 108 H, Carbon Dioxide 26.0, Anion Gap 6, BUN 9, Creatinine 0.80, Estim Creat Clear Calc 47.10, Est GFR (MDRD) Af Amer 88, Est GFR (MDRD) Non-Af 72, BUN/Creatinine Ratio 11.2, Glucose 95, Calcium 8.1 L Radiography Diagnostic Testing: Radiology Impression Brain MRI 01/18/24 16:14 IMPRESSION: Old left temporal, frontal and parietal infarct. No acute infarct Electronically Signed: Tyrell Stein MD at 19:51 EST Reading Location ID and State: [facility] / [place] Tel , Service support , Physical Exam Narrative Seen and examined. Discharge was canceled because of social issues. Patient not safe at home alone. Apply for assisted living. General: Awake oriented x 3. No confusion today. HEENT: Atraumatic, PERRLA, EOMI, Normocephalic Oral: Oral mucosa dry. No Gingival or Mucosal Lesions/ Ulcerations Neck: Supple, No JVD, Negative Carotid Bruits Chest wall/Lungs: Air entry diminished in bilateral lung bases. No crepitation/rhonchi Cardiovascular: Regular rate, Regular Rhythm, Normal S1, Normal S2, No M/G/R Abdomen: Bowel Sounds Present, Soft, Non Tender, Non-Distended : No dysuria. No renal angle tenderness. No suprapubic tenderness. Extremities: No edema, Capillary Refill Less than 3 Seconds Skin: No rashes, No breakdown Musculoskeletal: No Tenderness to Palpation of Joints or Extremities Neurological: Cranial nerves II-XII grossly intact, DTR 2+/4. Mild weakness in right upper and lower extremity 4+/5. Chronic receptive/sensory aphasia. Talking coherent. Psych/Mental Status: Flat affect. Assessment & Plan Assessment/Plan (1) New onset seizure: PLAN: Plan This is a 83-year-old female being admitted for further evaluation of new onset seizure 1. Acute encephalopathy mainly due to new onset, generalized tonic-clonic seizure: Patient is being admitted in PCU. This is her first episode of generalized tonic-clonic seizure being evaluated by [facility] neurologist in the ED. Patient completed 1500 mg of IV Keppra 1 dose. Twelve-lead EKG shows sinus bradycardia 49 bpm, PAC QTc 393 ms. Previous EKG of September 22, 2023 shows sinus bradycardia 55 with sinus arrhythmia. Chest x-ray no acute cardiopulmonary abnormality. Vitals in normal limit except heart rate in 50s to low 60s. MRI brain without contrast and EEG ordered. [facility] neuroconsult. Ativan 2 mg IV as needed for seizure. Will wait for neuro opinion regarding further dosing of Keppra. 01/18: Acute encephalopathy resolved clinically it looks like due to generalized tonic-clonic seizure. Patient did not had further episode of seizure. MRI brain reported as old left temporal, frontal and parietal infarct but no acute infarct One-time seizure episode but because she has risk factor as provoking factor as previous stroke with cortical changes therefore neurologist decided to treat with Keppra 500 mg twice daily. Recommended MRI brain epilepsy protocol as an outpatient. Discussed with the outreach and education social worker. Patient does not qualify for usp therefore we will apply for assisted living. Patient is not safe at home alone and her daughter cannot be with her 05/06. She has to stay until Monday. 2. 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 Patient on baby aspirin, Plavix and atorvastatin 40 mg daily, continued. 3. Anxiety and depression: Patient on sertraline 75 mg daily continued. 4. Hypertension: Blood pressure in normal limit. 5. Dyslipidemia on atorvastatin. Recommended outpatient fasting profile. Discharge medication reconciliation done. Discharge follow-up instructions completed. Discharge process discussed with the patient and all questions were answered to patient's satisfaction. Follow with PCP in 1 to 2 weeks Total time spent, exact 35 minutes on discharge meds reconciliation, examination, coordination of care with nurses and ancillary staff, review of imaging and blood test and discussion with the patient on follow-up instructions. Living will/advanced directive/end of life care: Patient does have living will or advanced directive. Her daughter present in ED is power of attorney general for health. Her daughter is not clear what is written in the living will and it is hard to confirm with the patient as she is herself confused and lethargic. After discussion of benefits/risks procedures involved with full code, DNR CC arrest and DNR CC, the patient's daughter and I came to agreement for full code and she will look up and bring the living will to confirm and change accordingly. But for practical purposes now, the patient's daughter does want artificial life support including intubation, tube feed, ventilator and/chest compression, central venous catheter, vasopressor and DC shock if needed Clinical Impression(s) from Imaging Studies Brain CT 01/18/24 11:43 IMPRESSION: 1. Chronic left posterior parietal infarct. 2. No acute intracranial process. 3. Chronic involutional changes of the brain. 4. If symptoms persist, MRI of the brain is recommended. Chest X-Ray 01/18/24 11:48 IMPRESSION: No radiographic evidence of acute cardiopulmonary disease. Head/Neck CTA 01/18/24 11:48 IMPRESSION: 1. No intracranial vessel stenosis. 2. Minimal narrowing of the left M2 segment essentially unchanged. 3. Unremarkable common and internal carotid arteries bilaterally. 4. Patent bilateral vertebral arteries without significant stenosis. C Brain MRI 01/18/24 16:14 IMPRESSION: Old left temporal, frontal and parietal infarct. No acute infarct Electronically Signed: Tyrell Stein MD at 19:51 EST , Charges/Coding Visit Charges Inpatient E&M: 78647 Subs Hosp L2
[2024-01-19 21:01] VITALS: BP 126/96; PULSE 57; RESP 18; TEMP 36.9; O2SAT 97
[2024-01-19] MEDS: 0.9% Saline Lock 10 ML Syringe IV (21:11)
[2024-01-19] MEDS: Sertraline 50 MG Tablet 75 MG PO (21:14)
[2024-01-19] MEDS: Atorvastatin Calcium 40 MG Tablet PO (21:15)
[2024-01-20 04:31] VITALS: BP 130/81; PULSE 49; RESP 18; TEMP 36.6; O2SAT 99
[2024-01-20 08:36] VITALS: BP 134/63; PULSE 62; RESP 16; TEMP 36.8; O2SAT 98
[2024-01-20] MEDS: Aspirin 81 MG TAB.CHEW PO (08:49)
[2024-01-20] MEDS: Enoxaparin 40 MG/0.4 ML Syringe SC (10:45)
[2024-01-20] MEDS: Clopidogrel Bisulfate 75 MG Tablet PO (10:45)
[2024-01-20] MEDS: levETIRAcetam IV 500 MG in 0.9% Normal Saline (100mL Bag) 100 ML 400 MG IV ×2 (10:45→21:10)
--- NOTE | 2024-01-20 14:04 | PCM.PN.HOSP ---
Reason for Visit Reason for Visit: Diagnoses Unspecified convulsions (01/18/24) Objective Data Objective Data Vital Signs: Vital Signs Temp Pulse Resp BP Pulse Ox O2 Del Method O2 Flow Rate 98.3 F 62 16 134/63 H 98 Room Air 2.5 01/20/24 08:36 01/20/24 08:36 01/20/24 08:36 01/20/24 08:36 01/20/24 08:36 01/20/24 08:36 01/18/24 12:19 Oxygen Flow Rate (L/min) 2.5 Oxygen Delivery Method Room Air Weight: 136 lb Body Mass Index (BMI) 22.6 Intake & Output: Intake and Output for Last 24 Hours 01/18/24 01/19/24 01/20/24 23:59 23:59 23:59 Intake Total 215 / 455 2075 / 2075 Output Total 800 / 800 Balance 215 / 55 1275 / 1275 Lab / Micro Data 01/19/24 06:01 01/19/24 06:01 Physical Exam Narrative Seen and examined. Discharge was canceled because of social issues. Patient not safe at home alone. SW Applied for assisted living. Physical exam General: Awake oriented x 3. No confusion today. HEENT: Atraumatic, PERRLA, EOMI, Normocephalic Oral: Oral mucosa dry. No Gingival or Mucosal Lesions/ Ulcerations Neck: Supple, No JVD, Negative Carotid Bruits Chest wall/Lungs: Air entry diminished in bilateral lung bases. No crepitation/rhonchi Cardiovascular: Regular rate, Regular Rhythm, Normal S1, Normal S2, No M/G/R Abdomen: Bowel Sounds Present, Soft, Non Tender, Non-Distended : No dysuria. No renal angle tenderness. No suprapubic tenderness. Extremities: No edema, Capillary Refill Less than 3 Seconds Skin: No rashes, No breakdown Musculoskeletal: No Tenderness to Palpation of Joints or Extremities Neurological: Cranial nerves II-XII grossly intact, DTR 2+/4. Mild weakness in right upper and lower extremity 4+/5. Chronic receptive/sensory aphasia. Talking coherent. Psych/Mental Status: Flat affect. Assessment & Plan Assessment/Plan (1) New onset seizure: PLAN: Plan This is a 83-year-old female being admitted for further evaluation of new onset seizure 1. Acute encephalopathy mainly due to new onset, generalized tonic-clonic seizure: Patient is being admitted in PCU. This is her first episode of generalized tonic-clonic seizure being evaluated by [facility] neurologist in the ED. Patient completed 1500 mg of IV Keppra 1 dose. Twelve-lead EKG shows sinus bradycardia 49 bpm, PAC QTc 393 ms. Previous EKG of September 22, 2023 shows sinus bradycardia 55 with sinus arrhythmia. Chest x-ray no acute cardiopulmonary abnormality. Vitals in normal limit except heart rate in 50s to low 60s. MRI brain without contrast and EEG ordered. [facility] neuroconsult. Ativan 2 mg IV as needed for seizure. Will wait for neuro opinion regarding further dosing of Keppra. 01/18: Acute encephalopathy resolved clinically it looks like due to generalized tonic-clonic seizure. Patient did not had further episode of seizure. MRI brain reported as old left temporal, frontal and parietal infarct but no acute infarct One-time seizure episode but because she has risk factor as provoking factor as previous stroke with cortical changes therefore neurologist decided to treat with Keppra 500 mg twice daily. Recommended MRI brain epilepsy protocol as an outpatient. Discussed with the director of social work. Patient does not qualify for long-term therefore we will apply for assisted living. Patient is not safe at home alone and her daughter cannot be with her 05/06. She has to stay until Monday. 01/19: Patient states that she wants to go home. No acute change. No further seizure episodes. Discussed with the patient's daughter Mrs. Roland and states that patient sometimes not aware of what she is doing, forgetful, wanders around therefore she took gun outside of her home. She also had knives in her home. Patient upset that she is not getting discharged but will need to go to assisted living center probably on Monday. 2. 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 Patient on baby aspirin, Plavix and atorvastatin 40 mg daily, continued. 3. Anxiety and depression: Patient on sertraline 75 mg daily continued. 4. Hypertension: Blood pressure in normal limit. 5. Dyslipidemia on atorvastatin. Recommended outpatient fasting profile. Discharge medication reconciliation done. Discharge follow-up instructions completed. Discharge process discussed with the patient and all questions were answered to patient's satisfaction. Follow with PCP in 1 to 2 weeks Total time spent, exact 35 minutes on discharge meds reconciliation, examination, coordination of care with nurses and ancillary staff, review of imaging and blood test and discussion with the patient on follow-up instructions. Living will/advanced directive/end of life care: Patient does have living will or advanced directive. Her daughter present in ED is power of banking attorney for health. Her daughter is not clear what is written in the living will and it is hard to confirm with the patient as she is herself confused and lethargic. After discussion of benefits/risks procedures involved with full code, DNR CC arrest and DNR CC, the patient's daughter and I came to agreement for full code and she will look up and bring the living will to confirm and change accordingly. But for practical purposes now, the patient's daughter does want artificial life support including intubation, tube feed, ventilator and/chest compression, central venous catheter, vasopressor and DC shock if needed Clinical Impression(s) from Imaging Studies Brain CT 01/18/24 11:43 IMPRESSION: 1. Chronic left posterior parietal infarct. 2. No acute intracranial process. 3. Chronic involutional changes of the brain. 4. If symptoms persist, MRI of the brain is recommended. Chest X-Ray 01/18/24 11:48 IMPRESSION: No radiographic evidence of acute cardiopulmonary disease. Head/Neck CTA 01/18/24 11:48 IMPRESSION: 1. No intracranial vessel stenosis. 2. Minimal narrowing of the left M2 segment essentially unchanged. 3. Unremarkable common and internal carotid arteries bilaterally. 4. Patent bilateral vertebral arteries without significant stenosis. C Brain MRI 01/18/24 16:14 IMPRESSION: Old left temporal, frontal and parietal infarct. No acute infarct Electronically Signed: Tyrell Stein MD at 19:51 EST , Charges/Coding Visit Charges Inpatient E&M: 23085 Subs Hosp L2
--- NOTE | 2024-01-20 15:32 | CASEMGMT ---
RN CM in to discuss AGUILAR form with patient. RN CM explained AGUILAR form, patient voiced understanding. Pt signed form and filed in chart. Pt provided with a copy of signed AGUILAR form. Patient had no further questions or concerns at this time. Taylor Rincon MSN, RN, CCM
[2024-01-20 15:51] VITALS: BP 147/67; PULSE 57; RESP 18; TEMP 37.3; O2SAT 97
[2024-01-20 19:40] VITALS: BP 153/80; PULSE 63; RESP 16; TEMP 36.9; O2SAT 96
[2024-01-20] MEDS: Sertraline 50 MG Tablet 75 MG PO (21:09)
[2024-01-20] MEDS: Atorvastatin Calcium 40 MG Tablet PO (21:10)
[2024-01-20] MEDS: 0.9% Saline Lock 10 ML Syringe IV (21:10)
[2024-01-21 01:40] VITALS: BP 142/81; PULSE 52; RESP 16; TEMP 36.9; O2SAT 97
[2024-01-21 06:07] VITALS: BP 158/61; PULSE 55; RESP 14; TEMP 36.6; O2SAT 98
[2024-01-21] MEDS: 0.9% Saline Lock 10 ML Syringe IV (09:33)
[2024-01-21] MEDS: Enoxaparin 40 MG/0.4 ML Syringe SC (09:34)
[2024-01-21] MEDS: Aspirin 81 MG TAB.CHEW PO (09:34)
[2024-01-21] MEDS: Clopidogrel Bisulfate 75 MG Tablet PO (09:34)
[2024-01-21] MEDS: levETIRAcetam IV 500 MG in 0.9% Normal Saline (100mL Bag) 100 ML 400 MG IV ×2 (09:34→21:54)
[2024-01-21 09:52] VITALS: BMI 22.6
[2024-01-21 12:00] VITALS: BP 131/71; PULSE 80; RESP 16; TEMP 36.8; O2SAT 95
--- NOTE | 2024-01-21 14:40 | PCM.PN.HOSP ---
Reason for Visit Reason for Visit: Diagnoses Unspecified convulsions (01/18/24) Objective Data Objective Data Vital Signs: Vital Signs Temp Pulse Resp BP Pulse Ox O2 Del Method O2 Flow Rate 98.2 F 80 16 131/71 H 95 Room Air 2.5 01/21/24 12:00 01/21/24 12:00 01/21/24 12:00 01/21/24 12:00 01/21/24 12:00 01/21/24 12:00 01/18/24 12:19 Oxygen Flow Rate (L/min) 2.5 Oxygen Delivery Method Room Air Weight: 136 lb Body Mass Index (BMI) 22.6 Intake & Output: Intake and Output for Last 24 Hours 01/19/24 01/20/24 01/22/24 23:59 23:59 00:59 Intake Total 2075 / 2075 210 / 410 305 / 305 Output Total 800 / 800 Balance 1275 / 1275 210 / 410 305 / 305 Lab / Micro Data 01/19/24 06:01 01/19/24 06:01 Physical Exam Narrative Seen and examined. No acute events. No seizure since admission. Patient not safe at home alone. SW Applied for assisted living. Physical exam General: Awake oriented x 3. No confusion today. HEENT: Atraumatic, PERRLA, EOMI, Normocephalic Oral: Oral mucosa dry. No Gingival or Mucosal Lesions/ Ulcerations Neck: Supple, No JVD, Negative Carotid Bruits Chest wall/Lungs: Air entry diminished in bilateral lung bases. No crepitation/rhonchi Cardiovascular: Regular rate, Regular Rhythm, Normal S1, Normal S2, No M/G/R Abdomen: Bowel Sounds Present, Soft, Non Tender, Non-Distended : No dysuria. No renal angle tenderness. No suprapubic tenderness. Extremities: No edema, Capillary Refill Less than 3 Seconds Skin: No rashes, No breakdown Musculoskeletal: No Tenderness to Palpation of Joints or Extremities Neurological: Cranial nerves II-XII grossly intact, DTR 2+/4. Mild weakness in right upper and lower extremity 4+/5. Chronic receptive/sensory aphasia. Talking coherent. Psych/Mental Status: Flat affect. Mild dementia Assessment & Plan Assessment/Plan (1) New onset seizure: PLAN: Plan This is a 83-year-old female being admitted for further evaluation of new onset seizure 1. Acute encephalopathy mainly due to new onset, generalized tonic-clonic seizure: Patient is being admitted in PCU. This is her first episode of generalized tonic-clonic seizure being evaluated by [facility] neurologist in the ED. Patient completed 1500 mg of IV Keppra 1 dose. Twelve-lead EKG shows sinus bradycardia 49 bpm, PAC QTc 393 ms. Previous EKG of September 22, 2023 shows sinus bradycardia 55 with sinus arrhythmia. Chest x-ray no acute cardiopulmonary abnormality. Vitals in normal limit except heart rate in 50s to low 60s. MRI brain without contrast and EEG ordered. [facility] neuroconsult. Ativan 2 mg IV as needed for seizure. Will wait for neuro opinion regarding further dosing of Keppra. 01/18: Acute encephalopathy resolved clinically it looks like due to generalized tonic-clonic seizure. Patient did not had further episode of seizure. MRI brain reported as old left temporal, frontal and parietal infarct but no acute infarct One-time seizure episode but because she has risk factor as provoking factor as previous stroke with cortical changes therefore neurologist decided to treat with Keppra 500 mg twice daily. Recommended MRI brain epilepsy protocol as an outpatient. Discussed with the rn social services. Patient does not qualify for skilled nursing therefore we will apply for assisted living. Patient is not safe at home alone and her daughter cannot be with her 05/06. She has to stay until Monday. 01/19: Patient states that she wants to go home. No acute change. No further seizure episodes. Discussed with the patient's daughter Mrs. Roland and states that patient sometimes not aware of what she is doing, forgetful, wanders around therefore she took gun outside of her home. She also had knives in her home. Patient upset that she is not getting discharged but will need to go to assisted living center probably on Monday. 01/20: Patient waiting for pre-CERT that will be done on Monday. No acute events. Continue same treatment. 2. 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 Patient on baby aspirin, Plavix and atorvastatin 40 mg daily, continued. 3. Anxiety and depression: Patient on sertraline 75 mg daily continued. 4. Hypertension: Blood pressure in normal limit. 5. Dyslipidemia on atorvastatin. Recommended outpatient fasting profile. Discharge medication reconciliation done. Discharge follow-up instructions completed. Discharge process discussed with the patient and all questions were answered to patient's satisfaction. Follow with PCP in 1 to 2 weeks Total time spent, exact 35 minutes on discharge meds reconciliation, examination, coordination of care with nurses and ancillary staff, review of imaging and blood test and discussion with the patient on follow-up instructions. Living will/advanced directive/end of life care: Patient does have living will or advanced directive. Her daughter present in ED is power of corporate attorney for health. Her daughter is not clear what is written in the living will and it is hard to confirm with the patient as she is herself confused and lethargic. After discussion of benefits/risks procedures involved with full code, DNR CC arrest and DNR CC, the patient's daughter and I came to agreement for full code and she will look up and bring the living will to confirm and change accordingly. But for practical purposes now, the patient's daughter does want artificial life support including intubation, tube feed, ventilator and/chest compression, central venous catheter, vasopressor and DC shock if needed Clinical Impression(s) from Imaging Studies Brain CT 01/18/24 11:43 IMPRESSION: 1. Chronic left posterior parietal infarct. 2. No acute intracranial process. 3. Chronic involutional changes of the brain. 4. If symptoms persist, MRI of the brain is recommended. Chest X-Ray 01/18/24 11:48 IMPRESSION: No radiographic evidence of acute cardiopulmonary disease. Head/Neck CTA 01/18/24 11:48 IMPRESSION: 1. No intracranial vessel stenosis. 2. Minimal narrowing of the left M2 segment essentially unchanged. 3. Unremarkable common and internal carotid arteries bilaterally. 4. Patent bilateral vertebral arteries without significant stenosis. C Brain MRI 01/18/24 16:14 IMPRESSION: Old left temporal, frontal and parietal infarct. No acute infarct Electronically Signed: Tyrell Stein MD at 19:51 EST , Charges/Coding Visit Charges Inpatient E&M: 59086 Subs Hosp L2
[2024-01-21 18:00] VITALS: BP 143/79; PULSE 51; RESP 16; TEMP 36.9; O2SAT 95
[2024-01-21] MEDS: Sertraline 50 MG Tablet 75 MG PO (21:56)
[2024-01-21] MEDS: Atorvastatin Calcium 40 MG Tablet PO (21:56)
[2024-01-21 23:00] VITALS: BP 154/83; PULSE 55; RESP 16; TEMP 36.9; O2SAT 98
[2024-01-22 05:00] VITALS: BP 142/76; PULSE 49; RESP 13; TEMP 36.8; O2SAT 98
--- NOTE | 2024-01-22 10:29 | CASEMGMT ---
BILLY spoke with patient's daughter Asuncion and she said the plan is to have patient go to [facility] for respite. BILLY then spoke with patient. BILLY introduced self and role at [facility]. Patient seemed more alert and oriented today than she did Monday. Patient expressed frustration with having to go to [facility]. Patient said she does not understand why she cannot go home. SW explained there were concerns with patient's confusion and her being alone. Patient said she is fine now. She does not feel she needs to go anywhere. SW spoke with patient about going for a short time, seeing how it goes and then go from there. Patient is not in agreement. BILLY did talk with RN who said patient answers all orientation questions appropriately. Patient does say some, off the wall things. BILLY called patient's daughter Asuncion. BILLY told Asuncion SW is not comfortable making patient go to assisted living against her will. Patient seems more with it today compared to Monday. SW is not denying patient has memory issues, but at this time SW feels patient is alert and oriented enough to make her own decisions. Asuncion said if SW thinks patient is fine to be alone and if something happens she won't get charged. BILLY told Asuncion that SW is not saying something could not happen as anything can happen anytime. SW is also not saying patient does not have memory issues. Patient would benefit from being checked on regularly due to her age and recent seizure. SW does not feel at this time SW can make patient do something against her will. BILLY offered home health and Asuncion was in agreement. BILLY then spoke with patient and went over everything with her. Patient is agreeable to home health. BILLY offered a list of agencies, but patient declined and would like [facility]. BILLY called [facility] and made a referral for nursing and social work. BILLY called [facility] and spoke with Annetta in admissions. BILLY explained above situation and Annetta thanked BILLY for the call. BILLY also notified physician of plan. Plan: home with home health shelter and social work. Kelly HERRERA
--- NOTE | 2024-01-22 10:56 | CASEMGMT ---
Discharge Planning A list of?HH providers including quality and resource use data and consistent with the patient's preferred geographic region, medical needs, and insurance network was created in [employer] Guide.? This list was provided to the SW. Lynda Damon Discharge Planning Asst.
[2024-01-22] MEDS: 0.9% Saline Lock 10 ML Syringe IV (10:58)
[2024-01-22] MEDS: levETIRAcetam IV 500 MG in 0.9% Normal Saline (100mL Bag) 100 ML 400 MG IV (10:59)
[2024-01-22] MEDS: Clopidogrel Bisulfate 75 MG Tablet PO (11:02)
[2024-01-22] MEDS: Aspirin 81 MG TAB.CHEW PO (11:02)
[2024-01-22] MEDS: Enoxaparin 40 MG/0.4 ML Syringe SC (11:02)
[2024-01-22 11:04] VITALS: BP 162/74; PULSE 51; RESP 16; TEMP 36.5; O2SAT 100
--- NOTE | 2024-01-22 11:48 | DS.PCM_ITS ---
Providers Date of Admission: 01/18/24 Primary Care Physician: Dr. Ana Mcdonald MD Consultations 01/18/24 16:14 Consult: Tele-Neurology Routine Consulting Provider: [facility] Reason for Consult: New onset seizure with old stroke EMERGENT Consult: No MD Notified: Yes Date Notified: 01/18/24 Time Notified: 14:49 Method of Notification: ED Physician Initiated Nursing Unit Staff Notify [facility] of Tele-Neurology Consult: Yes Reason For Visit: SEIZURE Diagnosis Discharge Diagnosis (1) New onset seizure: Status: Acute Code(s): R56.9 - Unspecified convulsions Plan This is a 83-year-old female being admitted for further evaluation of new onset seizure 1. Acute encephalopathy mainly due to new onset, generalized tonic-clonic seizure: Patient is being admitted in PCU. This is her first episode of generalized tonic-clonic seizure being evaluated by [facility] neurologist in the ED. Patient completed 1500 mg of IV Keppra 1 dose. Twelve-lead EKG shows sinus bradycardia 49 bpm, PAC QTc 393 ms. Previous EKG of September 22, 2023 shows sinus bradycardia 55 with sinus arrhythmia. Chest x-ray no acute cardiopulmonary abnormality. Vitals in normal limit except heart rate in 50s to low 60s. MRI brain without contrast and EEG ordered. [facility] neuro[facility]. Ativan 2 mg IV as needed for seizure. Will wait for neuro opinion regarding further dosing of Keppra. 01/18: Acute encephalopathy resolved clinically it looks like due to generalized tonic-clonic seizure. Patient did not had further episode of seizure. MRI brain reported as old left temporal, frontal and parietal infarct but no acute infarct One-time seizure episode but because she has risk factor as provoking factor as previous stroke with cortical changes therefore neurologist decided to treat with Keppra 500 mg twice daily. Recommended MRI brain epilepsy protocol as an outpatient. Discussed with the social work supervisor. Patient does not qualify for penitentiary therefore we will apply for assisted living. Patient is not safe at home alone and her daughter cannot be with her 05/06. She has to stay until Monday. 01/19: Patient states that she wants to go home. No acute change. No further seizure episodes. Discussed with the patient's daughter Mrs. Roland and states that patient sometimes not aware of what she is doing, forgetful, wanders around therefore she took gun outside of her home. She also had knives in her home. Patient upset that she is not getting discharged but will need to go to assisted living center probably on Monday. 01/20: Patient waiting for pre-CERT that will be done on Monday. No acute events. Continue same treatment. 01/21: After discussion with the patient's daughter and social work supervisorKelly it was decided patient is good for home with home health. Patient is discharged home with home health. Rest of the above medications remain same. Patient is discharged on Keppra 500 mg twice daily and prescription given. 2. 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 Patient on baby aspirin, Plavix and atorvastatin 40 mg daily, continued. 3. Anxiety and depression: Patient on sertraline 75 mg daily continued. 4. Hypertension: Blood pressure in normal limit. 5. Dyslipidemia on atorvastatin. Recommended outpatient fasting profile. Discharge medication reconciliation done. Discharge follow-up instructions completed. Discharge process discussed with the patient and all questions were answered to patient's satisfaction. Follow with PCP in 1 to 2 weeks Total time spent, exact 35 minutes on discharge meds reconciliation, examination, coordination of care with nurses and ancillary staff, review of imaging and blood test and discussion with the patient on follow-up instructions. Living will/advanced directive/end of life care: Patient does have living will or advanced directive. Her daughter present in ED is power of health care attorney for health. Her daughter is not clear what is written in the living will and it is hard to confirm with the patient as she is herself confused and lethargic. After discussion of benefits/risks procedures involved with full code, DNR CC arrest and DNR CC, the patient's daughter and I came to agreement for full code and she will look up and bring the living will to confirm and change accordingly. But for practical purposes now, the patient's daughter does want artificial life support including intubation, tube feed, ventilator and/chest compression, central venous catheter, vasopressor and DC shock if needed Clinical Impression(s) from Imaging Studies Brain CT 01/18/24 11:43 IMPRESSION: 1. Chronic left posterior parietal infarct. 2. No acute intracranial process. 3. Chronic involutional changes of the brain. 4. If symptoms persist, MRI of the brain is recommended. Chest X-Ray 01/18/24 11:48 IMPRESSION: No radiographic evidence of acute cardiopulmonary disease. Head/Neck CTA 01/18/24 11:48 IMPRESSION: 1. No intracranial vessel stenosis. 2. Minimal narrowing of the left M2 segment essentially unchanged. 3. Unremarkable common and internal carotid arteries bilaterally. 4. Patent bilateral vertebral arteries without significant stenosis. C Brain MRI 01/18/24 16:14 IMPRESSION: Old left temporal, frontal and parietal infarct. No acute infarct Electronically Signed: Tyrell Stein MD at 19:51 EST Reading Location ID and State: [facility] / [place] Tel , Service support , Medications at Discharge Home Medications aspirin 81 mg chewable tablet 81 mg PO BREAKFAST 30 days #30 tabs 09/23/23 atorvastatin 40 mg tablet 40 mg PO QHS 30 days #30 tabs 09/23/23 clopidogrel 75 mg tablet (Plavix) 75 mg PO DAILY 21 days #21 tabs 09/23/23 sertraline 50 mg tablet 75 mg PO QHS 01/18/24 levetiracetam 500 mg tablet (Keppra) 500 mg PO BID 1 month #60 tabs 01/19/24 Physical Exam Narrative Seen and examined. No acute events. No seizure since admission. Patient not safe at home alone. SW Applied for assisted living. Physical exam General: Awake oriented x 3. No confusion today. HEENT: Atraumatic, PERRLA, EOMI, Normocephalic Oral: Oral mucosa dry. No Gingival or Mucosal Lesions/ Ulcerations Neck: Supple, No JVD, Negative Carotid Bruits Chest wall/Lungs: Air entry diminished in bilateral lung bases. No crepitation/rhonchi Cardiovascular: Regular rate, Regular Rhythm, Normal S1, Normal S2, No M/G/R Abdomen: Bowel Sounds Present, Soft, Non Tender, Non-Distended : No dysuria. No renal angle tenderness. No suprapubic tenderness. Extremities: No edema, Capillary Refill Less than 3 Seconds Skin: No rashes, No breakdown Musculoskeletal: No Tenderness to Palpation of Joints or Extremities Neurological: Cranial nerves II-XII grossly intact, DTR 2+/4. Mild weakness in right upper and lower extremity 4+/5. No acute issues. Talking coherent. Psych/Mental Status: Flat affect. Mild dementia Weight / BMI Weight Weight: 136 lb Body Mass Index (BMI) 22.6 ABG / Lab / Microbiology Data 01/19/24 06:01 01/19/24 06:01 D/C Instructions Discharge Diet: No restrictions Weight Bearing Status: Weight bearing as tolerated Call your doctor if you observe: Fever of 101 or Higher, Coldness, Increased Pain, Numbness or Tingling, Change in Color, Inability to urinate, Inability to have a bowel movement, Using more than 1 pad per hour, Shortness of breath, Dizziness, Fainting spells, Swelling in the ankles, Chest pain, Prolonged hiccupping, Increased palpitations (irregular heartbeat) and Calf discomfort When: IN 2 WEEKS Meaningful Use Info Meaningful Use Diagnoses (Choose all that apply): None applicable Discharge Plan Admission Admit Date/Time: 01/18/24 14:43 Primary Reason for Your Visit: New onset seizure with history of old stroke. Attending Provider: Nigel Martinez Primary Care Provider: Ana Mcdonald Consulting Providers: Darius Pride; Jasmine Mina; Santa Ortiz; Karma Loredo; David Paiz; Ria Parsons; Colette Willoughby; Emmanuel Lopez; Angela Fowler; Zeke Koroma; Renaldo Longoria; Sen Vitale; Shaunna Toussaint; Dina Lopez; Vincent Rincon; Kimmy Yang; Jesus Og; Allyssa Olivo; Harsh Rodrigez; Jeimy Hurt; Serjio Rojas; Mukesh Adame; FANTASMA FOX; Junior Price; Vashti Sin Instructions Additional Instructions / Restrictions: Neurologist recommended MRI brain epilepsy protocol as an outpatient. One-time unprovoked seizure but patient has provoking factor as old stroke. Follow-up outpatient neurologist within [address] Gerardo or Dr. Marion Tolbert Discharge Orders/Prescriptions Prescriptions: New levetiracetam [Keppra] 500 mg tablet 500 mg PO BID 30 Days Qty: 60 3RF Continued atorvastatin 40 mg Tablet 40 mg PO QHS 30 Days Qty: 30 0RF aspirin 81 mg Tablet,Chewable 81 mg PO BREAKFAST 30 Days Qty: 30 0RF clopidogrel [Plavix] 75 mg tablet 75 mg PO DAILY 21 Days Qty: 21 0RF sertraline 50 mg tablet 75 mg PO QHS Patient Comments: TAKE 1 AND 1/2 TABLETS BY MOUTH ONCE DAILY Referrals / Follow Up: Ana Mcdonald MD [Primary Care Provider] - Torey Gerardo MD [Non-Staff -Ordering Privileges] - Within 1 Month Disposition Disposition (needs filled in before D/C Order can be placed): Home Health Service Charges/Coding Visit Charges Inpatient E&M: 27836 Disch Hosp >30min
--- NOTE | 2024-01-22 11:51 | CASEMGMT ---
BILLY called Asuncion back per her request. Asuncion is with her significant other and she is upset. Asuncion asked if a mental status exam was done on patient. BILLY told her one was not done. Asuncion said patient cannot cook for herself and she does not clean. Asuncion said the home is uninhabitable and patient will not let anyone help her. Asuncion said if the doctor says patient can be home alone then that is fine and if something happens it will be on the doctor. BILLY told Asuncion she needs to come in and talk with patient about the situation. SW will also talk with patient. Asuncion said she will be in to see patient. SW went back to patient's room to complete a Mini Mental State Exam. Patient did not yeager well. Patient scored a 15. Any score 23 or lower indicates cognitive impairment. BILLY also asked patient to draw a clock. Patient could draw the clock, but could not draw the hands to show it is 11:10. These test alone do not determine whether patient is competent or not. SW is not qualified to determine this. BILLY did tell patient that Asuncion is not happy with patient coming home. BILLY told patient that Asuncion is coming in to the hospital and SW can come talk with them. Await Asuncion's arrival. BILLY also called Annetta at [facility] back and left her a voice mail letting her know patient may still be coming today. Kelly HERRERA
--- NOTE | 2024-01-22 13:00 | CASEMGMT ---
BILLY spoke with patient's daughter Asuncion and her significant other. They expressed concern with patient being home alone. Patient's home is a mess and similar to a hoarder's home. Patient brought a bucket of horse manure into the living room and let it sit there. Patient did not know why she did this. Patient is not able to cook for herself as they worry she won't turn the stove off. Asuncion said she cannot watch patient like patient needs watched. BILLY and Asuncion then sat down and spoke with patient. After a lengthy conversation patient is agreeable to try [facility]. SW let patient know that [facility] know that patient will be coming today. Transport was arranged for patient for 5p. Patient has one new medication. BILLY spoke with Asuncion and she already picked up the new medication. BILLY asked Asuncion to take patient's medications to [facility] as patient will need her second dose of Keppra this evening. Annetta and Apurva from [facility] came to assess patient, but patient was upset so they will talk with her tomorrow at [facility]. BILLY let Annetta know that set up transport for 5p. BILLY also gave Annteta d/c instructions and the forms [facility] sent to to have completed. Plan: d/c to [facility] [place]. Physicians will transport patient via wheelchair. Kelly HERRERA
--- NOTE | 2024-01-22 14:22 | PHA.DC.MR.R ---
Pharmacy MS Med Reconciliation Pharmacy Service has performed discharge medication reconciliation for this patient. The patient's discharge medication list was reviewed for discrepancies and discrepancies were resolved. Medications at Discharge Home Medications aspirin 81 mg chewable tablet 81 mg PO BREAKFAST 30 days #30 tabs 09/23/23 atorvastatin 40 mg tablet 40 mg PO QHS 30 days #30 tabs 09/23/23 clopidogrel 75 mg tablet (Plavix) 75 mg PO DAILY 21 days #21 tabs 09/23/23 sertraline 50 mg tablet 75 mg PO QHS 01/18/24 levetiracetam 500 mg tablet (Keppra) 500 mg PO BID 1 month #60 tabs 01/19/24
--- NOTE | 2024-01-22 14:53 | CASEMGMT ---
Discharge Planning Wheelchair transport scheduled with [facility] for 5p. SW updated. Lynda Damon, Discharge Planning Asst.
[2024-01-22 17:08] VITALS: BP 167/76; PULSE 55; RESP 16; TEMP 36.4; O2SAT 97
--- NOTE | 2024-01-22 17:45 | NURSING ---
Report called to [facility]
== END 2024-01-22 11:48 | disposition home or self-care (01) ==
LOC: ED 14:51 → PCU 15:00
PROVIDERS: Physician Assistant; Admitting Provider Internal Medicine; Emergency Provider Emergency Medicine; PCP Internal Medicine; Visit Provider Internal Medicine
DX: R56.9 Unspecified convulsions (principal); I69.351 Hemiplegia and hemiparesis following cerebral infarction affecting right dominant side; R47.81 Slurred speech; E78.5 Hyperlipidemia, unspecified; I10 Essential (primary) hypertension; R41.82 Altered mental status, unspecified; I69.322 Dysarthria following cerebral infarction; Z79.82 Long term (current) use of aspirin; Z79.02 Long term (current) use of antithrombotics/antiplatelets; Z79.899 Other long term (current) drug therapy; I69.320 Aphasia following cerebral infarction; G93.40 Encephalopathy, unspecified; I49.1 Atrial premature depolarization; R00.1 Bradycardia, unspecified
CPT/HCPCS: 36415; 51702; 70450; 70496; 70498; 70551; 71045; 80048; 80053; 80307; 80320; 81001; 83735; 84100; 84484; 85025; 85610; 85730; 93005; 94668; 95819; 96361; 96365; 96366; 96372; 97116; 97162; 97166; 99221; 99252; 99285; J7120; Q9967; A4216; G0378; G0463; G0480

== ENCOUNTER 2024-04-16 10:49 | Emergency (ER) | payer MEDICARE, OTHER, SELFPAY ==
[2024-04-16 10:50] VITALS: BP 141/89; PULSE 63; RESP 16; TEMP 36.9; O2SAT 96; BMI 23.3
--- NOTE | 2024-04-16 10:58 | EDS_ITS ---
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
--- NOTE | 2024-04-16 10:58 | EX.ED.DYSGE1 ---
HPI History of Present Illness Chief Complaint: Seizure [facility] Medical History (Updated 04/16/24 @ 12:[address] 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 Dyslipidemia Home Medications ?Medication ?Instructions ?Recorded ?Last Taken ?Type aspirin 81 mg chewable tablet 81 mg PO BREAKFAST 30 days #30 tabs 09/23/23 04/16/24 Rx atorvastatin 40 mg tablet 40 mg PO QHS 30 days #30 tabs 09/23/23 04/15/24 Rx clopidogrel 75 mg tablet (Plavix) 75 mg PO DAILY 21 days #21 tabs 09/23/23 04/16/24 Rx sertraline 50 mg tablet 75 mg PO QHS 01/18/24 04/15/24 History levetiracetam 500 mg tablet 500 mg PO BID 1 month #60 tabs 01/19/24 04/16/24 Rx (Keppra) acyclovir 5 % topical cream 1 applic topical DAILY 04/16/24 04/16/24 History (Zovirax) donepezil 10 mg tablet 10 mg PO DAILY 04/16/24 04/16/24 History hydroxyzine pamoate 25 mg capsule 25 mg PO Q6H PRN anxiety 04/16/24 Unknown History (Vistaril) loratadine 10 mg disintegrating 10 mg PO DAILY PRN allergy symptoms 04/16/24 Unknown History tablet (Alavert) Allergy/AdvReac Type Severity Reaction Status Date / Time cigarette smoke Allergy AIRWAY Verified 04/16/24 10:55 TIGHTNESS mepivacaine Allergy AMNESIA Verified 04/16/24 10:55 Penicillins Allergy Unknown Verified 04/16/24 10:55 procainamide Allergy Unknown Verified 04/16/24 10:55 Surgical History H/O bilateral hip replacements Social History Smoking Status: Never smoker EXAM Physical Exam Const Vital Signs: 04/16/24 10:50 04/16/24 11:38 04/16/24 13:34 Temperature 98.5 F Temperature Source Oral Pulse Rate 63 56 L 57 L Respiratory Rate 16 16 16 Blood Pressure 141/89 H 163/76 H 158/72 H Blood Pressure Mean 106 105 100 Pulse Ox 96 96 96 Oxygen Delivery Method Room Air Room Air 04/16/24 14:20 Temperature 97.8 F Temperature Source Pulse Rate 69 Respiratory Rate 18 Blood Pressure 134/66 H Blood Pressure Mean 88 Pulse Ox 99 Oxygen Delivery Method [facility] Narrative Medical decision making narrative: HISTORY OF PRESENT ILLNESS: 83 female presents with concern for seizure. Patient denies any symptomatology such as headache, chest pain, focal weakness. Notes has been taking all her medication. Spoke to ZOE Waters from [place]. Notes the patient endorsed feeling differently, notes she started shaking but was still conscious notes she was soft spoken. Notes got morning keppra. Concern about seizures and sent to the emergency department. REVIEW OF SYSTEMS: Pertinent positives: shaking Pertinent negatives: fever, [place], vomiting PHYSICAL EXAM: Nursing triage notes reviewed, Vital signs reviewed Constitutional: please see mdm HENT: MMM Eyes: Pupils equal round and reactive to light, Extraocular muscles intact Neck: No stridor, no JVD, full neck ROM Lungs: Clear to auscultation, No wheezing or rales. No increased work of breathing, no conversational dyspnea, no accessory muscle use, no nasal flaring. No respiratory distress noted Heart: Regular rate and rhythm, No murmurs, No rubs and No gallops, 2+ distal pulses (radial, femoral, posterior tibial) in all extremities Abdomen: Soft, there is no tenderness, rigidity, rebound or guarding, no obvious peritoneal signs, no palpable pulsatile abdominal masses, no auscultated abdominal bruit : No CVAT Extremities: No edema Neuro: No focal neurological deficits, cranial nerves II through XII intact, 5/5 strength in all extremities. Intact sensation to light touch in all extremities, 2+ reflexes bilateral patella tendons. Normal gait. No ataxia. Skin: No rash or lesions noted MEDICAL DECISION MAKING: Chief Complaint: concern for seizure. External records reviewed: Prior imaging reviewed: MRI reviewed from January 2024 shows old left temporal, frontal and parietal infarcts. No acute infarct. Factors affecting care: none Social determinants of health: none History obtained from others: Shahnaz QUISPE, Daughter Consults: none Goals of care discussion: DNR CC [facility] Narrative: Patient was initially hemodynamically stable, afebrile and nontoxic-appearing. Initial assessment without focal neurologic deficits. Patient was not postictal. She is DNR-CC. No comfort interventions necessary. Did give dose of Keppra. Attempted to contact power of document review attorney and daughter however did not receive an answer when called x 2. Will discharge in stable condition back to nursing facility. The patient and/or family, caregivers express understanding. The patient and/or family, caregivers agrees with the plan. Shared decision making: I will have a discussion with the patient and or visitors regarding risk/benefits of further testing or admission. They will be made aware of of the risk/benefits inherent in this decision they will be given the opportunity to voice understanding. Total critical care time today provided was at least 0 minutes. This excludes separately billable procedures. Critical care time (if documented) is secondary to the patient having high probability of clinically significant/life threatening deterioration in the patient's condition which required my urgent intervention. Impression: 1. History of seizure 2. Seizure-like activity Dispo: Discharge home This note was generated with [employer] dictation software. It may contain incorrect words, spelling, and punctuation that were not noted in review of the chart prior to signing. Discharge Plan Triage Chief Complaint: Seizure ED Provider: Michele Scott Dx/Rx/DC Orders Clinical Impression: Seizure disorder Instructions: ED Seizure, Recurrent (Adult) Prescriptions: No Action atorvastatin 40 mg Tablet 40 mg PO QHS 30 Days Qty: 30 0RF aspirin 81 mg Tablet,Chewable 81 mg PO BREAKFAST 30 Days Qty: 30 0RF clopidogrel [Plavix] 75 mg tablet 75 mg PO DAILY 21 Days Qty: 21 0RF sertraline 50 mg tablet 75 mg PO QHS Patient Comments: TAKE 1 AND 1/2 TABLETS BY MOUTH ONCE DAILY levetiracetam [Keppra] 500 mg tablet 500 mg PO BID 30 Days Qty: 60 3RF donepezil 10 mg tablet 10 mg PO DAILY loratadine [Alavert] 10 mg tablet,disintegrating 10 mg PO DAILY PRN (Reason: allergy symptoms) hydroxyzine pamoate [Vistaril] 25 mg capsule 25 mg PO Q6H PRN (Reason: anxiety) acyclovir [Zovirax] 5 % cream 1 applic topical DAILY Rx Instructions: TO BE APPLIED FOUR TIMES A DAY FOR COLD SORE X7 DAYS. END DATE 04/17/24. Primary Care Provider: Michel Graf Referrals: Ana Mcdonald MD [Med Staff - [employer]] - Activity Restrictions/Additional Instructions: Thank you for trusting us with your care today! Please take antiseizure medicines as prescribed. Please return to the emergency department if your symptoms change or worsen. Please follow with your primary care physician for further outpatient evaluation and management. Print Language: Venezuelan Disposition Disposition: Home, Self Care Discharge Date/Time: 04/16/24 14:41
[2024-04-16] MEDS: levETIRAcetam 500 MG Tablet PO (11:36)
[2024-04-16 11:38] VITALS: BP 163/76; PULSE 56; RESP 16; O2SAT 96
[2024-04-16 13:34] VITALS: BP 158/72; PULSE 57; RESP 16; O2SAT 96
[2024-04-16 14:20] VITALS: BP 134/66; PULSE 69; RESP 18; TEMP 36.6; O2SAT 99
== END 2024-04-16 14:41 | disposition home or self-care (01) ==
PROVIDERS: Emergency Provider Emergency Medicine; PCP Family Medicine; Visit Provider Emergency Medicine
DX: G40.909 Epilepsy, unspecified, not intractable, without status epilepticus (principal); F03.90 Unspecified dementia, unspecified severity, without behavioral disturbance, psychotic disturbance, mood disturbance, and anxiety; Z51.5 Encounter for palliative care; I10 Essential (primary) hypertension; E78.5 Hyperlipidemia, unspecified; Z79.899 Other long term (current) drug therapy
CPT/HCPCS: 99282